=== PATIENT | female | born 1965 | race Caucasian/White ===

== ENCOUNTER → 2020-05-18 09:50 | Outpatient (BNVA) | payer OTHER, SELFPAY | PROVIDERS: PCP Internal Medicine; Visit Provider Physician Assistant | DX: Z76.89 Persons encountering health services in other specified circumstances (principal) ==

== ENCOUNTER → 2020-05-29 07:44 | Outpatient (BNVA) | payer OTHER, SELFPAY | PROVIDERS: PCP Internal Medicine; Visit Provider Surgery | DX: Z76.89 Persons encountering health services in other specified circumstances (principal) ==

== ENCOUNTER 2020-06-24 07:11 | Outpatient (REF) | payer OTHER, SELFPAY ==
--- NOTE | 2020-06-24 07:39 | US_ITS ---
EXAMINATION: US COMPLETE ABDOMEN WITH LIVER ELASTOGRAPHY CLINICAL INFORMATION: Obesity. Preop. COMPARISON: None. TECHNIQUE: Real-time imaging of the abdominal viscera. Noninvasive ultrasound liver fibrosis assessment is performed using Luis Carlos ElastPQ point quantification shear wave elastography (pSWE) with a 5 MHz transducer. Multiple elastography samples are obtained. FINDINGS: PANCREAS: The pancreas is completely obscured by overlying gas. ABDOMINAL AORTA: The proximal, middle, and distal aortic segments are normal in caliber. INFERIOR VENA CAVA: Visualized portions are normal. LIVER: The liver demonstrates normal size, contour and increased echogenicity. There are areas of focal fatty sparing seen. No additional lesion or intrahepatic biliary duct dilatation. The right lobe measures 21.8 cm in length. The left lobe measures 13.8 cm in length. There is normal hepatopedal flow seen in the portal vein on Doppler exam. Shear wave elastography provides a median stiffness of 1.17 m/s (reference: normal median stiffness is 0.81 - 1.22 m/s). The IQR/median stiffness to assess sampling precision is 1.16 (reference: optimal IQR/median stiffness is under 0.3). GALLBLADDER: The gallbladder is physiologically distended without evidence of stones, sludge, polyps, wall thickening, or pericholecystic fluid. The gallbladder wall thickness is 0.26 cm. COMMON BILE DUCT: Normal in caliber measuring 0.62 cm in diameter. RIGHT KIDNEY: Normal. No hydronephrosis. No renal calculi or focal parenchymal lesions. The kidney measures 13.7 cm in maximum dimension. LEFT KIDNEY: Normal. No hydronephrosis. No renal calculi or focal parenchymal lesions. The kidney measures 11.7 cm in maximum dimension. SPLEEN: Normal. The spleen measures 10.3 cm in maximum dimension. FREE FLUID: None. US/US abdomen comp w elastography IMPRESSION: 1. Diffuse hepatic steatosis with areas of focal fatty sparing. 2. The rest of the abdominal ultrasound is unremarkable. The pancreas was not seen. 3. Elastography: Liver elastography measurements are within normal (METAVIR Stage F0).
--- NOTE | 2020-06-24 07:41 | XR_ITS ---
EXAMINATION: XR CHEST CLINICAL INFORMATION: Excessive calories. Preop COMPARISON: None TECHNIQUE: 2 views of the chest were obtained. FINDINGS: No significant abnormality is noted involving the heart, lungs, mediastinum, bony thorax or soft tissues. XR/XR chest 2V IMPRESSION: Unremarkable chest examination.
--- NOTE | 2020-06-24 07:41 | FL_ITS ---
EXAMINATION: XR GI SERIES CLINICAL INFORMATION: Gastroesophageal reflux disease without esophagitis COMPARISON: None TECHNIQUE: Routine upper GI air-contrast study was performed. FINDINGS: Following oral administration of thick barium and effervescent granules, there is normal propagation bolus from the oral cavity through the pharynx, esophagus into stomach without any evidence of obstruction, narrowing, or stricture. On placing patient supine and prone lying, the course, caliber and peristalsis of the stomach, duodenal bulb and the sweep is normal. The mucosal pattern of esophagus and the duodenum is normal. There is mild gastroesophageal reflux without hiatal hernia in the right lateral decubitus view FLUOROSCOPY TIME: 1.6 minutes DOSE AREA PRODUCT: 43.082 uGy-m2 (microgray-meter squared) FL/FL upper GI series IMPRESSION: 1. Mild gastroesophageal reflux without hiatal hernia. 2. The rest of the upper GI exam is unremarkable.
[2020-06-24 07:44] LABS: MANUAL DIFF FLAG NO
[2020-06-24 07:56] LABS: Basophils Percent Auto 0.7 % (0-2); Eosinophils Absolute Auto 0.1 X10*3/uL (0.0-0.4); Eosinophils Percent Auto 2.3 % (0-4); Hematocrit 40.1 % (37-47); Hemoglobin 12.6 g/dl (12.0-16.0); Imm Gran Abs Auto 0.01 X10*3/uL (0.00-0.03); Imm Gran Pct Auto 0.2 % (0.0-0.4); Lymphocytes Absolute Auto 1.8 X10*3/uL (1.2-4.9); Lymphocytes Percent Auto 29.8 % (20-40); Mean Corpuscular HGB Conc 31.4 g/dl (31.0-35.0); Mean Corpuscular Hemoglobin 25.9 pg (27.0-33.0); Mean Corpuscular Volume 82.5 fL (80-98); Mean Platelet Volume 9.7 fL (9.4-12.3); Monocytes Absolute Auto 0.7 X10*3/uL (0.1-1.2); Neutrophils Absolute Auto 3.4 X10*3/uL (2.0-8.3); Platelet Count 312 X10*3/uL (160-400); Red Blood Count 4.86 X10*6/uL (4.20-5.50); Red Cell Distribution Width 14.9 % (11.0-16.0)
[2020-06-24 08:12] LABS: Estimated Average Glucose 163 mg/dL; Hemoglobin A1c % 7.3 %
[2020-06-24 08:16] LABS: Iron 53 mcg/dL (30-160); Percent Iron Saturation 14 % (15-50); Total Iron Binding Capacity 366 mcg/dL (228-428); Unsaturated Iron Binding 313 ug/dL
[2020-06-24 08:18] LABS: Alanine Aminotransferase 30 U/L (0-31); Albumin Level 4.6 g/dL (3.5-5.0); Alkaline Phosphatase 86 U/L (39-117); Anion Gap 15 (12-20); Aspartate Amino Transferase 18 U/L (5-31); Bilirubin Total 0.5 mg/dL (0.0-1.0); Blood Urea Nitrogen 18 mg/dL (9-16); C Reactive Protein 1.12 mg/dL (< or = 0.50); Calcium 9.4 mg/dL (8.4-10.2); Carbon Dioxide 29 mmol/L (22-29); Chloride 102 mmol/L (96-108); Cholesterol 153 mg/dL; Estimated Glomerular Filt Rate > 60; Glucose Random 148 mg/dL (60-115); HDL Cholesterol 55 mg/dL; LDL Cholesterol Calculated 77 mg/dl; Potassium 3.9 mmol/l (3.3-5.1); Sodium 142 mmol/L (135-145); Total Protein 7.6 g/dL (6.5-8.0); Triglycerides 105 mg/dL
[2020-06-24 08:40] LABS: Ferritin 18 ng/mL (10-250); TSH reflex Free T4 1.03 mIU/mL (0.32-4.0); Vitamin D 25-OH Total 17.5 ng/mL (>30)
[2020-06-24 08:44] LABS: Folate 12.9 ng/mL (> or = 4.0); Vitamin B12 607 pg/mL (200-900)
[2020-06-25 06:17] LABS: Insulin Level Total 52.5 uIU/mL
[2020-06-25 17:21] LABS: Calcium (PTHI) 9.5 mg/dL (8.6-10.4); PTHI 81 pg/mL (14-64)
[2020-06-26 20:27] LABS: Zinc 88 mcg/dL (60-130)
[2020-06-28 11:47] LABS: Vitamin B1 13 nmol/L (8-30)
[2020-06-30 13:12] LABS: Vitamin A 39 mcg/dL (38-98)
== END 2020-06-24 07:12 | disposition home or self-care (01) ==
LOC: HO.US 07:11
PROVIDERS: PCP Internal Medicine; Visit Provider Surgery
DX: Z01.818 Encounter for other preprocedural examination (principal); K21.9 Gastro-esophageal reflux disease without esophagitis; E66.01 Morbid (severe) obesity due to excess calories; K31.84 Gastroparesis; G47.30 Sleep apnea, unspecified; E78.5 Hyperlipidemia, unspecified; I10 Essential (primary) hypertension
CPT/HCPCS: 36415; 71046; 74240; 76705; 76981; 80053; 80061; 82306; 82607; 82728; 82746; 83036; 83525; 83540; 83970; 84425; 84443; 84590; 84630; 85025; 86140

== ENCOUNTER → 2020-06-26 12:21 | Outpatient (REF) | payer OTHER, SELFPAY ==
--- NOTE | 2020-06-26 14:07 | ECG_ITS ---
Test Reason : GERD Blood Pressure : / mmHG Vent. Rate : 068 BPM Atrial Rate : 068 BPM P-R Int : 166 ms QRS Dur : 102 ms QT Int : 430 ms P-R-T Axes : 056 002 039 degrees QTc Int : 457 ms Normal sinus rhythm Normal ECG When compared with ECG of 23-JAN-2006 12:43, No significant change was found Referred By: Gary Mendez Electronically Signed By:SILAS DURBIN MD
[2020-06-27 14:52] LABS: H Pylori Breath Test NOT DETECTED (NOT DETECTED)
== END ==
LOC: HO.CARD 12:21
PROVIDERS: PCP Internal Medicine; Visit Provider Surgery
DX: R11.0 Nausea (principal); E66.01 Morbid (severe) obesity due to excess calories; K21.9 Gastro-esophageal reflux disease without esophagitis; E78.5 Hyperlipidemia, unspecified; I10 Essential (primary) hypertension; K31.84 Gastroparesis; G47.30 Sleep apnea, unspecified; A04.8 Other specified bacterial intestinal infections; Z99.89 Dependence on other enabling machines and devices
CPT/HCPCS: 83013; 93005

== ENCOUNTER → 2020-06-29 08:06 | Outpatient (REF) | payer OTHER, SELFPAY ==
--- NOTE | 2020-06-29 | NM_ITS ---
Myocardial perfusion study Indication: Preoperative cardiovascular risk stratification with risk factors to evaluate for myocardial ischemia Technique: The patient was brought in for a Lexiscan perfusion study on 06/29/2020. Patient performed low-level exercise and was injected 0.4 mg of Lexiscan intravenously. Within a minute of injection, 40 mCi of sestamibi was given intravenously. Images were obtained using the SPECT gamma camera interlaced with the gating device. Images were obtained in supine position. Resting perfusion study was performed on 06/30/2020. Patient was administered 40 mCi of sestamibi intravenously at rest. Images were then obtained in supine position. Images obtained with and without CT attenuation. Total DLP 146 mGy-cm. Images were processed with the software and compared side to side in short axis, horizontal long axis and vertical long axis views. Findings: The stress perfusion study showed non attenuated and show minimally reduced uptake in a very small area of distal lateral wall of the LV myocardium, remainder of the LV myocardium is normally perfused. Attenuation corrected images show mildly reduced uptake in the apex of the LV myocardium.. The gated study shows normal LV systolic function with calculated LVEF of 69%. LV cavity is normal in size. The gated study shows normal systolic wall thickening and contraction of segments. Resting study shows non attenuated images shows minimally reduced uptake in a very small area of distal lateral wall of the LV myocardium.. Gating at rest reveals normal systolic wall motion with ejection fraction at 60%. The findings are consistent with normal myocardial perfusion. NM/NM louie perf SPECT rest & str Impression: 1. Myocardial perfusion imaging study shows normal myocardial perfusion 2. Gated LVEF is 69% 3. Transient ischemic dilatation not present EKG is nondiagnostic for ischemia
--- NOTE | 2020-06-29 08:11 | CA_ITS ---
Transthoracic Echocardiogram Patient (Last, First, Middle): Amanda Harrington, Gender: Female Date of : 1965 Age: 55 Procedure Date: 06/29/2020 Procedure Type: Transthoracic Echocardiogram Location: OP Height: 170.18 cm Weight: 118.84 kg BSA: 2.27 m2 Heart Rate: bpm BP: 146 / 70 mmHg Able Seaman: DAVEY Referring MD: Gary Mendez MD Symptoms: K21.9 - Gastro-esophageal reflux disease without esophagitis Study Quality: Technically Difficult ECG Rhythm: Sinus Conclusions: - The left ventricular systolic function is normal. The visually estimated ejection fraction is between 65-70%. - No obvious valvular pathology seen on this study. Findings Procedure Information Contrast agent, definity, is being given per protocol without apparent complications. Left Ventricle Normal left ventricular cavity size. There is mildly increased left ventricular wall thickness. The left ventricular systolic function is normal. The visually estimated ejection fraction is between 65-70%. There is no evidence of regional wall motion abnormalities. Diastolic function is normal for age. Right Ventricle Normal right ventricular cavity size and systolic function. Atria The left atrium is normal in size. The right atrium is normal in size. Aortic Valve There is a normal trileaflet aortic valve. There is no aortic valve stenosis. There is no aortic valve regurgitation. Mitral Valve The mitral valve appears normal. There is no mitral valve regurgitation. There is no mitral valve stenosis. Pulmonic Valve The pulmonic valve was not well visualized. Tricuspid Valve Normal tricuspid valve structure. There is trace tricuspid valve regurgitation. The pulmonary artery systolic pressure is normal. Great Vessels The aortic annulus, sinuses of valsalva, and asc aorta are normal in size. Venous The inferior vena cava was not well visualized. Pericardium/Pleural There is no evidence of pericardial effusion. Prior Study Comparison No prior study available for comparison. Recommendations, Care & Conclusions No obvious valvular pathology seen on this study. Measurements M-Mode Liner Measurements Normals - Women/Men IVSd: 1.42 0.6-0.9/0.6-1.0 cm LVIDd: 4.44 3.9-5.3/4.2-5.9 cm LVIDd Index: 1.96 1.9-3.2 cm/m2 LVIDs: 2.61 2.0-3.8 cm LVPWd: 1.56 0.6-0.9/0.6-1.0 cm LV Mass: 333.83 67-162/88-224g LV Mass Index: 147.06 43-95/49-115 g/m2 M-Mode Volumes LV EDV: 89.60 LV ESV: 24.80 2D Linear Measurements IVSd: 1.45 0.6-0.9/0.6-1.0 cm LVIDd: 4.22 3.9-5.3/4.2-5.9 cm LVIDd Index: 1.86 2.4-3.2/2.2-3.1 cm/m2 LVIDs: 2.93 2.0-3.6 cm LVPWd: 1.21 0.7-1.1 cm Ao Root: 3.00 2.1-3.5 cm LA Diam: 3.60 2.7-3.8/3.0-4.0 cm LAIDs Index: 1.59 1.5-2.3 cm/m2 LV Mass: 260.53 67-162/88-224 g LV Mass Index: 114.77 43-95/49-115 g/m2 LVOT Diam: 2.00 3.0+(-)1.3 cm 2D Systolic Function EF 4C: 84.60 >55% EF 2C: 58.40 >55% EF BiP: 74.70 >55% M-Mode Systolic Function FS: 41.20 27-47/25-43% LVEF: 72.30 >55% Mitral Valve MV Pk E: 0.73 MV PK A: 0.70 MV Decel Time: 174.00 E/A: 1.00 E'Lateral: 9.38 E'Medial: 8.41 E/E' Med: 8.70 E/E' Lat: 7.80 PHT: 51.00 MVA PHT: 4.31 Decel [place]: 4.17 Aortic Valve AoV Pk Raj: 1.47 AoV Pk Grad: 9.00 LVOT LVOT Pk Raj: 1.03 LVOT Mn Raj: 0.69 LVOT VTI: 0.23 LVOT Pk Grad: 4.00 LVOT Mn Grad: 2.00 LVOT Diam: 2.00 LVOT Area: 3.14 Diastolic Function MV Pk E: 0.73 MV Pk A: 0.70 E/A: 1.00 E'Medial: 8.41 E/E' Med: 8.70 E' Laterial: 9.38 E/E' Lat: 7.80 Tricuspid Valve TR Pk Raj: 2.24 TR Pk Grad: 20.00 RA Press: 3.00 RVSP: 23.00 Great Vessels Aorta Ao Root-2D: 3.00 2.0-3.7 cm Ao Asc: 3.10 2.1-3.4 cm Updated in Other Vendor System with Status of Final Oliver Souza MD electronically signed on 06/29/2020 11:34:25 AM with status of Final
--- NOTE | 2020-06-29 08:11 | CA_ITS ---
Acquisition Time: 2020-06-29 10:26:01 Total Exercise Time: 00:02:00 Test Indications: Pre-Op Evaluation Medications: OMEPRAZOLE VERAPAMIL INSULIN CITALOPRAM ROSUVASTATIN Protocol: LEXISCAN Max HR: 106 BPM 64% of Pred: 164 BPM Max BP: 132/082 mmHG Max Work Load: 1.0 METS Pharmacological stress test using Lexiscan while sitting and kicking her feet. Pt tolerated well. Denies any anginal sx. Sx o h/a and nausea reversed with Aminophyline 75 mg IV. EKG without any arrhythmias, non-diagnostic for ischemia. Nuclear images to follow. Normotensive respopnse to test. Test reviewed with Dr. Souza. Referred By: Gary Mendez Overread By: Carol Morales
== END ==
LOC: HO.CARD 08:06
PROVIDERS: PCP Internal Medicine; Visit Provider Surgery
DX: Z01.818 Encounter for other preprocedural examination (principal); R06.02 Shortness of breath; I10 Essential (primary) hypertension; K21.9 Gastro-esophageal reflux disease without esophagitis; K31.84 Gastroparesis; G47.30 Sleep apnea, unspecified; E78.5 Hyperlipidemia, unspecified; E66.01 Morbid (severe) obesity due to excess calories; R55 Syncope and collapse
CPT/HCPCS: 78452; 93017; 93306; A9500; J0280; J2785; Q9957

== ENCOUNTER → 2020-07-03 08:21 | Outpatient (BNVA) | payer OTHER, SELFPAY | PROVIDERS: PCP Internal Medicine; Visit Provider Dietitian, Registered ==

== ENCOUNTER → 2020-07-22 08:18 | Outpatient (BNVA) | payer OTHER, SELFPAY | PROVIDERS: PCP Internal Medicine; Visit Provider Surgery ==

== ENCOUNTER → 2020-07-24 08:12 | Outpatient (BNVA) | payer OTHER, SELFPAY | PROVIDERS: PCP Internal Medicine; Visit Provider Dietitian, Registered ==

== ENCOUNTER → 2020-07-30 08:17 | Outpatient (BNVA) | payer OTHER, SELFPAY | PROVIDERS: PCP Internal Medicine; Visit Provider Dietitian, Registered ==

== ENCOUNTER → 2020-08-14 08:57 | Outpatient (BNVA) | payer OTHER, SELFPAY | PROVIDERS: PCP Internal Medicine; Visit Provider Surgery ==

== ENCOUNTER → 2020-08-31 08:43 | Outpatient (BNVA) | payer OTHER, SELFPAY | PROVIDERS: PCP Internal Medicine; Visit Provider Physician Assistant ==

== ENCOUNTER → 2020-09-04 07:06 | Outpatient (BNVA) | payer OTHER, SELFPAY | PROVIDERS: PCP Internal Medicine; Visit Provider Surgery ==

== ENCOUNTER 2020-09-05 07:54 | Outpatient (REF) | payer OTHER, SELFPAY ==
[2020-09-05 08:38] LABS: MANUAL DIFF FLAG NO
[2020-09-05 08:43] LABS: Basophils Percent Auto 0.8 % (0-2); Eosinophils Absolute Auto 0.2 X10*3/uL (0.0-0.4); Eosinophils Percent Auto 3.2 % (0-4); Hematocrit 42.1 % (37-47); Hemoglobin 13.3 g/dl (12.0-16.0); Imm Gran Abs Auto 0.01 X10*3/uL (0.00-0.03); Imm Gran Pct Auto 0.2 % (0.0-0.4); Lymphocytes Absolute Auto 1.6 X10*3/uL (1.2-4.9); Mean Corpuscular HGB Conc 31.6 g/dl (31.0-35.0); Mean Corpuscular Volume 82.4 fL (80-98); Mean Platelet Volume 10.1 fL (9.4-12.3); Monocytes Absolute Auto 0.6 X10*3/uL (0.1-1.2); Monocytes Percent Auto 12.1 % (2-11); Neutrophils Absolute Auto 2.4 X10*3/uL (2.0-8.3); Neutrophils Percent Auto 50.7 % (45-73); Platelet Count 276 X10*3/uL (160-400); Red Blood Count 5.11 X10*6/uL (4.20-5.50); Red Cell Distribution Width 15.2 % (11.0-16.0); White Blood Count 4.7 X10*3/uL (4.8-10.8)
[2020-09-05 08:53] LABS: Estimated Average Glucose 148 mg/dL; Hemoglobin A1c % 6.8 %
[2020-09-05 08:55] LABS: INTERNATIONAL NORM RATIO 1.1 (0.9-1.1); Prothrombin Time 13.2 SEC (10.8-13.0)
[2020-09-05 08:58] LABS: Partial Thromboplastin Time 35.8 SEC (24.1-38.0)
[2020-09-05 09:19] LABS: Alanine Aminotransferase 55 U/L (0-31); Albumin Level 4.6 g/dL (3.5-5.0); Alkaline Phosphatase 99 U/L (39-117); Anion Gap 16 (12-20); Aspartate Amino Transferase 31 U/L (5-31); Bilirubin Total 0.6 mg/dL (0.0-1.0); Blood Urea Nitrogen 17 mg/dL (9-16); C Reactive Protein 1.01 mg/dL (< or = 0.50); Calcium 9.9 mg/dL (8.4-10.2); Carbon Dioxide 28 mmol/L (22-29); Chloride 103 mmol/L (96-108); Cholesterol 164 mg/dL; Estimated Glomerular Filt Rate > 60; Glucose Random 134 mg/dL (60-115); HDL Cholesterol 55 mg/dL; LDL Cholesterol Calculated 88 mg/dl; Potassium 4.3 mmol/L (3.3-5.1); Sodium 143 mmol/L (135-145); Total Protein 7.9 g/dL (6.5-8.0); Triglycerides 105 mg/dL
[2020-09-05 09:40] LABS: TSH reflex Free T4 0.89 uIU/mL (0.32-4.0)
[2020-09-07 21:16] LABS: Insulin Level Total 54.5 uIU/mL
== END 2020-09-05 07:55 | disposition home or self-care (01) ==
LOC: HO.LAB 07:54
PROVIDERS: PCP Internal Medicine; Visit Provider Surgery
DX: Z13.89 Encounter for screening for other disorder (principal)
CPT/HCPCS: 36415; 80053; 80061; 83036; 83525; 84443; 85025; 85610; 85730; 86140; 86850; 86900

== ENCOUNTER 2020-09-08 05:50 | Inpatient (IN) | payer OTHER, SELFPAY ==
[2020-09-04 10:25] VITALS: BMI 38.0
--- NOTE | 2020-09-07 08:40 | HO.ANESPROP2 ---
Documented by User: Zita Abena 09/07/20 08:44 HPI - Anesthesia Eval Consult details Narrative: 55yo F for Gastric Bypass Laparoscopic Insulin pump in situ PMFSH Active Problems Active Problems: All Active Problems (Updated 09/04/20 @ 10:30 by Sarah Jovel) Nausea (Acute) Constipation (Acute) Obesity (Acute) BMI 39.0-39.9,adult (Acute) Syncope (Acute) GERD (gastroesophageal reflux disease) (Acute) Depression (Acute) Fibromyalgia (Acute) Restless leg syndrome (Acute) Gastroparesis (Acute) Sleep apnea with use of continuous positive airway pressure (CPAP) (Acute) Hyperlipidemia (Acute) Hypertension (Acute) Insulin dependent diabetes mellitus (Acute) Morbid obesity (Acute) Past Medical History Medical History (Updated 09/04/20 @ 10:30 by Sarah Jovel) Depression Fibromyalgia Gastroparesis GERD (gastroesophageal reflux disease) Hx gestational diabetes Hx of nausea Hyperlipidemia Hypertension Insulin dependent diabetes mellitus Morbid obesity Restless leg syndrome Sleep apnea with use of continuous positive airway pressure (CPAP) Syncope Family History Family History Mother Hypertension Hyperlipidemia Osteoporosis Father No problems noted. Brother No problems noted. Brother Hypertension Brother Hypertension Brother No problems noted. Sister No problems noted. Son No problems noted. Surgical History Surgical History (Updated 09/04/20 @ 10:30 by Sarah Jovel) H/O colonoscopy History of esophagogastroduodenoscopy (EGD) Hx of cerebral aneurysm repair Hx of section Hx of foot surgery Hx of myomectomy Social History Social History (Updated 09/04/20 @ 10:33 by Sarah Jovel) Are you a primary director of healthcare systems to a significant other at home: No Do you presently have visiting nurse or other home services: No Alcohol intake: never Smoking Status: Former smoker Smoked in Last 30 Days: No Smoking Quit Date: age 25 Use of substances other than those prescribed or required for medical reasons: No Have you been hit, kicked, punched, or otherwise hurt by someone within the past year? If so, by whom?: No Advance Directives Information Provided: No Recently lost weight without trying: No Meds Allergies Allergy/AdvReac Type Severity Reaction Status Date / Time metformin [METFORMIN] Allergy Intermediate VOMITING Verified 09/04/20 11:50 lisinopril [LISINOPRIL] AdvReac Intermediate COUGH Verified 09/04/20 11:50 Home Medications Medication Instructions Recorded Confirmed Last Taken Type blood sugar diagnostic #10 ea 05/28/20 09/04/20 Unknown History citalopram 40 mg tablet 40 mg PO BEDTIME 05/28/20 09/04/20 Unknown History glucagon (human recombinant) 1 mg 1 mg IM DIRECTED 05/28/20 09/04/20 Unknown History solution for injection insulin lispro 100 unit/mL SUBCUT DAILY 05/28/20 09/04/20 09/04/20 10:38 History subcutaneous solution omeprazole 40 mg capsule,delayed 40 mg PO DAILY 05/28/20 09/04/20 Unknown History release rosuvastatin 40 mg tablet 40 mg PO BEDTIME 05/28/20 09/04/20 Unknown History Exam Exam Date and Time: September 07, 2020 0840 Height,Weight and Vital Signs: Height 5 ft 7 in Weight 110.223 kg Pertinent Lab Results Pertinent Lab Results: Laboratory Tests 09/05/20 09/05/20 09/05/20 08:10 08:10 08:10 WBC 4.7 L Hgb 13.3 Hct 42.1 Plt Count 276 PT 13.2 H INR 1.1 APTT 35.8 Sodium 143 Potassium 4.3 Chloride 103 Carbon Dioxide 28 BUN 17 H Creatinine 0.79 Estimated GFR > 60 Total Bilirubin 0.6 AST 31 D ALT 55 H Alkaline Phosphatase 99 C-Reactive Protein 1.01 H Total Protein 7.9 Albumin 4.6 TSH 0.89 Narrative Narrative: NM louie perf SPECT rest & str 06/2020 Impression: 1. Myocardial perfusion imaging study shows normal myocardial perfusion 2. Gated LVEF is 69% 3. Transient ischemic dilatation not present EKG is nondiagnostic for ischemia ECHO 06/2020 Conclusions: - The left ventricular systolic function is normal. The visually estimated ejection fraction is between 65-70%. - No obvious valvular pathology seen on this study. EKG 06/2020 Vent. Rate : 068 BPM Atrial Rate : 068 BPM P-R Int : 166 ms QRS Dur : 102 ms QT Int : 430 ms P-R-T Axes : 056 002 039 degrees QTc Int : 457 ms Normal sinus rhythm Normal ECG When compared with ECG of 23-JAN-2006 12:43, No significant change was found Assessment and Plan Assessment Anesthesia Assessment: Chart Reviewed Documented by User: Geni De León 09/08/20 07:49 PMFSH Past Medical History Medical History (Updated 09/04/20 @ 10:30 by Sarah Jovel) Depression Fibromyalgia Gastroparesis GERD (gastroesophageal reflux disease) Hx gestational diabetes Hx of nausea Hyperlipidemia Hypertension Insulin dependent diabetes mellitus Morbid obesity Restless leg syndrome Sleep apnea with use of continuous positive airway pressure (CPAP) Syncope Family History Family History Mother Hypertension Hyperlipidemia Osteoporosis Father No problems noted. Brother No problems noted. Brother Hypertension Brother Hypertension Brother No problems noted. Sister No problems noted. Son No problems noted. Family history of problems with anesthesia: No Surgical History Surgical History (Updated 09/04/20 @ 10:30 by Sarah Jovel) H/O colonoscopy History of esophagogastroduodenoscopy (EGD) Hx of cerebral aneurysm repair Hx of section Hx of foot surgery Hx of myomectomy History of Problems with Anesthesia: No Social History Social History (Updated 09/04/20 @ 10:33 by Sarah Jovel) Are you a primary director of healthcare systems to a significant other at home: No Do you presently have visiting nurse or other home services: No Alcohol intake: never Smoking Status: Former smoker Smoked in Last 30 Days: No Smoking Quit Date: age 25 Use of substances other than those prescribed or required for medical reasons: No Have you been hit, kicked, punched, or otherwise hurt by someone within the past year? If so, by whom?: No Advance Directives Information Provided: No Recently lost weight without trying: No Meds Allergies Allergy/AdvReac Type Severity Reaction Status Date / Time metformin [METFORMIN] Allergy Intermediate VOMITING Verified 09/04/20 11:50 lisinopril [LISINOPRIL] AdvReac Intermediate COUGH Verified 09/04/20 11:50 Home Medications Medication Instructions Recorded Confirmed Last Taken Type blood sugar diagnostic #10 ea 05/28/20 09/04/20 Unknown History citalopram 40 mg tablet 40 mg PO BEDTIME 05/28/20 09/04/20 Unknown History glucagon (human recombinant) 1 mg 1 mg IM DIRECTED 05/28/20 09/04/20 Unknown History solution for injection insulin lispro 100 unit/mL SUBCUT DAILY 05/28/20 09/04/20 09/04/20 10:38 History subcutaneous solution omeprazole 40 mg capsule,delayed 40 mg PO DAILY 05/28/20 09/04/20 Unknown History release rosuvastatin 40 mg tablet 40 mg PO BEDTIME 05/28/20 09/04/20 Unknown History Exam Height,Weight and Vital Signs: Vital Signs Temp Pulse Resp BP Pulse Ox 09/08/20 06:19 98 F 78 18 142/78 H 98 Pertinent Lab Results Pertinent Lab Results: Lab Results 09/05/20 09/08/20 09/08/20 Range/Units 08:10 06:05 06:28 POC Glucose 187 H (60-115) mg/dL COVID-19 ([facility]) Negative (Negative) COVID-19 Clin Com See Note Blood Type A Positive Antibody Screen NEGATIVE Airway Mallampati Class: III TM Dist: >3cm Neck ROM: Full Heart: RRR Lungs: CTAB Assessment and Plan Assessment Anesthesia Assessment: Anesthesia Plan Discussed and Chart Reviewed Final Anesthetic Review NPO: Yes ASA Class: III Final Preanesthetic Review: No Changes in Pt Med Stat, Meds/Allgs Chart Reviewed, Consent Obtained/Reviewed and Anes Risks/Benef Reviewed Patient Risk: Intermediate Procedure Risk: Intermediate Assessment/Block/Sedation in SS: Assess/Block/Sedation-SS Anesthetic Plan Anesthetic Plan: GA Disposition: Inp. Admit - Standard Bed
--- NOTE | 2020-09-07 19:11 | MHC.SHP ---
Pre-Procedural Eval Section A The patient is an INPATIENT: Yes Changes since office visit: Yes Cold of Flu in the past 2 weeks The History & Physical has been completed within 30 days and I have reviewed it.: Yes Section B Chief Complaint: mobid obesity Details of Present Illness: obesity Relevant Family History (Specify if Yes): No Relevant Social History: None Present Medications: see Short Stay Collaborative assessment Medical History: No relevant PMH History of Previous Operations: No relevant previous surgery Allergies: Allergies Allergy/AdvReac Type Severity Reaction Status Date / Time metformin [METFORMIN] Allergy Intermediate VOMITING Verified 09/04/20 11:50 lisinopril [LISINOPRIL] AdvReac Intermediate COUGH Verified 09/04/20 11:50 Review of Systems Sugical H&P ROS: Negative: Constitution, Cardiovascular, Respiratory, Neurological, Psychiatric, Hem-Onc, Allergic/Immunologic, Gastrointestinal, Genitourinary, Musculoskeletal, Integumentary, Endocrine and Eyes/Ears/Nose/Throat Exam Surgical H&P Exam: Normal: HEENT, Normal: Heart, Normal: Lungs, Normal: Extremities, Normal: Abdomen, Normal: Skin and Normal: Neurological Plan Diagnosis/Plan: Unchanged I have reviewed the history and physical and performed a pertinent physical examination on my patient. No changes have occurred unless specified.
[2020-09-08] VITALS (21 sets, daily range): BP systolic 118–184; BP diastolic 71–88; PULSE 78–98; RESP 14–24; TEMP 36–37.1; O2SAT 90–99
--- NOTE | ~2020-09-08 | FL_ITS ---
EXAMINATION: UPPER GI GASTROGRAFIN STUDY. CLINICAL INFORMATION: Status post closed on day 1 following gastric bypass. COMPARISON: None TECHNIQUE: In upright position 50/50 diluted Gastrografin was administered orally and images obtained. Delayed images were obtained approximately 10 minutes later. FINDINGS: Following oral administration of 50/50 Gastrografin dilution contrast an upright view there is normal antegrade flow seen from the oral cavity through the esophagus into stomach. There is spontaneous emptying of contrast from the small stomach into the duodenum without obstruction or reflux. Delayed images obtained approximately 10 minutes following the Gastrografin study reveals contrast within the distal jejunal segments FL/FL upper GI w gastrografin IMPRESSION: Widely patent GE junction and gastrojejunal anastomosis following gastric bypass. There is no obstruction seen. Contrast is visualized in mid to distal jejunum on delayed images. Fluoroscopy time: 0.5 minutes. DOSE AREA PRODUCT: 20.38 GYCM2 IMAGES: 13.
[2020-09-08 06:31] LABS: Glucose, Whole Blood 187 mg/dL (60-115)
[2020-09-08 06:39] LABS: COVID-19 Test Negative (Negative)
[2020-09-08 06:40] LABS: IDNOW Serial# 9DD0AD1C
[2020-09-08] MEDS: Lactated Ringers 1,000 ML 999 ML IV (06:44)
[2020-09-08] MEDS: Lactated Ringers 1,000 ML 100 ML IVCONT (06:44)
[2020-09-08] MEDS: Scopolamine 1.5 MG PATCH.TD.3 TRANSDERMA (06:44)
--- NOTE | 2020-09-08 06:45 | PC.NURSE ---
vanessa crockett prep ilquid patricio to brown denies pain nad vanessa crockett has cpap with her aware of plan of care sr on the monitor nad
--- NOTE | 2020-09-08 07:48 | PC.NURSE ---
insulin pump and poc monitor off per ordereed in plastic container in belongings
--- NOTE | 2020-09-08 12:46 | PM.DS ---
DS: Providers Provider Date of Service: 09/09/20 Date of admission: 09/08/20 05:50 Primary care physician: Shashi Farrell MD DS: Medications Discharge Medications Home Medications: Home Medications Medication Instructions Recorded Confirmed blood sugar diagnostic #10 ea 05/28/20 09/04/20 citalopram 40 mg tablet 40 mg PO BEDTIME 05/28/20 09/04/20 glucagon (human recombinant) 1 mg 1 mg IM DIRECTED 05/28/20 09/04/20 solution for injection insulin lispro 100 unit/mL SUBCUT DAILY 05/28/20 09/04/20 subcutaneous solution omeprazole 40 mg capsule,delayed 40 mg PO DAILY 05/28/20 09/04/20 release rosuvastatin 40 mg tablet 40 mg PO BEDTIME 05/28/20 09/04/20 Previous Rx's Medication Instructions Recorded cholecalciferol (vitamin D3) 125 125 mcg PO DAILY #30 cap 06/26/20 mcg (5,000 unit) capsule ondansetron HCl 4 mg tablet 4 mg PO Q6H PRN #30 tab 06/26/20 docusate sodium 100 mg capsule 100 mg PO DAILY #30 cap 07/22/20 sucralfate 100 mg/mL oral 10 ml PO BID #420 ml 08/01/20 suspension pantoprazole 40 mg tablet,delayed 40 mg PO DAILY #30 tab 09/04/20 release polyethylene glycol 3350 17 gram 17 g PO DAILY #14 ea 09/04/20 oral powder packet DS: Summary Time Spent with Patient Time attestation: Total time spent providing and/or coordinating discharge services: 15 minutes ADMITTING DIAGNOSIS: Refractory morbid obesity with a BMI of X kg/m2 and associated co-morbid conditions including paraesophageal hernia, HTN, hyperlipidemia, fibromyalgia, Insulin dependent diabetes mellitus DISCHARGE DIAGNOSIS: as above, s/p laparoscopic RNYGBP and repair of paraesophageal hernia Past surgical history: cerebral aneurysm, section, myomectomy PROCEDURE: Jkslkutg-pmoysb-eyufrflbkmu and laparoscopic Xander-en-Y gastric bypass with repari of paraesophageal hernia DISCHARGE SUMMARY: HISTORY OF PRESENT ILLNESS: The patient is a 55 year-old woman with a BMI of 42.5 kg/m2 and associated co-morbidities as described previously. The patient had extensive preoperative work-up, lost 28.2 lbs preoperatively and was electively scheduled for laparoscopic, possible open gastric bypass. Risks and complications of the surgery were discussed with the patient in advance, particularly the possibility of , pulmonary embolism, anastomotic leak, bleeding, bowel injury, GERD, cardiac, renal or pulmonary complications. The patient understood all the risks and was in agreement with the surgical plan. HOSPITAL COURSE: The patient underwent uneventful laparoscopic Xander-en-Y gastric bypass and repair of paraesophageal hernia on the day of admission. Postoperatively, the patient was transferred to the surgical floor on a monitored bed and hemoglobin during the first 8 hours remained stable at mg/dl. The patient was on IV Acetaminophen and dilaudid for pain control. On postoperative day one, the patient was feeling well without nausea, vomiting, fevers, or tachycardia. The patient had some mild incisional pain. The abdomen was soft. UGI showed no leak or obstruction. The patient was started on 1 ounce of water or ice every half hour. The Izquierdo was discontinued. During the first day, the patient did fairly well, having some incisional pain, but able to ambulate adequately and to tolerate liquids well. Since the patient is doing well, we decided that the patient was ready to be discharged. The patient was given instructions to follow-up with me next week and to call my office for any fever over 101, persistent abdominal pain, nausea, vomiting, change in the color of the PEDRITO fluid, symptoms of DVT such as calf tenderness, or leg swelling, or pulmonary embolism such as chest pain or shortness of breath. The patient was also instructed to drink 40-60 ounces of liquids per day using the 1-ounce cups. The patient was given prescription for Tylenol for pain, Zofran prn for nausea, pantoprazole and carafate. The patient was encouraged to ambulate and use the incentive spirometry. The patient was allowed to shower, but no baths, and encouraged to stay active at home. All of these instructions were given to the patient personally. All questions were answered and the patient understood all instructions. The instructions were given to the patient in print as well. Please send a copy of this report to X Discharge coordination time: Less than 30 minutes Physical Exam Vital Signs: Vital Signs: Last Vital Signs Temp 98.8 F 09/08/20 12:35 Pulse 97 09/08/20 12:35 Resp 23 H 09/08/20 12:35 BP 169/80 H 09/08/20 12:35 Pulse Ox 99 09/08/20 12:35 Body Mass Index 38.0 DS: Data Data Completed and Pending Labs on day of discharge: Laboratory Results - last 24 hr 09/05/20 09/08/20 09/08/20 08:10 06:05 06:28 POC Glucose 187 H COVID-19 ([facility]) Negative COVID-19 Clin Com See Note Blood Type A Positive Antibody Screen NEGATIVE Discharge Plan Discharge Anticipated Discharge Date/Time: 09/09/20 12:41 Patient Disposition: Home Health Service Referrals: [facility] [Outside] (discharged home with new referral to the [facility] for nr[facility] for BARATRIC POST OP ASSESSMENT , DRAIN CARE AND MONITORIN TEACHING TO PATIENT (POST OP SURGERY PATIENT WILL NOT BE USING HER INSULIN PUMP, REINFORCEMENT OF DIABETIC TEAXCHING AND POC MONITORING AND ADMINISTRATIONS OF HER INSULIN PER DISCHARGE ORDERS ,(IF YOU DO NOT HEAR FROM THE [facility] AFTER 12 NOON , PLEASE CALL THE NUMBER ABOVE TO CHECK TO SEE WHEN THEY ARE COMING OUT TIME [facility] PCP PATIENT TO FOLLOW UP POST HOSPITLA DISCHARGE PHONE CALL TRANSPORTATION FAMILY ) Shashi Farrell MD [Primary Care Provider] - Discharge Medications: Continued sucralfate 100 mg/mL suspension 10 ml PO BID Qty: 420 RF: 1 ondansetron HCl 4 mg tablet 4 tab PO Q12H PRN (Reason: Nausea And Vomiting) RF: 0 cyclobenzaprine 10 mg Tablet 10 mg PO TID PRN (Reason: Muscle Spasm) RF: 0 carbidopa-levodopa 25-100 mg Tablet 1 tab PO BEDTIME PRN (Reason: LEG CRAMPS) RF: 0 citalopram 40 mg tablet 40 mg PO BEDTIME RF: 0 pantoprazole 40 mg tablet,delayed release (DR/EC) 40 mg PO DAILY Qty: 30 RF: 2 docusate sodium [Colace] 100 mg capsule 100 mg PO DAILY Qty: 30 RF: 2 Held Lantus Solostar U-100 Insulin 100 unit/mL (3 mL) insulin pen 20 unit subcut QAM Qty: 15 RF: 2 Hold Instructions: Discuss amount of insulin with DR Chan insulin lispro [Humalog Anibal KwikPen U-100] 100 unit/mL insulin pen, half-unit 10.5 unit subcut BEDTIME Qty: 15 RF: 2 Hold Instructions: Discuss with DR R insulin lispro [Humalog U-100 Insulin] 100 unit/mL solution 120 unit subcut DAILY RF: 0 Hold Instructions: Do not replace pump. Follow Dr Rocio ellington's instructions for diabetes control, insulin as needed. rosuvastatin 40 mg tablet 40 mg PO BEDTIME RF: 0 Hold Instructions: Discuss when to restart with Dr Mendez Discontinued omeprazole 40 mg capsule,delayed release(DR/EC) 40 mg PO DAILY RF: 0 cholecalciferol (vitamin D3) 125 mcg (5,000 unit) capsule 125 mcg PO DAILY Qty: 30 RF: 2 No Action (DME) insulin syringes (disposable) 1 mL syringe See Rx Instructions .ROUTE .MEDSUPPLY Qty: 500 RF: 2 (DME) insulin pump controller Misc MISCELLANEOUS RF: 0 (DME) Contour Next Test Strips Strip See Rx Instructions strip Not Applicable DAILY Qty: 10 RF: 0 Discharge Orders: Discharge Order (Routine); Ordered 09/09/20 Ordered By: Gary Mendez Diet: other Activity on Discharge: No heavy lifting Stand Alone Forms: Patient Portal Discharge page Activity Restrictions/Additional Instructions: No tub baths, sex or returning to work until discussed at first post op appointment. No exercise, alcohol, tobacco or illegal drug use. Continue to use incentive spirometer hourly while awake. Walk in home for 5- 10 minutes every 2 hours during the first week. Continue phase 1 diet today and start phase 2 diet tomorrow morning. Follow all instructions in the bariatric handbook and call with any questions. Care Plan Goals: weight loss Health Concerns: morbid obesity Plan of Treatment: see discharge instructions
[2020-09-08] MEDS: HYDROmorphone HCl 0.5 MG/0.5 ML SYRINGE 0.25 MG IVPUSH ×4 (12:50→20:09)
[2020-09-08] MEDS: Famotidine/PF 20 MG/2 ML VIAL IVPUSH ×2 (13:00→21:01)
[2020-09-08 13:23] LABS: Hematocrit 40.4 % (37-47); Hemoglobin 12.7 g/dl (12.0-16.0)
[2020-09-08 13:39] LABS: Anion Gap 17 (12-20); Blood Urea Nitrogen 16 mg/dL (9-16); Calcium 8.5 mg/dL (8.4-10.2); Carbon Dioxide 23 mmol/L (22-29); Chloride 100 mmol/L (96-108); Creatinine Clr Calc Pharmacy 94.5; Estimated Glomerular Filt Rate > 60; Glucose Random 311 mg/dL (60-115); Potassium 4.2 mmol/L (3.3-5.1); Sodium 136 mmol/L (135-145)
[2020-09-08] MEDS: Lactated Ringers 1,000 ML 150 ML IVCONT ×2 (15:39→21:58)
[2020-09-08 16:59] LABS: Glucose, Whole Blood 316 mg/dL (60-115)
[2020-09-08] MEDS: Insulin Lispro 100 UNIT/ML 3 ML VIAL SUBCUT ×2 (17:03→21:01)
[2020-09-08] MEDS: ondansetron HCL 4 MG/2 ML VIAL IVPUSH (17:17)
[2020-09-08] MEDS: ceFAZolin Sodium/Dextrose,Iso 2 GM/50 ML PIGGYBACK IV (17:18)
--- NOTE | 2020-09-08 19:13 | PM.OP ---
Brief Operative Note Date of Service: 09/08/20 Pre-op diagnosis: Severe obesity with comorbidities (see below) Post-op diagnosis: same (& diaphragmatic hernia) Procedure: PROCEDURE: Upper endoscopy, laparoscopic repair of incarcerated diaphragmatic hernia, laparoscopic lysis of adhesions and laparoscopic Xander-en-Y gastric bypass with a Xander limb of 160 cm INDICATIONS: This is a 55 year-old female with an initial BMI of 42.5 kg/m2 and associated comorbid conditions as described previously. After appropriate workup was performed and a 28.2lb weight loss, the patient was electively scheduled for laparoscopic, possibly open, gastric bypass. The risks and complications of the procedure were discussed with the patient in advance, particularly the possibility of ; pulmonary embolism; anastomotic leak; bleeding; bowel obstruction; cardiac, pulmonary, or renal complications; as well as long-term problems such as insufficient weight loss, vitamin deficiency, anastomotic strictures, or ulcers. The patient understood all the risks, and was in agreement to proceed with surgery. DESCRIPTION OF PROCEDURE: After informed consent was obtained from the patient, the patient was given preoperative antibiotics, and was transferred to the operating room. After successful induction of general anesthesia, a Izquierdo catheter and pneumatic compressive devices were placed on both lower extremities. An upper endoscopy was performed next. The oropharynx and esophagus appeared to be within normal limits. There was a diaphragmatic hernia present of moderate size which was not reported at the preoperative upper GI. The stomach was entered. Then after all fluid and air were suctioned and the stomach was fully decompressed, the scope was withdrawn and secured in the mid esophagus. The patient was then prepped and draped in the usual sterile manner, and abdominal access was established at the right upper quadrant with the Junior technique. A 12 mm blunt port was inserted, and the abdomen was insufflated with CO2 to a pressure of 15 mmHg. Under direct visualization, additional ports were placed, specifically a 5 and a 12 mm Versi-Step port, to the left and right of the umbilicus, two 5 mm ports to the left upper quadrant, and a 5 mm Versi-Step port to the right upper quadrant. 1% lidocaine was used to infiltrate preemptively all port sites and fascial defects. There were adhesions in the abdomen involving the omentum and the falciform ligament. Those were lysed completely with the ultrasonic device. Following that, the patient was placed in a steep reverse Trendelenburg position. An additional 5 mm port was placed to the right flank for the Mediflex retractor that was used to retract the left lobe of the liver. The pars flaccida was opened with the ultrasonic device and the lesser sac was entered. The angle of His was opened with the ultrasonic device the fundus of the stomach from any diaphragmatic and splenic attachments. There were extensive congenital adhesions between the pancreas and posterior gastric wall. Those were lysed completely with the ultrasonic device. There was an obvious significant-sized hiatal hernia. I continued dissecting along the hiatus toward the left luz maria and the angle of His. I fully mobilized the fat pad that was incarcerated in the hernia. I then continued by dissecting even further into the posterior retro-esophageal space all the way to the angle of His. I continued to mobilize the esophagus into the mediastinum circumferentially. The right luz maria was also dissected completely. Both vagal nerves were seen and preserved. At that point, I was able to have at least 3 to 5 cm of esophagus into the abdomen. After I completely mobilized the esophagus from both the left and right luz maria and I had a good mobilization of the esophagus, I closed the hernia defect with three interrupted #0 Surgidac sutures using the Endo Stitch device one of which was placed posterior and two anterior to the esophagus. The lesser omentum was divided with an Endo ABEBE-45 articulating [place] load. We opened the angle of His with the ultrasonic device, the fundus of the stomach from any diaphragmatic or splenic attachments. After a window was established there, the stomach was divided transversely with an Endo ABEBE-45 articulating purple load. Every effort was made that the gastric pouch had a tubular and not spherical shape by limiting the vertical division of the stomach with the first staple load at the lesser curvature. A second articulating Endo ABEBE-45 purple load was fired next towards the angle of His. The staple line of the gastric remnant was then reinforced with a running 2-0 Surgidac suture using the Endo Stitch device. The retrogastric space was dissected after the first two staple loads were fired. The retrogastric space was opened in the avascular plane medially to the splenic artery and laterally to the left luz maria all the way to the angle of His. The gastric pouch was completed with two additional Endo ABEBE-45 purple load and 60 articulating orange load. The remaining staple line of the gastric remnant was also reinforced with a running 2-0 Surgidac suture using the Endo Stitch device. The staple line of the gastric pouch was reinforced with Hemoclips. I then opened the gastrocolic ligament between the transverse colon and the greater curvature of the stomach with the ultrasonic device to enter the lesser sac and facilitate delivery of the Xander limb through the lesser sac at a later step of the procedure. The patient was then placed in supine position, and after we retracted the transverse colon and the omentum cephalad, I identified the ligament of Treitz. I counted 50 cm from the ligament of Treitz, and the small bowel and the mesentery were divided with an Endo ABEBE-60 white load. Using the ultrasonic device, we opened the peritoneum at the root of the mesentery further to gain extra mobility. A clip was used to belkys the proximal end of the divided bowel, the bilio-pancreatic end, which was run back to the ligament of Treitz to confirm that we had marked the correct side and we had done so. I then developed the mesocolic window slightly to the left and superior to the ligament of Treitz using the ultrasonic device. The apex of the Xander limb was identified. Following that, I grasped the apex of the Xander limb with an articulating bowel grasper, and after I made sure there was no twisting of the mesentery, it was delivered in a retrocolic, retrogastric fashion through the mesocolic window which I had previously made. Following that, I noted there was no tension between the gastric pouch and the Xander limb. Enterotomies were made at the apex of the pouch and the Xander limb, and the gastro-jejunostomy was made with an Endo ABEBE-45 patricio load measured to be 4.5 cm in diameter. The enterotomy was closed using the Endo Stitch device in one layer of running 2-0 Polysorb suture in a [place] fashion starting from each corner of the enterotomy and tying the two ends together in the center of the enterotomy. The Xander limb was clamped with a bowel clamp approximately 15 cm from the gastro-jejunostomy, and a leak test was performed by submerging the anastomosis in saline and insufflating air off the scope into the pouch. The hiatal hernia repair was intact, and there was no narrowing of the GE junction. There was no air leak during the test. There was no significant ischemia of the mucosa of the gastric pouch or Xander limb. There was no bleeding from the suture or staple lines of the anastomosis, as well as the staple line of the gastric pouch which was clearly seen in its entirety. In addition, the anastomosis was patent, and we easily advanced the scope into the proximal Xander limb. With the scope pulled back at the esophagus, we reinforced the anastomosis circumferentially with multiple interrupted 2-0 Polysorb sutures in a Lembert type fashion using the Endo Stitch device. At that point, I pulled the endoscope back to the esophagus while we were decompressing the Xander limb and gastric pouch from any remaining air. At that point, the patient was placed in supine position, and after I reduced the Xander limb back into the abdomen, I counted 160 cm from the gastro-jejunostomy. An enterotomy was made there with the ultrasonic device. After a similar enterotomy was made at the apex of the bilio-pancreatic limb, the jejuno-jejunostomy was made with an Endo ABEBE-60 white load. The enterotomy was closed with another Endo ABEBE-60 white load after appropriate alignment with four interrupted 2-0 Surgidac sutures. Two anti-obstruction sutures were placed next between the staple line of the bilio-pancreatic limb and the mesentery of the Xander limb distal from the anastomosis to prevent kinking of the anastomosis. I then closed the small bowel mesenteric defect in a running fashion using a running 2-0 Surgidac suture using the Endo Stitch device. I checked the anastomosis at the end. The jejuno-jejunostomy was patent. The Xander limb was not narrowed. The staple lines were intact, viable, without evidence of any ischemia, bleeding, or any open areas, and the entire anastomosis was sitting nicely without tension, narrowing, or kinking. The AEON stapler gun was used. All staple loads were also AEON except from the ABEBE-45 patricio load which was used for the gastro-jejunostomy which was Covidien. I then closed the Gatica's defect with two interrupted 2-0 Surgidac sutures in a U-type fashion and then the mesocolic defect with four interrupted 2-0 Sofsilk sutures in a U-type fashion. The Xander limb was clamped 20 cm inferior to the mesocolic window and another endoscopy was performed. We could easily pass the gastroscope through the gastro-jejunostomy and mesocolic window without any narrowing, kinking, or evidence of bleeding or ischemia. At that point the gastroscope was withdrawn from the patient?s mouth while we were decompressing the bowel and the stomach from any remaining air. I ran back the Xander limb from the mesocolic window to the jejuno-jejunostomy which appeared to be normal without any twisting or kinking. All blood clots were suctioned. We carefully positioned the transverse colon epiploic appendages to the root of the small bowel mesentery to prevent any adhesions between them and the anastomosis that could lead to an internal hernia. I then placed the patient back in a steep reverse Trendelenburg position. I looked into the lesser sac to see how the Xander limb was situating and it was situating well. There was no bleeding from the suture lines of the remnant, angle of His, and gastric pouch, as well as from the mesentery of the Xander limb. At this point we placed a 10 mm PEDRITO drain underneath the gastro-jejunostomy and we secured the skin level with an #0 Sofsilk suture. The Mediflex retractor was removed, and the undersurface of the liver was inspected and there was no bleeding. The patient was placed in supine position. I closed the fascial defect of the periumbilical 12 mm port sites laparoscopically with the EndoClose suture passer device using #1 Polysorb suture and the Junior port with a figure of eight #1 Polysorb suture. Then 120 cc 0.5 % Marcaine and 10mg of Dexamethasone were used to infiltrate both fascial closures as well as all skin incisions. At this point, the abdomen was deflated, all ports were removed under direct vision, and no bleeding was noted from any of the port sites. The skin incisions were irrigated with saline and were closed with 4-0 absorbable monofilament sutures. Steri-Strips and OpSites were used to cover all incisions. The patient was extubated and was transferred in stable condition to the recovery room for further care. I was present and performed all booth parts of the procedure. Ms. Mackenzie was the marketing assistant retail division. There were no residents to assist with this case. Shaquille Mendez MD, PhD, FACS Surgeon: Gary Mendez MD Anesthesia: GETA, local and other (TAP block) Dial Mounter: Ernestina Mackenzie Estimated blood loss (mL): 10 IV fluids (mL): 3,000 Urine output (mL): 30 Pathology: none sent Condition: stable Disposition: PACU
--- NOTE | 2020-09-08 19:26 | PM.PNGS ---
Subjective Subjective Date of Service: 09/09/20 Interval history: Patient has mild incisional pain but was able to ambulate and use the incentive spirometer. PEDRITO output: 100ml Glucose: 317-270 received 30U Lantus last night Physical Exam Vital Signs: Vital Signs: Last Vital Signs Temp 97.2 F 09/08/20 19:15 Pulse 93 09/08/20 19:15 Resp 18 09/08/20 19:15 BP 159/74 H 09/08/20 19:15 Pulse Ox 95 09/08/20 19:15 Body Mass Index 38.0 GI: Inspection: Yes normal to inspection, Yes incision (dry, clean and intact), Yes obesity and Yes other (PEDRITO drain with serosanguinous fluid) Extrem: Right lower extremity: normal to inspection (no calf tenderness) Left lower extremity: normal to inspection (no calf tenderness) Progress Note: A&P Assessment and plan (1) Obesity: Status: Acute (2) BMI 38.0-38.9,adult: Status: Acute (3) S/P gastric bypass: Status: Acute Assessment and Plan: 55 year old Female was admitted 09/08/2020 with morbid obesity and comorbidities. Problem 1: s/p laparoscopic Xander-en-Y gastric bypass, repair of incarcerated diaphragmatic hernia, gastropexy and lysis of adhesions Status: Doing well Plan: Check am labs and UGI. If OK, will begin phase 1 bariatric diet. Monitor blood sugar and adjust insulin dose accordingly (4) S/P repair of paraesophageal hernia: Status: Acute (5) Paraesophageal hernia: Status: Acute (6) GERD (gastroesophageal reflux disease): Status: Acute (7) Gastroparesis: Problem details: continuous nausea Status: Acute (8) Sleep apnea with use of continuous positive airway pressure (CPAP): Status: Acute (9) Restless leg syndrome: Status: Acute (10) Depression: Status: Acute (11) Fibromyalgia: Status: Acute (12) Hyperlipidemia: Status: Acute (13) Hypertension: Problem details: BP med d/c'd since weight loss Status: Acute (14) Insulin dependent diabetes mellitus: Problem details: type 2-dx about 2009-has insulin pump with humalog-glucose during day ~120-170 & at night ~100 Status: Acute (15) Abdominal adhesions: Status: Acute (16) Congenital intra-abdominal adhesions: Status: Acute (17) DJD (degenerative joint disease): Status: Acute (18) Steatosis, liver: Status: Acute (19) Hepatomegaly: Status: Acute (20) Left ventricular hypertrophy: Status: Acute Fall Risk Details Current Medications: Current Medications Generic Name Dose Route Start Last Admin Trade Name Freq PRN Reason Stop Dose Admin Famotidine 20 mg 09/08/20 12:51 09/08/20 13:00 Famotidine/Pf 20 Mg/2 Ml Vial IVPUSH 20 mg BID MOI Administration Hydromorphone HCl 0.25 mg 09/08/20 14:33 Hydromorphone Hcl 0.5 Mg/0.5 Ml Syringe IVPUSH Q4H PRN Pain, Moderate (Pain Scale 4-6 Acetaminophen 1,000 mg in 100 mls @ 16.7 mls/hr 09/08/20 16:00 09/08/20 16:58 Ofirmev IV 16.7 mls/hr .Q6H MOI Administration Lactated Ringer's 1,000 mls @ 150 mls/hr 09/08/20 14:33 09/08/20 15:39 Lr IVCONT 150 mls/hr .Q6H40M MOI Administration Insulin Human Lispro 0 unit 09/08/20 16:30 09/08/20 17:03 Insulin Lispro 100 Unit/Ml 3 Ml Vial SUBCUT 8 unit QIDACHS MOI Administration Protocol Metoclopramide HCl 10 mg 09/08/20 14:33 Metoclopramide Hcl 10 Mg/2 Ml Vial IVPUSH Q6H PRN Nausea Ondansetron HCl 4 mg 09/08/20 19:00 09/08/20 17:17 Ondansetron Hcl 4 Mg/2 Ml Vial IVPUSH 4 mg Q8H MOI Administration Sodium Chloride 3 ml 09/08/20 16:00 09/08/20 16:57 0.9 % Sodium Chloride Flush 3 Ml Syringe IVFLUSH Not Given QSHIFT MOI Time Spent With Patient Time: Total time spent is greater than 50% in coordination of care (as documented) at patient's floor/unit and/or counseling patient: Time with patient: less than 15 minutes
[2020-09-08] MEDS: hydrALAZINE HCl 20 MG/ML VIAL 10 MG IVPUSH (20:02)
[2020-09-08] MEDS: Metoclopramide HCl 10 MG/2 ML VIAL IVPUSH (20:15)
[2020-09-08 20:44] LABS: Glucose, Whole Blood 346 mg/dL (60-115)
[2020-09-08] MEDS: Insulin Glargine,Hum.rec.anlog 100 UNIT/ML 10 ML VIAL 30 UNIT SUBCUT (21:01)
[2020-09-09 00:06] VITALS: BP 159/71; PULSE 96
[2020-09-09] MEDS: hydrALAZINE HCl 20 MG/ML VIAL 10 MG IVPUSH ×4 (00:06→11:50)
[2020-09-09] MEDS: Metoclopramide HCl 10 MG/2 ML VIAL IVPUSH (01:53)
[2020-09-09] MEDS: ondansetron HCL 4 MG/2 ML VIAL IVPUSH ×2 (02:44→10:31)
[2020-09-09 03:03] VITALS: BP 150/68; PULSE 93; RESP 18; TEMP 37.2; O2SAT 96
[2020-09-09 03:53] VITALS: BP 150/68; PULSE 93
[2020-09-09] MEDS: Lactated Ringers 1,000 ML 150 ML IVCONT ×2 (03:54→10:30)
[2020-09-09 04:33] LABS: MANUAL DIFF FLAG NO
[2020-09-09 04:34] LABS: Hematocrit 37.5 % (37-47); Hemoglobin 11.9 g/dl (12.0-16.0); Imm Gran Abs Auto 0.03 X10*3/uL (0.00-0.03); Imm Gran Pct Auto 0.3 % (0.0-0.4); Lymphocytes Absolute Auto 1.1 X10*3/uL (1.2-4.9); Lymphocytes Percent Auto 9.4 % (20-40); Mean Corpuscular HGB Conc 31.7 g/dl (31.0-35.0); Mean Corpuscular Hemoglobin 26.2 pg (27.0-33.0); Mean Corpuscular Volume 82.6 fL (80-98); Mean Platelet Volume 9.6 fL (9.4-12.3); Monocytes Absolute Auto 1.3 X10*3/uL (0.1-1.2); Monocytes Percent Auto 11.5 % (2-11); Neutrophils Absolute Auto 8.8 X10*3/uL (2.0-8.3); Neutrophils Percent Auto 78.8 % (45-73); Platelet Count 253 X10*3/uL (160-400); Red Blood Count 4.54 X10*6/uL (4.20-5.50); Red Cell Distribution Width 15.6 % (11.0-16.0); White Blood Count 11.2 X10*3/uL (4.8-10.8)
[2020-09-09 05:05] LABS: Anion Gap 15 (12-20); Blood Urea Nitrogen 10 mg/dL (9-16); Calcium 8.8 mg/dL (8.4-10.2); Carbon Dioxide 27 mmol/L (22-29); Chloride 101 mmol/L (96-108); Creatinine Clr Calc Pharmacy 93.4; Estimated Glomerular Filt Rate > 60; Glucose Random 270 mg/dL (60-115); Potassium 4.5 mmol/L (3.3-5.1); Sodium 138 mmol/L (135-145)
[2020-09-09 07:35] VITALS: BP 140/60; PULSE 77; RESP 18; TEMP 36.8; O2SAT 98
[2020-09-09] MEDS: Famotidine/PF 20 MG/2 ML VIAL IVPUSH (07:51)
[2020-09-09] MEDS: Insulin Lispro 100 UNIT/ML 3 ML VIAL SUBCUT ×2 (07:51→11:50)
[2020-09-09 07:58] LABS: Glucose, Whole Blood 216 mg/dL (60-115)
--- NOTE | 2020-09-09 10:12 | MHC.CM.PN ---
NURSE OPERATIONS MANAGER NOTE ELECTRONIC MEDICAL RECORD REVIEWED ALONG WITH CASE DISCUSSED WITH STAFF NURSE DOMENIC NUNO WITH BARIATRIC SURGICAL PA, MET WITH PATIENT SHE IS AWARE THAT THE SURGEON WOULD LIKE HER TO HAVE THE [facility] AT DISCHARGE FOR A FEW VISITS, FOR DRAIN MONITORING AND DIABETIC REINFORCEMENT TEACHING AND INSULIN ADMINISTRATION , SINCE HER SURGERY SHE WILL NOT NE ON HER INSULIN PUMP SHE REPORTED THAT SHE HAS A GLUCOMTETER AT HOME AND HAS GIVEN HERSELF INSULIN AND FEELS COMFORTABLE WITH THIS, SHE HAS A SLEEP APNEA AND USES A CPCAP MACHCHINE REGULARLY. . 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 DISCHARGE PLAN HOME WITH THE [facility] FOR NSG PCP PATIENT INSTRUCTED TO CALL FOR [facility] DIS[facility] FOLLOW UP TRANSPORTATION FAMILY
[2020-09-09 11:31] VITALS: BP 154/80; PULSE 77; RESP 18; TEMP 36.1; O2SAT 98
[2020-09-09 12:05] LABS: Glucose, Whole Blood 190 mg/dL (60-115)
--- NOTE | 2020-09-09 13:08 | HO.POSTANES ---
Post Anesthesia Evaluation Post Anesthesia Evaluation Vital Signs: Vital Signs Temp Pulse Resp BP Pulse Ox 09/09/20 11:31 97.0 F 77 18 154/80 H 98 09/09/20 07:35 98.3 F 77 18 140/60 H 98 09/09/20 03:53 93 150/68 H 09/09/20 03:03 98.9 F 93 18 150/68 H 96 Anesthesia: General Endotracheal-GETA Mental Status: Awake Pain Control: Satisfactory Nausea/Vomiting: None Hydration: Adequate Anesthesia-Related Issues: No Anes. Related Issues
[2020-09-09 14:21] VITALS: BP 129/53; PULSE 84; RESP 17; O2SAT 95
== END 2020-09-09 16:08 | disposition home health service (06) | DRG 403 ==
LOC: HO.SSSA 12:46 → HO.S3 12:57
PROVIDERS: Physician Assistant; Admitting Provider Surgery; PCP Internal Medicine; Visit Provider Surgery
PROC: 0D1 Gastrointestinal System, Bypass (ICD-10-PCS; principal; 2020-09-08 07:30)
DX: E66.01 Morbid (severe) obesity due to excess calories (principal); K44.0 Diaphragmatic hernia with obstruction, without gangrene; K76.0 Fatty (change of) liver, not elsewhere classified; E78.5 Hyperlipidemia, unspecified; E11.9 Type 2 diabetes mellitus without complications; Z68.38 Body mass index [BMI] 38.0-38.9, adult; K66.0 Peritoneal adhesions (postprocedural) (postinfection); K21.9 Gastro-esophageal reflux disease without esophagitis; M79.7 Fibromyalgia; G25.81 Restless legs syndrome; Z20.822 Contact with and (suspected) exposure to COVID-19; Z79.4 Long term (current) use of insulin; Z79.899 Other long term (current) drug therapy
CPT/HCPCS: 36415; 74240; 80048; 80053; 80061; 82947; 83036; 83525; 84443; 85014; 85018; 85025; 85610; 85730; 86140; 86850; 86900; 87635; 99024; C1758; J0131; J0690; J1100; J1170; J2250; J2405; J2765; J3010

== ENCOUNTER → 2020-09-14 07:35 | Outpatient (BNVA) | payer OTHER, SELFPAY | PROVIDERS: PCP Internal Medicine; Visit Provider Surgery ==

== ENCOUNTER → 2020-10-12 08:25 | Outpatient (BNVA) | payer OTHER, SELFPAY | PROVIDERS: PCP Internal Medicine; Visit Provider Surgery ==

== ENCOUNTER → 2020-11-11 08:07 | Outpatient (BNVA) | payer OTHER, SELFPAY | PROVIDERS: PCP Internal Medicine; Visit Provider Surgery ==

== ENCOUNTER 2020-11-27 09:01 | Outpatient (REF) | payer OTHER, SELFPAY ==
[2020-11-27 10:01] LABS: MANUAL DIFF FLAG NO
[2020-11-27 10:03] LABS: Basophils Percent Auto 0.8 % (0-2); Eosinophils Absolute Auto 0.1 X10*3/uL (0.0-0.4); Eosinophils Percent Auto 3.7 % (0-4); Hematocrit 39.6 % (37-47); Hemoglobin 12.6 g/dl (12.0-16.0); Imm Gran Abs Auto 0.01 X10*3/uL (0.00-0.03); Imm Gran Pct Auto 0.3 % (0.0-0.4); Lymphocytes Absolute Auto 1.1 X10*3/uL (1.2-4.9); Lymphocytes Percent Auto 29.8 % (20-40); Mean Corpuscular HGB Conc 31.8 g/dl (31.0-35.0); Mean Corpuscular Hemoglobin 26.9 pg (27.0-33.0); Mean Corpuscular Volume 84.4 fL (80-98); Mean Platelet Volume 10.9 fL (9.4-12.3); Monocytes Absolute Auto 0.4 X10*3/uL (0.1-1.2); Monocytes Percent Auto 11.3 % (2-11); Neutrophils Absolute Auto 2.1 X10*3/uL (2.0-8.3); Neutrophils Percent Auto 54.1 % (45-73); Platelet Count 253 X10*3/uL (160-400); Red Blood Count 4.69 X10*6/uL (4.20-5.50); Red Cell Distribution Width 17.4 % (11.0-16.0); White Blood Count 3.8 X10*3/uL (4.8-10.8)
[2020-11-27 10:13] LABS: Estimated Average Glucose 140 mg/dL; Hemoglobin A1C 151.0289 umol/L; Hemoglobin A1c % 6.5 %
[2020-11-27 10:35] LABS: Alanine Aminotransferase 106 U/L (0-31); Albumin Level 4.4 g/dL (3.5-5.0); Alkaline Phosphatase 105 U/L (39-117); Anion Gap 15 (12-20); Aspartate Amino Transferase 61 U/L (5-31); Bilirubin Total 0.8 mg/dL (0.0-1.0); Blood Urea Nitrogen 11 mg/dL (9-16); Calcium 9.9 mg/dL (8.4-10.2); Carbon Dioxide 30 mmol/L (22-29); Chloride 106 mmol/L (96-108); Cholesterol 256 mg/dL; Estimated Glomerular Filt Rate > 60; Glucose Random 138 mg/dL (60-115); HDL Cholesterol 47 mg/dL; Iron 57 mcg/dL (30-160); LDL Cholesterol Calculated 182 mg/dl; Percent Iron Saturation 19 % (15-50); Potassium 3.5 mmol/L (3.3-5.1); Sodium 147 mmol/L (135-145); Total Iron Binding Capacity 300 mcg/dL (228-428); Total Protein 7.2 g/dL (6.5-8.0); Triglycerides 135 mg/dL; Unsaturated Iron Binding 243 ug/dL
[2020-11-27 10:52] LABS: Ferritin 52 ng/mL (10-250); TSH reflex Free T4 0.39 uIU/mL (0.32-4.0); Vitamin D 25-OH Total 19.7 ng/mL (>30)
[2020-11-27 11:02] LABS: Vitamin B12 721 pg/mL (200-900)
[2020-11-28 09:37] LABS: Insulin Level Total 22.2 uIU/mL
[2020-11-30 23:37] LABS: Calcium (PTHI) 9.5 mg/dL (8.6-10.4); PTHI 80 pg/mL (14-64)
[2020-12-01 00:02] LABS: Zinc 104 mcg/dL (60-130)
[2020-12-02 01:51] LABS: Vitamin A 30 mcg/dL (38-98)
[2020-12-03 11:56] LABS: Vitamin B1 10 nmol/L (8-30)
== END 2020-11-27 09:02 | disposition home or self-care (01) ==
LOC: HO.LAB 09:01
PROVIDERS: PCP Internal Medicine; Visit Provider Surgery
DX: K90.9 Intestinal malabsorption, unspecified (principal); E66.9 Obesity, unspecified; Z68.32 Body mass index [BMI] 32.0-32.9, adult
CPT/HCPCS: 36415; 80053; 80061; 82306; 82607; 82728; 83036; 83525; 83540; 83970; 84425; 84443; 84590; 84630; 85025; 86140

== ENCOUNTER → 2020-12-23 07:22 | Outpatient (BNVA) | payer OTHER, SELFPAY | PROVIDERS: PCP Internal Medicine; Visit Provider Surgery ==

== ENCOUNTER → 2021-02-05 07:18 | Outpatient (BNVA) | payer OTHER, SELFPAY | PROVIDERS: PCP Internal Medicine; Visit Provider Surgery ==

== ENCOUNTER → 2021-03-11 08:05 | Outpatient (BNVA) | payer OTHER, SELFPAY | PROVIDERS: PCP Internal Medicine; Visit Provider Surgery ==

== ENCOUNTER → 2021-04-16 07:58 | Outpatient (BNVA) | payer OTHER, SELFPAY | PROVIDERS: PCP Internal Medicine; Visit Provider Physician Assistant ==

== ENCOUNTER 2021-04-23 12:04 | Outpatient (REF) | payer OTHER, SELFPAY ==
[2021-04-23 14:21] LABS: Ferritin 70 ng/mL (10-250)
[2021-04-23 14:28] LABS: Folate > 20.0 ng/mL (> or = 4.0); Vitamin B12 819 pg/mL (200-900)
[2021-04-26 12:01] LABS: Calcium (PTHI) 10.3 mg/dL (8.6-10.4); PTHI 51 pg/mL (14-64)
[2021-04-27 02:32] LABS: Zinc 93 mcg/dL (60-130)
[2021-04-28 10:21] LABS: Vitamin A 36 mcg/dL (38-98)
[2021-04-28 16:56] LABS: Vitamin B1 65 nmol/L (8-30)
== END 2021-04-23 12:05 | disposition home or self-care (01) ==
LOC: HO.LAB 12:04
PROVIDERS: Visit Provider Physician Assistant
DX: E66.3 Overweight (principal); Z98.84 Bariatric surgery status
CPT/HCPCS: 36415; 82306; 82607; 82728; 82746; 83970; 84425; 84590; 84630

== ENCOUNTER → 2021-06-21 07:56 | Outpatient (BNVA) | payer OTHER, SELFPAY | PROVIDERS: PCP Internal Medicine; Visit Provider Physician Assistant | DX: E66.3 Overweight (principal); Z98.84 Bariatric surgery status ==

== ENCOUNTER 2021-08-16 13:03 | Outpatient (REF) | payer OTHER, SELFPAY ==
[2021-08-16 13:31] LABS: MANUAL DIFF FLAG NO
[2021-08-16 13:55] LABS: Basophils Percent Auto 0.4 % (0-2); Eosinophils Absolute Auto 0.1 X10*3/uL (0.0-0.4); Eosinophils Percent Auto 2.4 % (0-4); Hematocrit 38.7 % (37.0-47.0); Hemoglobin 12.7 g/dl (12.0-16.0); Imm Gran Abs Auto 0.01 X10*3/uL (0.00-0.03); Imm Gran Pct Auto 0.2 % (0.0-0.4); Lymphocytes Absolute Auto 1.8 X10*3/uL (1.2-4.9); Lymphocytes Percent Auto 39.6 % (20-40); Mean Corpuscular HGB Conc 32.8 g/dl (31.0-35.0); Mean Corpuscular Hemoglobin 29.3 pg (27.0-33.0); Mean Corpuscular Volume 89.2 fL (80.0-98.0); Mean Platelet Volume 10.6 fL (9.4-12.3); Monocytes Absolute Auto 0.4 X10*3/uL (0.1-1.2); Monocytes Percent Auto 8.9 % (2-11); Neutrophils Absolute Auto 2.2 x10*3/uL (2.0-8.3); Neutrophils Percent Auto 48.5 % (45-73); Platelet Count 215 X10*3/uL (160-400); Red Blood Count 4.34 X10*6/uL (4.20-5.50); Red Cell Distribution Width 12.9 % (11.0-16.0); White Blood Count 4.5 X10*3/uL (4.8-10.8)
[2021-08-16 14:08] LABS: Estimated Average Glucose 143 mg/dL; Hemoglobin A1c % 6.6 %
[2021-08-16 14:30] LABS: C Reactive Protein 0.05 mg/dL (< or = 0.50); Iron 86 mcg/dL (30-160); Percent Iron Saturation 24 % (15-50); Total Iron Binding Capacity 352 mcg/dL (228-428); Unsaturated Iron Binding 266 ug/dL
[2021-08-16 14:54] LABS: Ferritin 53 ng/mL (10-250); Insulin 60 uU/mL (2-29); TSH reflex Free T4 0.61 uIU/mL (0.32-4.0); Vitamin D 25-OH Total 20.1 ng/mL (>30)
[2021-08-16 15:26] LABS: Folate 14.7 ng/mL (> or = 4.0); Vitamin B12 465 pg/mL (200-900)
[2021-08-17 17:46] LABS: Calcium (PTHI) 9.5 mg/dL (8.6-10.4); PTHI 71 pg/mL (14-64)
[2021-08-19 13:06] LABS: Zinc 59 mcg/dL (60-130)
[2021-08-20 18:11] LABS: Vitamin B1 27 nmol/L (8-30)
[2021-08-21 20:35] LABS: Vitamin A 42 mcg/dL (38-98)
== END 2021-08-16 13:04 | disposition home or self-care (01) ==
LOC: HO.LAB 13:03
PROVIDERS: PCP Internal Medicine; Visit Provider Physician Assistant
DX: E66.3 Overweight (principal); Z71.3 Dietary counseling and surveillance; Z98.84 Bariatric surgery status
CPT/HCPCS: 36415; 82306; 82607; 82728; 82746; 83036; 83525; 83540; 83970; 84425; 84443; 84590; 84630; 85025; 86140; 97803

== ENCOUNTER 2021-08-27 09:14 | Outpatient (REF) | payer OTHER, SELFPAY ==
--- NOTE | ~2021-08-27 | XR_ITS ---
EXAMINATION: XR CHEST CLINICAL INFORMATION: Chest pain. COMPARISON: Chest radiographs dated 06/24/2020. TECHNIQUE: Frontal view of the chest was obtained. FINDINGS: No significant abnormality is noted involving the heart, lungs, mediastinum, bony thorax or soft tissues. XR/XR chest 1V IMPRESSION: Unremarkable examination.
== END 2021-08-27 09:15 | disposition home or self-care (01) ==
LOC: HO.XRAY 09:14
PROVIDERS: PCP Internal Medicine; Visit Provider Physician Assistant
DX: R07.9 Chest pain, unspecified (principal); Z98.84 Bariatric surgery status
CPT/HCPCS: 71045

== ENCOUNTER → 2021-09-08 09:16 | Outpatient (BNVA) | payer OTHER, SELFPAY | PROVIDERS: PCP Internal Medicine; Visit Provider Physician Assistant | DX: Z13.89 Encounter for screening for other disorder (principal) ==

== ENCOUNTER 2021-09-22 08:31 | Outpatient (REF) | payer OTHER, SELFPAY ==
[2021-09-22 09:52] LABS: Alanine Aminotransferase 26 U/L (0-31); Albumin Level 4.4 g/dL (3.5-5.0); Alkaline Phosphatase 62 U/L (39-117); Anion Gap 12 (12-20); Aspartate Amino Transferase 27 U/L (5-31); Bilirubin Total 0.6 mg/dL (0.0-1.0); Blood Urea Nitrogen 14 mg/dL (9-16); Carbon Dioxide 29 mmol/L (22-29); Chloride 105 mmol/L (96-108); Cholesterol 200 mg/dL; Estimated Glomerular Filt Rate > 60; Glucose Random 94 mg/dL (60-115); HDL Cholesterol 72 mg/dL; LDL Cholesterol Calculated 111 mg/dl; Potassium 4.6 mmol/L (3.3-5.1); Sodium 141 mmol/L (135-145); Total Protein 7.2 g/dL (6.5-8.0); Triglycerides 88 mg/dL
== END 2021-09-22 08:32 | disposition home or self-care (01) ==
LOC: HO.LAB 08:31
PROVIDERS: PCP Internal Medicine; Visit Provider Physician Assistant
DX: K90.9 Intestinal malabsorption, unspecified (principal); M79.3 Panniculitis, unspecified; E66.3 Overweight; Z68.26 Body mass index [BMI] 26.0-26.9, adult; Z98.84 Bariatric surgery status; Z87.891 Personal history of nicotine dependence; Z88.8 Allergy status to other drugs, medicaments and biological substances
CPT/HCPCS: 36415; 80053; 80061

== ENCOUNTER 2022-02-11 09:41 | Outpatient (REF) | payer OTHER, SELFPAY ==
[2022-02-11 09:57] LABS: MANUAL DIFF FLAG NO
[2022-02-11 10:44] LABS: Basophils Percent Auto 0.3 % (0-2); Eosinophils Absolute Auto 0.1 X10*3/uL (0.0-0.4); Eosinophils Percent Auto 2.2 % (0-4); Hematocrit 38.4 % (37.0-47.0); Hemoglobin 12.8 g/dl (12.0-16.0); Imm Gran Abs Auto 0.01 X10*3/uL (0.00-0.03); Imm Gran Pct Auto 0.3 % (0.0-0.4); Lymphocytes Absolute Auto 1.3 X10*3/uL (1.2-4.9); Lymphocytes Percent Auto 39.8 % (20-40); Mean Corpuscular HGB Conc 33.3 g/dl (31.0-35.0); Mean Corpuscular Hemoglobin 29.4 pg (27.0-33.0); Mean Corpuscular Volume 88.3 fL (80.0-98.0); Mean Platelet Volume 10.7 fL (9.4-12.3); Monocytes Absolute Auto 0.4 X10*3/uL (0.1-1.2); Monocytes Percent Auto 12.5 % (2-11); Neutrophils Absolute Auto 1.4 x10*3/uL (2.0-8.3); Neutrophils Percent Auto 44.9 % (45-73); Platelet Count 198 X10*3/uL (160-400); Red Blood Count 4.35 X10*6/uL (4.20-5.50); Red Cell Distribution Width 12.6 % (11.0-16.0); White Blood Count 3.2 X10*3/uL (4.8-10.8)
[2022-02-11 11:06] LABS: Estimated Average Glucose 137 mg/dL; Hemoglobin A1c % 6.4 %
[2022-02-11 11:16] LABS: Alanine Aminotransferase 31 U/L (0-31); Albumin Level 4.4 g/dL (3.5-5.0); Alkaline Phosphatase 65 U/L (39-117); Anion Gap 15 (12-20); Aspartate Amino Transferase 22 U/L (5-31); Bilirubin Total 0.7 mg/dL (0.0-1.0); Blood Urea Nitrogen 14 mg/dL (9-16); C Reactive Protein 0.04 mg/dL (< or = 0.50); Calcium 9.6 mg/dL (8.4-10.2); Carbon Dioxide 30 mmol/L (22-29); Chloride 104 mmol/L (96-108); Cholesterol 201 mg/dL; Estimated Glomerular Filt Rate > 60; Glucose Random 117 mg/dL (60-115); HDL Cholesterol 71 mg/dL; Iron 116 mcg/dL (30-160); LDL Cholesterol Calculated 113 mg/dl; Percent Iron Saturation 32 % (15-50); Potassium 4.7 mmol/L (3.3-5.1); Sodium 144 mmol/L (135-145); Total Iron Binding Capacity 360 mcg/dL (228-428); Total Protein 7.2 g/dL (6.5-8.0); Triglycerides 88 mg/dL; Unsaturated Iron Binding 244 ug/dL
[2022-02-11 11:29] LABS: Ferritin 42 ng/mL (10-250); Insulin 9 uU/mL (2-29); TSH reflex Free T4 0.71 uIU/mL (0.32-4.0); Vitamin D 25-OH Total 22.1 ng/mL (>30)
[2022-02-11 12:02] LABS: Folate 15.5 ng/mL (> or = 4.0); Vitamin B12 383 pg/mL (200-900)
[2022-02-13 16:57] LABS: Calcium (PTHI) 9.5 mg/dL (8.6-10.4); PTHI 59 pg/mL (16-77)
[2022-02-16 05:56] LABS: Zinc 84 mcg/dL (60-130)
[2022-02-17 17:21] LABS: Vitamin A 50 mcg/dL (38-98)
[2022-02-18 12:17] LABS: Vitamin B1 19 nmol/L (8-30)
== END 2022-02-11 09:42 | disposition home or self-care (01) ==
LOC: HO.LAB 09:41
PROVIDERS: PCP Internal Medicine; Visit Provider Physician Assistant
DX: E66.3 Overweight (principal); K90.9 Intestinal malabsorption, unspecified; L98.7 Excessive and redundant skin and subcutaneous tissue; M79.3 Panniculitis, unspecified; Z98.84 Bariatric surgery status
CPT/HCPCS: 36415; 80053; 80061; 82306; 82607; 82728; 82746; 83036; 83525; 83540; 83970; 84425; 84443; 84590; 84630; 85025; 86140

== ENCOUNTER 2022-02-16 13:14 | Outpatient (REF) | payer OTHER, SELFPAY ==
--- NOTE | ~2022-02-16 | CT_ITS ---
EXAMINATION: CT ABDOMEN AND PELVIS WITH CONTRAST CLINICAL INFORMATION: Abdominal pain. COMPARISON: Previous abdominal ultrasound June 2020. TECHNIQUE: Multidetector volumetric images were obtained from the superior aspect of the liver through the pubic symphysis following administration 85 mL of Omnipaque 350 intravenous contrast. Sagittal and coronal reformatted images were obtained on the technologist's workstation. Oral contrast: Yes This CT examination was performed using dose optimization techniques as appropriate, variously including the following: *Automated exposure control *Adjustment of mA and/or kV according to patient size (this includes techniques or standardized protocols for targeted exams where dose is matched to indication/reason for exam; i.e. extremities or head) *Use of iterative reconstruction technique DLP: 394 mGy-cm FINDINGS: LUNG BASES: The visualized lung bases are unremarkable. LIVER, GALLBLADDER, AND BILIARY TREE: The liver is normal in size, shape, and attenuation. No focal hepatic lesion or biliary ductal dilatation is present. The gallbladder is unremarkable with no evidence of radiopaque gallstones, gallbladder wall thickening, or obvious pericholecystic inflammatory changes. PANCREAS: There is dilatation of the main pancreatic duct in the head of the pancreas measuring up to 6 to 7 mm. No focal pancreatic lesion is seen. There is a prominent lymph node adjacent to the head of the pancreas measuring 6 x 9 mm axial image 32 series 3. SPLEEN: Unremarkable. ADRENAL GLANDS: Unremarkable. KIDNEYS AND URETERS: The kidneys are normal in size, shape, and attenuation. No hydronephrosis, hydroureter, or calculi seen. No perinephric stranding. BLADDER: Not optimally distended. GASTROINTESTINAL TRACT: There are postsurgical changes from gastric bypass. There is stool throughout the colon questionable for constipation. Small and large bowel is otherwise normal. The appendix is normal. No ascites or free air. ABDOMINAL WALL: No significant hernia is appreciated. LYMPH NODES: Normal. VASCULAR: Unremarkable. PELVIC VISCERA: Unremarkable. OSSEOUS STRUCTURES: Unremarkable. CT/CT abdomen pelvis w IV con IMPRESSION: Dilated main pancreatic duct in the head of the pancreas and prominent lymph node adjacent to the head of the pancreas. Follow-up MR of the pancreas with and without contrast and MRCP recommended. Postsurgical changes from gastric bypass. Stool throughout the colon suggestive of constipation. Findings will be communicated by the [place] work flow wheel installer. Fleischner guidelines were followed.
[2022-02-16] MEDS: Barium Sulfate Oral (Mocha) 450 ML ORAL.SUSP 900 ML PO (15:44)
[2022-02-16] MEDS: iohexoL 350 MG/ML 100 ML INFUS..BTL IV (15:45)
== END 2022-02-16 13:15 | disposition home or self-care (01) ==
LOC: HO.CT 13:14
PROVIDERS: PCP Internal Medicine; Visit Provider Physician Assistant
DX: R10.9 Unspecified abdominal pain (principal)
CPT/HCPCS: 74177; Q9967

== ENCOUNTER 2022-02-21 10:07 | Outpatient (REF) | payer OTHER, SELFPAY ==
--- NOTE | ~2022-02-21 | MR_ITS ---
EXAMINATION: MR ABDOMEN WITHOUT AND WITH CONTRAST CLINICAL INFORMATION: Abdominal pain. COMPARISON: Follow up main pancreatic duct dilatation. TECHNIQUE: MR abdomen was performed without and with use of 7.5 mL intravenous Gadavist gadolinium contrast. Postcontrast images are performed in multiphase dynamic sequences. Imaging was performed in 3 planes. MRCP sequences were also performed. FINDINGS: LUNG BASES: The visualized lung bases are unremarkable. LIVER, GALLBLADDER, AND BILIARY TREE: The liver is normal in size, shape and signal. No focal liver lesion. No intrahepatic biliary duct dilatation. The gallbladder is normal in size. There is some sludge in the gallbladder. The gallbladder wall is normal in thickness. There is no pericholecystic fluid. There is mild dilatation of the common bile duct measuring up to 0.9 cm. No stricture or common bile duct stone is seen. PANCREAS: The main pancreatic duct in the head of the pancreas is slightly prominent measuring up to 5 mm. The main pancreatic duct is otherwise normal in caliber. There is variant pancreatic duct anatomy with persistent duct of Santorini and the duct of [place] arising from the duct of Santorini. No pancreatic mass is seen. There is a lymph node adjacent to the head of the pancreas measuring 6 x 9 mm, for example axial image 70 series 102. This appears similar to previous CT scan. SPLEEN: Normal. ADRENAL GLANDS: Normal. KIDNEYS AND URETERS: The kidneys are normal in size, shape, and enhance symmetrically. No hydronephrosis. No perinephric stranding. GASTROINTESTINAL TRACT: Postsurgical changes from gastric surgery. No bowel obstruction. No ascites or fluid collection. ABDOMINAL WALL: No significant hernia is appreciated. LYMPH NODES: There is a lymph node adjacent to the head of the pancreas measuring 6 x 9 mm, for example axial image 70 series 102. This appears similar to previous CT scan. No enlarged lymph nodes are seen. VASCULAR: Unremarkable. OSSEOUS STRUCTURES: There is a round bright 1 cm lesion in the L3 vertebral body probably representing a hemangioma. Bone marrow signal is otherwise normal. MR/MR abdomen wo/w con IMPRESSION: Mild dilatation of the common bile duct measuring 9 mm and the main pancreatic duct in the head of the pancreas measuring 5 mm. No stone or mass seen. Consider MR for further evaluation. Probable sludge in the gallbladder.
== END 2022-02-21 10:08 | disposition home or self-care (01) ==
LOC: HO.MRI 10:07
PROVIDERS: Visit Provider Physician Assistant
DX: R10.9 Unspecified abdominal pain (principal); K86.89 Other specified diseases of pancreas; Z98.84 Bariatric surgery status
CPT/HCPCS: 74183; A9585

== ENCOUNTER → 2022-03-02 07:45 | Outpatient (REF) | payer OTHER, SELFPAY ==
--- NOTE | ~2022-03-02 | NM_ITS ---
EXAMINATION: BILIARY TRACT IMAGING STUDY WITH CCK CLINICAL INFORMATION: Biliary dyskinesia.. COMPARISON: MRI of the abdomen done on 02/21/2022. CT of the abdomen and pelvis done on 02/16/2022.. TECHNIQUE: Serial gamma scintillation camera images were obtained over the abdomen for a total observation period of 30 minutes following the intravenous administration of 5.0 mCi Tc-99m mebrofenin. FINDINGS: There is good concentration of activity in the liver by 5 minutes post injection. Biliary activity is visualized by 15 minutes. The gallbladder is well visualized by 30 minutes. Small bowel is well visualized by 35 minutes (5 minutes post CCK images). At 30 minutes post radiopharmaceutical injection, a 30-minute infusion of 1.5 micrograms Sincalide was then begun and an additional 30 minutes of images were obtained. There is good emptying of the gallbladder. By the end of the study there is good clearance of activity from the liver and visualization of diffuse small bowel activity. The calculated gallbladder ejection fraction is 34% (normal gallbladder ejection fraction is greater than 35%). NM/NM hepatobiliary w pharm IMPRESSION: Visualization of the gallbladder is evidence of a patent cystic duct and strong evidence against the diagnosis of acute cholecystitis. The common bile duct is patent. Gallbladder emptying and ejection fraction are borderline abnormal. Liver function appears normal.
== END ==
LOC: HO.NUCMED 07:45
PROVIDERS: Visit Provider Surgery
DX: K82.8 Other specified diseases of gallbladder (principal)
CPT/HCPCS: 78227; A9537; J2805

== ENCOUNTER 2022-04-05 07:43 | Day surgery (SDC) | payer OTHER, SELFPAY ==
--- NOTE | 2022-04-01 09:12 | P.CONAN_ITS ---
Documented by User: Zita Kraft NP 04/01/22 09:14 HPI - Anesthesia Eval Consult details Narrative: 57yo F for Cholecystectomy Laparoscopic s/p gastric bypass 08/2020 with GA-ETT 7 PMFSH Active Problems Active Problems: All Active Problems (Updated 02/21/22 @ 20:06 by Gary Mendez MD) Biliary dyskinesia (Acute) Pancreatic mass (Acute) Abdominal pain (Acute) Overweight (Acute) Panniculitis (Acute) Excess skin (Acute) Chest pain (Acute) Overweight (Acute) BMI greater than 30 (Acute) Intestinal malabsorption (Acute) BMI 32.0-32.9,adult (Acute) BMI over 35 (Acute) BMI 34.0-34.9,adult (Acute) BMI 37.0-37.9, adult (Acute) Obesity (Acute) Left ventricular hypertrophy (Acute) Hepatomegaly (Acute) Steatosis, liver (Acute) DJD (degenerative joint disease) (Acute) Congenital intra-abdominal adhesions (Acute) Abdominal adhesions (Acute) S/P gastric bypass (Acute) S/P repair of paraesophageal hernia (Acute) Paraesophageal hernia (Acute) GERD (gastroesophageal reflux disease) (Acute) Depression (Acute) Fibromyalgia (Acute) Restless leg syndrome (Acute) Gastroparesis (Acute) Sleep apnea with use of continuous positive airway pressure (CPAP) (Acute) Hyperlipidemia (Acute) Hypertension (Acute) Insulin dependent diabetes mellitus (Acute) Morbid obesity (Acute) Past Medical History Medical History BMI 32.0-32.9,adult BMI 38.0-38.9,adult BMI 39.0-39.9,adult BMI over 35 Constipation Depression DJD (degenerative joint disease) Fibromyalgia Gastroparesis GERD (gastroesophageal reflux disease) Hepatomegaly Hx gestational diabetes Hx of nausea Hyperlipidemia Hypertension Insulin dependent diabetes mellitus Intestinal malabsorption Left ventricular hypertrophy Morbid obesity Nausea Obesity Restless leg syndrome Sleep apnea with use of continuous positive airway pressure (CPAP) Steatosis, liver Syncope Family History Family History Mother Hypertension Hyperlipidemia Osteoporosis Father No problems noted. Brother No problems noted. Brother Hypertension Brother Hypertension Brother No problems noted. Sister No problems noted. Son No problems noted. Family history of problems with anesthesia: No Surgical History Surgical History H/O colonoscopy History of esophagogastroduodenoscopy (EGD) Hx of cerebral aneurysm repair Hx of section Hx of foot surgery Hx of gastric bypass Hx of myomectomy History of Problems with Anesthesia: No Social History Social History Are you a primary hemodialysis patient care specialist to a significant other at home: No Do you presently have visiting nurse or other home services: No Alcohol intake: never Patient Tobacco Use Status: Former Tobacco user Second Hand Smoke Exposure: No Use of substances other than those prescribed or required for medical reasons: No Are you DNR?: No Advance Directives: No Advance Directives Information Provided: Yes Advance Directives on File: No service: No Current occupational status: employed Meds Allergies Allergy/AdvReac Type Severity Reaction Status Date / Time metformin [METFORMIN] Allergy Intermediate VOMITING Verified 03/30/22 15:43 lisinopril [LISINOPRIL] AdvReac Intermediate COUGH Verified 03/30/22 15:43 Home Medications Medication Instructions Recorded Confirmed Last Taken Type carbidopa 25 mg-levodopa 100 mg 1 tab PO BEDTIME PRN LEG CRAMPS 09/08/20 03/24/22 Unknown History tablet idyeazlp-rwjjbwnt-[id number] 45 mg-folic cap PO DAILY 04/16/21 03/30/22 Unknown History acid 800 mcg-vit K 120 mcg capsule (Bariatric Multivitamins) citalopram 40 mg tablet 30 mg PO BEDTIME 12/02/21 03/24/22 Unknown History pravastatin 20 mg tablet 20 mg PO DAILY 12/02/21 03/30/22 Unknown History trazodone 50 mg tablet 50 mg PO BEDTIME 02/03/22 03/30/22 Unknown History Exam Exam Date and Time: April 01, 2022 0912 Pertinent Lab Results Pertinent Lab Results: Laboratory Tests 02/11/22 02/11/22 09:55 09:55 WBC 3.2 L Hgb 12.8 Hct 38.4 Plt Count 198 Sodium 144 Potassium 4.7 Chloride 104 Carbon Dioxide 30 H BUN 14 Creatinine 0.77 Narrative Narrative: NM louie perf SPECT rest & str 06/2020 Impression: 1. Myocardial perfusion imaging study shows normal myocardial perfusion 2. Gated LVEF is 69% 3. Transient ischemic dilatation not present EKG is nondiagnostic for ischemia ECHO 06/2020 Conclusions: - The left ventricular systolic function is normal. The visually estimated ejection fraction is between 65-70%. - No obvious valvular pathology seen on this study. Assessment and Plan Assessment Anesthesia Assessment: Chart Reviewed Final Anesthetic Review Family History of Problems with Anesthesia: No History of Problems with Anesthesia: No Documented by User: Geni De León MD 04/05/22 12:39 [facility] Active Problems Active Problems: All Active Problems (Updated 02/21/22 @ 20:06 by Gary Mendez MD) Biliary dyskinesia (Acute) Pancreatic mass (Acute) Abdominal pain (Acute) Overweight (Acute) Panniculitis (Acute) Excess skin (Acute) Chest pain (Acute) Overweight (Acute) BMI greater than 30 (Acute) Intestinal malabsorption (Acute) BMI 32.0-32.9,adult (Acute) BMI over 35 (Acute) BMI 34.0-34.9,adult (Acute) BMI 37.0-37.9, adult (Acute) Obesity (Acute) Left ventricular hypertrophy (Acute) Hepatomegaly (Acute) Steatosis, liver (Acute) DJD (degenerative joint disease) (Acute) Congenital intra-abdominal adhesions (Acute) Abdominal adhesions (Acute) S/P gastric bypass (Acute) S/P repair of paraesophageal hernia (Acute) Paraesophageal hernia (Acute) GERD (gastroesophageal reflux disease) (Acute) Depression (Acute) Fibromyalgia (Acute) Restless leg syndrome (Acute) Gastroparesis (Acute) Sleep apnea - no longer using continuous positive airway pressure (CPAP) Hyperlipidemia (Acute) Hypertension - no longer on meds Insulin dependent diabetes mellitus (Acute) Morbid obesity (Acute) Past Medical History Medical History BMI 32.0-32.9,adult BMI 38.0-38.9,adult BMI 39.0-39.9,adult BMI over 35 Constipation Depression DJD (degenerative joint disease) Fibromyalgia Gastroparesis GERD (gastroesophageal reflux disease) Hepatomegaly Hx gestational diabetes Hx of nausea Hyperlipidemia Hypertension Insulin dependent diabetes mellitus Intestinal malabsorption Left ventricular hypertrophy Morbid obesity Nausea Obesity Restless leg syndrome Sleep apnea with use of continuous positive airway pressure (CPAP) Steatosis, liver Syncope Family History Family History Mother Hypertension Hyperlipidemia Osteoporosis Father No problems noted. Brother No problems noted. Brother Hypertension Brother Hypertension Brother No problems noted. Sister No problems noted. Son No problems noted. Surgical History Surgical History H/O colonoscopy History of esophagogastroduodenoscopy (EGD) Hx of cerebral aneurysm repair Hx of section Hx of foot surgery Hx of gastric bypass Hx of myomectomy Social History Social History Are you a primary hemodialysis patient care specialist to a significant other at home: No Do you presently have visiting nurse or other home services: No Alcohol intake: never Patient Tobacco Use Status: Former Tobacco user Second Hand Smoke Exposure: No Use of substances other than those prescribed or required for medical reasons: No Are you DNR?: No Advance Directives: No Advance Directives Information Provided: Yes Advance Directives on File: No service: No Current occupational status: employed Meds Allergies Allergy/AdvReac Type Severity Reaction Status Date / Time metformin [METFORMIN] Allergy Intermediate VOMITING Verified 03/30/22 15:43 lisinopril [LISINOPRIL] AdvReac Intermediate COUGH Verified 03/30/22 15:43 Home Medications Medication Instructions Recorded Confirmed Last Taken Type carbidopa 25 mg-levodopa 100 mg 1 tab PO BEDTIME PRN LEG CRAMPS 09/08/20 03/24/22 Unknown History tablet mrbgxhrt-vdjyuhyr-wcsf 45 mg-folic cap PO DAILY 04/16/21 03/30/22 Unknown History acid 800 mcg-vit K 120 mcg capsule (Bariatric Multivitamins) citalopram 40 mg tablet 30 mg PO BEDTIME 12/02/21 03/24/22 Unknown History pravastatin 20 mg tablet 20 mg PO DAILY 12/02/21 03/30/22 Unknown History trazodone 50 mg tablet 50 mg PO BEDTIME 02/03/22 03/30/22 Unknown History Exam Height,Weight and Vital Signs: Height 5 ft 7 in Weight 73.936 kg Vital Signs Temp Pulse Resp BP Pulse Ox O2 Del Method 04/05/22 08:27 97.1 F 61 16 133/56 L 99 Room Air Airway Mallampati Class: III TM Dist: >3cm Neck ROM: Full Loose/Missing/Broken Teeth: Yes (Top right) Heart: RRR Lungs: CTAB Assessment and Plan Assessment Anesthesia Assessment: Anesthesia Plan Discussed Final Anesthetic Review NPO: Yes ASA Class: III Final Preanesthetic Review: No Changes in Pt Med Stat, Meds/Allgs Chart Reviewed, Consent Obtained/Reviewed and Anes Risks/Benef Reviewed Patient Risk: Intermediate Procedure Risk: Intermediate Assessment/Block/Sedation in SS: Assess/Block/Sedation-SS Anesthetic Plan Anesthetic Plan: GA Disposition: Standard PACU
[2022-04-01 13:22] LABS: MANUAL DIFF FLAG NO
[2022-04-01 13:42] LABS: Basophils Percent Auto 0.9 % (0-2); Eosinophils Absolute Auto 0.1 X10*3/uL (0.0-0.4); Eosinophils Percent Auto 1.8 % (0-4); Hematocrit 38.1 % (37.0-47.0); Hemoglobin 12.7 g/dl (12.0-16.0); Imm Gran Abs Auto 0.01 X10*3/uL (0.00-0.03); Imm Gran Pct Auto 0.2 % (0.0-0.4); Lymphocytes Absolute Auto 1.7 X10*3/uL (1.2-4.9); Mean Corpuscular HGB Conc 33.3 g/dl (31.0-35.0); Mean Corpuscular Hemoglobin 29.4 pg (27.0-33.0); Mean Corpuscular Volume 88.2 fL (80.0-98.0); Mean Platelet Volume 10.6 fL (9.4-12.3); Monocytes Absolute Auto 0.4 X10*3/uL (0.1-1.2); Neutrophils Absolute Auto 2.2 x10*3/uL (2.0-8.3); Neutrophils Percent Auto 49.1 % (45-73); Platelet Count 218 X10*3/uL (160-400); Red Blood Count 4.32 X10*6/uL (4.20-5.50); Red Cell Distribution Width 12.9 % (11.0-16.0); White Blood Count 4.4 X10*3/uL (4.8-10.8)
[2022-04-01 13:44] LABS: COVID-19 Test Positive (Negative); IDNOW Serial# 9DB6401D
[2022-04-01 13:49] LABS: Estimated Average Glucose 134 mg/dL; Hemoglobin A1c % 6.3 %
[2022-04-01 13:55] LABS: Prothrombin Time 11.4 SEC (10.0-13.1)
[2022-04-01 13:57] LABS: Partial Thromboplastin Time 32.6 SEC (26.0-36.4)
[2022-04-01 14:01] LABS: Alanine Aminotransferase 30 U/L (0-31); Albumin Level 4.6 g/dL (3.5-5.0); Alkaline Phosphatase 68 U/L (39-117); Anion Gap 15 (12-20); Aspartate Amino Transferase 23 U/L (5-31); Bilirubin Total 0.5 mg/dL (0.0-1.0); Blood Urea Nitrogen 13 mg/dL (9-16); Carbon Dioxide 28 mmol/L (22-29); Chloride 103 mmol/L (96-108); Estimated Glomerular Filt Rate > 60; Glucose Random 143 mg/dL (60-115); Potassium 4.7 mmol/L (3.3-5.1); Sodium 141 mmol/L (135-145); Total Protein 7.5 g/dL (6.5-8.0)
--- NOTE | 2022-04-01 20:06 | MHC.SHP ---
Pre-Procedural Eval Section A Date of Service: 04/01/22 The patient is an INPATIENT: No The History & Physical has been completed within 30 days and I have reviewed it.: Yes Section B Chief Complaint: Other specified diseases of gallbladder Relevant Family History (Specify if Yes): No Relevant Social History: None Present Medications: None Medical History: No relevant PMH History of Previous Operations: Relevant previous surgery/procedure and date(s) (Lap gastric bypass) Allergies: Allergies Allergy/AdvReac Type Severity Reaction Status Date / Time metformin [METFORMIN] Allergy Intermediate VOMITING Verified 03/30/22 15:43 lisinopril [LISINOPRIL] AdvReac Intermediate COUGH Verified 03/30/22 15:43 Review of Systems Sugical H&P ROS: Negative: Constitution, Cardiovascular, Respiratory, Neurological, Psychiatric, Hem-Onc, Allergic/Immunologic, Gastrointestinal, Genitourinary, Musculoskeletal, Integumentary, Endocrine and Eyes/Ears/Nose/Throat Exam Surgical H&P Exam: Normal: HEENT, Normal: Heart, Normal: Lungs, Normal: Extremities, Normal: Abdomen, Normal: Skin and Normal: Neurological Plan Diagnosis/Plan: Unchanged I have reviewed the history and physical and performed a pertinent physical examination on my patient. No changes have occurred unless specified.
[2022-04-05] VITALS (13 sets, daily range): BP systolic 133–163; BP diastolic 56–71; PULSE 61–97; RESP 16–20; TEMP 36.1–36.2; O2SAT 94–100; BMI 25.5
--- NOTE | 2022-04-05 | ECG_ITS ---
Test Reason : DM, LAVONNE Blood Pressure : / mmHG Vent. Rate : 060 BPM Atrial Rate : 060 BPM P-R Int : 180 ms QRS Dur : 100 ms QT Int : 442 ms P-R-T Axes : 049 014 028 degrees QTc Int : 442 ms Normal sinus rhythm Left axis deviation Intra-ventricular conduction delay Low voltage QRS Borderline ECG When compared with ECG of 26-JUN-2020 14:10, No significant change was found Referred By: Zita Kraft Electronically Signed By:KEY MORTON MD
--- NOTE | ~2022-04-05 | XR_ITS ---
EXAMINATION: XR CHEST CLINICAL INFORMATION: History of Covid infection. Preop. COMPARISON: Previous chest x-ray August 2021 TECHNIQUE: 2 views of the chest were obtained. FINDINGS: No significant abnormality is noted involving the heart, lungs, mediastinum, bony thorax or soft tissues. Degenerative changes of the spine. XR/XR chest 2V IMPRESSION: No evidence for acute disease in the chest.
[2022-04-05 08:15] LABS: COVID-19 Test Negative (Negative); IDNOW Serial# 16C4AD1C
[2022-04-05] MEDS: Lactated Ringers 1,000 ML 100 ML IVCONT (08:58)
--- NOTE | 2022-04-05 10:32 | PM.OP ---
Brief Operative Note Date of Service: 04/05/22 Pre-op diagnosis: Biliary dyskinesia Post-op diagnosis: same Procedure: PROCEDURE DATE: 04/05/22 PREOPERATIVE DIAGNOSIS: Biliary diskynesia, mid epigastric and right upper quadrant abdominal pain POSTOPERATIVE DIAGNOSIS: Same as above. Two adhesive bands between the colon and the JJ anastomosis PROCEDURE: Upper endoscopy, laparoscopic lysis of adhesions and laparoscopic cholecystectomy Surgeon: Shaquille Mendez M.D.. Ph.D. Information Systems Specialist: Ernestina Mackenzie PA-C Anesthesia: General endotracheal anesthesia Estimated blood loss: Minimal FINDINGS AND PROCEDURE: OPERATIVE INDICATIONS: The patient is a 57 year old female known to me who underwent a laparoscopic cholecystectomy. The patient had remarkable weight loss so far and had a completely uneventful recovery. The patient was doing very well but has recently been complaining of persistent mid epigastric and right upper quadrant abdominal pain which is mostly postprandial. Ultrasound of the abdomen and pelvis showed no cholelithiasis. A HIDA scan with CCK revealed an abnormal ejection fraction. Conservative treatment was initiated for 4 weeks but the patient had no improvement of her symptoms. Based on this information I recommended laparoscopic cholecystectomy, upper endoscopy to evaluate the patient's symptoms. In addition to that the plan was also to examine the gastric bypass at the same time. Risks and complications of the surgery were discussed with the patient in advance particularly the possibility of conversion to an open surgery, bleeding, infection, obstruction, deep vein thrombosis or pulmonary embolism, bile leak or major bile duct injury that may require surgical intervention. The patient understood the risks and was in agreement with the plan. PROCEDURE: After informed consent was obtained by the patient, the patient was transferred to the Operating Room and was placed in the supine position. The patient was given preoperative antibiotics and after successful induction of general anesthesia, pneumatic compression devices were placed. An upper endoscopy was performed next, the oropharynx and esophagus appeared within the normal limits. There was no hiatal hernia. The small pouch was entered, appeared to be of normal size, there was no gastritis and the gastrojejunostomy was patent, there was no anastomotic ulcer. The proximal Xander limb appeared to be normal as well. At that point the Xander limb and the pouch was decompressed and the scope was withdrawn from the patient's mouth. The patient was then prepped and draped in the usual sterile manner and abdominal access was established with the Junior technique. The abdomen was insufflated with C02 to a pressure of 15 mmHg. A 5 mm Versi-step port was placed, slightly to the right and superior from the umbilicus. The 5 mm camera was introduced. We inspected the area where the port had been placed and there was no injury. The patient was then placed initially in a steep reverse Trendelenburgposition and three additional ports were placed, specifically a 12 mm Versi-step port just to the right of the midline below the xiphoid process and two 5 mm Versi-step ports at the right upper quadrant and right flank. All fascial defects were preemptively infiltrated with 1% lidocaine. The patient was then placed back in the supine position and we examined the bypass by retracting the transverse mesocolon and the omentum cephalad. There was one adhesive band between the transverse colon and the staple line of the Xander limb small bowel mesentery. This was divided with cautery. There was an additional adhesive band between the right colon and the small bowel anastomosis. This was clipped near the colon and a segment of it was excised and sent to pathology. The jejunostomy was identified, it appeared to be normal. There was no dilation of the anastomosis. The small bowel mesenteric defect was closed and there was no internal hernia. The biliopancreatic limb was traced back to the ligament of Treitz and the Key's defect was completely closed as well as the mesocolic defect. At that point we positioned back the transverse colon and the omentum above the small intestine and then the patient was placed in a steep reverse Trendelenburg position tilted to the left side. The gallbladder was retracted cephalad and laterally. There were adhesions between the omentum and the liver bed and gallbladder wall that were taken down. The peritoneal attachments of the gallbladder at the triangle of Calot posteriorly and anteriorly were taken down. The cystic duct and artery were both seen. There was a very short cystic duct, the common bile duct was mildy dilated and very close to the infundibilum of the gallbladder. This made dissection more difficult but eventually the cystic duct was completely dissected free, skeletonized all the way to the infundibulum of the gallbladder . In a similar fashion we also cleaned the liver bed just behind the cystic artery to make sure there was no additional structures in this area. Once we confirmed that both structures were entering into the gallbladder and there were no other structures in the area, they were both clipped with two clips proximally, one distally and were cut in-between. Using the electrocautery, I slowly took down the gallbladder from the liver bed. Small areas of bleeding from the liver parenchyma were controlled with the cautery. After the gallbladder was completely detached from the liver bed, it was placed in an EndoCatch bag and was removed without difficulty from the xiphoid port. We then inspected the clips at the cystic duct and artery and were both in place. There was no active bleeding from the liver bed. At that point the patient was placed in supine position, we deflated the abdomen and we removed all ports under direct vision and no bleeding was noted from any of the port sites. The fascia of the 12 mm port was closed using a #1 Polysorb suture. 30 cc Ropivacaine was used to infiltrate the fascial closure as well as all skin incisions. A total of 7ml of Zynrelef was applied in the Junior wound. The wounds were irrigated with saline mixed with antibiotic solution and then the skin was closed with 4-0 Monocryl subcuticular sutures antibiotic-coated. Steri-strips and OpSites were used to cover all incisions. The patient extubated and was transferred in stable condition to the Recovery Room for further care. I was present and performed all steps of the procedure. Ms. Dalalson was the nursing home assistant administrator. There were no residents to assist with this case. Shaquille Mendez M.D., Ph.D., F.A.C.S. Surgeon: Gary Mendez MD Anesthesia: GETA, local and other (TAP block and Zynrelef) Was an Information Systems Specialist used for this Procedure?: No Information Systems Specialist: Ernestina Mackenzie Estimated blood loss (mL): 10 IV fluids (mL): 1,200 Urine output (mL): 0 (No Izquierdo to record) Pathology: other (1) Gallbladder, 2) Adhesive band) Condition: stable Disposition: PACU
[2022-04-05] MEDS: ondansetron HCL 4 MG/2 ML VIAL IVPUSH (13:24)
[2022-04-05] MEDS: oxyCODONE HCl Immed Release 5 MG TABLET PO (13:26)
[2022-04-05] MEDS: fentaNYL citrate/PF 100 MCG/2 ML VIAL 25 MCG IVPUSH ×2 (13:47→13:52)
== END 2022-04-05 15:53 | disposition home or self-care (01) ==
PROVIDERS: Physician Assistant Surgical; PCP Internal Medicine; Visit Provider Surgery
PROC: 0FT44ZZ Resection of Gallbladder, Percutaneous Endoscopic Approach (ICD-10-PCS; CPT 47562; principal; 2022-04-05 10:10)
DX: K81.1 Chronic cholecystitis (principal); K82.8 Other specified diseases of gallbladder; K90.9 Intestinal malabsorption, unspecified; K66.0 Peritoneal adhesions (postprocedural) (postinfection); Z98.0 Intestinal bypass and anastomosis status; Z98.84 Bariatric surgery status; E11.9 Type 2 diabetes mellitus without complications; I10 Essential (primary) hypertension; U07.1 COVID-19; Z20.822 Contact with and (suspected) exposure to COVID-19; Z79.4 Long term (current) use of insulin; Z79.899 Other long term (current) drug therapy; Z88.8 Allergy status to other drugs, medicaments and biological substances; Z87.891 Personal history of nicotine dependence
CPT/HCPCS: 47562; 36415; 71046; 80053; 83036; 85025; 85610; 85730; 86850; 86900; 86901; 87635; 88300; 88304; 93005; C9088; J0131; J0690; J1100; J2250; J2405; J2795; J3010

== ENCOUNTER → 2022-06-09 09:48 | Outpatient (BNVA) | payer OTHER, SELFPAY | PROVIDERS: PCP Internal Medicine; Referring Provider Internal Medicine; Visit Provider Physician Assistant | DX: K90.9 Intestinal malabsorption, unspecified (principal) ==

== ENCOUNTER → 2022-09-12 13:30 | Outpatient (BNVA) | payer OTHER, SELFPAY | PROVIDERS: PCP Internal Medicine; Visit Provider Counselor Mental Health | DX: Z13.89 Encounter for screening for other disorder (principal) ==

== ENCOUNTER → 2022-09-21 13:30 | Outpatient (BNVA) | payer OTHER, SELFPAY | PROVIDERS: PCP Internal Medicine; Visit Provider Counselor Mental Health | DX: Z13.89 Encounter for screening for other disorder (principal) ==

== ENCOUNTER 2022-09-30 08:39 | Outpatient (REF) | payer OTHER, SELFPAY ==
[2022-09-30 10:05] LABS: MANUAL DIFF FLAG NO
[2022-09-30 11:02] LABS: Basophils Percent Auto 0.7 % (0-2); Eosinophils Absolute Auto 0.1 X10*3/uL (0.0-0.4); Eosinophils Percent Auto 1.1 % (0-4); Hematocrit 42.1 % (37.0-47.0); Imm Gran Abs Auto 0.01 X10*3/uL (0.00-0.03); Imm Gran Pct Auto 0.2 % (0.0-0.4); Lymphocytes Absolute Auto 1.7 X10*3/uL (1.2-4.9); Lymphocytes Percent Auto 39.3 % (20-40); Mean Corpuscular HGB Conc 33.3 g/dl (31.0-35.0); Mean Corpuscular Hemoglobin 29.2 pg (27.0-33.0); Mean Corpuscular Volume 87.7 fL (80.0-98.0); Mean Platelet Volume 10.8 fL (9.4-12.3); Monocytes Absolute Auto 0.5 X10*3/uL (0.1-1.2); Monocytes Percent Auto 11.6 % (2-11); Neutrophils Absolute Auto 2.1 x10*3/uL (2.0-8.3); Neutrophils Percent Auto 47.1 % (45-73); Platelet Count 217 X10*3/uL (160-400); Red Cell Distribution Width 12.4 % (11.0-16.0); White Blood Count 4.4 X10*3/uL (4.8-10.8)
[2022-09-30 11:18] LABS: Estimated Average Glucose 148 mg/dL; Hemoglobin A1c % 6.8 %
[2022-09-30 12:03] LABS: Alanine Aminotransferase 19 U/L (0-31); Albumin Level 4.6 g/dL (3.5-5.0); Alkaline Phosphatase 75 U/L (39-117); Anion Gap 14 (12-20); Aspartate Amino Transferase 15 U/L (5-31); Bilirubin Total 0.8 mg/dL (0.0-1.0); Blood Urea Nitrogen 15 mg/dL (9-16); C Reactive Protein < 0.04 mg/dL (< or = 0.50); Calcium 9.7 mg/dL (8.4-10.2); Carbon Dioxide 29 mmol/L (22-29); Chloride 104 mmol/L (96-108); Cholesterol 232 mg/dL; Estimated Glomerular Filt Rate > 60; Glucose Random 128 mg/dL (60-115); HDL Cholesterol 79 mg/dL; Iron 113 mcg/dL (30-160); LDL Cholesterol Calculated 135 mg/dl; Percent Iron Saturation 31 % (15-50); Potassium 4.5 mmol/L (3.3-5.1); Sodium 142 mmol/L (135-145); Total Iron Binding Capacity 365 mcg/dL (228-428); Total Protein 7.2 g/dL (6.5-8.0); Triglycerides 92 mg/dL; Unsaturated Iron Binding 252 ug/dL
[2022-09-30 12:09] LABS: Ferritin 23 ng/mL (10-250); Folate 9.7 ng/mL (> or = 4.0); Insulin 14 uU/mL (2-29); TSH reflex Free T4 1.52 uIU/mL (0.32-4.0); Vitamin B12 447 pg/mL (200-900); Vitamin D 25-OH Total 17.5 ng/mL (>30)
[2022-10-03 15:29] LABS: Calcium (PTHI) 10.1 mg/dL (8.6-10.4); PTHI 61 pg/mL (16-77)
[2022-10-05 05:18] LABS: Zinc 91 mcg/dL (60-130)
[2022-10-06 10:38] LABS: Vitamin A 45 mcg/dL (38-98)
[2022-10-06 16:33] LABS: Vitamin B1 11 nmol/L (8-30)
== END 2022-09-30 08:40 | disposition home or self-care (01) ==
LOC: HO.LAB 08:39
PROVIDERS: PCP Internal Medicine; Visit Provider Physician Assistant
DX: K90.9 Intestinal malabsorption, unspecified (principal); E66.3 Overweight; M79.3 Panniculitis, unspecified; Z98.84 Bariatric surgery status; E11.9 Type 2 diabetes mellitus without complications; Z79.4 Long term (current) use of insulin
CPT/HCPCS: 36415; 80053; 80061; 82306; 82607; 82728; 82746; 83036; 83525; 83540; 83970; 84425; 84443; 84590; 84630; 85025; 86140

== ENCOUNTER → 2022-10-12 13:30 | Outpatient (BNVA) | payer OTHER, SELFPAY | PROVIDERS: PCP Internal Medicine; Visit Provider Counselor Mental Health | DX: Z13.89 Encounter for screening for other disorder (principal) ==

== ENCOUNTER 2023-07-19 08:39 | Outpatient (AMB) | payer OTHER, SELFPAY ==
--- NOTE | 2023-07-19 08:40 | MHC.OFFVISWM ---
Intake VS Expanded 07/19/23 08:46 BP 131/62 Blood Pressure Location Rt brachial Blood Pressure Position Sitting Pulse 73 Pulse Source Pulse Oximeter Temp 97.0 F Temperature Source Tympanic Pulse Oximetry 97 Oxygen Delivery Method Room Air Height 5 ft 7 in Weight 171 lb BMI 26.8 Body Fat % 36.6 Body Fat Mass 62.6 Fat Free Mass 108.2 Visceral Fat Rating 8.0 Body Water % 44.9 Body Water Mass 76.8 Muscle Mass/Score 102.8 Basal Metabolic Rate/Score 1,470 Intake Visit Reasons: (OV) PO GBP 09/08/20 Allergies metformin [METFORMIN] Allergy (Intermediate, Verified 07/19/23 08:44) VOMITING lisinopril [LISINOPRIL] Adverse Reaction (Intermediate, Verified 07/19/23 08:44) COUGH Medication List - Last Reconciled 07/19/23 by Ernestina Mackenzie PA-C calcium citrate-vitamin D3 315 mg-5 mcg (200 unit) 1 tab PO BID carbidopa-levodopa 25-100 mg 1 tab PO BEDTIME PRN citalopram 40 mg PO BEDTIME clotrimazole 1% 1 appl topical BID aaalqhhxyqvq-dux-gcrz-FA-vit K 45 mg iron- 800 mcg-120 mcg (Bariatric Multivitamins) caps PO DAILY pravastatin 20 mg PO DAILY HPI HPI Comments History of Present Illness Details 58 yo woman now 2 years and 10 months s/p GBP. Last seen September 2022 with GI complaints. S/p cholecystectomy. Sees GI - [facility] in [facility], no EGD but cleared for follow up in 2 years. Wakes at 7:30 am 8am - 1 slice Segundo Killer bread thin slice with margarine, sometimes has an egg. Green tea with meal and sips all morning. 12 noon - canned chicken noodle soup - 1 ladle with crackers. 5pm - 3 oz meat, 4 oz carb and 4 oz vegetable. Hint water 7pm - Zone bar - less than half No ETOH, coffee in am 3d/week with UAM. No tobacco, No NSAIDS of ASA. Exercise - walks 5d/week, 2miles in 30 minutes, ? calories. [facility] Medical History (Updated 09/12/22 @ 15:09 by Zee Fernández) Intestinal malabsorption BMI 32.0-32.9,adult BMI over 35 Left ventricular hypertrophy Hepatomegaly Steatosis, liver DJD (degenerative joint disease) BMI 38.0-38.9,adult Hx gestational diabetes Hx of nausea BMI 39.0-39.9,adult Obesity Constipation Nausea Syncope GERD (gastroesophageal reflux disease) Depression Fibromyalgia Restless leg syndrome Gastroparesis Sleep apnea with use of continuous positive airway pressure (CPAP) Hyperlipidemia Hypertension Insulin dependent diabetes mellitus Morbid obesity Surgical History (Updated 07/19/23 @ 09:31 by Ernestina Mackenzie PA-C) Hx of breast reduction, elective Hx of gastric bypass History of esophagogastroduodenoscopy (EGD) H/O colonoscopy Hx of myomectomy Hx of cerebral aneurysm repair Hx of foot surgery Hx of section Family History Mother Hypertension Hyperlipidemia Osteoporosis Father No problems noted. Brother No problems noted. Brother Hypertension Brother Hypertension Brother No problems noted. Sister No problems noted. Son No problems noted. Social History Are you a primary ostomy care nurse to a significant other at home: No Do you presently have visiting nurse or other home services: No Alcohol intake: never Patient Tobacco Use Status: Former Tobacco user Second Hand Smoke Exposure: No service: No Current occupational status: employed Physical Exam Vital Signs: Last Vital Signs Temp 97.0 F 07/19/23 08:46 Pulse 73 07/19/23 08:46 BP 131/62 07/19/23 08:46 Pulse Ox 97 07/19/23 08:46 Oxygen Delivery Method Room Air 07/19/23 08:46 BMI result Body Mass Index 26.8 Assessment & Plan Assessment & Plan (1) Hx of gastric bypass: Comment: 09/08/2020- LRYGB Code(s): Z98.84 - Bariatric surgery status Plan: Pt still has inadequate meal plan and eats too fast and too much - she never made the changes we talked about last September. She says she will make them now. Needs 70 - 75 grams protein per day. 1. No coffee 2.Green 8 oz all at once in am 3. Meal plan for adequate protein: 20 - 30 minutes for each meal 8am - Pure protein shake with UAM - over 1 hour, then green tea over 30 minutes 12 pm - 3 oz protien and 3 oz vegetable 5pm - 3oz proten, 3 oz vegetable, 2 oz carb, eat protein first after dinner less than 1/2 bar OK if desired Exercise - will continue walking. TBP videos ST 3d/ week. Follow up Supriya in 3 weeks. Needs her annual appt end of August. Pt will find out if panniculectomy is covered benefit. I spent 30minutes in total with patient reviewing/updating records, examining the patient and counseling the patient on weight management as detailed above. (2) Intestinal malabsorption: Code(s): K90.9 - Intestinal malabsorption, unspecified Plan: due to poor diet and hx GBP - must make necessary dietary changes Coding Level of Care Code Est Pt Level 4 (27901) Diagnoses Hx of gastric bypass Z98.84 Intestinal malabsorption K90.9
[2023-07-19 08:46] VITALS: BP 131/62; PULSE 73; TEMP 36.1; O2SAT 97; BMI 26.8
== END 2023-07-19 09:32 | disposition home or self-care (01) ==
PROVIDERS: Visit Provider Physician Assistant
DX: K90.9 Intestinal malabsorption, unspecified (principal); Z98.84 Bariatric surgery status
CPT/HCPCS: 99214

== ENCOUNTER → 2023-07-19 08:39 | Outpatient (BNVA) | payer OTHER, SELFPAY | PROVIDERS: Visit Provider Physician Assistant ==

== ENCOUNTER 2024-01-03 13:02 | Outpatient (AMB) | payer OTHER, SELFPAY ==
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
[2024-01-03 13:04] VITALS: BP 130/78; PULSE 69; O2SAT 99; BMI 27.2
== END 2024-01-03 14:23 | disposition home or self-care (01) ==
PROVIDERS: PCP Internal Medicine; Visit Provider Nurse Practitioner Family
DX: G43.709 Chronic migraine without aura, not intractable, without status migrainosus (principal); R42 Dizziness and giddiness; G24.3 Spasmodic torticollis
CPT/HCPCS: 99204

== ENCOUNTER → 2024-01-03 13:02 | Outpatient (BNVA) | payer OTHER, SELFPAY | PROVIDERS: PCP Internal Medicine; Visit Provider Nurse Practitioner Family ==

== ENCOUNTER 2024-08-20 13:06 | Outpatient (AMB) | payer OTHER, SELFPAY ==
--- NOTE | 2024-08-20 12:58 | A.OFFVIS_ITS ---
VS Expanded 08/20/24 13:04 Height 5 ft 7 in Weight 179 lb BMI 28.0 Intake Visit Reasons: (TV) PO GBP 09/08/20 Allergies metformin [METFORMIN] Allergy (Intermediate, Verified 07/19/23 08:44) VOMITING lisinopril [LISINOPRIL] Adverse Reaction (Intermediate, Verified 07/19/23 08:44) COUGH Medication List - Last Reconciled 08/20/24 by DAVID Machado baclofen 5 - 10 mg (1 - 2 x 5 mg) PO BEDTIME 30 days bupropion HCl SR 100 mg PO DAILY calcium citrate-vitamin D3 315 mg-5 mcg (200 unit) 1 tab PO BID carbidopa-levodopa 25-100 mg 1 tab PO BEDTIME PRN citalopram 40 mg PO BEDTIME clotrimazole 1% 1 appl topical BID magnesium oxide 400 mg PO BEDTIME 30 days knctswnhxtph-wsy-fkgc-FA-vit K 45 mg iron- 800 mcg-120 mcg (Bariatric Multivitamins) caps PO DAILY pravastatin 20 mg PO DAILY riboflavin (vitamin B2) 400 mg PO DAILY 30 days ubrogepant (Ubrelvy) 50 - 100 mg (0.5 - 1 x 100 mg) PO ONCE PRN 30 days verapamil ER 120 mg PO DAILY 30 days HPI Comments Details: This?is a?59 yo female who is s/p RYGB 09/08/2020. Presents for 4 year post op visit. Weight at last visit on 07/19/2023 was 171 pounds with a BMI of 26.8, weight today is 179 pounds, representing a 8 pound weight gain with a BMI today of 26.8.? No complaints of nausea, emesis, abdominal pain or reflux, or constipation. I'm going downhill, health leos. Difficulty drinking water- upsets my stomach . HgbA1C increased to 8.1. Thinks her overall protein intake might be low. I like to snack. Was denied for skin removal surgery- apparently did not have enough volume/size of excess skin. Continues to have difficulty managing this. Her insurance may change later this year. Present meal plan includes: -given at last OV 8am - Pure protein shake with UAM - over 1 hour, then green tea over 30 minutes 12 pm - 3 oz protein and 3 oz vegetable 5pm - 3oz protein, 3 oz vegetable, 2 oz carb, eat protein first after dinner less than 1/2 bar OK if desired -eats one egg bite for breakfast, tries to avoid carbs/bread but does eat [employer] bread Exercise routine includes: walks 5d/week, 2miles in 30 minutes [facility] Medical History (Updated 01/03/24 @ 17:46 by HILARY Rosen) Intestinal malabsorption BMI 32.0-32.9,adult BMI over 35 Left ventricular hypertrophy Hepatomegaly Steatosis, liver DJD (degenerative joint disease) BMI 38.0-38.9,adult Hx gestational diabetes Hx of nausea BMI 39.0-39.9,adult Obesity Constipation Nausea Syncope GERD (gastroesophageal reflux disease) Depression Fibromyalgia Restless leg syndrome Gastroparesis Sleep apnea with use of continuous positive airway pressure (CPAP) Hyperlipidemia Hypertension Insulin dependent diabetes mellitus Morbid obesity Surgical History Hx of breast reduction, elective Hx of gastric bypass History of esophagogastroduodenoscopy (EGD) H/O colonoscopy Hx of myomectomy Hx of cerebral aneurysm repair Hx of foot surgery Hx of section Family History Mother Hypertension Hyperlipidemia Osteoporosis Father No problems noted. Brother No problems noted. Brother Hypertension Brother Hypertension Brother No problems noted. Sister No problems noted. Son No problems noted. Social History Are you a primary personal care aid to a significant other at home: No Do you presently have visiting nurse or other home services: No Alcohol intake: never Patient Tobacco Use Status: Former Tobacco user Second Hand Smoke Exposure: No service: No Current occupational status: employed Telehealth Telehealth Telehealth Platform: Telephone Location of provider rendering services: practice address Location of patient: address on file Patient Identification confirmed using: Name, : Yes Telehealth method: voice only Patient verbally consented to treatment: Yes Patient verbally consented to billing insurance company: Yes Patient informed of any privacy concerns related to visit: Yes Minutes spent on Phone/Video with Pt.: 17 Assessment & Plan Assessment & Plan (1) Hx of gastric bypass: Comment: 09/08/2020- LRYGB Code(s): Z98.84 - Bariatric surgery status Category: Surgical (2) Overweight: Code(s): E66.3 - Overweight Category: Medical Plan Goal 70-75g protein per day. New meal plan: 1 Pure protein shake, 1 scoop in 8oz oat milk 2 Atkins or Fitcrunch bars- or one bar and one GY/CC cup 1 meal 4f/4f Sent meal plan to pt via text, encouraged her to reach out between visits with any questions. Can resubmit for panniculectomy if pt has change of insurance coverage and meets BMI criteria. RTC 6-8 weeks, in person per pt request.
[2024-08-20 13:04] VITALS: BMI 28.0
--- OUTSIDE RECORDS SUMMARY | 2024-08-20 15:53 | XMS_ITS | Clinical Summary ---
Author Organization [facility] Address [address] [place] [address] Care Team Providers Care Stainless Steel Finisher Name Role Phone Lenora Castro DO Primary Care Provider [phone] Luis Hsu Unavailable Allergies Active Allergy Reactions Criticality Noted Date Comments Lisinopril Cough Low 02/25/2020 Metformin GI Intolerance/Nausea/Vomiting Low 02/24 Medications Medication Sig Dispensed Refills Start Date End Date Status cyclobenzaprine (FLEXERIL) 10 MG tablet Take 10 mg by mouth daily as needed. Do not take day of surgery. 02/22/2020 Active ergocalciferol (VITAMIN D2,DRISDOL) 77732 units Cap Take 50,000 Units by mouth once a week. Stop on 03/09/2020 01/28/2020 Active fluticasone (Flovent Diskus) 100 MCG/BLIST diskus inhaler Inhale 100 mcg Once before discharge. Take day of surgery if needed Active Glucagon Emergency 1 MG injection Inject 1 mg into the shoulder, thigh, or buttocks daily as needed. Take day of surgery if needed then call 911 01/28/2020 Active Contour Next Test strip Inject 1 box under the skin 3 (three) times a day with meals. Use as directed 01/18/2020 Active HumaLOG 100 UNIT/ML injection Inject 1 Units under the skin daily. Use with insulin pump. Keep normal basal rate for surgery. 02/07/2020 Active citalopram (CeleXA) 40 MG tablet Take 40 mg by mouth nightly. Take the night before surgery 03/05/2020 Discontinued( Patient Discharge) verapamil (CALAN) 80 MG tablet Take 80 mg by mouth nightly. Do not take the night before surgery. 03/05/2020 Discontinued( Patient Discharge) rosuvastatin (CRESTOR) 40 MG tablet Take 40 mg by mouth nightly. Take the night before surgery 03/05/2020 Discontinued( Patient Discharge) OMEprazole (PriLOSEC) 40 MG capsule Take 40 mg by mouth every morning before breakfast. Take day of surgery 03/05/2020 Discontinued( Patient Discharge) carbidopa-levodop a (SINEMET) 25-100 MG per tablet Take 1 tablet by mouth nightly as needed for restless legs. Take the night before surgery 03/05/2020 Discontinued( Patient Discharge) ibuprofen (MOTRIN) 800 mg tablet Take 800 mg by mouth 3 times daily (every 8 hours) as needed for mild pain. Stop on 03/09/2020 03/05/2020 Discontinued( Patient Discharge) Active Problems Problem Noted Date Diagnosed Date Sleep apnea Overview (03/02/2020): CPAP GERD (gastroesophageal reflux disease) Gastroparesis Diabetes mellitus Hypertension Hyperlipidemia Fibromyalgia Anxiety Aneurysm, cerebral Family History Medical History Relation Name Comments Diabetes Father Glaucoma Mother Scoliosis Sister Relation Name Status Comments Father Mother Alive Sister Alive Social History Tobacco Use Types Packs/Day Years Used Date Smoking Tobacco: Former Smokeless Tobacco: Never Comments:quit more than 30 y ears ago Alcohol Use Standard Drinks/Week Comments Never 0 (1 standard drink = 0.6 oz pur e alcohol) AUDIT-C Answer Date Recorded Q1: How often do you have a drink containing alc ohol? Never 02/25/2020 Average Number of Drinks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 020 Frequency of Binge Drinking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 02/10 Sex and Gender Information Value Date Recorded Sex Assigned at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 Gender Identity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 Sexual Orientation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 Last Filed Vital Signs Vital Sign Reading Time Taken Comments Blood Pressure 128/80 03/02/2020 2:36 PM EDT Pulse 85 03/02/2020 2:36 PM EDT Temperature 36.8 ??C (98.2 ??F) 03/02/2020 2:36 PM ED T Respiratory Rate 16 03/02/2020 2:36 PM EDT Oxygen Saturation 98% 03/02/2020 2:36 PM EDT Inhaled Oxygen Concentration - - Weight 123 kg (271 lb) 03/02/2020 2:36 PM EDT Height 168.5 cm (5' 6.34 ) 03/02/2020 2:36 PM ED T Body Mass Index 43.29 03/02/2020 2:36 PM EDT Plan of Treatment Health Maintenance Due Date Last Done Comments Hepatitis C Virus Screening 1965 Pneumococcal Vaccine: Pediatric (0-5 Years) and At-Risk Patients (6 to 49 Years) (1 of 2 - PCV) 01/23/1970 Foot Exam 01/23/1974 Lipid Panel 01/23/1974 Ophthalmology Exam 01/23/1974 HIV Screening 01/23/1977 Microalbumin/Creatinine Rati o Urine 01/23/1982 DTaP/Tdap/Td Vaccines (1 - Tdap) 01/23/1983 Pneumococcal Vaccines 50+ (1 of 2 - PCV) 01/23/1983 Pap Smear (Ages 21-65) 01/23/1985 Mammogram 2004 Colonoscopy 01/23/2009 Zoster (Shingles) Vaccine (1 of 2) 01/23/2014 Hemoglobin A1C 08/30/2020 03/02/2020, 12/18/2018 Creatinine with GFR 03/02/2021 03/02/2020 Influenza Vaccine 01/11/2024 RSV Vaccine 60 years and old er and Patients (1 - Risk 60-74 years 1-dose series) 2024 COVID-19 Vaccine ( - 2023-2 5 season) 2024 Hepatitis B Vaccines Aged Out No long er eligible based on patient's age to complete this topic Procedures Procedure Name Priority Date/Time Associated Diagnosis Comments HEMOGLOBIN A1C WITH ESTIMATED AVERAGE GLUCOSE Routine 03/02/2020 3:34 PM EDT Tarsal tunnel syndrome of right side Preop examination Sleep apnea, unspecified type Gastroesophageal reflux disease, esophagitis presence not specified Gastroparesis Type 2 diabetes mellitus with other specified complication, with long-term current use of insulin (HCC) Essential hypertension Hyperlipidemia, unspecified hyperlipidemia type Fibromyalgia Anxiety Aneurysm, cerebral BASIC METABOLIC PANEL Routine 03/02/2020 3:34 PM EDT Tarsal tunnel syndrome of right side Preop examination Sleep apnea, unspecified type Gastroesophageal reflux disease, esophagitis presence not specified Gastroparesis Type 2 diabetes mellitus with other specified complication, with long-term current use of insulin (HCC) Essential hypertension Hyperlipidemia, unspecified hyperlipidemia type Fibromyalgia Anxiety Aneurysm, cerebral from Last 3 Months or Most Recently Relevant to Health Maintenance Results * (ABNORMAL) Hemoglobin A1c with Estimated Average Glucose (03/02/2020 3:34 PM EDT) Hemoglobin A1C 9.3(H) <5.7 % [facility] Comment: A1c% ? Interpretation 5.7 - 6.0 ?Increase risk of diabetes 6.1 - 6.4 ?Higher risk of diabetes > or = 6.5 ?? Consistent with diabetes Diabetes Care, 33(Supp 1):S1-S61, 2010 Estimated Average Glucose 220 mg/dL [facility] Comment:Performed at [facility], [place], [place] license No. [id number] CLIA No. [id number] Blood specimen (specimen) Heel structure / Unknown 03/02/2020 3:34 PM EDT 03/02/2020 6:18 PM EDT Kate Bhakta [facility] BLOOD ORDERABLES [facility] * (ABNORMAL) Basic Metabolic Panel (03/02/2020 3:34 PM EDT) Glucose 203(H) 65 - 99 mg/dL [facility] Comment:Fasting: <100 mg/dL, Non-Fasting: <200 mg/dL (ADA 2005) Blood Urea Nitrogen (BUN) 15 8 - 21 mg/dL [facility] Creatinine 0.7 0.4 - 1.1 mg/dL [facility] eGFR >60 >59 [facility] Comment:MDRD in mL/min/1.73 sq meters. GFR - >60 >59 [facility] Comment:MDRD in mL/min/1.73 sq meters. Sodium 143 136 - 145 mmol/L [facility] Potassium 4.3 3.4 - 5.3 mmol/L [facility] Chloride 99 98 - 107 mmol/L [facility] CO2 28 22 - 33 mmol/L [facility] Anion Gap 16 7 - 17 [facility] Calcium 10.5 8.7 - 10.5 mg/dL [facility] BUN/Creatinine Ratio 21 10.0 - 25.0 Ratio [facility] Comment:Performed at [facility], [facility], [place] license No. [id number] CLIA No. [id number] Blood specimen (specimen) Heel structure / Unknown 03/02/2020 3:34 PM EDT 03/02/2020 6:18 PM EDT Kate Bhakta [facility] from Last 3 Months or Most Recently Relevant to Health Maintenance Care Teams Stainless Steel Finisher Relationship Specialty Start Date End Date Lenora Castro DO [address] [place] [address] [place] [address] PCP - General Internal Medicine 02/21/20 Luis Hsu [address] [place] [phone] Referring Provider 02/21/20
--- OUTSIDE RECORDS SUMMARY | 2024-08-20 15:53 | XMS_ITS | Encounter Summary ---
Author Organization [facility] Address [address] [place] [address] Care Team Providers Care Student Assistant Name Role Phone Lenora Castro DO Primary Care Provider [phone] Luis Hsu Unavailable Encounter Details Date Type Department Care Team (Late st Contact Info) Description 03/04/2020 Prep for Surgery [facility] [place] [address] [facility] 2nd Floor [address] [place] [phone] Anastasiya Sweeney APRN [address] [place] [address] Social History Tobacco Use Types Packs/Day Years [...] on file Sexual Orientation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 COVID-19 Exposure Response Date Recorded In the last month, have you been in contact with someone who was confirmed or suspected to have Coronavirus / COVID-19? No / Unsure 03/02/2020 2:22 PM EDT documented as of this encounter Plan of Treatment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 documented as of this encounter Visit Diagnoses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documented in this encounter Care Teams Student Assistant Relationship Specialty Start Date End Date Lenora Castro DO [address] [place] [address] [place] [address] PCP - General Internal Medicine 02/21/20 Luis Hsu [address] [place] [phone] Referring Provider 02/21/20 documented as of this encounter
--- OUTSIDE RECORDS SUMMARY | 2024-08-20 15:53 | XMS_ITS | Encounter Summary ---
Author Organization [facility] Address [address] [place] [address] Care Team Providers Care Biofuels Product Development Manager Name Role Phone Lenora Castro Primary Care Provider [phone] Luis Hsu Unavailable Encounter Details Date Type Department Care Team (Late st Contact Info) Description 03/05/2020 Scanned Document [address] [place] [phone] Provider, Generic Social History Tobacco Use Types Packs/Day Years [...] on file documented as of this encounter Procedures Procedure Name Priority Date/Time Associated Diagnosis Comments BOOKING SHEETS-SCAN 03/05/2020 documented in this encounter Results * BOOKING SHEETS-SCAN (03/05/2020) Narrative 03/05/2020 Ordered by an unspecified provider. Generic Provider HX AMB PROCEDURES documented in this encounter Visit Diagnoses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documented in this encounter Care Teams Biofuels Product Development Manager Relationship Specialty Start Date End Date Lenora Castro DO [address] [place] [address] [place] [address] PCP - General Internal Medicine 02/21/20 Luis Hsu [address] [place] [phone] Referring Provider 02/21/20 documented as of this encounter
== END 2024-08-20 13:19 | disposition home or self-care (01) ==
LOC: HO.HBS 13:06
PROVIDERS: PCP Internal Medicine; Visit Provider Physician Assistant Surgical
DX: E66.3 Overweight (principal); Z68.28 Body mass index [BMI] 28.0-28.9, adult; Z98.84 Bariatric surgery status
CPT/HCPCS: 99214

== ENCOUNTER → 2024-08-20 13:06 | Outpatient (BNVA) | payer OTHER, SELFPAY | PROVIDERS: PCP Internal Medicine; Visit Provider Physician Assistant Surgical ==

== ENCOUNTER 2024-10-21 08:45 | Outpatient (AMB) | payer OTHER, SELFPAY ==
--- NOTE | 2024-10-21 08:49 | MHC.OFFVISWM ---
VS Expanded 10/21/24 09:23 BP 128/61 Blood Pressure Location Rt brachial Blood Pressure Position Sitting Pulse 76 Pulse Source Pulse Oximeter Temp 97.8 F Temperature Source Temporal Artery Scan Pulse Oximetry 97 Oxygen Delivery Method Room Air Height 5 ft 7 in Weight 178 lb BMI 27.9 Body Fat % 38.7 Body Fat Mass 68.8 Fat Free Mass 109.2 Visceral Fat Rating 9.0 Body Water % 43.4 Body Water Mass 77.2 Muscle Mass/Score 103.6 Basal Metabolic Rate/Score 1,490 Intake Visit Reasons: OV GBP 09/08/20 Allergies metformin [METFORMIN] Allergy (Intermediate, Verified 10/21/24 09:07) VOMITING lisinopril [LISINOPRIL] Adverse Reaction (Intermediate, Verified 10/21/24 09:07) COUGH Medication List - Last Reconciled 10/21/24 by DAVID Machado buspirone 5 mg PO DAILY carbidopa-levodopa 25-100 mg 1 tab PO BEDTIME PRN cholecalciferol (vitamin D3) 1,250 mcg PO QWEEK citalopram 40 mg PO BEDTIME famotidine 40 mg PO DAILY meclizine 25 mg PO TID PRN mpdtvbytwlfp-ymd-xdpe-FA-vit K 45 mg iron- 800 mcg-120 mcg (Bariatric Multivitamins) caps PO DAILY pantoprazole 20 mg PO DAILY pravastatin 20 mg PO DAILY ubrogepant (Ubrelvy) 50 - 100 mg (0.5 - 1 x 100 mg) PO ONCE PRN 30 days verapamil ER 120 mg PO DAILY 30 days HPI Comments Details: This?is a?59?yo F who is s/p RYGB 09/08/2020. Weight at last visit on 08/20/2024 was 179 pounds with a BMI of 28, weight today is 178 pounds, representing a 1 pound weight loss with a BMI today of 27.9.? No complaints of nausea, emesis, abdominal pain or reflux, or constipation. Previously denied for skin removal surgery- apparently did not have enough volume/size of excess skin. Continues to have difficulty managing this. Her insurance may change later this year. really haven't changed anything has been using protein bars from [employer]. Does follow with GI, has also has pancreatic issues. Still thinks she does not get enough protein. Can tolerate chicken, but not a lot of other meats- nausea. Ends up eating crackers sometimes. Does not tolerate protein shakes or manuel well. Wants to munch at night- toast, [employer]. I know what I need to do, I just have to do it Present meal plan includes: -given at last visit 2mo ago Goal 70-75g protein per day. 1 Pure protein shake, 1 scoop in 8oz oat milk 2 Atkins or Fitcrunch bars- or one bar and one GY/CC cup 1 meal 4f/4f Exercise routine includes: walks 5d/week, 2miles in 30 minutes- not doing this as much works at [employer], on her feet all day, almost 10k steps Pt has issues of excess skin of abdomen. She has to keep the area very clean to prevent rashes. She notices moisture collecting in the skin folds which smells unpleasant. She has pain and discomfort due to the waistband digging into her skin. The excess skin is very heavy and uncomfortable. It pulls on her lower back. It makes walking more difficult. She has to be active at work, bending/squatting down and the skin gets in the way and gets pinched with those movements. [facility] Medical History (Updated 01/03/24 @ 17:46 by HILARY Rosen) Intestinal malabsorption BMI 32.0-32.9,adult BMI over 35 Left ventricular hypertrophy Hepatomegaly Steatosis, liver DJD (degenerative joint disease) BMI 38.0-38.9,adult Hx gestational diabetes Hx of nausea BMI 39.0-39.9,adult Obesity Constipation Nausea Syncope GERD (gastroesophageal reflux disease) Depression Fibromyalgia Restless leg syndrome Gastroparesis Sleep apnea with use of continuous positive airway pressure (CPAP) Hyperlipidemia Hypertension Insulin dependent diabetes mellitus Morbid obesity Surgical History Hx of breast reduction, elective Hx of gastric bypass History of esophagogastroduodenoscopy (EGD) H/O colonoscopy Hx of myomectomy Hx of cerebral aneurysm repair Hx of foot surgery Hx of section Family History Mother Hypertension Hyperlipidemia Osteoporosis Father No problems noted. Brother No problems noted. Brother Hypertension Brother Hypertension Brother No problems noted. Sister No problems noted. Son No problems noted. Social History Are you a primary career services director to a significant other at home: No Do you presently have visiting nurse or other home services: No Alcohol intake: never Patient Tobacco Use Status: Former Tobacco user Second Hand Smoke Exposure: No service: No Current occupational status: employed Physical Exam Const General: cooperative, comfortable and no acute distress Orientation/consciousness: patient oriented x3 GI Other: soft, nontender, nondistended, incisions well healed, no hernia, no masses Grade II pannus, skin is irritated/red at waistline due to pants waistband Neuro General: patient oriented x3 Assessment & Plan Assessment & Plan (1) Hx of gastric bypass: Comment: 09/08/2020- LRYGB Code(s): Z98.84 - Bariatric surgery status Category: Surgical (2) Overweight: Code(s): E66.3 - Overweight Category: Medical Plan Pt needs BMI <27 for skin removal surgery consideration, weight goal 172 lbs. Provided handouts today- healthy foods list, protein manuel, bariatric recipes. Likely low on total protein intake, will try to choose high protein options in evening rather than bread/carbs. Clotrimazole ointment ordered. Her insurance is changing in December. Photos taken today. RTC 2mo. Medications: New clotrimazole 1% 1 appl topical BID 45 grams 3RF
--- OUTSIDE RECORDS SUMMARY | 2024-10-21 08:50 | XMS_ITS | Encounter Summary ---
Author Organization [facility] Address [address] [place] [address] Care Team Providers Care Drafter (Cad) Electronic Name Role Phone Lenora Castro Primary Care Provider [phone] Luis Hsu Encounter Details Date Type Department Care Team (Late st Contact Info) Description 03/04/2020 Prep for Surgery [facility] [place] [address] [facility] 2nd [address] [place] [phone] Anastasiya Sweeney APRN [address] [place] [address] Social History Tobacco Use Types Packs/Day Years [...] of Binge Drinking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 02/10 Comments Unknown Sex and Gender Information Value Date Recorded Sex Assigned at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 Legal Sex Female 1:14 PM EDT Gender Identity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 Sexual Orientation [...] on filedocumented in this encounter Care Teams Drafter (Cad) Electronic Relationship Specialty Start Date End Date Lenora Castro DO [address] [place] [address] [place] [address] PCP - General Internal Medicine 02/21/20 Luis Hsu [address] [place] [phone] Referring Provider 02/21/20 documented as of this encounter
--- OUTSIDE RECORDS SUMMARY | 2024-10-21 08:50 | XMS_ITS | Encounter Summary ---
Author Organization [facility] Address [address] [place] [address] Care Team Providers Care Asset Specialist Name Role Phone RaheelLenora dickson Primary Care Provider [phone] Luis Hsu Unavailable Encounter Details Date Type Department Care Team (Late st Contact Info) Description 03/05/2020 Scanned Document [address] [place] [phone] Provider, Generic Social History Tobacco Use Types [...] Narrative 03/05/2020 Ordered by an unspecified provider. us Generic Provider HX AMB PROCEDURES Final Result documented in this encounter Visit Diagnoses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documented in this encounter Care Teams Asset Specialist Relationship Specialty Start Date End Date Lenora Castro DO [address] [place] [address] [place] [address] PCP - General Internal Medicine 02/21/20 Luis Hsu [address] [place] [phone] Referring Provider 02/21/20 documented as of this encounter
--- OUTSIDE RECORDS SUMMARY | 2024-10-21 08:50 | XMS_ITS | Clinical Summary ---
Author Organization Formerly [facility] Address [address] [place] [address] Care Team Providers Care Immunohematologist Name Role Phone Lenora Castro DO Primary Care Provider [phone] Luis Hsu Unavailable Allergies Active Allergy Reactions Criticality Noted Date Comments Lisinopril Cough Low 02/25/2020 Metformin GI Intolerance/Nausea/Vomiting Low 02/24 Medications cyclobenzaprine (FLEXERIL) 10 MG tablet Take 10 mg by mouth daily as needed. Do not take day of surgery. 0 Active ergocalciferol (VITAMIN D2,DRISDOL) 91746 units Cap Take 50,000 Units by mouth once a week. Stop on 03/09/2020 0 Active fluticasone (Flovent Diskus) 100 MCG/BLIST diskus inhaler Inhale 100 mcg Once before discharge. Take day of surgery if needed Active Glucagon Emergency 1 MG injection Inject 1 mg into the shoulder, thigh, or buttocks daily as needed. Take day of surgery if needed then call [phone] Active Contour Next Test strip Inject 1 box under the skin 3 (three) times a day with meals. Use as directed 0 Active HumaLOG 100 UNIT/ML injection Inject 1 Units under the skin daily. Use with insulin pump. Keep normal basal rate for surgery. 0 Active citalopram (CeleXA) 40 MG tablet Take 40 mg by mouth nightly. Take the night before surgery 03/05/20 20 Discontinu ed(Patient Discharge) verapamil (CALAN) 80 MG tablet Take 80 mg by mouth nightly. Do not take the night before surgery. 03/05/20 Discontinu ed(Patient Discharge) rosuvastatin (CRESTOR) 40 MG tablet Take 40 mg by mouth nightly. Take the night before surgery 03/05/20 Discontinu ed(Patient Discharge) OMEprazole (PriLOSEC) 40 MG capsule Take 40 mg by mouth every morning before breakfast. Take day of surgery 03/05/20 Discontinu ed(Patient Discharge) carbidopa-levod opa (SINEMET) 25-100 MG per tablet Take 1 tablet by mouth nightly as needed for restless legs. Take the night before surgery 03/05/20 Discontinu ed(Patient Discharge) ibuprofen (MOTRIN) 800 mg tablet Take 800 mg by mouth 3 times daily (every 8 hours) as needed for mild pain. Stop on 03/09/2020 03/05/20 Discontinu ed(Patient Discharge) Active Problems Problem Noted Date Diagnosed [...] Done Comments Hepatitis C Virus Screening 1964 Foot Exam 01/23/1974 Lipid Panel 01/23/1974 Ophthalmology Exam 01/23/1974 HIV Screening 01/23/1977 Microalbumin/Creatinine Rati o Urine 01/23/1982 DTaP/Tdap/Td Vaccines (1 - Tdap) 01/23/1983 Pneumococcal Vaccines 50+ (1 of 2 - PCV) 01/23/1983 Pap Smear (Ages 21-65) 01/23/1985 Mammogram 2004 Colonoscopy 01/23/2009 Zoster (Shingles) Vaccine (1 of 2) 01/23/2014 Hemoglobin A1C 08/30/2020 03/02/2020, 12/18/2018 Creatinine with GFR 03/02/2021 03/02/2020 RSV Vaccine 60 years and old er and Patients (1 - Risk 60-74 years 1-dose series) 2024 COVID-19 Vaccine (1 - 2023-2 5 season) 2024 Influenza Vaccine 01/10/2025 Hepatitis B Vaccines Aged Out No long [...] Glucose 220 mg/dL HOSPITAL LAB Comment:Performed at [facility], [place] license No. [id number] [place] No. [id number] Blood specimen (specimen) Heel structure / Unknown 03/02/2020 3:34 PM EDT 03/02/2020 6:18 PM EDT Kate Bhakta APRN LAB BLOOD ORDERABLES Final R esult HOSPITAL LAB * (ABNORMAL) Basic Metabolic Panel [...] - 25.0 Ratio HOSPITAL LAB Comment:Performed at [facility], [place] license No. [id number] CLIA No. [id number] Blood specimen (specimen) Heel structure / Unknown 03/02/2020 3:34 PM EDT 03/02/2020 6:18 PM EDT Kate Amayaujo RISK COMPLIANCE ANALYST LAB BLOOD ORDERABLES Final R esult HOSPITAL LAB from Last 3 Months or Most Recently Relevant to Health Maintenance Insurance [facility] [id number] Care Teams Immunohematologist Relationship Specialty Start Date End Date Lenora Castro DO [address] [place] [address] [place] [address] PCP - General Internal Medicine 02/21/20 Luis Hsu [address] [place] [id number] Referring Provider 02/21/20
[2024-10-21 09:23] VITALS: BP 128/61; PULSE 76; TEMP 36.6; O2SAT 97; BMI 27.9
== END 2024-10-21 09:50 | disposition home or self-care (01) ==
LOC: HO.HBS 08:46
PROVIDERS: PCP Internal Medicine; Visit Provider Physician Assistant Surgical
DX: E66.3 Overweight (principal); Z68.27 Body mass index [BMI] 27.0-27.9, adult; Z98.84 Bariatric surgery status
CPT/HCPCS: 99214

== ENCOUNTER 2024-12-12 13:37 | Outpatient (AMB) | payer OTHER, SELFPAY ==
--- OUTSIDE RECORDS SUMMARY | 2024-12-12 13:46 | XMS_ITS | Patient Health Record ---
Author Organization [facility] Address [address] [place], [place] [id number] Care Team Providers Care Supercalender Operator Name Role Phone Raheelrandolph NIEVES Lenora Primary Care Provider Unavailab Laura Quintana Unavailable [phone] Reason For Referral No Information Plan Of Treatment No Information Insurance Providers Payer Name Payer Address Payer Phone Subscriber Number Group Number Insured Name Patient Relationship to Insured Coverage Start Date Coverage End Date [facility] [address] [place] [phone] [id number] Amanda Harrington Self - patient is the insured
--- OUTSIDE RECORDS SUMMARY | 2024-12-12 13:46 | XMS_ITS | Clinical Summary ---
Author Organization Formerly [facility] Address [address] [place] [address] Care Team Providers Care Machine Applicator Cementer Name Role Phone Lenora Castro DO Primary Care Provider [phone] Luis Hsu Unavailable Allergies Active Allergy Reactions Criticality Noted Date Comments Lisinopril Cough Low 02/25/2020 Metformin GI Intolerance/Nausea/Vomiting Low 02/24 Medications cyclobenzaprine (FLEXERIL) 10 MG tablet Take 10 mg by mouth daily as needed. Do not take day of surgery. 0 Active ergocalciferol (VITAMIN D2,DRISDOL) 14639 units Cap Take 50,000 Units by mouth [...] 85 03/02/2020 2:36 PM EDT Temperature 36.8 C (98.2 F) 03/02/2020 2:36 PM EDT Respiratory Rate 16 03/02/2020 2:36 PM EDT [...] 9.3(H) <5.7 % HOSPITAL LAB Comment: A1c% Interpretation 5.7 - 6.0 Increase risk of diabetes 6.1 - 6.4 Higher risk of diabetes > or = 6.5 Consistent with diabetes Diabetes Care, 33(Supp 1):S1-S61, 2009 Estimated Average Glucose 220 mg/dL HOSPITAL LAB Comment:Performed at [place], [place] license No. [id number] eFolderIA No. [id number] Blood specimen (specimen) Heel structure / Unknown 03/02/2020 3:34 PM EDT 03/02/2020 6:18 PM EDT Kate Bhakta FARM FACILITY MANAGER LAB BLOOD ORDERABLES Final R esult HOSPITAL [...] - 25.0 Ratio HOSPITAL LAB Comment:Performed at [place], [place] license No. [id number] CLIA No. [id number] Blood specimen (specimen) Heel structure / Unknown 03/02/2020 3:34 PM EDT 03/02/2020 6:18 PM EDT us Kate Bhakta FARM FACILITY MANAGER LAB BLOOD ORDERABLES Final R esult HOSPITAL LAB from Last 3 Months or Most Recently Relevant to Health Maintenance Insurance [facility] Care Teams Machine Applicator Cementer Relationship Specialty Start Date End Date Lenora Castro DO [address] [place] [address] [place] [address] PCP - General Internal Medicine 02/21/20 Luis Hsu [address] [place] [phone] Referring Provider 02/21/20
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
[2024-12-12 14:24] VITALS: BP 130/70; PULSE 66; O2SAT 96; BMI 27.7
== END 2024-12-12 15:17 | disposition home or self-care (01) ==
LOC: HO.HSMS 13:37
PROVIDERS: PCP Internal Medicine; Visit Provider Nurse Practitioner Family
DX: G43.709 Chronic migraine without aura, not intractable, without status migrainosus (principal); R42 Dizziness and giddiness; G24.3 Spasmodic torticollis
CPT/HCPCS: 99214

== ENCOUNTER 2024-12-26 15:49 | Outpatient (AMB) | payer OTHER, SELFPAY ==
--- NOTE | 2024-12-26 15:43 | MHC.OFFVISWM ---
VS Expanded 12/26/24 15:46 Height 5 ft 7 in Weight 178 lb 6 oz BMI 27.9 Intake Visit Reasons: TV GBP 09/08/20 Allergies metformin (METFORMIN) Allergy (Intermediate, Verified 12/12/24 14:26) VOMITING lisinopril (LISINOPRIL) Adverse Reaction (Intermediate, Verified 12/12/24 14:26) COUGH Medication List - Last Reconciled 12/26/24 by DAVID Machado bupropion HCl SR 100 mg PO DAILY buspirone 5 mg PO DAILY carbidopa-levodopa 25-100 mg 1 tab PO BEDTIME PRN cholecalciferol (vitamin D3) 1,250 mcg PO QWEEK citalopram 40 mg PO BEDTIME clotrimazole 1% 1 appl topical BID famotidine 40 mg PO DAILY fremanezumab-vfrm (Ajovy) 225 mg (1.5 mL) subcut ONCE 30 days meclizine 25 mg PO TID PRN yhfeitrelkyg-kli-utja-FA-vit K 45 mg iron- 800 mcg-120 mcg (Bariatric Multivitamins) caps PO DAILY pantoprazole 20 mg PO DAILY pravastatin 20 mg PO DAILY ubrogepant (Ubrelvy) 50 - 100 mg (0.5 - 1 x 100 mg) PO ONCE PRN 30 days verapamil ER 100 mg PO BEDTIME 30 days HPI Comments Details: This?is a?59?yo F who is s/p RYGB 09/08/2020. Previously denied for skin removal surgery- apparently did not have enough volume/size of excess skin. Continues to have difficulty managing this. really haven't changed anything has been using protein bars from [employer]. Has been having RUQ abd pain for close to a year. This is not related to PO intake and pt questions whether it is from the weight of the excess skin pulling on her upper abdomen. 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 Her GI did not think her pain was due to pancreatic issues. Had recent CT scan at [facility]. Takes both pantoprazole and famotidine. Nonsmoker, no NSAIDs. On the right side right below the ribs . Has previously had CCY in 2021. Having another MRI in 2025 for pancreatic cyst. Reports last colonoscopy 7 years ago. Previously took carafate but did not tolerate- made her sick. Still thinks she does not get enough protein. Can tolerate chicken, but not a lot of other meats- nausea. Ends up eating crackers sometimes. Does not tolerate protein shakes or manuel well. Present meal plan includes: -given at last visit 2mo ago Goal 70-75g protein per day. 1 Pure protein shake, 1 scoop in 8oz oat milk 2 Atkins or Fitcrunch bars- or one bar and one GY/CC cup 1 meal 4f/4f -not following consistently Exercise routine includes: walks 5d/week, 2miles in 30 minutes- not doing this as much works at [employer], on her feet all day, almost 10k steps Pt has issues of excess skin of abdomen. She has to keep the area very clean to prevent rashes. Pt has tried clotrimazole ointment to this area but this has not completely resolved the problem. She notices moisture collecting in the skin folds which smells unpleasant. She has pain and discomfort due to the waistband digging into her skin. The excess skin is very heavy and uncomfortable. It pulls on her lower back. It makes walking more difficult. She has to be active at work, bending/squatting down and the skin gets in the way and gets pinched with those movements. Pt now has [employer] for insurance. [facility] Medical History (Updated 12/12/24 @ 17:02 by HILARY Rosen) Intestinal malabsorption BMI 32.0-32.9,adult BMI over 35 Left ventricular hypertrophy Hepatomegaly Steatosis, liver DJD (degenerative joint disease) BMI 38.0-38.9,adult Hx gestational diabetes Hx of nausea BMI 39.0-39.9,adult Obesity Constipation Nausea Syncope GERD (gastroesophageal reflux disease) Depression Fibromyalgia Restless leg syndrome Gastroparesis Sleep apnea with use of continuous positive airway pressure (CPAP) Hyperlipidemia Hypertension Insulin dependent diabetes mellitus Morbid obesity Surgical History Hx of breast reduction, elective Hx of gastric bypass History of esophagogastroduodenoscopy (EGD) H/O colonoscopy Hx of myomectomy Hx of cerebral aneurysm repair Hx of foot surgery Hx of section Family History Mother Hypertension Hyperlipidemia Osteoporosis Father No problems noted. Brother No problems noted. Brother Hypertension Brother Hypertension Brother No problems noted. Sister No problems noted. Son No problems noted. Social History Are you a primary managed care analyst to a significant other at home: No Do you presently have visiting nurse or other home services: No Alcohol intake: never Patient Tobacco Use Status: Former Tobacco user Second Hand Smoke Exposure: No service: No Current occupational status: employed Telehealth Telehealth Telehealth Platform: Telephone Location of provider rendering services: practice address Location of patient: address on file Patient Identification confirmed using: Name, : Yes Telehealth method: voice only Patient verbally consented to treatment: Yes Patient verbally consented to billing insurance company: Yes Patient informed of any privacy concerns related to visit: Yes Minutes spent on Phone/Video with Pt.: 16 Assessment & Plan Assessment & Plan (1) S/P gastric bypass: Code(s): Z98.84 - Bariatric surgery status Category: Surgical (2) Overweight: Code(s): E66.3 - Overweight Category: Medical (3) Abdominal pain: Code(s): R10.9 - Unspecified abdominal pain Category: Medical Plan Question of ulcer/inflammation of anastomosis. Will increase PPI to 40mg BID, can take famotidine PRN midday. Sent [employer] jason info and instructed pt to follow a plan created by the jason. Her meal plan is currently inadequate and possibly contributing to her symptoms. Target weight is 172lbs for skin removal surgery. RTC 8w to monitor response to meal plan modification. Medications: New pantoprazole 40 mg PO BID 90 tabs 3RF
[2024-12-26 15:46] VITALS: BMI 27.9
--- OUTSIDE RECORDS SUMMARY | 2024-12-26 16:15 | XMS_ITS | Patient Health Record ---
Author Organization [facility] Address [address] [place], [place] [id number] Care Team Providers Care Cancer Registrar Name Role Phone Raheelrandolph NIEVES Lenora Primary Care Provider Unavailab Laura Quintana Unavailable [phone] Reason For Referral No Information Plan Of Treatment No Information Insurance Providers Payer Name Payer Address Payer Phone Subscriber Number Group Number Insured Name Patient Relationship to Insured Coverage Start Date Coverage End Date [facility] [address] [place] [phone] [id number] Amanda Harrington Self - patient is the insured
--- OUTSIDE RECORDS SUMMARY | 2024-12-26 16:15 | XMS_ITS | Clinical Summary ---
Author Organization [facility] Address [address] [place] [address] Care Team Providers Care Ticket Printer And Tagger Name Role Phone Lenora Castro DO Primary Care Provider [phone] Luis Hsu Unavailable Allergies Active Allergy Reactions Criticality Noted Date Comments Lisinopril Cough Low 02/25/2020 Metformin GI Intolerance/Nausea/Vomiting Low 02/24 Medications cyclobenzaprine (FLEXERIL) 10 MG tablet Take 10 mg by mouth daily as needed. Do not take day of surgery. 0 Active ergocalciferol (VITAMIN D2,DRISDOL) 74410 units Cap Take 50,000 Units by mouth [...] Glucose 220 mg/dL HOSPITAL LAB Comment:Performed at [place], [place] license No. [id number] MeriTaleemIA No. [id number] Blood specimen (specimen) Heel structure / Unknown 03/02/2020 3:34 PM EDT 03/02/2020 6:18 PM EDT Kate Bhakta OTORHINOLARYNGOLOGIST LAB BLOOD ORDERABLES Final R esult HOSPITAL [...] - 25.0 Ratio HOSPITAL LAB Comment:Performed at [place], [place] license No. [id number] CLIA No. [id number] Blood specimen (specimen) Heel structure / Unknown 03/02/2020 3:34 PM EDT 03/02/2020 6:18 PM EDT us Kate Bhakta OTORHINOLARYNGOLOGIST LAB BLOOD ORDERABLES Final R esult HOSPITAL LAB from Last 3 Months or Most Recently Relevant to Health Maintenance Insurance [facility] Care Teams Ticket Printer And Tagger Relationship Specialty Start Date End Date Lenora Castro DO [address] [place] [address] [place] [address] PCP - General Internal Medicine 02/21/20 Luis Hsu [address] [place] [phone] Referring Provider 02/21/20
--- OUTSIDE RECORDS SUMMARY | 2024-12-26 16:16 | XMS_ITS | Data Portability ---
Author Organization [facility], , [facility] Address [address] [place] [address] Care Team Providers Care Chemical Treatment Operator Name Role Phone HILTON VALDES Environmental Sciences Professor TOÑO SPENCER Business Services Assistant LINDA MORALES Primary Care Provider KINGS MACHUCA Patient Scheduling Manager [facility] Business Services Assistant ISAI VILLA Plastic/Reconstructive Surgeon [facility] [phone] [facility] Employment Law Specialist [phone] [facility] PRO[facility] OTHER [facility] Neurologist Assessment No assessment recorded. Plan of Treatment Reminders Order Date Submit Date Provider Last Modified By Organization Details Last Modified Time Details Appointments LAB Follow -Up 2024 08:15A M [facility] Not available Not available Not available Medica l Manage ment 15 2024 08:15A M Linda Simon melonie, [employer]AL [employer] Not available Not available Not available LAB Follow -Up 2025 08:00A M [facility] Not available Not available Not available Krystin Visit 30 2025 09:00A M Linda wilhelm, [employer]AL [employer] Not available Not available Not available Lab PTH (parat hyroid hormon e), intact , serum or plasma 2024 025 [facility], [address] [place], [address], 11/22/2024 09:55:53 vitami n D, 25-hyd javier, total, serum 2024 025 [facility], [address] [place] [address], [id number], 11/22/2024 09:43:29 HbA1c (hemog lobin A1c), blood 2024 025 [facility], [address] [place] [address], [id number], 11/12/2024 13:43:11 BMP, serum or plasma 2024 025 [facility], [address] [place] [address], [id number], 11/12/2024 16:14:05 CBC 2024 025 [facility], [address] [place] [address], [id number], 11/12/2024 12:27:34 ferrit in, serum or plasma 2024 025 [facility], [address] [place] [address], [id number], 11/12/2024 14:15:29 iron + total iron-b inding capaci ty (TIBC) , serum 2024 025 [facility], [address] [place] [address], [id number], 11/12/2024 16:14:07 Referral diabet es educat or referr al - diabet es not at goal, please follow up w patishoaib t on food / diet option s, and glucos e readin gs. 2024 025 [email or web address] Carolin Gutierrez RN [facility], [address], [place], [address], 12/12/2024 15:36:06 hand surgeo n referr al - right wrist tendon itis 2024 025 [email or web address] Chante Anders MD, [address] [place], [address], 07/07/2024 09:22:47 Procedures None record ed. Surgeries None record ed. Imaging None record ed. Medication Orders mecliz ine 25 mg tablet 2024 025 [facility]acy #[id number], [address] [place], [address], 08/07/2024 11:47:12 amoxic illin 875 mg-pot assium clavul anate 125 mg tablet 2024 025 [facility]/Ph[facility]acy #[id number], [address] [place], [address], 08/07/2024 11:31:02 diclof enac 1 % topica l gel 2024 025 [id number] [address] [place], [address], 07/04/2024 10:36:06 Patient TargetsNo targets recorded. Patient InstructionsNo instructions recorded. Reason for Referral Hand Surgeon Referral for Pa in of right wrist right wrist tendonitis Referring Physician: Linda Penn, Family Medicine, Encounter Date: 07/04/2024 Landscape Crew Member Referral f or Gastroparesis due to type 2 diabetes mellitus diabetes not at goal, please follow up w patient on food / diet options, and glucose readings. Referring Physician: Linda Morales, Family Medicine, Encounter Date: 11/22/2024 Results Created Date Observation Date Name Description Value Unit Range Abnormal Flag Note LastModifiedBy Organization Detail LastModifiedTime 08/20/1908/19/2024 MICRO ALBUM IN/CR EATIN INE RATIO PANEL , URINE microalbumin 9.5 mg/L 1.3-20 .0 Not Available [address], [address], 08/19/2024 11:34:25 08/20/1908/19/2024 MICRO ALBUM IN/CR EATIN INE RATIO PANEL , URINE creatinine urine 175.9 mg/dL 30.0-1 25.0 high Not Available [address], [address], 08/19/2024 11:34:25 08/20/19 25 08/19/2024 MICRO ALBUM IN/CR EATIN INE RATIO PANEL , URINE microalb/cre at ratio 5.4 mg/g_ creat 0.0-29 .0 Not Available [address], [address], 08/19/2024 11:34:25 08/20/19 25 08/19/2024 HGB A1C hemoglobin A1C 8.1 % 4.8-6. 0 high Goal: <7% in Patie nts with Diabe tiarra An A1c betwe en 5.7-6 .4% is ident ified as pre-d iabet es and sugge sts risk for progr essio n to diabe tiarra Two a1c value s of 6.5% or highe r is consi stent with a diagn osis of diabe tiarra but may need furth er confi rmati on Not Available [address], [address], 08/19/2024 11:55:42 08/20/19 25 08/19/2024 HGB A1C estimated average glucose 185.8 mg/dL Not Available [address], [address], 08/19/2024 11:55:42 08/20/19 25 08/20/2024 COMP. METAB OLIC PANEL glucose 132 mg/dL 70-100 high Not Available [address], [address], 08/20/2024 13:20:30 08/20/19 25 08/20/2024 COMP. METAB OLIC PANEL BUN 11 mg/dL 7-18 Not Available [address], [address], 08/20/2024 13:20:30 08/20/19 25 08/20/2024 COMP. METAB OLIC PANEL creatinine 0.8 mg/dL 0.8-1. 3 Not Available [address], [address], 08/20/2024 13:20:30 08/20/19 25 08/20/2024 COMP. METAB OLIC PANEL B/C 13.8 ratio Not Available [address], [address], 08/20/2024 13:20:30 08/20/19 25 08/20/2024 COMP. METAB OLIC PANEL GFR >=60ML /MIN mL/mi n normal >=60m L/min - Thais l or midly reduc ed <60mL /min- Decre ased kidne y funct ion <15mL /min - Kidne y failu re [facility] calcu lates estim ated Glome rular Filtr ation Rate (eGFR ) using the Chron ic Kidne y Disea se Epide miolo gy Colla borat ion (CKD- EPI) Equat ion (Sho r et. al 2020) as recom nery d by the Natio nal Kidne y Found ation . eGFR is based on age, serum creat inine , and sex. CKD-E PI does not calcu late eGFR by race, does not apply to child roderick (age <18 years ), and shoul d not be used in pregn daja. Not Available [address], [address], 08/20/2024 13:20:30 08/20/19 25 08/20/2024 COMP. METAB OLIC PANEL sodium 141 mmol/ L 136-14 5 Not Available [address], [address], 08/20/2024 13:20:30 08/20/19 25 08/20/2024 COMP. METAB OLIC PANEL potassium 4.5 mmol/ L 3.5-5. 1 Not Available [address], [address], 08/20/2024 13:20:30 08/20/19 25 08/20/2024 COMP. METAB OLIC PANEL chloride 102 mmol/ L 96-107 Not Available [address], [address], 08/20/2024 13:20:30 08/20/19 25 08/20/2024 COMP. METAB OLIC PANEL anion gap 9.6 5.0-15 .0 Not Available [address], [address], 08/20/2024 13:20:30 08/20/19 25 08/20/2024 COMP. METAB OLIC PANEL CO2 29 mmol/ L 21-32 Not Available [address], [address], 08/20/2024 13:20:30 08/20/19 25 08/20/2024 COMP. METAB OLIC PANEL calcium 9.2 mg/dL 8.5-10 .3 Not Available [address], [address], 08/20/2024 13:20:30 08/20/19 25 08/20/2024 COMP. METAB OLIC PANEL total protein 7.1 g/dL 6.4-8. 2 Not Available [address], [address], 08/20/2024 13:20:30 08/20/19 25 08/20/2024 COMP. METAB OLIC PANEL albumin 3.9 g/dL 3.4-5. 0 Not Available [address], [address], 08/20/2024 13:20:30 08/20/19 25 08/20/2024 COMP. METAB OLIC PANEL globulin 3.2 g/dL Not Available [address], [address], 08/20/2024 13:20:30 08/20/19 25 08/20/2024 COMP. METAB OLIC PANEL A/G 1.2 ratio 0.8-2. 0 Not Available [address], [address], 08/20/2024 13:20:30 08/20/19 25 08/20/2024 COMP. METAB OLIC PANEL total bilirubin 0.40 mg/dL 0.00-1 .00 Not Available [address], [address], 08/20/2024 13:20:30 08/20/19 25 08/20/2024 COMP. METAB OLIC PANEL AST 13 U/L 0-37 Not Available [address], [address], 08/20/2024 13:20:30 08/20/19 25 08/20/2024 COMP. METAB OLIC PANEL ALT 16 U/L 6-63 Not Available [address], [address], 08/20/2024 13:20:30 08/20/19 25 08/20/2024 COMP. METAB OLIC PANEL alk. phos. 64 U/L 50-136 Not Available [address], [address], 08/20/2024 13:20:30 08/20/19 25 08/20/2024 LIPID PANEL cholesterol 206 mg/dL <200 mg/dl Dmitri able 200-2 39 mg/dl Borde rline High >240 mg/dl High Not Available [address], [address], 08/20/2024 13:20:31 08/20/19 25 08/20/2024 LIPID PANEL triglyceride s 129 mg/dL <150 mg/dL Thais l 150-1 99 mg/dL Borde rline High 200-4 99 mg/dL High >500 mg/dL Very High Not Available [address], [address], 08/20/2024 13:20:31 08/20/19 25 08/20/2024 LIPID PANEL direct HDL 76 mg/dL <40 mg/dl - Major Risk for CHD >60 mg/dl - Negat leana Risk for CHD Not Available [address], [address], 08/20/2024 13:20:31 08/20/19 25 08/20/2024 LDL - CALCU LATED LDL - calculated 104 RISK CATEG ORY LDL GOAL _ CHD or CHD Risk Equiv alent s <100 mg/dl (10-y ear risk >20%) 2+ Risk Facto rs <130 mg/dl (10-y ear risk <= 20%) 0-1 Risk Facto r <160 mg/dl Almo st all peopl e with 0-1 risk facto r have a 10 year risk <10%, thus 10 year risk asses ment in peopl e with 0-1 risk facto r is not neces jorje. Not Available [address], [address], 08/20/2024 13:20:32 08/20/1908/20/2024 VITAM IN D 25-HY DROXY TOTAL vitamin D 25-hydroxy EIA 17.1 NG/mL 20.0-9 9.9 low Thera py is based on measu remen t of total 25-OH D, with level s less than 20 ng/mL indic ative of Vitam in D defic iency . Level s betwe en 20ng/ mL and 30 ng/mL sugge st insuf ficie ncy. Optim al Level s are great er than 30 ng/mL . Not Available [address], [address], 08/20/2024 16:12:38 08/20/1908/20/2024 PTH INTAC T PTH intact 73.0 pg/mL 9.6-66 .3 high Not Available [address], [address], 08/20/2024 16:34:40 11/13/19 25 11/12/2024 CBC WBC 3.27 K/ L 3.98-1 0.04 low Not Available [address], [address], 11/12/2024 12:27:34 11/13/19 25 11/12/2024 CBC RBC 4.53 M/ L 3.93-5 .22 Not Available [address], [address], 11/12/2024 12:27:34 11/13/19 25 11/12/2024 CBC HGB 13.2 g/dL 11.2-1 5.7 Not Available [address], [address], 11/12/2024 12:27:34 11/13/1911/12/2024 CBC HCT 41.2 % 34.1-4 4.9 Not Available [address], [address], 11/12/2024 12:27:34 11/13/1911/12/2024 CBC MCV 90.9 fL 79.4-9 4.8 Not Available [address], [address], 11/12/2024 12:27:34 11/13/1911/12/2024 CBC MCH 29.1 pg 25.6-3 2.2 Not Available [address], [address], 11/12/2024 12:27:34 11/13/19 25 11/12/2024 CBC MCHC 32.0 g/dL 32.2-3 5.5 low Not Available [address], [address], 11/12/2024 12:27:34 11/13/19 25 11/12/2024 CBC plt 200 K/ L 182-36 9 Not Available [address], [address], 11/12/2024 12:27:34 11/13/1911/12/2024 CBC MPV 10.6 fL 9.4-12 .3 Not Available [address], [address], 11/12/2024 12:27:34 11/13/1911/12/2024 CBC neut% 48.7 % 34.0-7 1.1 Not Available [address], [address], 11/12/2024 12:27:34 11/13/1911/12/2024 CBC neut# 1.59 1.56-6 .13 Not Available [address], [address], 11/12/2024 12:27:34 11/13/1911/12/2024 CBC lymph % 32.4 % 19.3-5 1.7 Not Available [address], [address], 11/12/2024 12:27:34 11/13/1911/12/2024 CBC lymph # 1.06 K/ L 1.18-3 .74 low Not Available [address], [address], 11/12/2024 12:27:34 11/13/1911/12/2024 CBC mono% 13.1 % 4.7-12 .5 high Not Available [address], [address], 11/12/2024 12:27:34 11/13/1911/12/2024 CBC mono# 0.43 0.24-0 .56 Not Available [address], [address], 11/12/2024 12:27:34 11/13/1911/12/2024 CBC eo% 4.3 % 0.7-5. 8 Not Available [address], [address], 11/12/2024 12:27:34 11/13/1911/12/2024 CBC eo# 0.14 0.04-0 .36 Not Available [address], [address], 11/12/2024 12:27:34 11/13/1911/12/2024 CBC baso% 1.2 % 0.1-1. 2 Not Available [address], [address], 11/12/2024 12:27:34 11/13/1911/12/2024 CBC baso# 0.04 0.00-0 .08 Not Available [address], [address], 11/12/2024 12:27:34 11/13/1911/12/2024 CBC RDW-CV 12.5 % 11.7-1 4.4 Not Available [address], [address], 11/12/2024 12:27:34 11/13/1911/12/2024 CBC Ig% 0.300 % 0.000- 1.500 Ig % >0.5 Indic ates possi ble Left Shift Not Available [address], [address], 11/12/2024 12:27:34 11/13/1911/12/2024 CBC Ig# 0.010 0.000- 0.093 Not Available [address], [address], 11/12/2024 12:27:34 11/13/1911/12/2024 CBC NRBC% 0.0 % 0.0-0. 2 Not Available [address], [address], 11/12/2024 12:27:34 11/13/19 25 11/12/2024 CBC NRBC# 0.000 0.000- 0.012 Not Available [address], [address], 11/12/2024 12:27:34 11/13/19 25 11/12/2024 HGB A1C hemoglobin A1C 8.1 % 4.8-6. 0 high Goal: <7% in Patie nts with Diabe tiarra An A1c betwe en 5.7-6 .4% is ident ified as pre-d iabet es and sugge sts risk for progr essio n to diabe tiarra Two a1c value s of 6.5% or highe r is consi stent with a diagn osis of diabe tiarra but may need furth er confi rmati on Not Available [address], [address], 11/12/2024 13:43:11 11/13/19 25 11/12/2024 HGB A1C estimated average glucose 185.8 mg/dL Not Available [address], [address], 11/12/2024 13:43:11 11/13/19 25 11/12/2024 KVNG TIN ferritin 89 NG/mL 15-200 Not Available [address], [address], 11/12/2024 14:15:29 11/13/19 25 11/12/2024 BASIC METAB OLIC PANEL glucose 141 mg/dL 70-100 high Not Available [address], [address], 11/12/2024 16:14:05 11/13/19 25 11/12/2024 BASIC METAB OLIC PANEL BUN 14 mg/dL 7-18 Not Available [address], [address], 11/12/2024 16:14:05 11/13/19 25 11/12/2024 BASIC METAB OLIC PANEL creatinine 0.7 mg/dL 0.8-1. 3 low Not Available [address], [address], 11/12/2024 16:14:05 11/13/19 25 11/12/2024 BASIC METAB OLIC PANEL B/C 20.0 ratio Not Available [address], [address], 11/12/2024 16:14:05 11/13/19 25 11/12/2024 BASIC METAB OLIC PANEL GFR >=60ML /MIN mL/mi n normal >=60m L/min - Thais l or midly reduc ed <60mL /min- Decre ased kidne y funct ion <15mL /min - Kidne y failu re [facility] calcu lates estim ated Glome rular Filtr ation Rate (eGFR ) using the Chron ic Kidne y Disea se Epide miolo gy Colla borat ion (CKD- EPI) Equat ion (Sho r et. al 2020) as recom nery d by the Natio nal Kidne y Found ation . eGFR is based on age, serum creat inine , and sex. CKD-E PI does not calcu late eGFR by race, does not apply to child roderick (age <18 years ), and shoul d not be used in pregn daja. Not Available [address], [address], 11/12/2024 16:14:05 11/13/19 25 11/12/2024 BASIC METAB OLIC PANEL sodium 141 mmol/ L 136-14 5 Not Available [address], [address], 11/12/2024 16:14:05 11/13/19 25 11/12/2024 BASIC METAB OLIC PANEL potassium 5.4 mmol/ L 3.5-5. 1 high Not Available [address], [address], 11/12/2024 16:14:05 11/13/19 25 11/12/2024 BASIC METAB OLIC PANEL chloride 104 mmol/ L 96-107 Not Available [address], [address], 11/12/2024 16:14:05 11/13/19 25 11/12/2024 BASIC METAB OLIC PANEL anion gap 7.9 5.0-15 .0 Not Available [address], [address], 11/12/2024 16:14:05 11/13/19 25 11/12/2024 BASIC METAB OLIC PANEL CO2 29 mmol/ L 21-32 Not Available [address], [address], 11/12/2024 16:14:05 11/13/19 25 11/12/2024 BASIC METAB OLIC PANEL calcium 9.3 mg/dL 8.5-10 .3 Not Available [address], [address], 11/12/2024 16:14:05 11/13/19 25 11/12/2024 IRON PANEL iron 103 ug/dL 35-150 Not Available [address], [address], 11/12/2024 16:14:07 11/13/19 25 11/12/2024 IRON PANEL T.I.B.C. 303 ug/dL 250-45 0 Not Available [address], [address], 11/12/2024 16:14:07 11/13/19 25 11/12/2024 IRON PANEL % saturation 34.0 % Not Available [address], [address], 11/12/2024 16:14:07 Result Notes None recorded. Problems Name Problem SNOMED Code Status Onset Date Resolution Date Notes Provider Name and Address Organization Details Recorded Time Tarsal tunnel syndrome 65027667 Active Not Available [facility] 17:56:54 Intracra nial aneurysm 850332174 Active Not Available [facility] 17:56:54 Nausea 000700382 Completed 04/19/2010 Patricia Gutierrez NP [address] [place] [address], [address] , [facility] 10:12:42 Increase d frequenc y of urinatio n 497147007 Completed 05/10/2011 Patricia Gutierrez NP [address] [place], [address] , [facility] 10:12:42 Uncontro lled type 2 diabetes mellitus 786899898 Completed 04/05/2010 Patricia Gutierrez NP [address] [place] [address], , [facility] 10:12:40 Hyperlip idemia 61667021 Completed 05/10/2011 Patricia Gutierrez NP [address] [place] [address], , [facility] 10:12:40 Candidal vulvovag initis 05053485 Completed 05/10/2011 Patricia Gutierrez NP [address] [place] [address], , [facility] 10:12:40 Pain of joint of hand 536770595 Completed 05/10/2011 Patricia Gutierrez NP [address] [place] [address], [address] , [facility] 10:12:42 On examinat ion - a rash Completed 04/05/2010 Patricia Gutierrez NP [address], [place], , [facility] 10:12:42 Viral upper respirat ory tract infectio n 400043146 Completed 199904/05/2010 Patricia Gutierrez NP [address] [place], [address] , [facility] 10:12:41 Bronchit is 38674657 Completed 200004/05/2010 Patricia Gutierrez NP [address] [place], [address] , [facility] 10:12:41 Allergic rhinitis 70380910 Completed 200004/19/2010 Patricia Gutierrez NP [address] [place], [address] , [facility] 10:12:41 Common cold 29120627 Completed 200004/05/2010 Patricia Gutierrez NP [address], [place], , [facility] 10:12:41 Glucose toleranc e test during pregnanc y - baby not yet delivere d outside referenc e range 458444848 Completed 200004/19/2010 Patricia Gutierrez NP [address], [place], , [facility] 10:12:41 Twin pregnanc y with antenata l problem 865052512 Completed 200005/10/2011 Patricia Gutierrez NP [address], [place], , [facility] 10:12:41 Low back pain 159244764 Active 2001 Not Available [facility] 1 17:56:54 Acute maxillar y sinusiti s 20506957 Completed 200204/05/2010 Patricia Gutierrez NP [address], [place], , [facility] 10:12:41 Enthesop athy of hip region 87402069 Completed 200205/01/2013 Patricia Gutierrez NP [address], [place], , [facility] 10:12:42 Primary fibromya lgia syndrome 04857411 Active 2002 Not Available [facility] 1 17:56:55 Headache 17487032 Completed 200204/19/2010 Patricia Gutierrez NP [address] [place], [address] , [facility] 10:12:42 Neck pain 50109752 Completed 200305/01/2013 Patricia Gutierrez NP [address] [place] [address], , [facility] 10:12:42 Acute bronchit is 54724313 Completed 200304/19/2010 Patricia Gutierrez NP [address], [place], , [facility] 10:12:41 Atopic dermatit is 15242065 Completed 200304/19/2010 Patricia Gutierrez NP [address], [place], , [facility] 10:12:41 Cough 54257504 Completed 200304/05/2010 Patriica Gutierrez NP [address] [place] [address], , [facility] 10:12:42 Peripher al vertigo 68072031 Active 2003 Not Available [facility] 1 17:56:55 Dizzines s 888373676 Completed 200304/19/2010 Patricia Gutierrez NP [address], [place], , [facility] 10:12:42 Plantar nerve lesion 587802982 Completed 200305/10/2011 Patricia Gutierrez NP [address], [place], , [facility] 10:12:41 Breathin g painful 72311411 Completed 200404/05/2010 Patricia Gutierrez NP [address], [place], , [facility] 10:12:42 Heartbur n 73935910 Completed 200405/10/2011 Patricia Gutierrez NP [address], [place], , [facility] 10:12:42 Thyroidi tis 58448782 Completed 200505/10/2011 Patricia Gutierrez NP [address] [place], [address] , [facility] 10:12:40 Hypothyr oidism 33263960 Completed 200505/10/2011 Patricia Gutierrez NP [address] [place], [address] , [facility] 10:12:40 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 Completed 200505/10/2011 Patricia Gutierrez NP [address] [place], [address] , [facility] 10:12:42 Malaise and fatigue 919232854 Completed 200504/05/2010 Patricia Gutierrez NP [address] [place], [address] , [facility] 10:12:42 Panic disorder without agorapho william 61607426 Completed 200505/10/2011 Patricia Gutierrez NP [address] [place], [address] , [facility] 10:12:41 Benign paroxysm al position al vertigo 691093421 Completed 200505/10/2011 Patricia Gutierrez NP [address] [place], [address] , [facility] 10:12:41 Streptoc occal sore throat 99774856 Completed 200504/05/2010 Patricia Gutierrez NP [address] [place], [address] , [facility] 10:12:40 Benign essentia l hyperten patrick 5195382 Active 2005 Not Available [facility] 17:56:55 Gastroes ophageal reflux disease 973272090 Active 2006 Not Available [facility] 17:56:55 Pain of joint 30056787 Completed 200604/19/2010 Patricia Gutierrez NP [address] [place], [address] , [facility] 10:12:42 Acute posthemo rrhagic anemia 072045336 Completed 200605/10/2011 Patricia Gutierrez NP [address] [place], [address] , [facility] 10:12:40 Nausea and vomiting 08560261 Completed 200604/19/2010 Patricia Gutierrez NP [address] [place], [address] , [facility] 10:12:42 Anemia 865350259 Completed 200604/19/2010 Patricia Gutierrez NP [address] [place], [address] , [facility] 10:12:40 Right upper quadrant pain 209463292 Completed 200605/10/2011 Patricia Gutierrez NP [address] [place], [address] , [facility] 10:12:42 Chest pain 09730497 Completed 200605/10/2011 Patricia Gutierrez NP [address] [place], [address] , [facility] 10:12:42 Arthropa thy 954324386 Completed 200604/19/2010 Patricia Gutierrez NP [address] [place], [address] , [facility] 10:12:41 Migraine without aura 18132283 Active 2006 Not Available [facility] 1 17:56:54 Temporom andibula r joint disorder 54798208 Completed 200705/10/2011 Patricia Gutierrez NP [address] [place], [address] , [facility] 10:12:41 Anxiety state 666037667 Active 2007 Not Available [facility] 1 17:56:55 Sprain of chondros ternal joint Completed 200705/10/2011 Patricia Gutierrez NP [address] [place], [address] , [facility] 10:12:42 Mixed hyperlip idemia 627559578 Active 2007 Not Available [facility] 1 17:56:55 Type 2 diabetes mellitus without complica tion 600863113 Active 2007 insulin pump placed 11/2018 Not Available [facility] 1 17:56:55 Neuropat hy 922971129 Active 2016 Not Available [facility] 1 17:56:54 Multiple environm ental allergie s Active [address] [facility], allergy shots, epi pen Not Available [facility] 1 17:56:55 Neuropat hy due to diabetes mellitus 879735332 Completed 201909/16/2019 Rhina Engle RDN, LDN, [address], [address] , [facility] [place] 0 16:08:18 Gastropa resis due to type 2 diabetes mellitus 908032039 Active 2019 Not Available [facility] 1 17:56:55 History of bariatri c surgical procedur e 428249139 Active 2020 Linda Wilson er, [employer] [address] [place], [address] , [facility] [place] 1 10:09:54 Open dilation of pancreat ic duct Active 2021 Linda Wilson er, [employer] [address] [place], [address] , [facility] [place] 2 19:38:35 Disorder of rotator cuff 548816744 Active 2022 MRI Sangita Farrell MD [address] [place], [address] , [facility] [place] 3 15:22:04 Iron deficien cy anemia 70576182 Active 2023 Linda Thomasid er, [employer] [address] [place], [address] , [facility] [place] 4 16:56:34 Non-toxi c multinod ular goiter [id number] Active 2023 [facility] [address] [place], [address] , [facility] 4 20:28:53 Steatoti c liver disease [id number] [facility] [address] [place], [address] , [facility] [place] 4 10:25:57 Mass of pancreas [id number] Active 2023 [facility] 02/05/24: Small cystic lesion of pancreas tail, 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 COnsider 12 mo follow up [facility], [employer] [address] [place], [address] , [facility] [place] 4 10:26:42 Hyperpar athyroid ism 26196066 Active 2024 [facility], [employer] [address] [place], [address] , [facility] [place] 5 09:55:40 Problem Notes None recorded. Procedures Surgical History Date Name Laterality Status Provider Name and Address Organization Details Recorded Time 025 COPD Screening Questions completed Deborah Sexton [facility] 11/22/2024 09:32:29 025 COPD Screening Questions completed Deborah Sexton [facility] 08/07/2024 11:02:22 024 COPD Screening Questions completed Annemarie Greer [facility] 08/16/2023 14:31:10 020 prevention-cardiovas cular risk reduction counseling completed Faraz Lopez [facility] 03/10/2020 07:52:18 020 prevention-annual alcohol misuse screening completed Faraz Lopez [facility] 03/10/2020 07:52:18 020 Unlisted px ant segment eye completed Kimberly Dudley LPN [facility] 07/08/2020 16:00:46 020 POC Strep Testing completed Coni Bertrand MA [facility] 06/20/2019 08:12:58 019 Transitional care completed Lenora Castro D.O. [address] [place], [address], [facility] 12/11/2018 09:06:30 016 Corticosteroid Injection completed Esvin Benton PA-C [address] [place], [address], [facility] 03/01/2016 16:07:43 015 Wart completed Patricia Gutierrez NP [address] [place] [address], [phone], [facility] 02/13/2015 12:41:38 010 Therapeutic Injection Teaching completed Deisy Ward [facility] 02/12/2010 17:17:04 010 Allergy Skin Testing completed Carmencita Lindsey RN [facility] 11/17/2009 16:21:26 Xander-en-Y gastrojejunostomy completed Linda Morales NP [address] [place] [address], [phone], [facility] 03/15/2021 10:10:30 Imaging Results None recorded. Procedure Notes None recorded. Medical Equipment None Reported. Allergies Allergen ID Allergen Name Allergen Category Reaction Reaction Severity Criticality Documentation Date Start Date Code Code System Note Provider Name and Address Organization Details Recorded Time 90021 metformin medicatio n other mild Not available 02/05/2010 6809 RxNorm diarr hea (take n durin g pregn daja) Not Available [facility] 1 06:05:41 50825 lisinopri l medicatio n cough Not available Not available 10/08/2010 39331 RxNorm Not Available [facility] 06:05:41 Medications Name Sig Start Date Stop Date Status Note LastModified by Organization Details LastModified Time Prescript ion - Renewal 03/01 completed Complete d Verapami l refill Not Available Not Available Not Available januvia 100 mg tabs active Not Available Not Available Not Available amoxicill in 500 mg caps 08/10 completed was for dental infectio n Not Available Not Available Not Available cheratuss in ac 100-10 mg/5ml syrp active Not Available Not Available Not Available freestyle tiarra active Not Available Not Available Not Available ondansetr on odt 4 mg tbdp active Not Available Not Available Not Available atorvasta tin calcium 40 mg tabs active Not Available Not Available Not Available atorvasta tin tab 40mg active Not Available Not Available Not Available cyclobenz aprine hcl 10 mg tabs active Not Available Not Available Not Available prednison e tab 10mg active Not Available Not Available Not Available clopidogr el 75 mg tabs active Not Available Not Available Not Available omeprazol e 20 mg cpdr active Not Available Not Available Not Available citalopra m hydrobrom pineda 40 mg tabs active Not Available Not Available Not Available oxycodone /acetamin ophen 5-325 mg tabs active Not Available Not Available Not Available glipizide er 2.5 mg tb24 active Not Available Not Available Not Available silver sulfa cre 1% active Not Available Not Available Not Available lantus solostar 100 unit/ml sopn active Not Available Not Available Not Available ibuprofen 800 mg tabs active Not Available Not Available Not Available verapamil hcl 40 mg tabs active Not Available Not Available Not Available humalog kwikpen 100 unit/ml sopn active Not Available Not Available Not Available verapamil tab 40mg active Not Available Not Available Not Available carafate 1 gm/10ml susp active Not Available Not Available Not Available prochlorp erazine maleate 10 mg tabs active Not Available Not Available Not Available lantus inj solostar active Not Available Not Available Not Available metronida zole 500 mg tabs active Not Available Not Available Not Available Prescript ion - Clarifica tion 07/08 completed Not Available Not Available Not Available pioglitaz one tab 30mg active Not Available Not Available Not Available fluocinon pineda 0.05 % crea active Not Available Not Available Not Available crestor 10 mg tabs active Not Available Not Available Not Available doxycycli ne hyclate 100 mg caps active Not Available Not Available Not Available cyclobenz aprine hcl powd active Not Available Not Available Not Available phenazopy ridine hcl 200 mg tabs active Not Available Not Available Not Available aspirin 325 mg tabs active Not Available Not Available Not Available ranitidin e hcl 150 mg caps active Not Available Not Available Not Available iophen c-nr 100-10 mg/5ml liqd active Not Available Not Available Not Available sulfameth oxazole/t rimethopr im ds 800-160 mg tabs active Not Available Not Available Not Available citalopra m tab 40mg active Not Available Not Available Not Available azithromy sebas 250 mg tabs active Not Available Not Available Not Available tramadol hcl 50 mg tabs take prn 10/20 completed Not Available Not Available Not Available sucralfat e 1 gm tabs active Not Available Not Available Not Available pioglitaz one hcl 30 mg tabs active Not Available Not Available Not Available desoximet as cre 0.05% active Not Available Not Available Not Available freestyle tiarra lite active Not Available Not Available Not Available verapamil hcl 80 mg tabs active Not Available Not Available Not Available cyclobenz aprine 10 mg tablet TAKE 1 TABLET BY MOUTH THREE TIMES A DAY NEEDED 02/22 completed Not Available Not Available Not Available amoxicill in 500 mg capsule TAKE ONE CAPSULE BY MOUTH EVERY 6 HOURS 08/10 completed was for dental infectio n Not Available Not Available Not Available pioglitaz one 15 mg tablet TAKE 1 TABLET BY MOUTH EVERY DAY active Not Available Not Available No t Available atorvasta tin 40 mg tablet TAKE 1 AND 1/2 TABLETS BY MOUTH EVERY DAY 07/12 completed on crestor Not Available Not Available Not Available buspirone 5 mg tablet Take 1 tablet twice a day by oral route. active Not Available Not Available No t Available metformin 500 mg tablet Take 1 tablet twice a day by oral route. 12/18 completed Not Available Not Available Not Available acetamino phen 325 mg tablet TAKE 2 TABLETS BY MOUTH EVERY 4 HOURS NEEDED FOR MILD PAIN 08/10 completed using ibuprofe n instead Not Available Not Available Not Available atorvasta tin 20 mg tablet Take 1 tablet every day by oral route. active Not Available Not Available No t Available Carafate 100 mg/mL oral suspensio n Take 10 mL 4 times a day by oral route. 04/26 completed Not Available Not Available Not Available verapamil 40 mg tablet TAKE 1 TABLET BY MOUTH EVERY DAY active Not Available Not Available No t Available citalopra m 40 mg tablet TAKE 1 TABLET BY MOUTH EVERY DAY 11/30 completed now 30mg 11/30/21t t Not Available Not Available Not Available cetirizin e 10 mg tablet Take 1 tablet every day by oral route. 2012 active Not Available Not Available Not Avai lable azithromy sebas 250 mg tablet TAKE 2 TABLETS BY MOUTH TODAY, THEN TAKE 1 TABLET DAILY FOR 4 DAYS active Not Available Not Available No t Available aspirin 325 mg tablet TAKE 1 TABLET BY MOUTH EVERY DAY active Not Available Not Available No t Available pravastat in 40 mg tablet TAKE 1 TABLET BY MOUTH EVERY DAY (DOSE INCREASE : DISCONTI NUE 20 MG TABS) 2024 active Not Available Not Available Not Avai lable ibuprofen 800 mg tablet TAKE 1 TABLET BY MOUTH THREE TIMES A DAY 12/07 completed Not Available Not Available Not Available Glucagon Emergency Kit 1 mg solution for injection inject 1 mg for severe hypoglcy emic reaction 04/26 completed Not Available Not Available Not Available phenazopy ridine 200 mg tablet active Not Available Not Available Not Available famotidin e 40 mg tablet Take 1 tablet every day by oral route at bedtime. active Not Available Not Available No t Available clopidogr el 75 mg tablet TAKE 1 TABLET BY MOUTH EVERY DAY active Not Available Not Available No t Available prochlorp erazine maleate 10 mg tablet TAKE ONE TABLET ONE TABLET EVERY 6 HOURS BY MOUTH active Not Available Not Available No t Available sulfameth oxazole 800 mg-trimet hoprim 160 mg tablet Take 1 tablet every 12 hours by oral route. active Not Available Not Available No t Available omeprazol e 40 mg capsule,d elayed release TAKE 1 CAPSULE BY MOUTH EVERY DAY 12/07 completed Not Available Not Available Not Available tramadol 50 mg tablet Take 1 tablet every 6 hours by oral route. active Not Available Not Available No t Available simvastat in 40 mg tablet Take 1.5 tablets every day by oral route. 11/29 completed interact ion with verapami l Not Available Not Available Not Available pantopraz ole 20 mg tablet,de layed release Take 1 tablet every day by oral route. active Not Available Not Available No t Available oxycodone -acetamin ophen 5 mg-325 mg tablet TAKE 1 TABLET EVERY 4 TO 6 HOURS NEEDED FOR PAIN 01/20 completed Not Available Not Available Not Available citalopra m 20 mg tablet Take 1 tablet every day by oral route. active taking 40 mg daily03/18/24 Not Available Not Available Not Available Humalog U-100 Insulin 100 unit/mL subcutane ous solution INJECT A TOTAL OF 120 UNITS PER DAY VIA INSULIN PUMP E11.65 01/22 completed off pump post bypass- on lantus as loses weight. no longer using humalog Not Available Not Available Not Available amitripty line 10 mg tablet Taking 20 mg daily 01/24 completed s/e of dry mouth. Not Available Not Available Not Available meclizine 25 mg tablet Take 1 tablet 3 times a day by oral route as needed. 2024 active Not Available Not Available Not Avai lable glipizide ER 2.5 mg tablet, extended release 24 hr Take 1 tablet every day by oral route. 11/18 completed Not Available Not Available Not Available cephalexi n 500 mg capsule TAKE ONE CAPSULE BY MOUTH 3 TIMES A DAY FOR 7 DAYS active Not Available Not Available No t Available pantopraz ole 40 mg tablet,de layed release Take 1 tablet every day by oral route. 08/15 completed Not Available Not Available Not Available simvastat in 20 mg tablet TAKE 1 TABLET BY MOUTH ATBEDTIM E 09/17 completed Not Available Not Available Not Available lisinopri l 10 mg tablet 2007 active Take 1.00 tabs every day before noon Not Available Not Available Not Available ursodiol 300 mg capsule Take twice a day by oral route. 09/19 completed Not Available Not Available Not Available codeine 10 mg-guaife nesin 100 mg/5 mL Syrup take 5 ml at bedtime, may repeat every 4 hours as needed 2011 active Not Available Not Available Not Avai lable pramipexo le 0.125 mg tablet active Not Available Not Available No t Available gabapenti n 300 mg capsule Take 1 capsule every day by oral route. 03/[address] Tr mack Not Available Not Available Not Available omeprazol e 20 mg capsule,d elayed release TAKE ONE CAPSULE BY MOUTH EVERY DAY 03/[address] Phillip increase d to 40 mg daily. Not Available Not Available Not Available magnesium citrate oral solution TAKE DIRECTED active Not Available Not Available No t Available aspirin 81 mg chewable tablet Chew 1 tablet every day by oral route. 07/08 completed Not Available Not Available Not Available verapamil ER (PM) 100 mg capsule 24hr pellet CT,ext.re lease Take 1 capsule every day by oral route at bedtime. active 12/12/24 neurolog y consult Not Available Not Available Not Available bisacodyl 5 mg tablet,de layed release TAKE 4 TABLETS WITH 8 OUNCES OF WATER ONCE THE DAY BEFORE PROCEDUR E active Not Available Not Available No t Available pravastat in 20 mg tablet Take 1 tablet every day by oral route. 05/20 completed Not Available Not Available Not Available ranitidin e 150 mg capsule TAKE ONE CAPSULE BY MOUTH TWICE A DAY, DIRECTED active Not Available Not Available No t Available gabapenti n 100 mg capsule Take 2 capsules every day by oral route. 02/22 completed not taken 02/22/22t t Not Available Not Available Not Available ergocalci ferol (vitamin D2) 1,250 mcg (50,000 unit) capsule TAKE 1 CAPSULE ONCE WEEKLY 2024 active Not Available Not Available Not Avai lable Cheratuss in AC 10 mg-100 mg/5 mL oral liquid TAKE 2 TEASPOON SFUL BY MOUTH EVERY 4 HOURS active Not Available Not Available No t Available verapamil 80 mg tablet TAKE 1 TABLET BY MOUTH EVERY DAY 12/07 completed on hold Not Available Not Available Not Available albuterol sulfate HFA 90 mcg/actua tion aerosol inhaler 04/05 completed Not Available Not Available Not Available pioglitaz one 30 mg tablet TAKE 1 TABLET BY MOUTH EVERY DAY active Not Available Not Available No t Available fluocinon pineda 0.05 % topical cream Apply to affected areas BID 06/20 completed 05/13/19- Pt states that she is not longer taking this med-rb Not Available Not Available Not Available ondansetr on 4 mg disintegr ating tablet TAKE 1 TABLET BY MOUTH EVERY 6 HOURS NEEDED FOR NAUSEA 01/30 completed Not Available Not Available Not Available fluticaso ne propionat e 50 mcg/actua tion nasal spray,angel pension SPRAY 1 SPRAY BY INTRANAS AL ROUTE EVERY DAY 2023 active Not Available Not Available Not Avai lable lisinopri l 2.5 mg tablet Take 1 tablet every day by oral route. 10/08 completed Not Available Not Available Not Available sulindac 200 mg tablet Take 1 tablet twice a day by oral route. 03/10 completed Not Available Not Available Not Available amoxicill in 875 mg-potass ium clavulana te 125 mg tablet Take 1 tablet every 12 hours by oral route for 7 days. 08/07 completed Not Available Not Available Not Available Epi E-Z Pen 1:1000 injection syringe Take by injectio n route. 06/20 completed environm ental allergen s Not Available Not Available Not Available rosuvasta tin 10 mg tablet TAKE 1 TABLET EVERY DAY active Not Available Not Available No t Available rosuvasta tin 20 mg tablet Take 1 tablet every day by oral route. 08/11 completed Not Available Not Available Not Available rosuvasta tin 40 mg tablet TAKE 1 TABLET BY MOUTH EVERY DAY active lv 04/26/21 nv 07/23/21 last lab 05/18/21 Not Available Not Available Not Available Cymbalta 20 mg capsule,d elayed release Take 1 capsule twice a day by oral route. 03/[address] Ceballos . Not Available Not Available Not Available Parcopa 10 mg-100 mg disintegr ating tablet taking 1 daily 03/18 completed Not Available Not Available Not Available OneTouch UltraSoft Lancets 2007 active use to test BG up to 4 times daily Not Available Not Available Not Available lactulose 10 gram/15 mL oral solution active Not Available Not Available Not Available Byjanuary 10 mcg/dose( 250 mcg/mL)2. 4 mL subcutane ous pen injector Inject 0.04 mL twice a day by subcutan eous route for 90 days. active Not Available Not Available No t Available Byjanuary 5 mcg/dose (250 mcg/mL)1. 2 mL subcutane ous pen injector Inject 0.02 mL twice a day by subcutan eous route. 2012 active Not Available Not Available Not Avai lable magnesium 400 mg Q hs active 12/16/24 neurolog y consult Not Available Not Available Not Available Zofran active Not Available Not Availa ble Not Available Prilosec active Not Available Not Avai lable Not Available Gas-X 08/21 completed as needed Not Available Not Available Not Available multivita min active Not Available Not Available Not Available Lyrica 04/25 completed pt usure of dose 03/01/17 04/25/17 stopped secondar y to s/e-weig ht gain Not Available Not Available Not Available BD Ultra-Fin e Short Pen Needle 31 gauge x 10/25 Using BID 2009 active Not Available Not Available Not Avai lable Januvia 100 mg tablet TAKE 1 TABLET BY MOUTH EVERY DAY active Not Available Not Available No t Available peg 3350-elec trolytes 236 gram-22.7 4 gram-6.74 gram-5.86 gram solution active Not Available Not Available Not Available Lantus Solostar U-100 Insulin 100 unit/mL (3 mL) subcutane ous pen INJECT 20U qhs 08/13 completed s/p gastric bypass now on 17 U qhs and monitore d under surgeon as loses weight. Not Available Not Available Not Available Humalog KwikPen (U-100) Insulin 100 unit/mL subcutane ous INJECT 36 UNITS BEFORE BREAKFAS T & LUNCH 36 UNITS BEFORE DINNER 1 TO 4 UNITS W/SNACKS 05/07 completed Not Available Not Available Not Available diclofena c 1 % topical gel APPLY 2 GRAMS TO THE AFFECTED AREA(S) BY TOPICAL ROUTE 4 TIMES PER DAY 2024 active Not Available Not Available Not Avai lable Feraheme 510 mg/17 mL (30 mg/mL) intraveno us solution active Feraheme PA for BS F Not Available Not Available Not Available cetirizin e 10 mg capsule Take 1 capsule every day by oral route for 30 days. 2009 active Not Available Not Available Not Avai lable D3-2000 04/26 completed Not Available Not Available Not Available BD Ultra-Fin e Lyndsey Pen Needle 32 gauge x 5/32 Use to inject insulin up to 6 times daily ( Humalog with meals & snacks, Tresiba once daily) 07/08 completed Not Available Not Available Not Available Contour Next Test Strips Take 4 strips every day by miscell. route before meals for 90 days. 04/26 completed [place] appt: 08/12/19; Labs: 08/08/19 Not Available Not Available Not Available Kirk Powell OTC 07/12 completed Not Available Not Available Not Available Bydureon 2 mg/0.65 mL subcutane ous pen injector INJECT 0.65ML SUBCUTAN EOUSLY EVERY WEEK DIRECTED 01/20 completed Not Available Not Available Not Available Tresiba FlexTouch U-200 insulin 200 unit/mL (3 mL) subcutane ous pen INJECT 88 UNITS SUBCUTAN EOUSLY DAILY 12/11 completed Not Available Not Available Not Available meloxicam submicron ized 5 mg capsule Take 1 capsule every day by oral route. 07/08 completed not taking 0-tt Not Available Not Available Not Available riboflavi n (vitamin B2) 400 mg tablet Take 1 tablet every day by oral route. active 12/12/24 neurolog y note Not Available Not Available Not Available Guardian Sensor 3 device USE DIRECTED , change every 7 days 04/26 completed Not Available Not Available Not Available Ubrelvy 100 mg tablet 1/2 to 1 at onset, may rpt 2 hrs active Not Available Not Available No t Available Ajovy 225 mg/1.5 mL subcutane ous auto-inje ctor Inject by subcutan eous route. active 12/12/24 neurolog y consult Not Available Not Available Not Available Semglee (insulin glargine- yfgn) Pen 100 unit/mL (3 mL) subcutane ous INJECT 17 UNITS INTO THE SKIN AT BEDTIME 11/30 completed not using 11/30/21t t Not Available Not Available Not Available Paxlovid 300 mg (150 mg x 2)-100 mg tablets in a dose pack Take as directed on dose pack 08/15 completed Not Available Not Available Not Available citalopra m 30 mg capsule Take 1 capsule every day by oral route. 02/22 completed Not Available Not Available Not Available Vitals Date Recorded Body height Body mass index (BMI) Body weight Heart rate Oxygen saturation Oxygen saturation in Arterial blood by Pulse oximetry Systolic And Diastolic Provider Name and Address Organization Details Last Updated DateTime 5 170.18 cm 28 kg/m2 44520.0 3 g 67 /min 98 % 98 % 122/70 mm[Hg] Dara Carter [facility] 5 10:23:05 Date Recorded Body height Heart rate Oxygen saturation Oxygen saturation in Arterial blood by Pulse oximetry Body temperature Systolic And Diastolic Provider Name and Address Organization Details Last Updated DateTime 5 170.18 cm 72 /min 98 % 98 % 98.21 [degF] 122/72 mm[Hg] Carmencita Su [facility] 5 08:46:49 Date Recorded Body height Body mass index (BMI) Body weight Heart rate Oxygen saturation Oxygen saturation in Arterial blood by Pulse oximetry Systolic And Diastolic Provider Name and Address Organization Details Last Updated DateTime 5 170.18 cm 27.9 kg/m2 99807.4 4 g 68 /min 98 % 98 % 104/60 mm[Hg] Deborah [facility] 5 11:34:00 Date Recorded Body height Body mass index (BMI) Body weight Oxygen saturation Oxygen saturation in Arterial blood by Pulse oximetry Heart rate Systolic And Diastolic Provider Name and Address Organization Details Last Updated DateTime 5 170.18 cm 27.9 kg/m2 14713.4 4 g 97 % 97 % 68 /min 124/64 mm[Hg] Deborah [facility] 5 11:03:33 Date Recorded Body height Body mass index (BMI) Body weight Heart rate Oxygen saturation Oxygen saturation in Arterial blood by Pulse oximetry Systolic And Diastolic Provider Name and Address Organization Details Last Updated DateTime 5 170.18 cm 27.8 kg/m2 87154.9 5 g 68 /min 98 % 98 % 114/60 mm[Hg] Deborah Darshan, [facility] 09:34:06 Social History Question Answer Notes LastModified by Organizat ion Details LastModified Time Tobacco Smoking Status Former Smoker quit , previously 1/2ppd, started age 89/6/24MV. 03/12/24AB1// 25MV 2/25mm 08/21/25mm 25mm ARTIE Carranza, [facility] 11/22/2024 09:31:29 Do You Have An Advance Directive? Yes Information not available 11/08/2011 Do You Wear A Helmet When Biking? Yes [email or web address] Information not available 08/16/2023 What Is Your Level Of Caffeine Consumption? Moderate Information not available 08/13/2021 What Type Of Diet Are You Following? REGULAR Information not available 05/10/2011 Which Illicit Or Recreational Drugs Have You Used? None Denies [email or web address] Information not available 08/12/2019 Have There Been Any Changes To Your Family Or Social Situation? No [email or web address] Information not available 08/16/2023 When Did You Quit Smoking? 16+yearssince lastcigarette Information not available 11/18/2014 How Many Days In The Past Year Have You Had A Heavy Drinking Consumption (4+ Female, 5+ Male)? 0 [email or web address] Information not available 04/16/2013 Are There Any Guns Present In Your Home? Yes Information not available 05/10/2011 Do You Use Insect Repellent Routinely? No [email or web address] Information not available 08/16/2023 Live Alone Or With Others? With Others Information not available 04/28/2011 Patient Has Health Care Proxy Signed And In Chart Yes [email or web address] Information not available 12/11/2018 DM Disease Process Not Assessed Information not available 11/28/2018 Nutrition Not Assessed Information not available 11/13/2019 Physical Activity Not Assessed Information not available 11/13/2019 Medications Post-shows Competency 11/13/19 Information not available 11/13/2019 Monitoring Post-shows Competency 11/13/19 Information not available 03/18/2019 Acute Complications Post-shows Competency 11/13/19 Information not available 03/18/2019 Chronic Complications Post-shows Competency 11/13/19 Information not available 03/18/2019 Coping Post-shows Competency 11/13/19 Information not available 08/14/2018 Behavior Change Post-shows Competency 11/13/19 Information not available 08/14/2018 DSME Plan Goal Using Medications Safely: Adjusted Her Basal Rate Over Night At 12 Am-3 Am To 1.9 U/hr From 2.1 U/hr Due To Hypoglycemia Overnight. Information not available 06/14/2019 DSME Plan Goal Success 100%-always: Information not available 08/14/2018 DSME Plan Goal Evaluation: 11/13/2019 Information not available 11/13/2019 DSME Plan Initiated: 08/02/2018 MNT; Dates Seen: 2013x2; 2019x4: 07/25; 09/15; DSMT 1:1 X 5-6; Dates Seen: 09/17, 10/21; 08/02/18, 08/14/18; 11/28/18; 01/21/19; 03/18/19; 05/15/19; 06/14/18; 07/16/19; 11/13/19 Information not available 08/02/2018 DSME Plan Status In Progress - [email or web address] Information not available 11/15/2013 Diabetes Ed Classes Discussed Patient Not Appropriate Pt. Started On Pump 11/27/18 Information not available 08/02/2018 Marital Status Information not available 04/28/2011 Mosquito Repellent Used Routinely Yes Information not available 05/10/2011 What Was The Date Of Your Most Recent Tobacco Screening? 11/22/2024 08/16/23mh, 09/26/23mh9/11/11 4MV Information not available 11/22/2024 How Many Children Do You Have? 2 Twins [email or web address] Information not available 09/29/2010 What Is Your Current Pack Years? [email or web address] Information not available 11/18/2014 Do You Use Your Seat Belt Or Car Seat Routinely? Yes Information not available 08/16/2023 Seat Belts Used Routinely Yes Information not available 05/10/2011 Are You Sexually Active? Yes Information not available 05/10/2011 Smoke Alarm In Home Yes Information not available 05/10/2011 Do You Have Smoke And Carbon Monoxide Detectors In Your Home? Yes [email or web address] Information not available 08/16/2023 Are You Passively Exposed To Smoke? No [email or web address] Information not available 08/16/2023 How Much Tobacco Do You Smoke? No Information not available 08/13/2021 General Stress Level Medium Information not available 03/06/2018 Do You Use Sunscreen Routinely? Yes Information not available 05/10/2011 How Many Years Have You Smoked Tobacco? 0 Information not available 08/13/2021 Sex: Female Functional Status Question Answer Note LastModified by Organizat ion Details LastModified Time Do you use any illicit or recreational drugs? No Information not available 08/13/2021 Do you or have you ever used any other forms of tobacco or nicotine? No Information not available 08/13/2021 What is your level of alcohol consumption? None 08/16/23reading [email or web address] Information not available 08/16/2023 Do you or have you ever used smokeless tobacco? Never used smokeless tobacco Information not available 08/13/2021 Are you currently employed? No [email or web address] Information not available 08/21/2024 What is your occupation? Retired [employer] Information not available 08/21/2024 Do you or have you ever used e-cigarettes or vape? Never used electronic cigarettes Information not available 08/13/2021 Mental Status None recorded. Family History Relationship Description Onset Age of this Age Resolved Age Notes LastModified by Organization Details LastModified Time Father Coronary arterioscler rica vargas Not available 07/2014 14:55:54 Notes:Neurological: Family h istory is remarkable for Alzheimer's disease (paternal grandfather) and migraines (mother and pt's son). Migraines run on maternal side of family, sister and neice as well. Endocrine: Family history is remarkable for diabetes type 1. father at 59 Cardiac: father CAD, brother CAD Psych: son with anxiety disorder, other son with depression/OCD, both on IEPs 01/21/16 - Grandmother and Uncle had Bone Cancer. 10/20/16 musculoskeletal: sister spinal stenosis 07/25/17 mat aunt- autoimmune dz but not sure of type 01/28- Dad had T1DM - 59. Mom is OK at 86. 4 brothers and one sister (spinal stenosis). 2 twins are 17. 08/29- Mom OK. Siblings OK. Twins are looking at college ([employer]). Waiting to hear [employer] (soccer). Other at [employer] [facility] Ed. 07/02: Son getting tested for COVID in [place] (had to drive there and back). Mom is 87 and doing well. [employer]. Other twin is at home- not working. 05/02: Family OK. Mom (87)- strong Afghan lady. Medical History Condition Response Diverticulosis Y GASTROINTESTINAL Y Gynecological HistoryNo gynecological history recorded. Obstetrics History GPAL:G 0 P 0 0 0 0 Immunizations Vaccine Type Date Status Note Provider Nam e and Address Organization Details Recorded Time Influenza, split virus, trivalent, preservative 9 completed Not Available [facility] 06/29/2019 02:17:24 Tdap 8 completed Not Available [facility] 07/10/2023 08:52:26 pneumococcal polysaccharide PPV23 8 completed Not Available [facility] 07/10/2023 08:52:26 influenza, unspecified formulation 0 completed Not Available [facility] 07/10/2023 08:52:26 Influenza, split virus, trivalent, PF 3 completed Not Available [facility] 06/29/2019 02:18:59 Influenza, split virus, trivalent, preservative 4 completed Not Available [facility] 06/29/2019 02:19:21 Influenza, split virus, trivalent, preservative 2 completed Not Available [facility] 07/10/2023 08:52:26 Influenza, split virus, quadrivalent, PF 6 completed Not Available [facility] 06/29/2019 02:35:43 Influenza, split virus, quadrivalent, PF 7 completed Not Available [facility] 06/29/2019 02:30:32 Td (adult), 2 Lf tetanus toxoid, preservative free, adsorbed 8 completed Not Available [facility] 06/29/2019 02:33:43 influenza, unspecified formulation 5 completed Not Available [facility] 07/10/2023 08:52:26 Influenza, split virus, quadrivalent, PF 8 completed Not Available [facility] 06/29/2019 02:26:38 Influenza, split virus, quadrivalent, PF 9 completed Not Available [facility] 06/29/2019 02:29:22 Influenza, split virus, quadrivalent, PF 0 completed Harriet Porter CMA null, [facility] 04/09/2020 14:13:52 Influenza, split virus, quadrivalent, PF 1 completed Linda Morales, [facility] [employer] [address] [place] [address], [id number], [facility] 03/15/2021 09:42:16 Hep A, adult 1 completed Faraz Lopez CMA null, [facility] 03/15/2021 10:19:35 Hep B, adult 1 completed Faraz Lopez CMA null, [facility] 03/15/2021 10:20:27 Hep B, adult [address] LPN null, [facility] 04/22/2021 09:22:35 Hep B, adult 2 completed Linda Roach RN null, [facility] 09/13/2021 08:28:43 Hep A, adult 2 completed Linda Roach RN null, [facility] 09/13/2021 08:28:43 COVID-19, mRNA, LNP-S, PF, 30 mcg/0.3 mL dose 1 completed Not Available [facility] 07/10/2023 08:52:26 COVID-19, mRNA, LNP-S, PF, 30 mcg/0.3 mL dose 1 completed Not Available [facility] 07/10/2023 08:52:26 Influenza, split virus, trivalent, PF 4 completed Linda Morales NP [address] [place], [address], [facility] [place] 03/12/2024 14:53:06 COVID-19, mRNA, LNP-S, PF, 100 mcg/0.5mL dose or 50 mcg/0.25mL dose 2 completed Not Available [facility] 07/10/2023 08:52:26 Past Encounters Encounter ID Performer Location Encounter Start Date Encounter Closed Date Diagnosis/Indication Diagnosis SNOMED-CT Code Diagnosis ICD10 Code Diagnosis Note [id number] Patricia Gutierrez NP FP, [facility] [place] [address] [place] [address] 05/08/2000 09:45:00 07/02/2008 02:02:29 [id number] ADEN Davies, [facility] [place], OFFICE [address] [place] [address] 1 08/07/2000 09:00:00 07/02/2008 02:02:29 [id number] MD EDER Roger, [facility] [place], OFFICE [address] [place] [address] 1 05/25/2001 15:30:00 07/02/2008 02:02:29 [id number] [facility] [place] [facility] , [address] [address] 06/07/2001 15:00:00 07/02/2008 02:02:29 [id number] [facility] [place] [facility] , [address] [address] 08/06/2001 08:15:00 07/02/2008 02:02:29 [id number] [facility] [place] , [address] [address] 1 08/29/2001 08:15:00 07/02/2008 02:02:29 [id number] [facility] [place] , [address] [address] 09/07/2001 11:15:00 07/02/2008 02:02:29 [id number] MD EDER Roger, [facility] [place], OFFICE [address] [place] [address] 1 10/08/2001 16:00:00 07/02/2008 02:02:29 [id number] Chau Leiva MD , [facility] [place], OFFICE [address] [place] [address] [place] [address] 1 09/30/2002 11:08:06 07/02/2008 02:02:29 [id number] Shantell Patel MD , [facility] [place], [address] [place] [address] 03/07/2003 12:21:50 03/14/2003 15:03:46 [id number] Chau Leiva MD , [facility] [place], [address] [place], [place] [address] 08/13/2003 07:48:52 08/13/2003 16:16:49 [id number] Fan Ramirez III, MD , [address] [place] [address] 01/26/2004 13:17:00 01/27/2004 08:47:51 [id number] Chau Leiva MD , [address] [place] [address] 1 02/03/2004 08:11:53 02/03/2004 13:46:57 [id number] Sorin Lee , [address] [place] [address] 1 04/08/2004 08:47:30 04/08/2004 17:25:59 [id number] Chau Leiva MD , [address] [place] [address] 1 04/22/2004 13:40:12 04/23/2004 10:01:18 [id number] Chau Leiva MD , [address] [place] [address] 1 05/04/2004 08:56:24 05/04/2004 16:17:07 [id number] Sorin GAINES, [address] [place] [address] 06/29/2004 15:08:14 06/30/2004 08:44:41 [id number] Fan Ramirez III, MD , [facility] [place], [address] [place] [address] 03/21/2005 15:39:40 03/22/2005 08:52:14 [id number] Deisy Mondragon , [facility] [place], [address] [place] [address] 1 05/13/2005 10:00:36 05/13/2005 14:45:12 [id number] Chau Leiva MD , [facility] [place], OFFICE [address] [place] [address] 1 07/14/2005 15:05:26 07/15/2005 08:41:47 [id number] [facility] - [facility] [place] [address] [place] [address] 07/14/2005 15:43:45 07/14/2005 15:44:21 [id number] Chau Leiva MD , [facility] [place], OFFICE [address] [place] [address] 1 07/29/2005 08:53:47 07/29/2005 17:20:07 [id number] Deisy Mondragon , [facility] [place], OFFICE [address] [place] [address] 1 01/20/2006 15:47:51 07/02/2008 02:02:29 [id number] ADEN Davies, [facility] [place], OFFICE [address] [place] [address] [place] [address] 1 01/25/2006 15:21:57 01/25/2006 17:22:01 [id number] [facility] [place] - [facility] [place] [address] [place] [address] 01/25/2006 16:23:10 01/25/2006 16:23:18 [id number] ADEN Davies, [facility] [place], OFFICE [address] [place] [address] [place] [address] 1 02/03/2006 08:14:48 02/03/2006 14:17:45 [id number] ADEN Davies, [facility] [place] OFFICE [address] [place] [address] [place] [address] 1 03/03/2006 13:22:08 03/06/2006 08:18:49 [id number] ADEN Davies, [facility] [place], OFFICE [address] [place] [address] [place] [address] 1 03/10/2006 11:36:15 03/10/2006 14:56:57 [id number] [facility], [address] [place] [address] 1 03/14/2006 13:48:28 03/15/2006 06:14:50 [id number] ADEN Davies, [facility] [place], OFFICE [address] [place] [address] 1 03/17/2006 11:16:57 03/17/2006 12:17:52 [id number] ADEN Davies, [facility] [place], OFFICE [address] [place] [address] [place] [address] 1 03/30/2006 09:42:06 03/30/2006 13:44:16 [id number] ADEN Davies, [facility] [place], OFFICE [address] [place] [address] [place] [address] 1 04/03/2006 13:17:08 04/03/2006 16:24:14 [id number] ADEN Davies, [facility] [place], OFFICE [address] [place] [address] [place] [address] 1 04/17/2006 11:22:24 04/17/2006 14:03:25 [id number] [facility] [place] - [address] [place] [address] 04/17/2006 12:07:09 04/17/2006 12:07:18 [id number] ADEN Davies, [facility] [place], OFFICE [address] [place] [address] [place] [address] 1 05/23/2006 08:22:50 05/23/2006 10:40:52 [id number] ADEN Davies, [facility] [place], OFFICE [address] [place] [address] [place] [address] 1 06/26/2006 10:07:06 06/26/2006 14:21:39 [id number] ADEN Davies, [facility] [place], [address] [place] [address] 1 08/08/2006 08:16:45 08/08/2006 10:26:24 [id number] [facility] - [address] [place] [address] 08/08/2006 08:54:36 08/08/2006 08:54:46 [id number] [facility] - [address] [place] [address] 09/05/2006 15:01:07 09/05/2006 15:01:15 [id number] ADEN Davies, [facility] [place], OFFICE [address] [place] [address] 1 09/05/2006 14:11:54 09/05/2006 16:53:35 [id number] [facility] - [address] [place] [address] 1 09/15/2006 16:25:18 09/15/2006 16:25:26 [id number] [facility] [place] , [address] [place] [address] 09/19/2006 08:35:39 09/19/2006 10:30:07 [id number] Winston Barroso MD Radiology , [address] [place] [address] 1 09/19/2006 00:00:00 07/02/2008 02:02:29 [id number] Patricia Gutierrez NP FP, [facility] [place], OFFICE [address] [place] [address] 1 09/19/2006 07:57:36 09/19/2006 09:15:12 [id number] [facility] [facility] , [address] [place] [address] 09/21/2006 08:53:16 09/21/2006 09:28:01 [id number] [facility] [facility] , [address] [place] [address] 1 09/21/2006 00:00:00 07/02/2008 02:02:29 [id number] ADEN Davies, [facility] [place], OFFICE [address] [place] [address] 1 10/04/2006 08:57:04 10/04/2006 14:28:01 [id number] ADEN Davies, [facility] [place], OFFICE [address] [place] [address] 1 11/08/2006 12:15:51 11/08/2006 14:11:29 [id number] [facility] - [address] [place] [address] 1 11/08/2006 12:51:14 11/08/2006 12:51:35 [id number] ADEN Davies, [facility] [place], OFFICE [address] [place] [address] 1 12/26/2006 09:53:53 12/26/2006 16:04:09 [id number] [facility] - [address] [place] [address] 1 12/26/2006 10:39:46 12/26/2006 10:39:52 [id number] ADEN Davies, [facility] [place], OFFICE [address] [place] [address] 1 03/16/2007 12:00:39 07/02/2008 02:02:29 [id number] Fan Ramirez III, MD FP, [facility] [place], OFFICE [address] [place] [address] 1 10/11/2007 08:39:09 07/02/2008 02:02:29 [id number] ADEN Davies, [facility] [place], OFFICE [address] [place] [address] [place] [address] 1 11/14/2007 11:16:15 07/02/2008 02:02:29 [id number] [facility] - [facility] [address] [place] [address] 11/15/2007 08:14:18 11/15/2007 08:14:21 [id number] MD EDER Sinha, [facility] [place], OFFICE [address] [place] [address] [place] [address] 1 12/12/2007 09:16:31 07/02/2008 02:02:29 [id number] ADEN Davies, [facility], [address] [place] [address] 1 12/24/2007 13:44:02 07/02/2008 02:02:29 [id number] ADEN Davies, [facility] [place], OFFICE [address] [place] [address] [place] [address] 1 01/09/2008 12:02:00 07/02/2008 02:02:29 [id number] ADEN Davies, [facility] [place], OFFICE [address] [place] [address] [place] [address] 1 02/05/2008 07:56:16 07/02/2008 02:02:29 [id number] ADEN Davies, [facility] [place], [address] [place] [address] 1 06/02/2008 12:19:41 07/02/2008 02:02:29 [id number] ADEN Minor, [facility] [place], OFFICE [address] [place] [address] [place] [address] 1 11/13/2008 14:27:02 11/14/2008 10:34:06 [id number] ADEN Davies, [facility] [place], OFFICE [address] [place] [address] 1 02/20/2009 10:59:30 02/23/2009 08:38:30 [id number] [facility] [place] - [facility] [place] [address] [place] [address] 1 11/14/2008 08:49:15 11/14/2008 08:49:22 [id number] ADEN Davies, [facility] [place], OFFICE [address] [place] [address] 1 05/13/2009 09:24:49 05/13/2009 13:07:41 [id number] [facility] , [facility] [place] [address] [place] [address] 05/13/2009 10:18:05 05/14/2009 11:15:04 [id number] ADEN Davies, [facility], OFFICE [address] [place] [address] [place] [address] 1 07/08/2009 12:16:45 07/08/2009 15:24:32 [id number] ADEN Davies, [facility] [place], OFFICE [address] [place] [address] [place] [address] 1 09/28/2009 12:09:55 09/28/2009 14:11:06 [id number] Bernardo GAINES, [address] [place] [address] 1 11/17/2009 14:53:55 11/17/2009 16:44:45 [id number] ADEN Davies, [address] [place] [address] 1 12/18/2009 15:24:58 12/18/2009 16:40:28 [id number] ADEN Davies, [facility], [address] [place] [address] 1 01/01/2010 12:12:59 01/01/2010 13:34:33 [id number] Patricia Gutierrez NP , [address] [place] [address] 1 02/05/2010 13:26:14 02/05/2010 16:51:09 [id number] Bernardo GAINES, [facility], [address] [place] [address] 1 02/10/2010 11:41:16 02/11/2010 08:25:45 [id number] Deisy Ward RN, CDE [facility] , [facility] [address] [place] [address] 1 02/12/2010 15:34:19 02/16/2010 11:30:05 [id number] Patricia Gutierrez NP , [facility], OFFICE [address] [place] [address] [place] [address] 1 04/05/2010 13:52:31 04/06/2010 09:44:17 [id number] Patricia Gutierrez NP , [facility], OFFICE [address] [place] [address] [place] [address] 1 07/13/2010 10:09:52 07/13/2010 11:08:59 [id number] Patricia Gutierrez NP , [facility], OFFICE [address] [place] [address] [place], [place] [address] 1 08/20/2010 13:18:52 08/20/2010 14:11:41 [id number] Khadra Horn PA-C [facility], [address] [place] [address] 09/29/2010 08:18:19 09/29/2010 12:03:56 [id number] Khadra Horn PA-C [facility], [address] [place] [address] 1 10/14/2010 10:50:04 10/14/2010 17:08:56 [id number] Patricia Gutierrez NP , [facility], [address] [place] [address] 1 05/10/2011 13:40:26 05/10/2011 14:50:48 [id number] Patricia Gutierrez NP , [address] [place] [address] 1 07/15/2011 11:29:17 07/15/2011 12:21:13 [id number] Fan Ramirez III, MD , [address] [place] [address] 1 11/08/2011 09:11:18 11/08/2011 09:47:07 [id number] Fan Ramirez III, MD , [address] [place] [address] 1 12/20/2011 09:06:54 12/20/2011 09:57:22 [id number] Fan Ramirez III, MD , [address] [place] [address] 1 04/23/2012 11:33:23 04/23/2012 14:22:34 [id number] Cade Colby MD Radiology , [address] [address] 04/23/2012 12:12:20 04/26/2012 13:14:56 [id number] Cade Colby MD Radiology , [address] [address] 1 04/23/2012 12:30:18 04/26/2012 13:15:02 [id number] Shantell Patel MD , [facility], OFFICE [address] [place] [address] [place] [address] 1 05/30/2012 10:23:44 05/30/2012 11:25:26 [id number] Fan Ramirez III, MD , [facility], OFFICE [address] [place] [address] [place] [address] 1 08/13/2012 13:42:03 08/13/2012 14:33:56 [id number] Hilton Valdes MD [facility], [address] [address] 1 08/16/2012 12:45:24 08/16/2012 13:54:34 [id number] Hilton Valdes MD [facility], [address] [address] 1 09/13/2012 13:51:16 09/13/2012 15:10:37 [id number] Fan Ramirez III, MD , [facility], [address] [place] [address] 1 10/24/2012 10:23:53 10/24/2012 10:45:39 [id number] Khadra Horn PA-C [facility], [address] [address] 03/29/2013 11:01:38 03/29/2013 12:03:50 Influenza vaccine needed [id number] Type 2 jaqui betes mellitus without complication [id number] A1c 7.4 and slowly coming down. Goal <7. Pt questionin g starting insulin. Feels byetta is not helping and if has to inject would like more effect from medication she is injecting. It is not unreasonab le to start basal insulin. Pt instructed in use of solostar pen, treatment of lows, disposal of sharps. Pt to stop byetta Cont actos 30 mg daily. Start lantus 5 units in pm and increase 3 units q 3 days until am sugars are under 120. check glucose minimum AM and PM but would like noon reading as well. F/u in office in 2-3 weeks but in meantime will have nursing call pt for sugars on Monday or pt to bring meter in when seeing PCP on Monday. Eyes: Pt has made an appt. , no retinopath y previously . Last note in Chart 02/2013 and pt has upcoming appt. Renal:no protein in urine February 2013 labs. .Cr. okay. Had KIRA cough in past BP and lipids below. Neuro:inta ct Mixed hyperlipidemia [id number] LDL 97 in February 2013. Cont atorvastat in 40mg daily. Benign ess ential hypertension [id number] Remaining borderline . cont on verapamil. cont to encourage regular exercise [id number] Fan Ramirez III, MD , [facility], OFFICE [address] [place] [address] 1 04/01/2013 13:21:22 04/01/2013 14:00:26 Iron deficiency anemia [id number] Lenora Castro D.O. , [facility], OFFICE [address] [place] [address] 1 04/16/2013 15:42:01 04/16/2013 16:05:34 Acute pharyngitis [id number] Rapid strep negative. Pt reassured. Advised ibuprofen 800 mg tid. Push fluids. Warm salt gargles. Rest. Pain in throat [id number] Fan Ramirez III, MD , [facility], OFFICE [address] [place] [address] 1 06/11/2013 10:21:06 06/11/2013 11:52:56 Ankle pain [id number] Hilton Valdes MD [facility], [facility] [address] [place] [address] 1 09/26/2013 10:21:47 09/26/2013 11:18:52 Type 2 diabetes mellitus without complication [id number] Mixed hyperlipidemia [id number] Benign ess ential hypertension [id number] Remaining borderline . cont on verapamil. cont to encourage regular exercise [id number] Fan Ramirez III, MD , [facility], OFFICE [address] [place] [address] 1 10/04/2013 14:25:11 10/04/2013 14:44:45 Urinary tract infectious disease [id number] Push fluids f/u if no improvemen t in 72 hours or for fever or back pain. Uncontroll ed type 2 diabetes mellitus [id number] Hilton Valdes MD [facility], [address] [address] 11/07/2013 08:25:35 11/07/2013 09:11:00 Type 2 diabetes mellitus without complication [id number] Mixed hyperlipidemia [id number] Benign ess ential hypertension [id number] Remaining borderline . cont on verapamil. cont to encourage regular exercise [id number] Rhina Engle RDN, LDN, [facility] -[address] [phone] 11/15/2013 13:17:27 11/15/2013 14:46:14 Type 2 diabetes mellitus without complication [id number] Rhina Engle RDN, [place], [facility] -[address] [address] 12/19/2013 08:21:59 12/19/2013 15:24:10 Type 2 diabetes mellitus without complication [id number] Patricia Gutierrez NP , [facility] [address] [place], [place] [address] [address] 03/05/2014 09:31:55 03/05/2014 10:19:27 Benign essential hypertension 9210029 continue to work on diet ,exercisea nd lowering salt intake as discussed Blood pressure at goal Mixed hyperlipidemia 789104109 Cholestero l is not at goal Continue to work on diet and exercise as discussed Adult [facility] th examination [id number] see Risk Assessment and Lifestyle Change Counseling section above Type 2 jaqui betes mellitus without complication 748247635 Pain in pelvis 94641433 Screening for malignant neoplasm of cervix 487920525 Diabetic on insulin 408696117 Iron defic iency anemia 00339938 [id number] Khadra Horn PA-C Endocrino log, [address] [address] 03/25/2014 14:17:14 03/25/2014 15:25:39 Influenza vaccine needed [id number] 106 Type 2 jaqui betes mellitus without complication 396199527 Mixed hyperlipidemia 259138905 Benign ess ential hypertension 2508088 cont on verapamil. cont to encourage regular exercise [id number] Khadra Horn PA-C Endocrino logy, [facility] [address] [place] [address] 04/18/2014 11:45:12 05/21/2014 12:24:10 [id number] Hilton Valdes MD Endocrino logy, [facility] [address] [place] [address] 04/24/2014 10:20:18 04/24/2014 11:20:14 [id number] Patricia Gutierrez NP , [facility] [place] [address] [place] [address] 04/28/2014 08:02:44 04/28/2014 08:34:14 [facility] [id number] ADEN Davies, [facility] [place] [address] [place] [address] 05/07/2014 09:37:37 05/07/2014 10:15:07 Abdominal pain 41707209 Nausea [id number] Lenora Castro D.O. , [facility] [place] [address] [place] [address] 07/18/2014 10:49:40 07/28/2014 12:14:52 Acute upper respiratory infection 12245479 URI is a viral illness of the upper airways. It is not bacterial and does not benefit from antibiotic s. Average duration of URI is 7-10 days but in a recent trial, treatment at 7-10 days of illness with antibiotic s, intranasal steroids sprays, or placebo (sugar pill), 80% of people were better at 3 weeks REGARDLESS OF TREATMENT. Recommende d symptomati c treatments including semi-uprig ht sleep position, antihistam carol at bedtime (like diphenhydr amine or chlorpheni ramine) to dry nasal secretions , and nasal saline rinses with soft squeeze bottle (Sinus Rinse by [employer]) or Neti pot. Return for fevers > 101 for 3 days, worsening sinus pain, or failure to resolve in 2-4 weeks. [id number] Khadra Horn PA-C Endocrino logy, [facility] [address] [place] [address] 07/28/2014 10:16:44 07/28/2014 11:45:09 Type 2 diabetes mellitus without complication 892483928 A1c 8.4 in May but has gone on Humalog tid with meals in addition to Lantus and Glipizide. Due for A1c in August. Looking at logs, expect that A1c should be improved. Discussed stopping sulfonylur ea but not wanting to increase insulin TTD since weight gain is not desirable. Pt also having colonoscop y next week and not wanting to make too many changes to her regimen until testing is done. Also want to see her A1c on this regimen and she is due for A1c in 2 weeks. For now continue lantus 58 units daily and Humalog 7-10 units tid with meals and Glipizide ER 2.5 mg daily in AM. After colonoscop y and A1c will stop Glipizide ER and increase exercise and see if can maintain glucose readings. If cannot, then will adjust Humalog accordingl y. For colonoscop y next week, starts prep at 2pm and testing is 7am 25th. Will take Lantus AM of 24th as usual. Take breakfast insulin and lunch insulin as normal. Humalog 7-10 units) In afternoon, monitor glucose closely the remainder of the day as you are eating liquid that contain carbs. If glucose high then correct with 2 units of Humalog if glucose is over 200. Do not correct within 2 hours of previous injection of Humalog. The next AM hold lantus until after the colonoscop y since you are the 7am procedure and take lantus immediatel y following testing. Resume Humalog as resume diet. Sugars will be higher the day of the colonoscop y as diet and medication are manipulate d. f/u in 3 months. Reviewed CGM and at the time post supper were highest. Discussed ways to decrease portions at supper or to add exercise post meal since gets good benefit earlier in the day from exercise at the lunch hour. If these changes can be made, would expect that glucose levels would be better controlled . Frozen left shoulder, will talk with PCP about PT referral. If PCP approves, Pt desires to go to PT in [place] where she has gone for other problems in the past. Is [facility] practice -[address]. . Mixed hyperlipidemia 384973667 May 2014 LDL 110. Cont atorvastat in 40mg daily. Might want to consider change to Crestor for improved LDL control if not able to loose weight or increase exercise. Benign ess ential hypertension 5517560 cont on verapamil. cont to encourage regular exercise Pain of [facility] 42764002 see above. [id number] Patricia Gutierrez NP , [facility] [place] [address] [place] [address] 08/26/2014 08:57:41 08/26/2014 09:42:41 Type 2 diabetes mellitus without complication 577261394 Benign ess ential hypertension 9584466 continue to work on diet, exercise, and lowering salt intake as discussed Mixed hyperlipidemia 937702959 continue to work on diet and exercise as discussed Low back pain 409628092 Abdominal pain 05731919 Pain of [facility] 29508373 Diabetic on insulin 497851742 [id number] CHRISTIANA Galloway, RN, CPT, CDE DM Education , [address] [address] 09/17/2014 08:51:07 09/17/2014 09:48:22 Type 2 diabetes mellitus without complication 711939569 [id number] CHRISTIANA Galloway, RN, CPT, CDE [facility] Education , [address] [address] 10/21/2014 08:51:03 10/21/2014 10:57:22 Type 2 diabetes mellitus without complication 080841440 [id number] Patricia Gutierrez NP , [facility] [address] [place] [address] 11/18/2014 10:22:56 11/18/2014 11:04:45 Pre-surgery evaluation 347630449 Tarsal ilia daniele syndrome 42173784 Diabetes mellitus 87142792 Diabetic on insulin 449263526 Upper resp iratory infection 18047731 Intracranial aneurysm 921286572 [id number] Khadra Horn PA-C Endocrino logy, [address] [address] 01/26/2015 15:22:41 01/26/2015 16:42:20 Goiter 1197092 Thyroid: mild enlargemen t, recommendi ng thyroid u/s. Pt wanting to go to [facility] near her work. Will put in order. Type 2 jaqui betes mellitus without complication 317587840 A1c 7 and doing well. Pre lunch is high. continue lantus 30 units bid increase breakfast Humalog to 14 units, cont lunch and supper at 12 units f/u 4-6 weeks after surgery. Pt having neurosurge ry at [facility] and was told that Dr. Valdes has privileges there and could participat e in her care if she would like. She was pleased with this. Mixed hyperlipidemia 383942741 December 2014 LDl 124 and not to goal. Cont atorvastat in 40mg daily but again recommende d she consider change to Crestor. With upcoming surgery, will have her focus on this first. Previously May 2014 LDL 110. Benign ess ential hypertension 1922858 cont on verapamil. cont to encourage regular exercise Arterial aneurysm 565325259 cranial cont f/u and surgical interventi on with neurosurge on and neurology. [id number] Patricia Gutierrez NP FP, [facility] [place]ICE [address] [place] [address] 02/13/2015 11:09:10 02/13/2015 12:01:30 Intracranial aneurysm 635972260 Pre-surger y evaluation 236087438 Type 2 jaqui betes mellitus without complication 378617269 Diabetic on insulin 128340252 Non-toxic multinodular goiter 00477916 Hand wart 518967283 [id number] Khadra Horn PA-C Endocrino logy, [facility] [address] [place] [address] 04/13/2015 14:16:07 04/13/2015 15:27:31 Goiter 1372970 E04.9 RIGHT LOBE: upper pole dominant 1.3 x 1.2 x 1.2 cm hypoechoic with rim of vascularit y, LEFT LOBE: lower left pole 1.1 x 1.0 x 0.5 cm mixed solid cystic-mul tiple other nodules under 1cm. At time of u/s in January 2015 discussed repeat in 6 months. Pt due in Jul 2015. Orders already in chart. Type 2 jaqui betes mellitus without complication 671343228 E11.9 A1c 7 and to goal. continue lantus 30 units bid Humalog 15 iwth meals. f/u August 2015 (after Jul 2015 u/s above). Mixed hyperlipidemia 267 202693 E78.11 December 2014 LDL 124 and not to goal. Now that surgery is finished, will change to crestor. Will put in rx and PA. Cont atorvastat in 40mg daily and once crestor approved will stop and make change. Previously May 2014 LDL 110. Benign ess ential hypertension 8402107 I10 repeated adn 158/82. High since surgery. Pt has h/a today. Seeing neurosurge on on . Asked her to do home monitoring and if remaining over 140 systolic to call office and will adjust medication s. Cont on verapamil. Cont to encourage regular exercise Arterial aneurysm 085666 004 I72.9 Cont f/u with neurosurge on and neurology. [id number] Patricia Gutierrez NP FP, [facility] [place] [address] [place] [address] 05/20/2015 09:01:18 05/20/2015 09:28:22 Anemia 407921517 D64.9 Strain of neck muscle 36 3160499 S16.1XXA Primary fi bromyalgia syndrome 08826665 M79.7 Vertigo 675594914 R42 [id number] Hilton Valdes MD Endocrino logy, [facility] [address] [place] [address] 08/11/2015 07:23:45 09/14/2015 12:55:27 Goiter 5161804 E04.9 07/31/15 u/s RIGHT: stable nodule in upper pole. LEFT: enlargemen t of mixed cystic and solid lesion since 01/2015 but may be technical factors not true change. Radiology recommenda tion 6 month f/u. Will put in for u/s f/u in 6 months. Type 2 jaqui betes mellitus without complication 635418024 E11.9 A1c 7 and to goal in past but has jumped to 8.2. Pt iron deficient and receiving infusion so likly A1c reflecting anemia. Pre lunch glucose elevated. Occassiona l elevation in AM as well but not alot of PM testing to determine if is meals the night before or overnight elevation. Giventhat it is sporadic, expect that it is meal the night before and correction the night before. continue lantus 30 units bid Take Humalog 20 with breakfast 15 units with lunch and 15 with supper but if bedtime glucose is over 200 then increase supper to 20 units f/u November 2015. Mixed hyperlipidemia 267 525035 E78.2 Fe LDL to goal on crestor. Benign ess ential hypertension 3042549 I10 Borderline today. cont to monitor. Cont on verapamil. Cont to encourage regular exercise Arterial aneurysm 532230 004 I72.9 Cont f/u with neurosurge on and neurology. Fatigue 82875509 R53.83 pt anemic and receiving iron infusion so likly is problem but no recent TSH though so will see if can add onto testing from yesterday. 8911641 [id number] Patricia Gutierrez NP , [facility] [place] [address] [place] [address] 10/14/2015 14:29:23 10/14/2015 15:12:03 Right upper quadrant pain 689555983 R10.11 [id number] Lenora Castro D.O. , [facility] [place] [address] [place] [address] 11/30/2015 13:22:27 12/01/2015 08:49:45 Pain of wrist region 69355600 M25.532 Eustachian tube disorder 28626158 H69.91 [id number] Hilton Valdes MD Endocrino logy, [facility] [address] [place] [address] 01/21/2016 13:17:14 01/21/2016 14:22:58 Goiter 9340293 E04.9 Has u/s appt for 6 month f/u in February. Will f/u to review after testing. 07/31/15 u/s RIGHT: stable nodule in upper pole. LEFT: enlargemen t of mixed cystic and solid lesion since 01/2015 but may be technical factors not true change. Radiology recommenda tion 6 month f/u. Type 2 jaqui betes mellitus without complication 777247000 E11.9 A1c 7 and to goal on December testing. Drop Lantus to 26 units bid since having to consume calorie to keep glucose up.Cont Humalog 10 units tid with meals. As continue to lose weight will continue to lower insulin. It is reasonable to continue on [employer]sie Protein Diet. Cautioned her about losing weight too fast. 1-2 lbs a week is reasonable . Also told her to expect a plateau at some point and this is normal. Will need to work through it and increase exercise intensity and duration as time goes on. Also encouraged her to continue to work with learning about portions and ingredient s in diet to be able to sustain loss. F/u in 3-4 months for diabetes. Pt needing letter for FSA, will write and send to pt. Mixed hyperlipidemia 267 598599 E78.2 December lipids to goal on crestor so will continue. Lipids due again in Jun 2016. Benign ess ential hypertension 8310220 I10 At goal today. cont to monitor. Cont on verapamil. Cont to encourage regular exercise Arterial aneurysm 401847 004 I72.9 Cont f/u with neurosurge on and neurology. [id number] Lenora Castro D.O. , [facility] [place] [address] [place] [address] 02/17/2016 13:48:09 02/17/2016 14:26:51 Mixed hyperlipidemia 891099096 E78.2 Lipids at goal Benign ess ential hypertension 2877880 I10 Blood pressure at goal Adult heal th examination 880242939 Z00.00 see Risk Assessment and Lifestyle Change Counseling section above Active or passive immunization 872382556 Z23 Type 2 jaqui betes mellitus without complication 979260117 E11.9 At goal. Diabetic on insulin 1707 49889 Z79.4 Followed by endocrine. Intracranial aneurysm 12 7531241 I67.1 Followed by neurosurge ry. Due for angiogram, scheduled for this month. Primary fi bromyalgia syndrome 48702256 M79.7 Stable Obesity 844721159 E66.9 Actively involved in weight loss program. Greater tr ochanteric pain syndrome 0120108 M70.61 Will schedule appointmen t with Damon Benton. [id number] Monico Acevedo MD , [facility] [place]ICE [address] [place] [address] 03/01/2016 15:47:59 03/01/2016 16:15:18 Greater trochanteric pain syndrome 4988760 M70.61 Injected. Informed it's likely to increase sugars [id number] Hilton Valdes MD Endocrino logy, [facility] [address] [place] [address] 07/12/2016 07:34:50 07/12/2016 08:19:46 Goiter 9376984 E04.19 February 2016 u/s reviewed at visit and stable. Cont to monitor. F/u u/s again in another 6 months (which would be August 2016). I would like her to have u/s done here so Dr. Valdes can read it and have her get copy of films for download into our system. Will check with radiology to see if this can be done. Will order for [facility] for now and if has to go to [facility] will change order in the future. AMENDMENT 08/29/16 NOTED WHEN PT CALLING WITH QUESTIONS FOR TIMING OF THYROID U/S THAT ABOVE DATE FOR PREVIOUS U/S IN A/P AND HPI IS INCORRECT. SHOULD SAY APRIL 2016 U/S REVIEWED.. .. NOT 2015... . PT TO HAVE F/U U/S IN OCTOBER 2016 AND HAS APPT FOR THIS AT [facility] SO THAT DR. VALDES CAN READ FILMS. Type 2 jaqui betes mellitus without complication 642333140 E11.9 Waiting for results of testing this AM. Based on logs reviewed at visit, recommend the following: Cont lantus at 20 units bid. Humalog cont 8 units with breakfast and lunch but increase supper to 10 units to see if AM glucose improves. Cont with weight loss and diet changes and if able to lose weight, glucose will come down and will have to lower insulin accordingl y. As you get more active in Spring will likely need less insulin as well. Pt also has had tooth infection and been on abx. As this heals and abx finishes, expect glucose to lower as well. F/u in 3-4 months for diabetes. Mixed hyperlipidemia 267 747011 E78.2 Cont on crestor. Pt had lipids this am. Results pending. Benign ess ential hypertension 9609937 I10 At goal in past, elevated today. Repeat at end of visit 142/82. Asked her to do home checking. May need to adjust medication at f/u. Discuss with PCP in August at visit and bring home BP logs to that visti with PCP. cont to monitor. Cont on verapamil. Cont to encourage regular exercise Arterial aneurysm 682544 004 I72.9 Cont f/u with neurosurge on and neurology. [id number] Lenora GAINES, [facility] [place] [address] [place] [address] 08/19/2016 07:57:35 08/19/2016 08:13:12 Benign essential hypertension 4490481 I10 continue to work on diet, exercise, and lowering salt intake as discussed Mixed hyperlipidemia 267 377437 E78.2 continue to work on diet and exercise as discussed Type 2 jaqui betes mellitus without complication 162057306 E11.9 At goal. Diabetic on insulin 1707 29858 Z79.4 Followed by endocrine. Numbness 09541610 R20.0 [id number] Hilton Valdes MD Endocrino logy, [address] [address] 10/20/2016 07:31:50 10/20/2016 08:39:01 Type 2 diabetes mellitus without complication 094858907 E11.9 Diabetes- thought meter was in the car but was not. No low BG levels. Will have her increase lantus to 22 units bid and increase humalog to take 10 units with each meal. Send in logs in a month and f/u in 3 months. Goiter 9951185 E04.9 MNG- At time of original thyroid u/s, pt was having neurosurge ry and we had elected at that time to monitor the nodule. Now that neurologic care is stable, will proceed with biopsy. Discussed biopsy of right lobe nod #2 on recent u/s. Pt in agreement. Procedure was explained. All questions answered. Sheet detailed biopsy procedure, potential s/e and complicati ons was given to pt at time of visit. Mixed hyperlipidemia 267 781093 E78.2 Cont on crestor.Ne eding updated lipids. Benign ess ential hypertension 7612439 I10 At goal in past, elevated today. Cont to monitor. Cont on verapamil. Cont to encourage regular exercise Arterial aneurysm 613585 004 I72.9 Cont f/u with neurosurge on and neurology. Fatigue 47537977 R53.83 Will review chart with Dr. Valdes regarding pt symptoms. Will want to get updated CBC, iron panel and Vit D put want to have Dr. Valdes input regarding labs as well. No ACTH so will get that along with cortisol, mild buffalo hump has been stable. ADDENDUM: Discussed with Dr. Valdes and will get FSH otherwise symptoms felt to be more likely related to possible MS and or other neurologic abnormalit y that is not endocrine related. [id number] Hilton Valdes MD Endocrino logy, [address] [address] 11/03/2016 10:52:13 11/03/2016 14:13:48 Non-toxic multinodular goiter 77306407 E04.2 Exam: Thyroid Biopsy Indication : Right thyroid lobe, upper pole nodule 1.1 x 1.4 x 1.2 cm enlarging. Right thyroid lobe mid lobe nodule- 0.9 x 1.7 x 1.0 cm. Procedure Note: Informed Consent obtained. Patient placed with neck mildly hyperexten ded. Pt has a short neck making positionin g mildly more difficult. Both areas identified by ultrasound and skin marked. Skin then cleansed with betadine. Infused with 3cc lidocaine without epinephrin e. Using ultrasound for guidance, above described nodules were biopsied. Nodule # 1 - This nodule is located in the right lobe of the thyroid, upper pole . 7 passes were taken. Pass 5 did not have sufficient aspirate for the slide so Pass 6 and Pass 5 were combined on the same slide and a 7th pass was done. There was a total of 6 slides made but 7 passes flushed into the cytolyte. Nodule #2-This nodule is located in the midportion of the right lobe of the thyroid and is deep, adjacent to the vasculatur e with less defined borders. Visibility with u/s was challengin g. 3 passes were made of this nodule. Post biopsy instructio ns given including but not limited to: use ice packs q 20 minutes for swelling. You may experience swelling, tenderness , bruising or bleeding post biopsy. If you experience these symptoms worsening or you experience fever, chills, difficulty swallowing , hoarseness of voice change, please call the office or if after hours the commercial correspondent Endocrinol ogist. Follow-up visit scheduled and given to pt at time of biopsy. November 14 3pm. Khadra Horn , KHANG Krishnan, Professor Of Chemistry [id number] Hilton Valdes MD Endocrino logy, [address] [address] 11/14/2016 14:46:27 11/14/2016 15:34:20 Goiter 4563418 E04.9 MNG-thyroi d nodule biopsy x 2 right lobe nodules-do ne 11/03/16. Pathology: Right mid lobe- benign follicular cells and colloid, no malignancy . Right upper lobe-atypi a of undetermin ed significan ce, scantly cellular aspirate with rare clel group present with few intranucle ar psuedoincl usions (? thyroid vs skin /adnexa/se baceous gland in origin) f/u repeat aspiration in a few month recommende d. Thyroid- biopsy again in 3 months for nodule with atypia and scant cellularit y. Second nodule benign. Type 2 jaqui betes mellitus without complication 240987181 E11.9 diabetes- Lantus 30 units leave humalog with meals at 10 units. Mixed hyperlipidemia 267 919839 E78.2 Cont on crestor.Ne eding updated lipids. Benign ess ential hypertension 9369894 I10 At goal. Cont to monitor. Cont on verapamil. Cont to encourage regular exercise Arterial aneurysm 118179 004 I72.9 Cont f/u with neurosurge on and neurology. Fatigue 37379912 R53.83 FSH, CBC iron panel Vit D acth cortisol- pt thinks will do labs later this week. Will send results to portal. If abnormal will contact pt, will come to [facility]. [id number] Hilton Valdes MD Endocrino logy, [address] [address] 01/12/2017 10:46:24 01/12/2017 12:54:22 Goiter 6083828 E04.9 MNG-thyroi d nodule biopsy x 2 right lobe nodules-do ne 11/03/16. Repeat biopsy of right thyroid lobe upper pole nodule repeated today. Pt has f/u 01/24/17 for discussion of results. 11/03/16 Pathology: Right mid lobe- benign follicular cells and colloid, no malignancy . Right upper lobe-atypi a of undetermin ed significan ce, scantly cellular aspirate with rare cell group present with few intranucle ar pseudoincl usions (? thyroid vs skin /adnexa/se baceous gland in origin) f/u repeat aspiration in a few month recommende d. Type 2 jaqui betes mellitus without complication 023765437 E11.9 diabetes-g lucose log reviewed and Lantus increased to 35 units bid, (pt has always been on BID dosing of lantus-typ o in last note when said once daily in discussion instead of bid)Cont humalog with meals at 10 units. Will review changes in 2 weeks at f/u appt for biopsy above. [id number] Hilton Valdes MD Endocrino logy, [address] [address] 2017 07:36:09 2017 08:00:03 Goiter 2844293 E04.9 F/u repeat aspiration done 01/12/2017 of right upper lobe nodule. Pathology 01/2017 benign follicular cells, colloid and histiocyte s. Recommend yearly u/s again in January 2018 to monitor for change in both nodules. 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 11/03/16 Pathology: Right mid lobe- benign follicular cells and colloid, no malignancy . Right upper lobe-atypi a of undetermin ed significan ce, scantly cellular aspirate with rare cell group present with few intranucle ar pseudoincl usions (? thyroid vs skin /adnexa/se baceous gland in origin). Repeat biopsy done 01/12/17 see above. Type 2 jaqui betes mellitus without complication 090045719 E11.9 review of logs, recommendL antus 35 units bid.Increa se humalog with meals to 20 units with breakfast and lunch and remain on 10 units with supper. f/u in 3 months. [id number] Lenora Castro D.O. , [facility]ICE [address] [place] [address] 03/01/2017 16:07:50 03/02/2017 08:23:41 Adult health examination 936761340 Z00.00 see Risk Assessment and Lifestyle Change Counseling section above Mixed hyperlipidemia 267 434728 E78.2 continue to work on diet and exercise as discussed Benign ess ential hypertension 1973113 I10 Blood pressure at goal Screening mammography 24 573359 Z12.31 Screening for malignant neoplasm of cervix 852540586 Z12.4 Active or passive immunization [id number] Z23 Type 2 jaqui betes mellitus without complication [id number] E11.9 At goal. Primary fi bromyalgia syndrome 73994801 M79.7 Stable Allergic rhinitis 401294 04 J30.9 Neuropathy 352821627 G62 .9 In workup for MS Diabetic on insulin 1707 60605 Z79.4 Followed by endocrine. Obstructiv e sleep apnea of adult 0248120657 103 G47.33 CPAP [id number] Hilton Valdes MD Endocrino logy, [facility] [place] [address] [place] [address] 04/25/2017 07:28:06 04/25/2017 08:07:47 Goiter 9641988 E04.9 F/u repeat aspiration done 01/12/2017 of right upper lobe nodule. Pathology 01/2017 benign follicular cells, colloid and histiocyte s. Recommend yearly u/s again in January 2018 to monitor for change in both nodules. 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 11/03/16 Pathology: Right mid lobe- benign follicular cells and colloid, no malignancy . Right upper lobe-atypi a of undetermin ed significan ce, scantly cellular aspirate with rare cell group present with few intranucle ar pseudoincl usions (? thyroid vs skin /adnexa/se baceous gland in origin). Repeat biopsy done 01/12/17 see above. Type 2 jaqui betes mellitus without complication 410019852 E11.9 A1c in [facility] system and at time of visit do not have access. Will get informatio n and send pt portal message. In meantime, looking at logs, not much testing recently and all glucose readings are high. Pt denies lows. Cont lantus 35 units bid and will increase short acting so that ratio of long to short is closer to 50/50. Humalog 25 -20-15 If snacking in the middle of the afternoon, may need take humalog with snack. Test your glucose before the snack. If > 200 then try 3 or 4 units with your snack. If < 200 then try 1-2 units with snack. Goal is to have presupper glucose below 120. f/u in 3 months. Given paper lab slip for [facility] new system. [id number] Lenora Castro D.O. , [facility] [place] [address] [place] [address] 05/15/2017 10:52:54 05/16/2017 08:25:18 Vertigo [id number] R42 Ataxia 69347735 R27.0 Headache 32634927 R51 [id number] Lenora Castro D.O. , [facility] [place] [address] [address] [place] [address] 07/12/2017 09:13:46 07/12/2017 10:20:54 Pain of hip region 44048058 M25.061 [id number] Hilton Valdes MD Endocrino logy, [address] [address] 07/25/2017 07:35:47 07/25/2017 08:14:11 Type 2 diabetes mellitus without complication 097542781 E11.9 A1c 8.7 in Jun 2017 Discussed change to tresiba due to high doses of lantus and risk for lipodystro phy and scarring with repeated injections and high doses of long acting insulin. Pt in agreement with trial Take Tresiba 200 units/1ml inject 75 units SC daily. Stop lantus when tresiba covered.Hu malogincre ase humalogHum alog -25-15 If snacking in the middle of the afternoon, may need take humalog with snack. Test your glucose before the snack. If > 200 then try 3 or 4 units with your snack. If < 200 then try 1-2 units with snack. Goal is to have presupper glucose below 120. f/u in 3 months. Goiter 4267329 E04.9 Repeat aspiration done 01/12/2017 of right upper lobe nodule. Pathology 01/2017 benign follicular cells, colloid and histiocyte s. Recommend yearly u/s again in January 2018 to monitor for change in both nodules. 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 11/03/16 Pathology: Right mid lobe- benign follicular cells and colloid, no malignancy . Right upper lobe-atypi a of undetermin ed significan ce, scantly cellular aspirate with rare cell group present with few intranucle ar pseudoincl usions (? thyroid vs skin /adnexa/se baceous gland in origin). Repeat biopsy done 01/12/17 see above. Mixed hyperlipidemia 267 189108 E78.2 LDL 112. Jun 2017- Cont on crestor. Consider dose increase if cannot get back to goal with diet change and exercise when able to resume exercise. Arterial aneurysm 519536 004 I72.9 Cont f/u with neurosurge on and neurology. Benign ess ential hypertension 0856737 I10 At goal in past, minor elevation today. Cont to monitor. Cont on verapamil. Cont to encourage regular exercise when hip feeling better. [id number] Hilton Valdes MD Endocrino logy, [address] [address] 10/31/2017 07:36:28 10/31/2017 08:18:45 Type 2 diabetes mellitus without complication 622088328 E11.9 A1c 8.7 in Jun 2017 now 10.7 in October 2017. Pt has had cortisone injection in August, chronic foot pain, and is snacking between meals. All combining to raise glucose. recommend the following: Remain on Tresiba due to high doses of lantus and risk for lipodystro phy and scarring with repeated injections and high doses of long acting insulin. Increase Tresiba 200 units/1ml inject 85 units SC daily.Alix log continue 30 -30-30-0 If snacking, may need take humalog with snack. Test your glucose before the snack. If > 200 then try 3 or 4 units with your snack. If < 200 then try 1-2 units with snack. f/u in 3-4 months. Goiter 7085653 E04.9 At last visit recommende d yearly u/s in January 2018 to monitor for change in both nodules but pt noting more dysphagia. Will repeat u/s now to evaluate. 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 11/03/16 Pathology: Right mid lobe- benign follicular cells and colloid, no malignancy . Right upper lobe-atypi a of undetermin ed significan ce, scantly cellular aspirate with rare cell group present with few intranucle ar pseudoincl usions (? thyroid vs skin /adnexa/se baceous gland in origin). Repeat aspiration done 01/12/2017 of right upper lobe nodule. Pathology 01/2017 benign follicular cells, colloid and histiocyte s. Mixed hyperlipidemia 267 078321 E78.2 LDL 112. Jun 2017- October LDL 108. Not able to walk with foot and has surgery coming up. Would recommend increase in Crestor to 20 mg daily. Arterial aneurysm 282736 004 I72.9 Cont f/u with neurosurge on and neurology. Benign ess ential hypertension 0800583 I10 At goal in past, minor elevation today. Cont to monitor. Cont on verapamil. Cont to encourage regular exercise when hip and foot feeling better. [id number] Lenora GAINES, [facility] [place], [address] [place] [address] 11/21/2017 11:08:32 11/21/2017 12:02:30 Active or passive immunization 380778933 Z23 Pre-surger y evaluation 273891166 Z01.818 Tarsal ilia daniele syndrome 60457871 G57.52 Type 2 jaqui betes mellitus without complication 278479822 E11.9 Recent A1C not at goal. Diabetic on insulin 1707 99981 Z79.4 Followed by endocrine. [id number] Khadra Horn PA-C Endocrino logy, [address] [address] 01/30/2018 11:18:33 03/12/2018 07:32:24 Type 2 diabetes mellitus without complication 962708555 E11.9 A1c 8 now. Goal 7 or less. Increase Tresiba 200 units/1ml inject 84 units SC daily.Alix log continue increase breakfast to 33 units, lunch to 33 units and decrease supper to 27 units since having lower glucose at end of day. If snacking, may need take humalog with snack. Test your glucose before the snack. If > 200 then try 3 or 4 units with your snack. If < 200 then try 1-2 units with snack. f/u in May after surgery. Pt wanting to explore pump and CGM after foot surgery is complete. Will set up diabetes education for discussion of possibilit ies. Send surgeon note with statement that she is cleared for surgery as long as a1c remains under 8. Will continue to work on glucose control while waiting for march surgery date. Dr. Costa at [facility] Goiter 3357765 E04.18 Oct 2017 done. see chart. Results stable and nodules not cause of dysphagia. 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 11/03/16 Pathology: Right mid lobe- benign follicular cells and colloid, no malignancy . Right upper lobe-atypi a of undetermin ed significan ce, scantly cellular aspirate with rare cell group present with few intranucle ar pseudoincl usions (? thyroid vs skin /adnexa/se baceous gland in origin). Repeat aspiration done 01/12/2017 of right upper lobe nodule. Pathology 01/2017 benign follicular cells, colloid and histiocyte s. Mixed hyperlipidemia 267 022950 E78.2 LDL 103 January 2018 Not able to walk with foot and has surgery coming up. Cont Crestor 20 mg daily. having some myalgia so do not want to push dose. After upcoming surgery, pt will be able to exercise more and lower LDL. Arterial aneurysm 108800 004 I72.9 Cont f/u with neurosurge on and neurology. Benign ess ential hypertension 9940018 I10 At goal in past, minor elevation today. Cont to monitor. Cont on verapamil. Cont to encourage regular exercise when hip and foot feeling better. [id number] Lenora GAINES, [facility] [place] [place] [address] 03/06/2018 15:07:38 03/06/2018 15:56:29 Adult health examination 339747410 Z00.00 see Risk Assessment and Lifestyle Change Counseling section above Depression screening 171 106467 Z13.89 depression screening tool administer ed, entered into emr, scored and discussed, time greater than 7.5 minutes Mixed hyperlipidemia 267 305822 E78.2 Cholestero l is at goal Continue to work on diet and exercise as discussed Benign ess ential hypertension 8885685 I10 Blood pressure at goal Blood pressure NOT at goal. Obstructiv e sleep apnea of adult 7948211996 103 G47.33 CPAP Diabetic on insulin 1707 73727 Z79.4 Followed by endocrine. Intracranial aneurysm 12 3828032 I67.1 Followed by neurosurge ry. Anxiety state 291401610 F41.1 Gastroesop hageal reflux disease 438378672 K21.9 Type 2 jaqui betes mellitus without complication 805657861 E11.9 Recent A1C not at goal. Neuropathy 592583494 G62 .9 In workup for MS Tarsal ilia daniele syndrome 52572375 G57.52 Peripheral vertigo 89500 001 H81.399 Migraine without aura 56 330355 G43.009 Primary fi bromyalgia syndrome 18003604 M79.7 Stable Active or passive immunization 530168943 Z23 Atopic dermatitis 064142 01 L20.9 Difficulty swallowing 28 4630399 R13.10 [id number] Khadra Horn PA-C Endocrino logy, [facility] [place] [address] [place] [address] 07/06/2018 07:50:22 07/06/2018 09:55:54 Type 2 diabetes mellitus without complication 080810141 E11.9 A1c 8 but now 9.6. Influenced by being off foot due to surgery and not able to exercise. Goal 7 or less. Cont Tresiba 200 units/1ml but increase to 88 units SC daily.Alix log continue with meals but increase to 36 units with each meal. If snacking, may need take humalog with snack. Test your glucose before the snack. If > 200 then try 3 or 4 units with your snack. If < 200 then try 1-2 units with snack. Will send to diabetes education to start exploring pump therapy and choose pump she desires to be on. Will work with Diabetes education to start the pump. I informed her I would be leaving [facility] in September and that we would need to transition her care to one of my colleagues . In the meantime, we will try to get the pump in place before then.She is a good candidate and is able to learn carb counting and test glucose the required number of times. She has fluctuatio n in her glucose from 80s to 300s and elevated glucose in the AM most days. Once evaluated by diabetes education, I will get paperwork in place for pump she has chosen. Otherwise she will f/u with Dr. Valdes in 4 months as she has met him in the past. Goiter 3436632 E04.18 Oct 2017 stable. One more u/s in October 2018 and at that time will decide if needing further imaging q 2 years or if will follow clinically , as long as remains stable. 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 11/03/16 Pathology: Right mid lobe- benign follicular cells and colloid, no malignancy . Right upper lobe-atypi a of undetermin ed significan ce, scantly cellular aspirate with rare cell group present with few intranucle ar pseudoincl usions (? thyroid vs skin /adnexa/se baceous gland in origin). Repeat aspiration done 01/12/2017 of right upper lobe nodule. Pathology 01/2017 benign follicular cells, colloid and histiocyte s. Mixed hyperlipidemia 267 568892 E78.2 LDL Jun 2018 110 on crestor 20. Has not been active with foot surgery. Also diet has been off with being home and eating more. If not able to get to goal of < 100 when back on foot and with better eating then will discuss additional med. Arterial aneurysm 454391 004 I72.9 Cont f/u with neurosurge on and neurology. Had Mar 2018 visit, updated MRA and was told was stable. Cont yearly f/u. Benign ess ential hypertension 3775000 I10 At goal in past, repeat BP at end of visit 144/78 right arm sitting.Co nt on verapamil. Cont to encourage regular exercise when foot better. Asked her to keep home log and fu with PCP. [id number] Lenora GAINES, [facility] [place] [address] [place] [address] 07/06/2018 09:20:11 07/06/2018 17:53:17 Primary fibromyalgia syndrome 26948197 M79.7 Stable Benign ess ential hypertension 6532387 I10 Blood pressure at goal Type 2 jaqui betes mellitus without complication 745249009 E11.9 Recent A1C not at goal. Nasal sinu s obstruction 143569480 J34.89 Neuropathy 423055943 G62 .9 Has seen neurologis tRichard [id number] Nan Holman RN, BSN, [facility] DM Education , [address] [address] 08/02/2018 07:52:57 08/03/2018 10:41:11 Uncontrolled type 2 diabetes mellitus 529391733 E11.65 Met with Amanda ott for diabetes education, kindly referred by DAVID Longoria.-She was diagnosed in 2003 or 2004, a few years after she had been diagnosed with gestationa l diabetes.- She was referred to learn more about insulin pump therapy and carbohydra te counting.- She last saw Khadra in June of 2018.-Her most recent A1C was 9.6% in June and her A1C has been running above 8% since October of 2016.-She reports she wears a Fitbit and her average steps per day is 7,000 steps.-She admits she is trying to eat less carbohydra tiarra with meals. Her diet history is in the HPI.-She is currently taking Tresiba 88 units once a day and Humalog 38 units with meals 3x/day, with a total daily dose of insulin: 202 units.-Toyolanda voss, we focused on carbohydra te counting, how to take Humalog before meals based on a carbohydra te ratio and correction factor and insulin pump therapy.-W e calculated out a carb ratio and correction factor for her to try with meals based on her total daily insulin of 202 units. Recommenda tions:-Sta rt carbohydra te counting with meals. Aim for 30-45 grams with meals and 15-20 grams for snacks.-Ke ep a 5-day food journal of your carbohydra te intake at all meals and snacks.-St art taking Humalog before meals based on a Carb Ratio of 1:5 grams and a Correction Factor of 1:10 grams; target to 100 mg/dl. -Bring meter to future appointmen ts for download.- Continue to test blood sugars before all meals.-Ple ase call or portal with any questions or concerns. Reviewed the following: Nutrition: Identifica tion of high carb foods, effects of carbs, carb counting and developing a meal plan. Label reading. The Plate Method, and Carbohydra te Counting. Pump Therapy: Reviewed the benefits of pump therapy, who is a candidate, how to fulfill the requiremen ts if interested going on pump therapy. Must be on insulin, must be testing at least 4x/day, must be coming to appointmen ts regularly, must be counting carbohydra tiarra. Reviewed how pump therapy still requires work and does not do solve the blood sugars from fluctuatin g or deliver insulin without pt having to enter in data. [id number] Nan Holman RN, BSN, [facility] DM Education , [address] [address] 08/14/2018 07:52:55 08/14/2018 11:40:11 Uncontrolled type 2 diabetes mellitus 328989261 E11.65 Met with Amanda ott for diabetes education, kindly referred by DAVID Longoria.-She was diagnosed in 2003 or 2004, a few years after she had been diagnosed with gestationa l diabetes.- She was referred to learn more about insulin pump therapy and carbohydra te counting.- She last saw Khadra in June of 2018.-Her most recent A1C was 9.6% in June and her A1C has been running above 8% since October of 2016.-Sinc e she was last seen she has been counting carbohydra tiarra with meals and dosing her short acting insulin with a carb ratio and a correction factor to help prepare her for the pump.-She has also kept a 7 day food diary of her carbohydra te intake. Review diet record that is attached to record.-Adolph cole is currently taking Tresiba 88 units once a day and Humalog based on a carbohydra te ratio of 1:5 grams and a correction factor of 1:10 mg/dl if greater than 100 mg/dl.-Blanka nload of her meter reveals she is testing her blood sugars 2-3x/day. Her fasting blood sugars are all elevated (above 200 mg/dl). Her blood sugars pre-lunch and dinner are also elevated (above 200 mg/dl). Therefore, we adjusted her carb ratio and correction factor.-Adolph cole is interested in moving forward with the pump. REviewed the importance of testing at least 3x/day with pump therapy.-Uzair cole will have Khadra order a [employer] pump for Amanda and then schedule training once she receives the pump in the mail. Recommenda tions:-Con tinue carbohydra te counting with meals. Aim for 30-45 grams with meals and 15-20 grams for snacks.-Co ntinue taking Humalog before meals based on a Carb Ratio of 1:3 grams and a Correction Factor of 1:9 grams; target to 100 mg/dl. -Continue Tresiba 88 units once a day.-Sony mandy to bring meter to future appointmen ts for download.- Continue to test blood sugars 3x/day, before all meals.-Onc e you receive pump in the mail, please call Nan at to schedule a training.- Please call or portal with any questions or concerns. Reviewed the following: Nutrition: Identifica tion of high carb foods, effects of carbs, carb counting and developing a meal plan. Label reading. The Plate Method, and Carbohydra te Counting. Pump Therapy: Reviewed the benefits of pump therapy, who is a candidate, how to fulfill the requiremen ts if interested going on pump therapy. Must be on insulin, must be testing at least 4x/day, must be coming to appointmen ts regularly, must be counting carbohydra tiarra. Reviewed how pump therapy still requires work and does not do solve the blood sugars from fluctuatin g or deliver insulin without pt having to enter in data. [id number] Nan Holman RN, BSN, [facility] Education , [address] [address] 11/27/2018 08:54:09 11/28/2018 08:35:29 Uncontrolled type 2 diabetes mellitus 172387338 E11.65 Met with Amanda ott for diabetes education, kindly referred by DAVID Longoria.-She was diagnosed in 2003 or 2004, a few years after she had been diagnosed with gestationa l diabetes.- She is here to learn how to use the Med[employer]onic 630G insulin pump.-Her pump did not come with a sensor ([employer] reports that the insurance is not covering the sensor due to her having Type 2 diabetes). -Her most recent A1C was 9.6% in June and she is due for an updated A1C.-She is currently taking Tresiba 88 units once a day and Humalog before meals: 26-27-27 units before each meal.-Down load of her meter reveals she is testing her blood sugars 1.2x/day. Her fasting blood sugars are all elevated (above 200 mg/dl). Her blood sugars pre-lunch also look elevated. She is not testing regularly at lunch, dinner or bedtime.-Uzair cole discussed the importance of testing her blood sugars regularly with pump therapy.-Sally wise, we programmed in the following settings into her pump:Basal rate: 1.9 u/hrCarboh ydrate ratio: 1: 5 gramsCorre ction Factor: 20 mg/dlActiv e insulin: 3 hours.-She was encouraged to write her blood sugars down and we will talk on the phone daily to see how she is doing with the pump. Recommenda tions:-Con tinue carbohydra te counting with meals. Aim for 30-45 grams with meals and 15-20 grams for snacks.-St art using the Medtronic 630G pump today.-[facility]queline [facility] infusion site every 3 days.-Fill the resevoir with 300 units.-Ple ase write blood sugars down so we can review them over the phone every day.-Pleas e test blood sugars 4x/day, before each meal and 2 hours after meals if you remember to do so.-Stop Tresiba.-P yessiase call or portal with any questions or concerns. Reviewed the following: -Insulin pump Training checklist. [id number] Lenora GAINES, [facility] [place] [address] [place] [address] 12/11/2018 08:20:16 12/11/2018 09:03:31 Syncope 187505750 R55 has 30 day holter, echo. recommende d seeing DR. Hsu for EEGlots of normal imaging- ct scans, carotid u/s, labs reassuring not driving currentlyd iscussed no driving until w/u complete Dizziness 769475290 R42 [id number] Hilton Valdes MD Endocrino logy, [facility] [place] [address] [place] [address] 01/16/2019 11:09:02 01/16/2019 12:54:15 Type 2 diabetes mellitus without complication 681508884 E11.9 Poor control with a1c- 9.5% (7). Was 9.6%. Had gotten down to 8% pre-op for foot. On 630 pump but doesn't have sensor- waiting to get from [employer] Review of meter download shows trend for increased values at dinner. Will raise basal during day- Increase basal rate from 6AM up to 2.4 units/hr. At 6PM, go back to 2.0 units/hr.- Add a new bolus ratio at 5PM to increase amount of insulin given at dinner. At 5PM will have ratio of 1:4. Continue with 1:5 from Midnight to 5PM. Seeing Nan next week. Hope to see some improvemen t in sugars- if no change, may need further adjustment s (either further increase in insulin for dinner but may also need increase for bkfst and lunch). Goal is to get a1c to under 7%. Benign ess ential hypertension 3157921 I10 Had verapamil dose decreased after recent (2018) admission for syncope. Goiter 1062716 E04.9 Hx= MNG-thyroi d nodule biopsy x 2 right lobe nodules-do ne 11/03/16.20 19: MNG.Prelim today shows no significan t change. Had benign biopsies of 2 nodules on right in 2017 Only reason to monitor is to make sure small left nodule doesn't change.Philip l suggest repeat u/s in 2 years. Pathology: - Right mid lobe- benign follicular cells and colloid, no malignancy . - Right upper lobe- initially (10/27) had atypia of undetermin ed significan ce but repeat in 01/26 was benign. Mixed hyperlipidemia 267 640996 E78.2 LDL 12/2018 = 100 on crestor 20.TG up at 170 and HDL good at 60. Suggest increase crestor to 40 mg. Has not been active with foot surgery. Also diet has been off with being home and eating more. Arterial aneurysm 650232 004 I72.9 Cont f/u with neurosurge on and neurology. Had Mar 2018 visit, updated MRA and was told was stable. Cont yearly f/u. [id number] Nan Holman RN, BSN, [facility] DM Education , [address] [address] 01/21/2019 09:45:16 01/21/2019 10:58:01 Uncontrolled type 2 diabetes mellitus 749864956 E11.65 Met with Amanda ott for diabetes education, kindly referred by DAVID Longoria. She is now seeing Dr. Valdes.-S he was diagnosed in 2004, a few years after she had been diagnosed with gestationa l diabetes.- She came in November to learn how to use the Medtronic 630G insulin pump. She was told that [employer] can get her the sensors covered by her insurance. A RX was sent for the sensor.-He r most recent A1C was 9.4% in December and it is down from 9.6% in June.-D ownload of her pump reveals she is testing her blood sugars 2-3x/day. She is changing her infusion site every 1-3 days. Her monthly blood sugar average is 244 mg/dl. She has 96% of her blood sugars are above range and 0% are below target range.-Sin ce she is new to pump therapy, she had one basal rate. She reports she made a change when she saw Dr. Valdes last week and added in a basal rate at 6 am of 2.4 u/hr from 2.0 u/hr.-She is primarily testing 3x/day, before her main meals. Her fasting blood sugars average is 225 mg/dl; her pre-lunch blood sugar average is 219 mg/dl; and her pre-dinner blood sugar average is 263 mg/dl.-She reports she had a syncope event on December 15 [address]. She thought it was low blood sugar, however, her blood sugars in the ambulance was 215 mg/dl. She was admitted to the hospital for 1 night and they did a bunch of tests, which she reports were all normal. -She has had a history for 15 years with Vertigo (off and on). She takes gabapentin for the Vertigo. She does also have neuropathy . -She has had Vertigo recently and it affected her the last couple of days.-She has Tresiba at home and use to take 80 units per day in the past. We discussed her back up plan incase her pump should ever malfunctio n.-She was encouraged to call to set up an appt when sensor arrives in the mail to learn how to use it. -We added in the 3 am basal rate of 2.4 u/hr. She had it running from 6 am at 2.4 u/hr. -Made changes to pump settings as requested by Dr. Valdes from last week. Amanda was not sure how to make the changes, therefore, we reviewed those today. Recommenda tions:-Alex nicholson using the Medtronic 630G pump, you are doing a great job!-Sony nue to bolus for all meals and enter all blood sugars and carbohydra tiarra into the pump.-White infusion site every 3 days.-Add in a 3 am basal rate of 2.4 u/hr from 2.0 u/hr. We will run the basal rate higher sooner than 6 am since you continue to run high first thing in the morning.- Add a new Carbohydra te ratio at 5PM to increase amount of insulin given at dinner. At 5PM will have ratio of 1:4 grams. Continue with 1:5 grams from Midnight to 5PM, as requested by Dr. Valdes.-C eliotue to test blood sugars 3x/day, before each meal. Consider testing 2 hours after dinner or at bedtime.-K eep Tresiba in the refrigerat or incase the pump should malfunctio n.-Please call Nan once you receive the sensor to schedule a training.- Please call or portal with any questions or concerns. Reviewed the following: -Insulin Pump Training checklist. [id number] Lenora GAINES, [facility] [place] [address] [place] [address] 03/08/2019 14:51:10 03/08/2019 16:19:52 Adult health examination [id number] Z00.00 see Risk Assessment and Lifestyle Change Counseling section above Depression screening 171 551738 Z13.89 depression screening tool administer ed, entered into emr, scored and discussed, time greater than 7.5 minutes Mixed hyperlipidemia 267 658914 E78.2 Cholestero l is at goal Continue to work on diet and exercise as discussed Screening mammography 24 811613 Z12.31 Active or passive immunization [id number] Z23 Diabetic on insulin 1707 04428 Z79.4 Followed by endocrine. On pump. Gastroesop hageal reflux disease [id number] K21.9 On PPI with breakthrou gh pain Type 2 jaqui betes mellitus without complication 376760900 E11.9 Recent A1C not at goal. Neuropathy 135523859 G62 .9 Has seen neurologis t. Peripheral vertigo 56046 001 H81.399 Sees neurology Migraine without aura 56 138751 G43.009 Sees neurology Primary fi bromyalgia syndrome 65876320 M79.7 Stable Obstructiv e sleep apnea of adult [id number] 103 G47.33 CPAP Benign ess ential hypertension 4425635 I10 Blood pressure at goal Intracranial aneurysm 12 3173648 I67.1 Followed by neurosurge ry. Multiple environmental allergies 262062798 T78.49XD Now receiving allergy shots at ENT. [id number] Nan Holman RN, BSN, [facility] DM Education , [address] [address] 03/18/2019 07:52:14 03/18/2019 11:01:26 Uncontrolled type 2 diabetes mellitus 971139705 E11.65 Met with Amanda ott for diabetes education, kindly referred by DAVID Longoria. She is now seeing Dr. Valdes.-S he was diagnosed in 2004, a few years after she had been diagnosed with gestationa l diabetes.- She came in November to learn how to use the Medtronic 630G insulin pump.-Elbert siddiqui, she is here to learn how to use the sensor that goes with her pump.-Her most recent A1C was 9.4% in December and it is down from 9.6% in June.-D ownload of her pump reveals she is testing her blood sugars 2-4x/day. She is changing her infusion site every 2-3 days. Her monthly blood sugar average is 253 mg/dl. She has 100% of her blood sugars are above range and 0% are below target range.-She is infusing 110.41 units per day and 49% is basal insulin and 51% is bolus insulin.-S he reports her blood sugars continue to remain elevated and she does not know what to do to get her numbers down. She questions if allergy injections could affect the blood sugar. She is now getting 4 injections for her allergies. She has allergies year round.-She also reports she is having symptoms with her stomach, such as: nausea, hunger sounds, cramping, always feeling hungry. She reports she has irritable bowel syndrome. -She does have Tresiba at home incase of a pump malfunctio n. She was giving herself 80 units prior to the pump. Her basal rate adds up to 54 units and she was encouraged to start with 54 units for her dose of Tresiba.-T here were a few occasions where she did not bolus for an elevated blood sugars and it has been many hours since her previous bolus, therefore, she was encouraged to bolus for high blood sugars when the pump recommends it.-We also recalculat ed out her carb ratio and correction factor and made some changes her to pump settings. We adjusted the Carb ratio at 12 am to 4 grams from 5 grams to match her 17:00 carb ratio.-We adjusted her correction factor to 1:18 mg/dl from 1:20 mg/dl, to help bring down her blood sugars.-We also made small changes to her basal rates as well:12 am- 2.1 units/hr from 2.0 units/hr3 am- 2.5 units/hr from 2.4 units/hr6 pm- 2.1 units/hr from 2.0 units/hr-R eviewed the sensor with her today during the visit and started the [facility]. She did a great job inserting the sensor on her own, with assistance . Reviewed the following: -Importanc e of calibratin g it and best times to calibrate sensor.-Ch pamela the sensor every 7 days and charge the battery for 2 hours.-Rev iewed how to insert the sensor.-Re view the sensor training checklist. -Reviewed the insulin pump download in detail. [id number] Bernardo Carlisle MD , [facility] [place], OFFICE [address] [place] [address] 05/13/2019 15:31:54 05/14/2019 14:31:36 Diabetic on insulin 504069004 Z79.4 preoperati ve clearance depending on lab results Benign ess ential hypertension 1018167 I10 preoperati ve clearance depending on lab results Mixed hyperlipidemia 267 782657 E78.2 preoperati ve clearance depending on lab results Cataract of right eye 12 94664265 2390937 H26.9 preoperati ve clearance depending on lab results Pre-surger y evaluation 288507097 Z01.818 preoperati ve clearance depending on lab results [id number] Nan Holman RN, BSN, [facility] Education , [facility] [place] [address] [place] [address] 05/15/2019 14:19:32 05/15/2019 16:00:20 Uncontrolled type 2 diabetes mellitus 239552276 E11.65 Met with Amanda ott for diabetes education, kindly referred by DAVID Longoria. She is now seeing Dr. Valdes.-S he was diagnosed in 2004, a few years after she had been diagnosed with gestationa l diabetes.- She has been on the Medtronic 630G insulin pump since November of 2017.-She continues to wear the sensor with her pump.-Her last A1C was 10.2% in May and it is up from 9.4% in December.-Down load of her pump reveals she is testing her blood sugars 4.8x/day. She is changing her infusion site every 2-4 days. Her monthly blood sugar average is 239 mg/dl with the sensor. She has 89% of her blood sugars are above range and 0% are below target range.-She is infusing 128.98 units per day and 45% is basal insulin and 55% is bolus insulin.-H er fasting blood sugar average is 216 mg/dl; her pre-lunch average is 240 mg/dl; her pre-dinner average is 241 mg/dl; and her bedtime average is 285 mg/dl.-She admits she is not always eating when she is feeling hungry because her blood sugar is too high, as a means of getting her blood sugar down.-Most of her blood sugars are above 180-200 mg/dl except for the hours of 4 am-7 am when her blood glucose does come down to 180 or below.-She is bolusing often and entering large amounts of carbohydra tiarra, in addition to her elevated blood sugars, however, the pump has a max dose of 25 units. We reviewed an example and figured out the dose for her blood sugar and her food and her does of insulin was definitely above 25 units per meals often.-She was encouraged to bolus separately for her food and her high blood sugar, so that the max bolus does not reach 25 units each time or try to add in the amount of insulin she still needs if the pump will only bolus 25 units.-We made the following adjustment s to her pump to help bring down her blood sugars most of the day:Carb Ratio to 1:3 grams, from 1:4 grams. Correction factor to 1:15 mg/dl; from 1:18 mg/dl Target blood glucose to 100-100 from 100-120 and 120-120 from 120-150 mg/dl.-She was encouraged to call in a week if she does not see an improvemen t in her blood sugars or if she starts to have low blood sugars. Reviewed the following: Hypoglycem ia symptoms and treatment. Bolusing when pump has a max of 25 units.Call ing sooner when blood sugars remain elevated.S etting up [facility] at home. [id number] Nan Holman RN, BSN, [facility] Education , [address] [address] 06/14/2019 07:44:15 06/14/2019 14:57:57 Uncontrolled type 2 diabetes mellitus [id number] E11.65 Met with Amanda ott for diabetes education, kindly referred by DAVID Longoria. She is now seeing Dr. Valdes.-S he was diagnosed in 2004, a few years after she had been diagnosed with gestationa l diabetes.- She has been on the Medtronic 630G insulin pump since November of 2017.-She continues to wear the sensor with her pump.-Her last A1C was 10.2% in May and it is up from 9.4% in December.-Down load of her pump reveals she is testing her blood sugars 5.2x/day. She is changing her infusion site every 1-2 days. Her monthly blood sugar average is 199 mg/dl with the sensor. She has 69% of her blood sugars are above range and 0% are below target range.-She is infusing 173.5 units per day and 44% is basal insulin and 66% is bolus insulin.-H er fasting blood sugar average is 163 mg/dl and post prandial average is: 197 mg/dl.-Her pre-lunch average is 202 mg/dl and post prandial average is: 203 mg/dl.-Her pre-dinner average is 209 mg/dl and post prandial average is: 191 mg/dl.-The trend is that her blood sugars are doing well overnight, however, after 9 am, she tends to go above 180 and 200 mg/dl for most of the day until the evening hours.-We made a change to her correction factor by adding in a 1:12 mg/dl between the hours of 8 am-8 pm. -She was encouraged to call Nan on Monday to review blood sugars to decide if we want to adjust the Correction down to 10 mg/dl.-She reports she has been in touch with Dr. Valdes's office regarding her symptoms of difficulty swallowing and choking.-S he finds that she has trouble swallowing and even chokes on her own spit (multiple times in a day). The feeling is always there. She had a gastric emptying study done at [facility] with a GI specialist . -She reports she was suppose to have cataract surgery in May, however, it was not cleared due to her A1C being elevated and blood sugars being elevated. Reviewed the following: Temp basal rates and how to program them in.Dual wave and Square wave bolus. [id number] Shashi Farrell MD , [facility] [place] [place] [address] [place] [address] 06/20/2019 07:58:44 06/20/2019 08:32:07 Acute upper respiratory infection 90666581 J06.9 Likely viral. Rapid strep negative. Small ulceration to posterior right pharynx. Discussed nasal spray, warm salt water gargles, tylenol and chlorasept ic spray. F/u if no improvemen t in 1-2 weeks, sooner with worsening symptoms. Screening mammography 24 196165 Z12.31 [id number] Estefany Ni . MD GAINES, [facility] [place], OFFICE [address] [place] [address] 07/08/2019 10:50:33 07/08/2019 16:21:25 Pain in right foot [id number] 04063 M79.671 she has plantar fasciitis and known heel spurs, now likely with tendinitis or ligamental pain. Is already on sulindac and does not want to try gabapentin again.Will try to move up her podiatry visit since she will need a more urgent visit, ? steroid injection or foot splint to allow her to ambulate with less pain.Ramon forrest wear plantar fasciitis sock whenever she has time and elevate feet. [id number] Rhina Engle, JOSÉN, LDN, [facility] Nutrition -[facility] [place] [address] [place] [address] 07/25/2019 11:29:26 07/25/2019 16:06:09 Type 2 diabetes mellitus without complication 645876191 E11.9 [id number] Nan Holman RN, BSN, [facility] Education , [facility] [address] [place] [address] 07/16/2019 07:46:12 07/16/2019 12:46:33 Uncontrolled type 2 diabetes mellitus 660135275 E11.65 Met with Amanda ott for diabetes education, kindly referred by DAVID Longoria. She is now seeing Dr. Valdes.-S he was diagnosed in 2004, a few years after she had been diagnosed with gestationa l diabetes.- She has been on the Medtronic 630G insulin pump since November of 2017.-She continues to wear the sensor with her pump.-Her last A1C was 10.2% in May. She plans to get an updated A1C before her next appt in August with Dr. Valdes.-D ownload of her pump reveals she is testing her blood sugars 5.4x/day. She is changing her infusion site every 1-2 days. Her monthly blood sugar average is 150 mg/dl with the sensor, which it is down from 199 from her last visit. She has 25% of her blood sugars are above range and 0% are below target range. Her previous visit, she had 69% above target range a month ago.-She is infusing 187.62 units per day and 31% is basal insulin and 69% is bolus insulin.-H er fasting blood sugar average is 143 mg/dl and post prandial average is: 187 mg/dl.-Her pre-lunch average is 169 mg/dl and post prandial average is: 209 and 150 mg/dl.-Her pre-dinner average is 141 mg/dl and post prandial average is: 178 and 138 mg/dl.-Her bedtime average is 163 mg/dl and post prandial average is 132 mg/dl.-The re is much improvemen t with her blood glucose control since her last visit a month ago. She is motivated by the desire to have cataract surgery as soon as possible.- The only trend noted today were elevated blood glucose after Breakfast. She admits her blood glucose start to rise after she wakes even if she has not started to eat.-We made the following adjustment s to her Carbohydra te ratios:12 am- 3 grams 6 am- 2.7 grams (added this carb ratio in) 12 pm- 3 grams-She reports she had a gastric emptying study done in June and has been diagnosed with Gastropare sis. She was encouraged to follow a low fat and low fiber diet. She plans to meet with Xenia Engle RD for nutrition counseling .-No other changes were made. She verbalized understand ing and agreeing with plan. Reviewed the following: Gastropare sis and how it can cause DKA if vomiting and not taking enough insulin. Reviewed checking ketones. [id number] Hilton Valdes MD Endocrino logy, [address] [address] 08/12/2019 13:47:18 08/12/2019 15:10:22 Type 2 diabetes mellitus without complication 445084585 E11.9 Poor control with a1c- 8.2 (08/01); was 10.2 (05/30); was 9.4% (12/28). Was 9.6%.Had gotten down to 8% pre-op for foot. On 630 pump with sensor Given high values beginning at breakfast and continuing throughout day, suggest:- Increase bkfst bolus at 6AM (2.7 -> 2.6)- Increase basal at 3AM (2.6 to 2.7)-Decre ase MN basal 2.2 to 2.1 (to reduce risk for lows around 2AM Seeing Nan in follow-upH ope to see some improvemen t in sugars-If having lows overnight, may want to change time of increase in basal rate from 3AM to 5AM. Goal is to get a1c to under 7%. Benign ess ential hypertension 5021396 I10 Had verapamil dose decreased after recent (2018) admission for syncope. Goiter 8643770 E04.9 Hx= MNG-thyroi d nodule biopsy x 2 right lobe nodules-do ne 11/03/16.20 19: MNG.U/S in 05/30 showed little change. Had benign biopsies of 2 nodules on right in 2016 Only reason to monitor is to make sure small left nodule doesn't change.Has had some dysphagia sx- scheduled for repeat in 11/2019. Pathology: - Right mid lobe- benign follicular cells and colloid, no malignancy . - Right upper lobe- initially (10/27) had atypia of undetermin ed significan ce but repeat in 01/26 was benign. Mixed hyperlipidemia 267 229217 E78.2 LDL= 90 (08/01); was 100 (12/2018);D ose of crestor increased to 40 in fall 2018. TG- under 150 (105 in 07/2019) and HDL over 50 (59 in 08/01)TG/HD L were up at 170 and HDL good at 60 (12/28). Doing better on crestor 40 mg. Has not been active with foot surgery.Al so diet has been off with being home and eating more. Arterial aneurysm 072824 004 I72.9 Cont f/u with neurosurge on and neurology. Had Mar 2018 visit, updated MRA and was told was stable. Cont yearly f/u. Vitamin D deficiency 347 71200 E55.9 Hx of vitD of 21 in 11/28. Upate to see if needs replacemen t Takes 1000 units daily. 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 Can impact absorption of food and timing of insulin (and therefore BG values) Obstructiv e sleep apnea of adult 2025480365 103 G47.33 Increases complexity . [id number] Lenora GAINES, [facility] [place] [place]ICE [address] [place] [address] 08/23/2019 13:34:48 08/23/2019 14:10:39 Pre-surgery evaluation 672737784 Z01.818 Here for pre-op exam for cataract surgery on R eye on 08/27/2019 Diabetes is better controlled , A1C 8.2No cardiovasc ular disease, chest pain, dyspnea, fevers, or recent illness.No rmal exam today with normal vital signs. She has no restrictio ns to proceed with this low risk surgery.Fo rm completed and faxed to Dr Dixon's office. Benign ess ential hypertension 9531854 I10 Controlled , at goal of <130/80con tinue verapamil 80 mg daily Type 2 jaqui betes mellitus without complication 190511640 E11.9 Improving, A1C 8.2. Not at goalcotnin ue diet and exercise, current medication sContinue follow up with Dr Valdes [id number] Rhina Engle, RDN, LDN, [facility] Nutrition -[facility] [address] [place] [address] 09/16/2019 15:03:09 09/18/2019 09:46:18 Type 2 diabetes mellitus without complication 212999081 E11.9 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 727239536 E11.43 [id number] Nan Holman RN, BSN, [facility] DM Education , [address] [address] 11/13/2019 08:04:09 11/13/2019 16:44:39 Uncontrolled type 2 diabetes mellitus 427344208 E11.65 -Virtual Visit with Amanda today over [employer] due to COVID-19 pandemic.- Kindly referred by Dr. Valdes for diabetes education and insulin pump therapy.-S he was diagnosed in 2004, a few years after she had been diagnosed with gestationa l diabetes.- She has been on the Medtronic 630G insulin pump since November of 2017.-She continues to wear the sensor with her pump.-Her last A1C was 8.2% in July and it has come down from 10.2% in May. She was encouraged to get an updated A1C and plans to schedule that soon.-We were unable to download her pump at this time. We reviewed [facility] and she has tried to download it from home before without luck.-Toñito beckman plans to call [employer] for assistance with downloadin g her pump from home.-She is infusing 157 units per day and 36% is basal insulin and 64% is bolus insulin.-S he reports she is having frequent low blood sugars over night, around 3-4 am, therefore, we adjusted her 12am-3 am basal rate to 1.9 u/hr from 2.1 u/hr.-Curr ent pump settings:B porfirio rates:12 am- 2.1 u/hr3 am- 2.7 u/hr6 pm- 2.2 u/hrCarb Ratio:12 am- 36 am- 2.612 pm- 3Sensitivi ty:12 am- 158 am- 128 pm- 15Active insulin: 3 hours-She reports she continues to have symptoms of gastropare sis and has an appt with her gastroente rologist soon.-She is also scheduled for cataract surgery on November 25 since it had been cancelled due to COVID-19.- No other changes were made at this time.-She was encouraged to e-mail Nan when she is able to download her pump so that we can review it. Reviewed the following: Glucagon and other ways to treat a low blood sugar since she reports she responds slowly to juice. Patient agreed to this visit via secure telehealth platform due to the COVID -19 pandemic. Patient understand s this is a scheduled visit and the usual procedures with regard to billing and confidenti ality apply. Patient was notified that the provider location is not at [facility] Patient location: home During the visit the patient s medical history and medical record were reviewed. The patient was notified to call our office for worsening or urgent symptoms. Insulin pump present 450 362502 Z96.41 [id number] Nan Holman RN, BSN, [facility] DM Education , [address] [address] 03/09/2020 09:58:52 03/09/2020 14:48:59 Uncontrolled type 2 diabetes mellitus 872754207 E11.65 -Virtual Visit with Amanda today over [place] [facility] due to COVID-19 pandemic.- Kindly referred by Dr. Valdes for diabetes education and insulin pump therapy.-S he was diagnosed in 2004, a few years after she had been diagnosed with gestationa l diabetes. -She has been on the Medtronic 630G insulin pump since November of 2017.-She continues to wear the sensor with her pump.-Her last A1C was 8.9% in February and it is up from 8.1% in November. -Able to download her pump from home on [employer] and connected her account to G account.-D ownload reveals:Av erage blood glucose was 149 mg/dl and sensor average was 143 mg/dl for the last 30 days.Hurtado ing infusion sites every 2 days.Infus ing 155 units per day and 38% is basal insulin and 62% is bolus insulin.Magno lusing often for meals and correction s.Wearing the sensor a majority of the time.21% of her glucose are above range and 0% are below range. -Trend noted were elevated glucose after meals and low glucose or the pump needing to suspend for a low blood glucose between 3 am -6 am. -Made the following adjustment s to her pump settings based on trends:Bas al rate:12 am- 2.0 u/hr from 2.10 u/hr due to lows between 3-6 am Other basal rates stay the same. Carb RAtios: 6 am- 2.3 from 2.6 grams due to higher blood sugars after breakfast 12 pm- 2.6 from 3.0 grams due to higher blood sugars after lunch and dinner. -Questions why her glucose as gone up since her last visit. Overall, she looks like she is doing well with an average sensor of 143 mg/dl.-Rep orts she lost her mother-in- law in January and has been furloughed twice this summer since the pandemic started. These have been stressful situations . Her mother also had COVID and did not have major health issues as a result and was 84 years old. -Had cataract surgery on her right eye. She is wearing new glasses now. -She needs to have a cataract surgery on left eye, however, she wants to wait until she has had her foot surgery done first. -Has already had foot surgery once and needs another revision for: Tarsal charlette and plantar fascitis surgery on her right foot. Looking for a surgeon in [place] instead of [place]. Her recent surgery in March was cancelled due to an elevated A1C of 9.3%. -No other changes were made at this time. Told her to please contact us if she had trouble with her glucose before her next appt. Now it will be easy to review her download since our accounts are connected. Patient agreed to this visit via secure telehealth platform due to the COVID -19 pandemic. Patient understand s this is a scheduled visit and the usual procedures with regard to billing and aamiri cailin apply. Patient was notified that the provider location is not at [facility] Patient location: home During the visit the patient s medical history and medical record were reviewed. The patient was notified to call our office for worsening or urgent symptoms. Insulin pump present [id number] 024069 Z96.41 [id number] Estefany iN . MD GAINES, [facility] [place], OFFICE [address] [place] [address] 03/10/2020 08:53:32 03/12/2020 16:49:25 Adult health examination 148974253 Z00.00 Health is stablerevi ewed recent labsDue for PAP - will defer for 6 monthsupto date on mammo and colon cancer screening Counseling 057049928 Z71 .9 including cardiovasc ular risk reduction counseling Depression screening 171 162467 Z13.89 depression screening tool administer ed, entered into emr, scored and discussed, time greater than 7.5 minutes Screening for alcohol abuse 333896647 Z13.39 does not drink Essential hypertension 12753340 I10 Well controlled continue verapamil 80 mg daily Screening for malignant neoplasm of cervix 106548871 Z12.4 Due, will do in 6 months Serum iron below reference range 219366705 R79.0 Reports recent low iron level, has hx of iron deficiency anemaino bleeding or new dizziness reportedwi ll recehck levels, if low will supplement and discuss FOBT cards Anxiety state 882722922 F41.1 Stable, continue citalopram 40 mg daily Diabetic on insulin 1707 87252 Z79.4 Not controlled , A1C 8.9 on 02/28/2020, on CGM and insulin pump, followed by endocrinol samy and diabetic educatorre cent low in the 40s, pt reports no change in meds or diet, question if related to gastropare sis. 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 G57.50 Worsening pain, is searching for new Orthopedic surgeon, will advise if she needs new referral [id number] Lenora GAINES, [facility] [place] [address] [place] [address] 04/09/2020 07:39:34 04/10/2020 08:26:52 Active or passive immunization 801037111 Z23 [id number] Nan Holman RN, BSN, [facility] Education , [facility] [address] [place] [address] 04/27/2020 10:01:22 04/28/2020 10:38:34 Uncontrolled type 2 diabetes mellitus 334980859 E11.65 -Virtual Visit with Amanda today over [place] [facility] due to COVID-19 pandemic.- Kindly referred by Dr. Valdes for diabetes education and insulin pump therapy.-S he was diagnosed in 2004, a few years after she had been diagnosed with gestationa l diabetes. -She has been on the Medtronic 630G insulin pump since November of 2017.-She continues to wear the sensor with her pump.-Repo rts that she thinks the transmitte r is not working correctly. She wore it during a MRI and it is over 1 years old.-Her last A1C was 8.8% in March and it had been 8.9% in February. -Admits she was not able to have foot surgery since her A1C was still elevated. -Able to download her pump from home on Skig[employer] and connected her account to [facility] account.-D ownload reveals:Av erage blood glucose was 159 mg/dl and sensor average was 141 mg/dl for the last 30 days.Hurtado ing infusion sites every 1-2 days.Infus ing 180 units per day and 33% is basal insulin and 67% is bolus insulin.22 % of her glucose are above range and 1% are below range. -Trend noted were elevated glucose after Breakfast and dinner and hypoglycem ia overnight with frequent insulin pump automatic suspends between the hours of 1 am- meals and low glucose or the pump needing to suspend for a low blood glucose between 3 am -6 am. -Made the following adjustment s to her pump settings based on trends:Bas al rate:-Adde d in a 10 pm basal rate of 2.0 u/hr instead of 2.2 u/hr (to prevent the low glucose at 2 am). Carbohydra te ratios:-Ad just the Breakfast ratio at 6 am to 2.2 grams from 2.3 grams-Add in a 5 pm ratio for Dinner time of 2.5 grams instead of 2.6 grams Sensitivit y:-Adjust the Correction factor at 20:00 to 14 mg/dl instead of 15 mg/dl. -No other changes were made at this time. Insulin pump present 450 208462 Z96.41 [id number] Estefany Ni . , [facility] [place] [address] [place] [address] 05/06/2020 10:13:35 05/06/2020 14:40:18 Screening for malignant neoplasm of cervix 461583647 Z12.4 Due, will do in 6 months Seasonal a llergic rhinitis 973615189 J30.2 Increased nasal congestion , sinus pressure, and cough - gets every year at this time due to allergies. SHe is improving. No respirator y problems, no fever, no n/v/d Likely allergies. As patient has had symptoms for over a week, no fever, and is improving, will not test for covid at this time. Advised to stay home over the weekend. If worsening follow up Follow up with ENT for allergies. IN past recieved shots continue kenney, nasal spray Obstructiv e sleep apnea of adult 7752036316 103 G47.33 Wears CPAP [id number] Hilton Valdes MD Endocrino logy, [facility] [place] [address] [place] [address] 07/08/2020 15:54:22 07/10/2020 06:08:25 Type 2 diabetes mellitus without complication 389994600 E11.9 Much better control with a1c down to 7.8% (07/02) from 8.8% was - 9.5% (12/28). Was 9.6%. Had gotten down to 8% pre-op for foot. Big improvemen t since working with program at [facility]. Planning for surgery (gastric bypass) around spring. Sister had it and down to 118 lbs (273 lbs) Seeing Nan next month. No pump/CGM data today. But basal/bolu s reported as 61:39. She reports some lows o/n. Would normally plan to decrease basal but her AM values are good. Given low CHO content of meals (protein shakes/bar s), don't want to increase CHO ratio at this time. Hope to make better recommenda tion once pump and CGM fully uploaded. Goal is to get a1c to under 7%. Vitamin D deficiency 347 29886 E55.9 Vit D low at 14 (per pt). [facility] ([facility]) put her on 5K per day (equivalen t of 35K per week). More likely needs 50K per week (given low level). Patients with obesity often don't absorb vitamin D well so higher dose (50K could be advantageo us). Will wait to see next lab test. If still low, will suggest she increase to 50 K weekly. Had high PTH at [facility]- 81. This is likely a reflection of the severity of her low vitamin D. This is a significan t abnormalit y with ramificati ons on calcium levels and bone health. Benign ess ential hypertension 7644532 I10 Had verapamil dose decreased after recent (2018) admission for syncope. Mixed hyperlipidemia 267 646914 E78.2 Most recent (from patient reporting on [facility] labs) TG= 105. HDL=55. LDL= 77. LDL= 90 (08/01); was 100 (12/2018); Dose of crestor increased to 40 in fall 2018. TG- under 150 (105 in 07/2019) and HDL over 50 (59 in 08/01) TG/HDL were up at 170 and HDL good at 60 (12/28). Doing better on crestor 40 mg. 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 Sees Shadi (NEURO)- told it was OK. 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 Can impact absorption of food and timing of insulin (and therefore BG values) Obstructiv e sleep apnea of adult 8198839483 103 G47.33 Increases complexity . Non-toxic multinodular goiter 69437774 E04.2 Hx= MNG-thyroi d nodule biopsy x 2 right lobe nodules Cytology (2016): - Right mid lobe- benign follicular cells and colloid, no malignancy . - Right upper lobe- initially (10/26) had atypia of undetermin ed significan ce but repeat in 01/26 was benign. U/S from 05/01: Right upper: 1.5 x 1.2 x 1.1* (*biopsied - benign 2016) Right upper: 1.3 x 1.5 x 0.9 (solid/cys tic; increased vs. 05/30) Right mid: 1.6 x 1.7 x 1.2 (solid/hyp o/heter; no change vs. 05/30)* (*biopsied in 2016) Left lower: 1.3 x 1.4 x 1.0 Left lower: 0.9 x 1.0 x 0.8 cm Only reason to monitor is to make sure small left nodule doesn't change. Has had some dysphagia sx- scheduled for repeat in 11/2019. [id number] Nan Holman RN, BSN, [facility] Education , [address] [address] 07/28/2020 11:03:32 07/28/2020 12:33:40 Uncontrolled type 2 diabetes mellitus 869393210 E11.65 -Virtual Visit with Amanda today over [place] [facility] due to COVID-19 pandemic. -Kindly referred by Dr. Valdes for diabetes education and insulin pump therapy. -She was diagnosed in 2004, a few years after she had been diagnosed with gestationa l diabetes. -She has been on the Medtronic 630G insulin pump since November of 2017. -She continues to wear the sensor with her pump. -Did get her transmitte r replaced as it had not been working at our last visit. -Her last A1C was7.8% in June and it is down from 8.8% in March. -Reports she started going to [facility]ric [facility] with Dr. Marcel shay in May. -She has lost 18 lbs since May 31. Her weight started at 273 lbs and now she is 255 lbs. -Checking her weight once a week now. She is planning to have the bypass surgery instead of the sleeve surgery, she has a hiatal hernia. She was encouraged to get the bypass due to GERD. -Able to download her pump from home on Skigit and connected her account to [employer] account. -Download reveals: Average blood glucose was 149 mg/dl and sensor average was 135 mg/dl for the last 30 days. Changing infusion sites every 2 days. Infusing 80.6 units per day and 69% is basal insulin and 31% is bolus insulin. 23% of her glucose are above range and 0% are below range. -Trend noted were elevated glucose after dinner and low glucose after a correction in the evening hours when her glucose is elevated at 8 pm after dinner. -Encourage d she try bolusing for 5-10 grams of carbohydra tiarra at dinner time to prevent the high glucose in the even hours since she is not bolusing for dinner. -Adjusted her Correction factor as follows: 12 am- 15 (stays the same) 8 am- 12 (stays the same) 4 pm- 14 (added in) 8 pm- 15 (adjusted) -Dropped her Correction factor at 4 pm when she has dinner and at 8 pm due to a lower glucose after she gives herself a correction around 8 pm. -No other changes were made at this time. -Overall, she is doing very well and we plan to FU again in 3 months. Insulin pump present 450 907981 Z96.41 [id number] Estefany Ni . , [facility] [place] OFFICE [address] [place] [address] [place] [address] 12/07/2020 13:21:28 12/07/2020 13:54:20 Pre-surgery evaluation 953207023 Z01.818 Here for pre-op exam for cataract surgery on L eye 12/15/[address] Dixon Diabetes is better controlled , A1C 6.5No cardiovasc ular disease, chest pain, dyspnea, fevers, or recent illness.No rmal exam today with normal vital signs. She has no restrictio ns to proceed with this low risk surgery.Fo completed and faxed to Dr Dixon's office. Benign ess ential hypertension 2019573 I10 Controlled , at goal of <130/80no longer on medication Diabetic on insulin 1707 18034 Z79.4 Controlled , A1C 6.5, now only on 22 units lantus daily, has lost 70 lbs after gastric bypass surgeryStedwina mayen had eye exam last week, no retinopath y, will request note -- Continue follow up [facility] endocrine providers- - Pt on rosuvastat in, asa 81 mg-- up to date on eye exam Gastroesop hageal reflux disease 406664381 K21.00 Asymptomat ic, continue pantoprazo le and carafate 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 992854808 E11.43 Has resolved with weight loss surgery Mixed hyperlipidemia 267 434796 E78.2 Not at goal, was restarted on rosuvastat in 40 mg daily [id number] Linda Wilson er, [employer], [facility] [place], OFFICE [address] [place] [address] [place] [address] 03/15/2021 08:55:14 03/15/2021 10:01:26 Adult health examination 530140399 Z00.00 Health is stablerevi ewed recent labsPAP todaymammo orderedup to date on vaccinesco lo 09/06/17, f/u 10 years Counseling 762870968 Z71 .9 including cardiovasc ular risk reduction counseling Depression screening 171 022276 Z13.31 depression screening tool administer ed, entered into emr, scored and discussed, time greater than 7.5 minutes Screening for alcohol abuse 494172084 Z13.39 does not drink Essential hypertension 21335330 I10 Well controlled continue verapamil 80 mg daily Active or passive immunization 545636600 Z23 Liver func tion tests outside reference range 255596381 R94.5 High LFTs 02/08/21 ast 78, alt 74, alk phos 179fatty liver on US 03/02/21No hepatitis, but not immune to A or B, reports bariatric surgeon cut rosuvastat in in half to 40 mg-- recheck labs in 1 month-- Hep A/B vaccine started today Type 2 jaqui betes mellitus without complication 927810740 E11.9 Improving, A1C 7.1Had eye exam this summer, pt to get records sent-- continue lantus 20 units at night-- continue follow up with endo Screening mammography 24 849688 Z12.31 Screening for malignant neoplasm of cervix 992560665 Z12.4 done today, normal exam Anxiety state 423338617 F41.1 Stable, continue citalopram 40 mg daily Benign ess ential hypertension 8121941 I10 Controlled , at goal of <130/80no longer on medication Gastroesop hageal reflux disease 539325045 K21.00 Asymptomat ic, continue pantoprazo le and carafate 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 795279482 E11.43 Has resolved with weight loss surgery Migraine without aura 56 531319 G43.009 IMproving, very few migraines Mixed hyperlipidemia 267 897920 E78.2 02/08/21 labs LDL 76.8, total 160, hdl 60, trg 116Cont rosuvastat in 40 daily Neuropathy 044462864 G62 .9 Advised to start lyrica, as prescribed by Dr Cedillo d not tolerate gabapentin Obstructiv e sleep apnea of adult 5932776397 103 G47.33 Not on CPAP, has lost 70 lbs in past year with bariatric surgery-- referral for sleep study Primary fi bromyalgia syndrome 82576697 M79.7 Worsening- - continue flexeril 10 mg nightly-- start pregabalin as prescribed by Dr Lundy-- advised to increase activity, try yoga/anuj chi daily-- follow up[facility] Steatotic liver disease 728700834 K76.0 fatty liver on US 03/02/21 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 Follow up with Orthopedic surgeon History of bariatric surgical procedure 842768912 Z98.84 09/08/20 [facility], 31.78% total body weight-- continue close follow up with weight loss clinic [id number] Shashi Farrell MD , [facility] [place], [address]ICE [address] [place] [address] 04/12/2021 08:00:40 04/13/2021 06:39:55 Liver function tests outside reference range 886331608 R94.5 High LFTs 04/05/21 AST 62, ALT 110 <-- 02/08/21 ast 78, alt 74, alk phos 179Pt was restarted on Rosuvastat in in November, likely the causefatty liver on US 03/02/21, but chronicNo hepatitis, but not immune to A or B (vaccine started last month)-- d/c rosuvastat in and start pravastati n (see below)-- recheck labs in 1 month-- Hep B vaccine next week, then Hep A and B in 6 months to complete series Hyperlipidemia 55858674 E78.5 D/C rosuvastat in due to elevated LFTs, trial pravastati nrecheck lab in 1 month Benign ess ential hypertension 3575102 I10 Controlled , at goal of <130/80no longer on medication [id number] Shashi Farrell MD , [facility] [place], OFFICE [address] [place] [address] 04/22/2021 09:08:26 04/22/2021 09:43:52 Active or passive immunization 557659084 Z23 [id number] Hilton Valdes MD Endocrino logy, [facility] [address] [place] [address] 04/26/2021 14:57:40 04/26/2021 19:52:06 Type 2 diabetes mellitus without complication 978625852 E11.9 Has come under much better control since RYGB (08/30) with improvemen t starting before that as part of preparatio n. (Sister had same procedure and down to 118 lbs (from 273 lbs)- Pt. aware that that is too much . A1c= 7.1 (01/30); was 7.3 (10/30); was 7.8 (07/02); was 8.8% was - 9.5% (12/28). Was 9.6%. Had gotten down to 8% pre-op for foot. Goal is to get a1c to under 7%.05/02: a1c in low 7s (she reports value from [facility] of 6.5% but not confirmed) .She hasn't been checking BG and value checked at visit one hour after lunch (1/2 sandwich) was 192.This indicates she still has some glucose intoleranc e.Doesn't need pump. Currently on single dose of lantus (10 units) at HS.Pt. recalls having severe reactions to metformin in past (vomiting but seems to report similar s/e with lisinopril ). Not clear if it might be worth trying low dose metformin and possibly adding another agent to that. Vitamin D deficiency 347 49786 E55.9 Vit D low in past at 14 (per pt). [facility] ([facility]) put her on 5K per day (equivalen t of 35K per week).Had high PTH at [facility]- 81. This is likely a reflection of the severity of her low vitamin D. 05/02: Currently getting 3K per day from [facility] she takes.Sugg est following vitamin D (either have cc of labs sent here of have them done here and cc to surgeon). Low vitamin D can be common s/p RYGB and have significan t consequenc es.This is a significan t abnormalit y with ramificati ons on calcium levels and bone health. Non-toxic multinodular goiter 37390922 E04.2 Hx= MNG-thyroi d nodule biopsy x 2 right lobe nodules Cytology (2016): - Right mid lobe- benign follicular cells and colloid, no malignancy . - Right upper lobe- initially (10/26) had atypia of undetermin ed significan ce but repeat in 01/26 was benign. U/S from 05/01: Right upper: 1.5 x 1.2 x 1.1* (*biopsied - benign 2016) Right upper: 1.3 x 1.5 x 0.9 (solid/cys tic; increased vs. 05/30) Right mid: 1.6 x 1.7 x 1.2 (solid/hyp o/heter; no change vs. 05/30)* (*biopsied in 2016) Left lower: 1.3 x 1.4 x 1.0 Left lower: 0.9 x 1.0 x 0.8 cm Main reason to monitor is to make sure nodules not previously biopsied aren't changing. Suggest repeat in one year with visit at that time. Mixed hyperlipidemia 267 202218 E78.2 Most recent (from patient reporting on [facility] labs)160/1 16/60/77 (01/30); LDL= 90 (08/01); was 100 (12/2018);C ramonned to cheryl nair from rosuvastat in (on 40mg since fall 2018).Pt. reports might have been changed because of abnormal LFTs. Obstructiv e sleep apnea of adult 6128658763 103 G47.33 Increases complexity . Arterial aneurysm 990840 004 I72.9 HYPERBARIC WELDER DIVER aneurysm and had coils placed. Sees Shadi (NEURO)- told it was OK. Liver enzy mes outside reference range 572515013 R94.5 AST/ALT= 62/110 (04/01); was 78/74; was 40/92 (10/30); was 20/50 (07/02) Pattern of ALT > AST is c/w fatty liver which was seen on u/s in 03/02.Not necessaril y surprising that LFTs were OK in 07/02 since LFTs are only abnormal about 50% of the time even in setting of documented NAFLD. Would hope that her weight loss would have improved LFTs but that hasn't happened yet.May yet need more intensive evaluation of her fatty liver.Unfo rtunately liver u/s not good for comparing or assessing improvemen t/deterior ation in NAFLD.May need elastograp hy scanning. [id number] Estefany Ni . , [facility] [place] OFFICE [address] [place], [place] [address] 08/13/2021 15:21:59 08/19/2021 14:52:26 Chest pain 78598798 R07.9 Epigastric /lower thoracic discomfort /heaviness x 2 weeks, after lifting pelletsRep roducible on exam, pleuriticE KG no acute ischemia/a rrythmiasS uspecting pain musculoske letal in nature/cos tocondriti s vs GERD/GI, less likely cardiac with reproducib le/constan t pain, history of lifting prior to symptoms, not worse with exertion, no acute EKG findings, however, pt with risk factors for CAD including DM and family Hx so will obtain ETT (pt states can now walk on treadmill) - patient states has had pharm stress test prior to bariatric surgeryRec ommend Tylenol, rest, heat/ice for painDiscus sed red flag symptoms that would warrant EMS call/ED visit in the interim- pt states understand ingPt will call for office f/u when stress test complete Benign ess ential hypertension 5924441 I10 BP at goal < 130/80no med chagnes Type 2 jaqui betes mellitus without complication 106646992 E11.9 A1C stable at goal of A1c 7% at 6.9%on pump [id number] Shashi Farrell MD , [facility] [place] [address] [place] [address] 09/13/2021 08:12:47 09/16/2021 13:17:57 Active or passive immunization 836042850 Z23 [id number] Lenora Castro D.O. , [facility] [place], [address]ICE [address] [place] [address] 11/30/2021 08:15:16 12/06/2021 08:58:52 Steatotic liver disease 369794812 K76.0 fatty liver on US 03/02/21Pt has lost 108 lbs since bariatric surgeryRep orts September 22 labs ALT 26 AST 27 History of bariatric surgical procedure 560641491 Z98.84 09/08/20 [facility], is exercising , eating healthy, feeling great!-- continue close follow up with weight loss clinic Obstructiv e sleep apnea of adult 8852780375 103 G47.33 Not on CPAP due to weight loss, states she had repeat sleep study Benign ess ential hypertension 8660233 I10 Diet controlled , at goal of <130/80 Diabetic on insulin 1707 52926 Z79.4 No longer on medication , lost 108 lbs with bariatric surgeryDie t controlled . A1C 6.7 11/26/21-- continue diet and exercise, will monitor Anxiety state 032470677 F41.1 Stable, continue citalopram 30 mg dailyDoes reduced by psychiatri st Dr Ward, has more energy on lower dose Gastroesop hageal reflux disease 581539074 K21.00 Asymptomat ic, continue pantoprazo le Primary fi bromyalgia syndrome 91959427 M79.7 Stable, continue gabapentin 200 mg daily, flexeril PRNFollowe d by rheumatolo gy Neuropathy 750224885 G62 .9 Stable, continue gabapentin [address] Lundy Arterial aneurysm 776973 004 I72.9 HYPERBARIC WELDER DIVER aneurysm, coiled 2014, followed by Dr Lundy, stable Migraine without aura 56 101257 G43.009 IMproving, very few migraines, followed by Dr Lundy, MRI 05/2021 stable Macromastia 692767434 N6 2 To have breat reduction with Dr Rucker Excessive skin and subcutaneous tissue 581591951 L98.7 To have removal of excess skin from arms and abdomen, february, at [facility] [id number] Lenora Castro D.O. , [facility] [place], OFF[address] [place] [address] 02/22/2022 16:03:55 03/11/2022 13:17:22 COVID-19 602475475 U07.1 Tested positive yesterdayS ymptoms started Monday - sore throat, cough, fever, fatigue.No shortness of breath Pt at higher risk for illness based on diabetes, htn, anxiety, OSAShe is vaccinated and boosted. Discussed Paxlovid, reviewed risks and benefits, side effects, rebound covid. She has normal renal function.A dvised to HOLD statin while on medication .Reviewed CDC isolation recommenda tions.Call if worsening symptoms, dyspnea. A discussion regarding the use of Paxlovid treatment in the setting of COVID-19 infection was had with the patient. The patient qualifies for Paxlovid treatment. They are 12 years old or older and weight at least 40kg (88lbs). They have a positive COVID test (either PCR or antigen). Symptom onset was within 5 days. They do not have severe renal impairment (GFR >30). If the GFR is 30-60, the dose of the medication is reduced. eGFR >60: 300mg nirmatrelv ir (two 150mg tablets) with 100mg ritonavir (one tablet). All 3 tablets taken together twice daily for 5 days, with or without food. eGFR 30-60: 150mg nirmatrelv ir with 100mg ritonavir. Both tablets taken together twice daily for 5 days, with or without food. The patient was advised that the treatment is sent to a local pharmacy. We have checked availabili ty through this website: https://ww w.[employer].gov /info-deta ils/inform ation-for- providers- about-ther apeutic-tr eatments-f or-covid-1 9#covid-19 -therapeut ic-plaster model and mold maker - This medication is authorized by the FDA for emergency use only. Data from clinical trials have shown that these treatments reduce the risk of ER visits, hospitaliz ation, and in patients with mild to moderate symptoms, and those at high risk of complicati ons. Side effects were discussed: 1. Allergic reactions are possible, notify the nurse with any concerning symptoms 2. Liver problems notify your provider if you experience loss of appetite, yellowing of the skin or eyes, dark colored urine, or pale colored stools. 3. Altered sense of taste 4. Nausea 5. High blood pressure 6. Muscle aches 7. This is medication is still being investigat ed so not all side effects are known at this time. 8. Risks for or breastfeed ing women are currently unknown. 9. This medication may interact with oral control options. Please use condoms or a barrier method while on this medication . Your provider has reviewed interactio ns with all of your medication s and the following need to be stopped or the dose reduced: xxx How do I take PAXLOVID? PAXLOVID consists of 2 medicines: nirmatrelv ir and ritonavir. - Take 2 pink tablets of nirmatrelv ir with 1 white tablet of ritonavir by mouth 2 times each day (in the morning and in the evening) for 5 days. For each dose, take all 3 tablets at the same time. - If you have kidney disease, talk to your healthcare provider. You may need a different dose. - Swallow the tablets whole. Do not chew, break, or crush the tablets. - Take PAXLOVID with or without food. - Do not stop taking PAXLOVID without talking to your healthcare provider, even if you feel better. - If you miss a dose of PAXLOVID within 8 hours of the time it is usually taken, take it as soon as you remember. If you miss a dose by more than 8 hours, skip the missed dose and take the next dose at your regular time. Do not take 2 doses of PAXLOVID at the same time. Steatotic liver disease [id number] K76.0 fatty liver on US 03/02/21Pt has lost 108 lbs since bariatric surgeryrep orts normal LFTs, recent labs will request from weight management provider History of bariatric surgical procedure [id number] Z98.84 09/08/20 Xander en Y gastric bypass procedure, [facility] s lost total 108 lbs, is exercising , eating healthy, feeling great!-- continue close follow up with weight loss clinic Abdominal pain 17757179 R10.9 REports she was having abdominal pain, had CT scan and MRSP of pancreas, labs ordereddo not see results in chart - will requestWas started on ursodiol [id number] Estefany Ni . MD GAINES, [facility] [place] [address] [place] [address] 02/24/2023 09:49:02 02/27/2023 10:20:26 Pre-surgery evaluation [id number] Z01.818 Here for pre-op exam for bilateral breast reduction with Dr Rucker She is in good health, ROS negative, no recent illness. Good exercise tolerance. She has a history of hypertensi on, which is well controlled through diet and exercise.S he has a history of diabetes, formerly on insulin, now diet controlled post bariatric surgery.Adolph cole has hyperlipid emia, well controlled on pravastati n 40 mg daily.She has hx of R internal carotid artery aneurysm, treated w coiling, stable. MRI MRA brain 11/16/22 :Prior paraclinoi d right internal carotid artery aneurysm coiling. No evidence ofnew or recurrent intracrani al aneurysm.N o intracrani al mass, hemorrhage , or other cause for the reported symptomsid entified. She is s/p Xander en Y gastric bypass surgery, 09/08/2020, with no surgical or post surgical complicati ons. She has lost over 100 lbs. She has no history of cardiovasc ular disease, stroke, renal disease, pulmonary disease, bleeding or clotting disorders. Normal exam today with normal vital signs. Amanda is at low risk for severe complicati ons from planned bilateral breast reduction. , Per [facility]CRI her risk of severe cardiovasc ular event is 0.4%. She has no restrictio ns to proceed with planned operation. Macromastia [id number] N6 2 To have breast reduction with Dr Rucker, see above Benign ess ential hypertension 5118648 I10 Diet controlled , at goal of <130/80 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 348032325 E11.43 Diet controlled Mixed hyperlipidemia 267 746276 E78.2 controlled continue pravastati n 40 mg daily Obstructiv e sleep apnea of adult 1895865821 103 G47.33 Resolved post weight loss, no longer needs CPAP History of bariatric surgical procedure 622621373 Z98.84 09/08/20 [facility], [facility]! Arterial aneurysm 468761 004 I72.9 HYPERBARIC WELDER DIVER aneurysm, coiled 2014, followed by Dr Lundy, albin MRI/MRA 11/16/22: Prior paraclinoi d right internal carotid artery aneurysm coiling. No evidence of new or recurrent intracrani al aneurysm. No intracrani al mass, hemorrhage , or other cause for the reported symptoms identified . [id number] Estefany Ni . , [facility] [place] [address] [place] [address] 08/16/2023 14:23:20 08/17/2023 10:16:45 Adult health examination 750540924 Z00.00 Health is stable, doing well post breast reduction surgeryrev iewed recent labsPAP 03/15/21 NIL HPV neg, repeat 5 yearsmammo orderedup to date on vaccinesco lo 09/06/17, f/u 10 years Depression screening 171 183635 Z13.31 depression screening tool administer ed Screening for alcohol abuse 228658135 Z13.39 Alcohol use screening tool administer ed Screening mammography 24 091456 Z12.31 Type 2 jaqui betes mellitus 85862310 E11.43 A1C 7.1, not on medication , will monitor if not improving or if worsening will start med Benign ess ential hypertension 0853703 I10 Diet controlled , at goal of <130/80 Iron defic iency anemia 12149855 D50.9 Not controlled , symptomati c, has been referred for iron infussion as unable to tolerate oral iron Mixed hyperlipidemia 267 886459 E78.2 not controlled , worsening- - recently restarted her statin, continue, recheck lipids in 6 months Arterial aneurysm 644230 004 I72.9 HYPERBARIC WELDER DIVER aneurysm, coiled 2014, followed by Dr Lundy, stableMRI/ MRA 11/16/22: Prior paraclinoi d right internal carotid artery aneurysm coiling. No evidence ofnew or recurrent intracrani al aneurysm.N o intracrani al mass, hemorrhage , or other cause for the reported symptomsid entified. Non-toxic multinodular goiter 99443228 E04.2 has upcoming followup w endo History of bariatric surgical procedure 974485762 Z98.84 09/08/20 [facility] Gastroes[facility] hageal reflux disease 937784079 K21.00 Followed by GI [id number] Hilton Valdes MD Endocrino logy, [address] [address] 09/20/2023 17:10:10 09/21/2023 07:31:59 Type 2 diabetes mellitus without complication 728251064 E11.9 Has come under much better control since RYGB (08/30) with improvemen t starting before that as part of preparatio n. (Sister had same procedure and down to 118 lbs (from 273 lbs)- Pt. aware that that is too much . A1c= 7.1 (07/05 and 01/01); was 6.8 (07/04); was 6.7 (12/01); was 6.9 (06/01) was 7.1 (01/30); was 7.3 (10/30); was 7.8 (07/02); was 8.8% was - 9.5% (12/28). Was 9.6%. Had gotten down to 8% pre-op for foot. Goal is to get a1c to under 7%.Pt. recalls having severe reactions to metformin in past (vomiting but seems to report similar s/e with lisinopril ). 10/03: She wants to work on lifestyle. If a1c persists or increases, could easily consider DPP4i (Januvia, Onglyza, Tradjenta) . Weight neutral and very few s/e. Vitamin D deficiency 347 46027 E55.9 VitD= 17.5 (10/02).Was low in past at 14 (per pt). 10/03: Not currently taking any supplement - Suggest re-start. thinks might have 5K. [facility] ([place] [facility]) put her on 5K per day (equivalen t of 35K per week).Had high PTH at [facility]- 81 likely a reflection of the severity of her low vitamin D).05/02: Was getting 3K per day from [facility] she takes. Low vitamin D can be common s/p RYGB and have significan t consequenc es.This is a significan t abnormalit y with ramificati ons on calcium levels and bone health.Sug gest follow vitamin D 10/03: check and follow vitD and PTH. Non-toxic multinodular goiter 63652043 E04.2 Hx= MNG-thyroi d nodule biopsy x 2 right lobe nodules Cytology (2016): - Right mid lobe- benign follicular cells and colloid, no malignancy . - Right upper lobe- initially (10/26) had atypia of undetermin ed significan ce but repeat in 01/26 was benign. Right UPPER*: 1.4 x 1.0 x 1.4 cm (10/03); was 1.5 x 1.1 x 1.2 cm slightly hypoechoic , solid Right UPPER : 1.0 x 1.2 x 1.1 cm (10/03); predominan tly isoechoic with hypoechoic cystic components , predominan tly solid with a few cystic spaces, *taller than wide*- may have been 1.3 x 1.5 x 0.9 from 05/01. Right MID*: 1.6 x 1.1 x 1.9 cm (10/03); was 1.6 x 1.2 x 1.7 cm- hypoechoic , solid*Humberto gn bx in 2017 (Clingerma n)*There are additional smaller nodules that by size and appearance would not be biopsied or followed. Left LOWER: 0.8 x 0.6 x 0.9 cm (10/03); isoechoic, solidThere are additional smaller nodules that by size and appearance would not be biopsied or followed. LEFT Isthmus (lower): 0.9 x 0.4 x 0.8 cm (10/03); 0.9 x 0.8 x 1.0 cm, predominan tly cystic with isoechoic solid component, wider than tallMain reason to monitor is to make sure nodules not previously biopsied aren't changing. 10/03: Review images to make sure right upper nodule (now taller than wide) is either same as one of the nodules biopsied (or a part of it). If separate but smaller than previous, may opt to monitor with repeat u/s in 6-12 months Mixed hyperlipidemia 267 637664 E78.2 Most recent (from patient reporting on [facility] labs)07/05: 263-116-79 -161 (off statin; now back on in 10/03)01/30: 160/116/60 /77; LDL= 90 (08/01); was 100 (12/2018);C hanged to cheryl nair from rosuvastat in (on 40mg since fall 2018).Pt. reports might have been changed because of abnormal LFTs. Arterial aneurysm 095072 004 I72.9 HYPERBARIC WELDER DIVER aneurysm and had coils placed. Sees [facility] (NEURO)- told it was OK. History of bariatric surgical procedure 973914780 Z98.84 Last labs from [facility] program were 2022.B12, folate, Mg, [id number] Estefany Ni . MD GAINES, [facility] [place] [address] [place], [place] [address] 09/26/2023 16:19:49 09/26/2023 16:50:02 Congestion of nasal sinus 14929034 R09.81 Symptoms and exam consistent w allergies - no fever, no purulent discharge. pt has hx of allergies. -- advised flonase-- advised to rotate antihistam carol, try cetirizine if not already taking, use daily-- rest, fluids, steam in shower-- if not improving will refer to costumed character Benign ess ential hypertension 3759055 I10 Diet controlled , at goal of <130/80 Iron defic iency anemia 17174259 D50.9 Not controlled , symptomati c, has been referred for iron infusion as unable to tolerate oral ironinfusi on schedueld for tomorrow [id number] Estefany Ni . MD GAINES, [facility] [place], [address] [place] [address] 02/16/2024 08:01:56 02/20/2024 12:54:57 Benign essential hypertension 8845444 I10 Diet controlled , at goal of <130/80 Migraine without aura 56 546522 G43.009 Now followed by neuro at [facility] ramos, Liana Murillo NPI 05/2021 stableRece ntly started on ubrelvy, working well Type 2 jaqui betes mellitus without complication 856386296 E11.9 A1C 7.1, goal is <7Diet controlled , no longer on meds s/p gastric bypass surgeryHad eye exam w Dr Dixon, will request records-- contiue exercise, healthy balanced diet Postmenopausal state 764 78678 Z78.0 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 688843723 E11.43 Diet controlled History of bariatric surgical procedure 202727501 Z98.84 09/08/20 [facility] pancreas 8546759 00 K86.89 MRCP 02/05/24: small cystic lesion of pancreas tail, likely intraducta l papillary mucinous neoplasm, consider 12 mo follow up-- will recheck MRCP in 12 months Mixed hyperlipidemia 267 825083 E78.2 Improving, LDL 113-- continue pravastati n 40 mg daily Steatotic liver disease 925139254 K76.0 fatty liver on US and recent MRCP, LFTs wnl Vitamin D deficiency 347 17082 E55.9 20.3, advised to be more consistent w weekly vitamin D supplement ation Hyperparathyroidism 6699 9008 E21.3 Elevated PTH, low vitamin D-- advised to be more consistent w weekly ergocalcif kip-- recheck in 6 months-- DEXA ordered [id number] Linda Wilson er, [facility], [facility] [place], [address] [place], [place] [address] 03/12/2024 11:16:47 03/12/2024 15:03:48 Active or passive immunization 128637269 Z23 -Last admin 03/2021.-R eceived dose today in office Chest pain 19795165 R07. 9 Reports intermitte nt chest pain that waxes and wanes x 2 months. Exacerbate d by deep breaths and palpation of chest wall. EKG today wnl, no change compared to prior. No dyspnea. Non exertional . Exam findings consistent w cristina bragg, see above treatment plan, follow up if not improving Costal chondritis 513058 04 M94.0 Physical exam noted L. chest wall tenderness that radiates to L. shoulder blade w/ palpation and inspiratio n.-Educati onal resource surroundin g stretches provided to patient-Sh ared decision to use OTC voltaren gel and tylenol to manage sx.- encouraged to f/u if sx worsen Gastroesop hageal reflux disease 192733838 K21.00 -Stable, controlled -Followed by GI-Has appt this w/ [facility] Ashley Vega at [facility] [id number] Hilton Valdes MD Endocrino logy, [address] [address] 03/18/2024 14:35:31 03/18/2024 15:53:04 Type 2 diabetes mellitus without complication 866413536 E11.9 Has come under much better control since RYGB (08/30) with improvemen t starting before that as part of preparatio n. (Sister had same procedure and down to 118 lbs (from 273 lbs)- Pt. aware that that is too much . A1c= 7.1 (02/02 and 07/05 and 01/01); was 6.8 (07/04); was 6.7 (12/01); was 6.9 (06/01) was 7.1 (01/30); was 7.3 (10/30); was 7.8 (07/02); was 8.8% was - 9.5% (12/28). Was 9.6%. Had gotten down to 8% pre-op for foot. Goal is to get a1c to under 7%.Pt. recalls having severe reactions to metformin in past (vomiting but seems to report similar s/e with lisinopril ). 10/03: She wants to work on lifestyle. If a1c persists or increases, could easily consider DPP4i (Januvia, Onglyza, Tradjenta) . Weight neutral and very few s/e. 04/04: Discuss with PCP- Would consider DPP4i to get her to goal. Other option would be SGLT2i- has some sx of bloating. Vitamin D deficiency 347 01491 E55.9 VitD= 20.3 (02/02) was 26.6 (11/29) was 17.5 (10/02).Per pt- was even lower in past (14). 10/03: Not currently taking any supplement 04/04: She reports had some 50K pills from last time prescribed . Started around 01/02.Level of 20.3 is barely in range and high PTH of 73.6 (02/02) is manifestat ion of inadequate vit D stores Previously had high PTH at [facility]- 81 - also a reflection of the severity of her low vitamin D. Low vitamin D can be common s/p RYGB and have significan t consequenc es.This is a significan t abnormalit y with ramificati ons on calcium levels and bone health.Sug gest follow vitamin D 04/04: Stay on 50K weekly and follow vitD and PTH levels q 3 months until Vit over 30 and PTH back in normal range. Can then decrease back to OTC daily (may need 5K daily) Non-toxic multinodular goiter 92188709 E04.2 Hx= MNG-thyroi d nodule biopsy x 2 right lobe nodules Cytology (2016): - Right mid lobe- benign follicular cells and colloid, no malignancy . - Right upper lobe- initially (10/26) had atypia of undetermin ed significan ce but repeat in 01/26 was benign.See HPI: Right lobe nodules essentiall y unchanged. Possible small new nodule in left isthmus. Main reason to monitor is to make sure nodules not previously biopsied aren't changing.C an be monitored in future if has sx. Maybe check in 2 years. Mixed hyperlipidemia 267 491872 E78.2 02/02: 213/93/81/ 113 on prava : 263-116-79 -161 (off statin; now back on in 10/03)01/30: 160/116/60 /77; LDL= 90 (08/01); was 100 (12/2018);C hanged to cheryl nair from rosuvastat in (on 40mg since fall 2018).Pt. reports might have been changed because of abnormal LFTs. 04/04: LDL is not ideal but non-HDL is 132 which is quite reasonable .If unsure, could consider checking hs-CRP, Apo-B or Lp (a) to decide if needs more aggressive tx. 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 Sees [facility] (NEURO)- told it was OK.Might be reason to be more aggressive with lowering LDL. History of bariatric surgical procedure 398345008 Z98.84 Impacts other aspects of her health Mg/Folate/ B12 OK in 02/02.CBC also OK 02/02 [id number] LINDA LIGIA LUNA MD , [facility] [place] [address] [place] [address] 07/04/2024 10:15:31 07/04/2024 10:45:19 Pain of right wrist 6832167389 20617 M25.531 Consistent with tendonitis suspect in setting of overuse. May also have element of OA. Will start with conservati ve management - brace, gentle range of motion exercises, topical diclofenac . Declines OT referral for now but would appreciate specialist referral which she will cancel if improves with conservati ve measures. [id number] JOSETTE BAUTISTA MD , [facility] [place] [address] [place] [address] 07/22/2024 08:29:01 07/24/2024 10:03:30 Acute maxillary sinusitis 20521193 J01.00 Worsening sinus congestion and pain and cough x 3 weeks.Afeb rile. + sinus tenderness on exam. Deep cough ni office. Lungs clear-- treat as below-- supportive care, rst fluids, guaifenasi n-- if not improving or if worsening in next week call office Benign ess ential hypertension 8301630 I10 Diet controlled , at goal of <130/80 [id number] JOSETTE BAUTISTA MD , [facility] [place] [address] [place] [address] 08/07/2024 11:21:27 08/07/2024 13:22:17 Vertigo 412183872 R42 Intermitte nt, none currentlym eclizine helpful, refilled Immunizati on education 863968689 Z71.85 shingles Benign ess ential hypertension 2743538 I10 Diet controlled , at goal of <130/80 Cough 55341016 R05.9 Cough x 4 weeks, had URI, completed course of abx. Is improving, but has persistent post nasal drip and irritating cough.Lung s clear, vitals normal-- shared decision to continue w supportive care - cough syrup, humidifier , flonase, fluids-- if worsening follow up [id number] JOSETTE BAUTISTA MD , [facility] [place] [address] [place] [address] 08/21/2024 10:55:10 08/21/2024 12:32:46 Adult health examination 649307632 Z00.00 Health is stablerevi ewed recent labsPAP 03/15/21 NIL HPV neg, repeat 5 yearsmammo 03/06/24, repeat 1 yearcolo 09/06/17, f/u 10 years Depression screening 171 628571 Z13.31 depression screening tool administer ed Screening for alcohol abuse 290363970 Z13.39 Alcohol use screening tool administer ed Immunizati on education 768557118 Z71.85 shingles Benign ess ential hypertension 5176142 I10 Diet controlled , at goal of <130/80 Anxiety state 100796043 F41.1 Stable, continue citalopram 20 mg daily and buspirone 5 mg dailyDoes reduced by psychiatri st Dr Ward, has more energy on lower dose 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 Discussed options, flavorings to try History of bariatric surgical procedure 557670350 Z98.84 09/08/20 Xander en Y gastric bypass procedure, [facility], was seen yesterday for follow up Intracranial aneurysm 12 6358412 I67.1 Followed by neuro at [facility], gets MRI annuallyst able Iron defic iency anemia 53565359 D50.9 check labs 3 months Mass of pancreas 7614676 00 K86.89 MRCP 02/05/24: small cystic lesion of pancreas tail, likely intraducta l papillary mucinous neoplasm, consider 12 mo follow up-- will recheck MRCP in 12 months Migraine without aura 56 784556 G43.009 Now followed by neuro at [facility] neurolgoyLiana NPstableon ubrelvy, working well Mixed hyperlipidemia 267 052212 E78.2 Controlled -- continue pravastati n 40 mg daily Primary fi bromyalgia syndrome 06793130 M79.7 Stablehard to bend handsconti nue diclofenac gel prn Positive s creening for depression on PHQ-9 (Patient Health Questionnaire 9) 0905248997 31895 Z13.31 PHQ 9 score of 11stable- discussed stress management - continue current medication s Vitamin D deficiency 347 66069 E55.9 Not controlled , 17.1 on 3/10/25, reports she forgets to take med sometimes- - advised to be more consistent w weekly vitamin D supplement ation, she will add to her weekly pill associate 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 planner-- recheck labs in 3 monthssche duled for bone density test in December Hyperparathyroidism 6699 9008 E21.3 Elevated PTH, low vitamin D-- advised to be more consistent w weekly ergocalcif kip-- recheck in 3 months-- DEXA scheduled for December Pain of bi lateral knee joints 4944067049 30778 M25.561 bilat knee OA, followed by [facility], has appt next month Neuropathy 179302048 G62 .9 Not controlled did not tolerate gabapentin Followed by Dr Lundy Type 2 jaqui betes mellitus without complication 278710097 E11.9 Not controlled , A1C increased to 8.1no longer on meds s/p gastric bypass surgeryHad eye exam w Dr Dixon scheduled for this summer -- counseled on diet. Pt saw weight management clinic yesterday, has plan for diet, reduce carbs increase protein-- recheck labs in 3 months, if not improving will discuss adding medication .-- contiue exercise, healthy balanced diet [id number] JOSETTE BAUTISTA MD , [facility] [place] [address] [place] [address] 11/22/2024 09:20:32 11/22/2024 09:58:33 Benign essential hypertension 0142769 I10 Diet controlled , at goal of <130/80 Mixed hyperlipidemia 267 889864 E78.2 Controlled -- continue pravastati n 40 mg daily Immunization due 6542448 08 Z23 shingles Vitamin D deficiency 347 15036 E55.9 -- recheck labs in 3 monthssche duled for bone density test in December 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 Wrote out list of protein snacks pt likes, cut out jasmyn crackers. Advised to record what she eats.-- check fasting glucose and record in log-- referred to nursing educator to review readings and talk more about her diet and snacking-- follow up 3 months, lab prior Hyperparathyroidism 6699 9008 E21.3 Elevated PTH, low vitamin D-- advised to be more consistent w weekly ergocalcif kip-- recheck in 3 months-- DEXA scheduled for December Health Concerns Section Related Observation LastModified by Organization Zuly mendez LastModified Time None Recorded Concern Status LastModified by Organization Details LastModified Time None Recorded Advance Directives Directive Y: Payers Insurance Date Sequence Insurance Name Policy Number Policy Rodriguez Covered Member ID Rodriguez Member ID Guarantor Name 12/12/2024 1 [facility] (POS) Amanda Harrington [id number] Amanda Harrington 08/07/2024 1 [facility] (HMO) Amanda Harrington [id number] Amanda Harrington 01/26/2004 1 [facility] [id number] Edil Harrington [id number] Amanda Harrington 12/21/2012 1 [facility] (O) [id number] Edil Harrington [id number] Amanda Harrington 12/12/2024 1 [facility] [id number] Edil Harrington [id number] Amanda Harrington 02/26/2013 1 *SELF PAY* Do torres Harrington Notes Date Note Type Note Provider Name and Address Organization Details Recorded Time 07/04/2024 text/html R wrist pain x 3 monthsTrouble lifting, moving wrist different ways, tender when presses on side, mostly lateral but radiates to medialWorse when lifting, closing doorRight handed, doing more lifting since started working at [employer] 2 months ago after retirementHas arthritis in fingers/hands LINDA PENN MD [address] [place], [address], [place] [facility] 07/04/2024 10:43:26 07/22/2024 text/html Cough x 3 weeks, worsening, now productive and constantno feversno shortness of breathFeels sick Taking safe tussin (apap, dextromethorphan, and guaifenasin) Linda Morales NP [address] [place] [address], [phone], [facility] 07/22/2024 09:08:34 08/07/2024 text/html Cough for a jennie h, but improvingclearing throatsrare coughing fits at night from mucusmucus is clear sinus pressure and congestion takes safe tussin at night which helps Linda Morales NP [address] [place], [phone], [facility] 08/07/2024 11:49:41 08/21/2024 text/html Risk Assessment AdultReported bypatient.Diet:Er Medical Technician ed about eating a diet low in trans and saturated fats and high in fiber, fruits and vegetables Exercise counseling:Discussed the importance of daily physical activity; Discussed the importance of weight bearing exercise saw weight management yesterdayshe will go back on her protein shakes and bars 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,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,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 has appt w Dr Banegas in December for eye exam Linda Morales NP [address] [place] [address], [phone], [facility] 08/21/2024 11:59:02 11/22/2024 text/html is a snacker, ca n't eat a lotsaw weight management provider, they will work on the snacking, try to get skin removal done My eye november 11 bone density scheduled for december as appt w neuro this month Linda Morales NP [address] [place] [address], [phone], [facility] 11/22/2024 09:57:56 OBGyn Episode Ob Episode Information Episode Created Date Number of Fetuses Patient Bloodtype Patient rh Status Prepregnancy Weight lbs Domestic Partner Domestic Partner Phone Father Name Continuous Improvement Facilitator Status 03/20/20 01 1 DELETED Fetus Data First Name Last Name Admitted to NICU Weight (g) Sex Living Outcome Pediatric Complications Fetus ID Race Codes Race Delivery Type 212 Problems Problem Notes Problem Name Start Date End Date Resolution Snomed Code Not e Fatigue 99446728 Non-toxic multinodular goiter 40359005 Mixed hyperlipidemia 01/09/2008 26383140 3 Gastroesophageal reflux disease 06/26/2006 [id number] Benign essential hypertension 04/03/2006 3335606 Hypothyroidism 36507704 Goiter 3125300 Pain of shoulder region 784661 00 Arterial aneurysm 955006603 Type 2 diabetes mellitus without complication 01/09/2008 [id number] insulin pump placed 11/2018 Diabetes mellitus [id number] Carlos Calculation Initial Carlos Date Initial Exam Date Initial Exam Provider Initial Ultrasound Date Last Menstrual Period Date Ultra Sound Weeks Gestation 03/09/2001 0 Eighteen To Twenty Week Carlos Update Ultra Sound Date Fundal Height At Umbil Quickening Date Ultra Sound Latest Weeks Gestation Final Carlos Confirmed By Final Carlos Confirmed Date Final Carlos Date Ultra Sound Latest Days Gestation 0 10/04/19 02 0 Menstrual History Last Menstrual Date Menses Monthly On Bcp Conception Prior Menses Frequency Hcg Plus Date Menarche Onset Age Delivery Information Delivery Date Delivery Type Labor Anesthesia Weeks Gestation Incision Type Labor Labor Length Hrs Delivered By Post Complications Tubal Sterilization Discharge Date Comments twins Discharge Information Feeding Method Contraceptive Method Maternal HG B and HCT Levels
== END 2024-12-26 16:17 | disposition home or self-care (01) ==
LOC: HO.HBS 15:49
PROVIDERS: PCP Internal Medicine; Visit Provider Physician Assistant Surgical
DX: R10.9 Unspecified abdominal pain (principal); E66.3 Overweight; Z68.27 Body mass index [BMI] 27.0-27.9, adult; Z98.84 Bariatric surgery status
CPT/HCPCS: 98013

== ENCOUNTER 2025-03-12 16:11 | Outpatient (AMB) | payer OTHER, SELFPAY ==
--- NOTE | 2025-03-12 16:22 | MHC.OFFVISWM ---
VS Expanded 03/12/25 16:25 Height 5 ft 7 in Weight 177 lb 4 oz BMI 27.8 Intake Visit Reasons: Phone PO GBP 09/08/20 Allergies metformin (METFORMIN) Allergy (Intermediate, Verified 12/12/24 14:26) VOMITING lisinopril (LISINOPRIL) Adverse Reaction (Intermediate, Verified 12/12/24 14:26) COUGH Medication List - Last Reconciled 03/12/25 by DAVID Machado bupropion HCl SR 100 mg PO DAILY buspirone 5 mg PO DAILY carbidopa-levodopa 25-100 mg 1 tab PO BEDTIME PRN cholecalciferol (vitamin D3) 1,250 mcg PO QWEEK citalopram 40 mg PO BEDTIME clotrimazole 1% 1 appl topical BID famotidine 40 mg PO DAILY fremanezumab-vfrm (Ajovy) 225 mg (1.5 mL) subcut ONCE 30 days meclizine 25 mg PO TID PRN lznpwebvzojz-vee-ggfs-FA-vit K 45 mg iron- 800 mcg-120 mcg (Bariatric Multivitamins) caps PO DAILY pantoprazole 40 mg PO BID pravastatin 20 mg PO DAILY ubrogepant (Ubrelvy) 50 - 100 mg (0.5 - 1 x 100 mg) PO ONCE PRN 30 days verapamil ER 100 mg PO BEDTIME 30 days HPI Comments Details: This?is a?59?yo F who is s/p RYGB 09/08/2020. Weight loss of 1.2lb since last OV in December. Previously denied for skin removal surgery- apparently did not have enough volume/size of excess skin. Continues to have difficulty managing this. Has been having RUQ abd pain for close to a year. This is not related to PO intake and pt questions whether it is from the weight of the excess skin pulling on her upper abdomen. 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 Her GI did not think her pain was due to pancreatic issues. Had imaging which showed dilated bile ducts after CCY (in 2021). Takes both pantoprazole and famotidine. Nonsmoker, no NSAIDs. On the right side right below the ribs . Having another MRI in 2025 for pancreatic cyst. Reports last colonoscopy 7 years ago. Previously took carafate but did not tolerate- made her sick. She tried increasing pantoprazole to BID but this did not significantly help her pain. Present meal plan includes: -given at last visit 2mo ago Goal 70-75g protein per day. 1 Pure protein shake, 1 scoop in 8oz oat milk 2 Atkins or Fitcrunch bars- or one bar and one GY/CC cup 1 meal 4f/4f -not following consistently -was given [employer] [facility] info at last visit but did not really follow a plan -spoke to her dietitian for suggestions on better snacks -will have mcneal egg bites if at work, or scrambled eggs if home Exercise routine includes: walks 5d/week, 2miles in 30 minutes- not doing this as much works at [employer], on her feet all day, almost 10k steps Pt has issues of excess skin of abdomen. She has to keep the area very clean to prevent rashes. Pt has tried clotrimazole ointment to this area but this has not completely resolved the problem. She notices moisture collecting in the skin folds which smells unpleasant. She has pain and discomfort due to the waistband digging into her skin. The excess skin is very heavy and uncomfortable. It pulls on her lower back. It makes walking more difficult. She has to be active at work, bending/squatting down and the skin gets in the way and gets pinched with those movements. Pt now has [employer] for insurance. [facility] Medical History (Updated 12/12/24 @ 17:02 by HILARY Rosen) Intestinal malabsorption BMI 32.0-32.9,adult BMI over 35 Left ventricular hypertrophy Hepatomegaly Steatosis, liver DJD (degenerative joint disease) BMI 38.0-38.9,adult Hx gestational diabetes Hx of nausea BMI 39.0-39.9,adult Obesity Constipation Nausea Syncope GERD (gastroesophageal reflux disease) Depression Fibromyalgia Restless leg syndrome Gastroparesis Sleep apnea with use of continuous positive airway pressure (CPAP) Hyperlipidemia Hypertension Insulin dependent diabetes mellitus Morbid obesity Surgical History Hx of breast reduction, elective Hx of gastric bypass History of esophagogastroduodenoscopy (EGD) H/O colonoscopy Hx of myomectomy Hx of cerebral aneurysm repair Hx of foot surgery Hx of section Family History Mother Hypertension Hyperlipidemia Osteoporosis Father No problems noted. Brother No problems noted. Brother Hypertension Brother Hypertension Brother No problems noted. Sister No problems noted. Son No problems noted. Social History Are you a primary career guidance technician to a significant other at home: No Do you presently have visiting nurse or other home services: No Alcohol intake: never Patient Tobacco Use Status: Former Tobacco user Second Hand Smoke Exposure: No service: No Current occupational status: employed Telehealth Telehealth Telehealth Platform: Telephone Location of provider rendering services: practice address Location of patient: address on file Patient Identification confirmed using: Name, : Yes Telehealth method: voice only Patient verbally consented to treatment: Yes Patient verbally consented to billing insurance company: Yes Patient informed of any privacy concerns related to visit: Yes Minutes spent on Phone/Video with Pt.: 16 Assessment & Plan Assessment & Plan (1) S/P gastric bypass: Code(s): Z98.84 - Bariatric surgery status Category: Surgical (2) Overweight: Code(s): E66.3 - Overweight Category: Medical Plan Target weight is 172lbs for skin removal surgery. Again emphasized the importance of a good meal plan and encouraged her to follow a plan from [employer] [facility]. She will consider this. Scheduled to follow up with GI at [facility]. She is experiencing issues of excess skin of abdomen resulting in frequent painful, itchy, malodorous rashes which are unrelieved by topical antifungals. In addition she is experiencing limitations/discomfort in activities of daily living, including walking, bending. She requires the use of special clothing at all times to try to prevent discomfort but her issues have not been completely relieved by conservative measures. She would benefit from definitive treatment of panniculectomy. RTC 3-4mo. She will contact office if she reaches this target weight prior to next appointment. Photos taken in October.
[2025-03-12 16:25] VITALS: BMI 27.8
--- OUTSIDE RECORDS SUMMARY | 2025-03-12 16:36 | XMS_ITS | Encounter Summary ---
Author Organization [facility] Address [address] [place] [address] Care Team Providers Care Gag Writer Name Role Phone RaheelLenora dickson Primary Care Provider [phone] Luis Hsu Unavailable Encounter Details Date Type Department Care Team (Late st Contact Info) Description 03/05/2020 Scanned Document [address] [place] [phone] Provider, Generic Social History Tobacco Use Types [...] on filedocumented in this encounter Care Teams Gag Writer Relationship Specialty Start Date End Date Lenora Castro DO [address] [place] [address] [place] [address] PCP - General Internal Medicine 02/21/20 Luis Hsu [address] [place] [phone] Referring Provider 02/21/20 documented as of this encounter
--- OUTSIDE RECORDS SUMMARY | 2025-03-12 16:36 | XMS_ITS | Encounter Summary ---
Author Organization [facility] Address [address] [place] [address] Care Team Providers Care Featheredger And Reducer Machine Name Role Phone Lenora Castro Primary Care Provider [phone] Luis Hsu Encounter Details Date Type Department Care Team (Late st Contact Info) Description 03/04/2020 Prep for Surgery [facility] [address] [place] [address] [address] [place] [phone] Anastasiya Sweeney APRN [address] [place] [address] [address], [place] [address] Social History Tobacco Use Types Packs/Day Years [...] on filedocumented in this encounter Care Teams Featheredger And Reducer Machine Relationship Specialty Start Date End Date Lenora Castro DO [address] [place] [address] [place] [address] PCP - General Internal Medicine 02/21/20 Luis Hsu [address] [place] [phone] Referring Provider 02/21/20 documented as of this encounter
--- OUTSIDE RECORDS SUMMARY | 2025-03-12 16:36 | XMS_ITS | Clinical Summary ---
Author Organization [facility] Address [address] [place] [address] Care Team Providers Care Interactive Media Marketing Strategist Name Role Phone Lenora Castro DO Primary Care Provider [phone] Luis Hsu Unavailable Allergies Active Allergy Reactions Criticality Noted Date Comments Lisinopril Cough Low 02/25/2020 Metformin GI Intolerance/Nausea/Vomiting Low 02/24 Medications cyclobenzaprine (FLEXERIL) 10 MG tablet Take 10 mg by mouth daily as needed. Do not take day of surgery. 0 Active ergocalciferol (VITAMIN D2,DRISDOL) 18291 units Cap Take 50,000 Units by mouth [...] - Risk 60-74 years 1-dose series) 2024 Influenza Vaccine 01/10/2025 COVID-19 Vaccine ( - 2023-2 5 season) 2025 Hepatitis B Vaccines Aged Out No long [...] Glucose 220 mg/dL HOSPITAL LAB Comment:Performed at [place], [place] license No. [id number] [employer] No. [id number] Blood specimen (specimen) Heel structure / Unknown 03/02/2020 3:34 PM EDT 03/02/2020 6:18 PM EDT [facility] BLOOD ORDERABLES Final R esult HOSPITAL [...] - 25.0 Ratio HOSPITAL LAB Comment:Performed at [place], [place] license No. [id number] CLIA No. [id number] Blood specimen (specimen) Heel structure / Unknown 03/02/2020 3:34 PM EDT 03/02/2020 6:18 PM EDT us [facility] BLOOD ORDERABLES Final R esult HOSPITAL LAB from Last 3 Months or Most Recently Relevant to Health Maintenance Insurance [facility] Care Teams Interactive Media Marketing Strategist Relationship Specialty Start Date End Date Lenora Castro DO [address] [place] [address] [place] [address] PCP - General Internal Medicine 02/21/20 Luis Hsu [address] [place] [phone] Referring Provider 02/21/20
--- OUTSIDE RECORDS SUMMARY | 2025-03-12 16:37 | XMS_ITS | Clinical Summary ---
Author Organization [facility] Address [address] [place] [address] [place] [phone] Phone Care Team Providers Care Promotional Marketing Analyst Name Role Phone Shashi Farrell MD Primary Care Provider [phone] Allergies Active Allergy Reactions Criticality Noted Date Comments Lisinopril Cough 05/15/2017 Metformin Nausea and/or Vomiting 05/15/2017 Medications citalopram (CELEXA) 40 MG tablet Take 40 mg by mouth nightly at bedtime. Active pravastatin (PRAVACHOL) 20 MG tablet Take 20 mg by mouth daily. Active carbidopa-levodop a (SINEMET) 25-100 mg per tablet TAKE 1 TABLET BY MOUTH BEFORE BED 4 Active famotidine (PEPCID) 10 MG tablet Take 10 mg by mouth nightly at bedtime. 4 Active fluticasone propionate (FLONASE) 50 mcg/actuation nasal spray SPRAY 1 SPRAY BY INTRANASAL ROUTE EVERY DAY 4 Active pantoprazole (PROTONIX) 40 MG tablet 40 mg. 4 Active cyanocobalamin, vitamin B-12, 1000 MCG tablet Take 1,000 mcg by mouth daily. Active buPROPion (WELLBUTRIN SR) 100 MG SR 12 hr tablet Take 100 mg by mouth daily. 5 Active ergocalciferol (DRISDOL) 50,000 unit capsule Take 50,000 Units by mouth once a week. 4 Active AJOVY AUTOINJECTOR 225 mg/1.5 mL subcutaneous auto-injector Inject 225 mg under the skin every 30 (thirty) days. Active meclizine (ANTIVERT) 25 mg tablet Take by mouth 3 (three) times a day as needed. 4 Active ondansetron HCl (ZOFRAN ORAL) as needed. Activ e UBRELVY 100 mg tablet once as needed. Active verapamiL (VERELAN PM) 100 mg 24 hr capsule Take 100 mg by mouth nightly at bedtime. Active famotidine (PEPCID) 40 MG tablet Take 40 mg by mouth nightly at bedtime as needed. Active pantoprazole (PROTONIX) 20 MG tablet Take 20 mg by mouth daily. Active pravastatin (PRAVACHOL) 40 MG tablet Take 40 mg by mouth daily. 4 Active Active Problems Problem Noted Date Diagnosed Date Primary osteoarthritis involving multiple joints 01/01/2024 Assessment & Plan (01/01/2024 6:31 PM EDT): Osteoarthritis in multiple joints most bothersome in the small joints of her hands. She should try Tylenol arthritis 650 mg as needed. Patellofemoral arthralgia of both knees 01/01/20 24 Assessment & Plan (01/01/2024 6:32 PM EDT): Patellofemoral osteoarthritis in both knees with quadriceps atrophy and patellar laxity. She should work on strengthening her quadriceps muscles. She can be sent for formal physical therapy if needed. Strengthening her quadriceps muscles will restore stability to both knees. Iron deficiency anemia, unspecified 09/05/2023 Knee pain 05/14/2021 Overview (05/14/2021): Suspect Patella femoral symptoms due to deconditioning, weight loss and quad atrophy Pt given quad exercise program Declined formal PT Assessment & Plan (11/18/2021 1:30 PM EDT): Suspect Patella femoral symptoms due to deconditioning, weight loss and quad atrophy Continue quad exercise program Declined formal PT Baseline XR Assessment & Plan (05/14/2021 10:22 AM EST): Suspect Patella femoral symptoms due to deconditioning, weight loss and quad atrophy Pt given quad exercise program Declined formal PT Shoulder pain, right 05/14/2021 Overview (05/14/2021): Pain with decreased ROM Xrays today Gentle ROM exercise Consider formal PT Injection prn for increased symptoms or MRI prn Assessment & Plan (01/05/2022 9:27 PM EDT): Ongoing Right shoulder pain with normal XR Now some Right UE pain and paresthesias suggestive of radiculopathy of the cervical spine Due to significant discomfort and exam suggestive of RTC tendinitis as well as possible radicular symptoms, an injection to Right subacomial space was performed which may be diagnostic as well as therapeutic. PROCEDURE: Right shoulder Subacromial Bursa Injection Risks and benefits discussed . Under sterile conditions and with verbal consent the right shoulder was cleaned w/alcohol and iodine and anesthetized topically w/ ethyl chloride and 2mL of 1% lidocaine. An injection with 2 mL of 1% lidocaine and 40 mg depo-medrol using a 25G 1.5 needle was performed from a posterior lateral approach without complications. Bandage was applied. Patient tolerated the procedure well . Counseled about monitoring for increased pain, swelling, warmth, or redness in the area.Pt was instructed to ice prn 20 min /hr prn pain and call for any questions or concerns Assessment & Plan (11/18/2021 1:29 PM EDT): Ongoing shoulder pain XR normal Failed exercise program with skills trainer MRI ? Small RTC tear versus tendinopathy Assessment & Plan (05/14/2021 10:25 AM EST): Pain with decreased ROM Xrays today Gentle ROM exercise Consider formal PT Injection prn for increased symptoms or MRI prn Gastrocnemius equinus of left lower extremity Gastrocnemius equinus of right lower extremity 0 08/08/2019 Equinus deformity of both feet 08/08/2019 Flat foot 08/08/2019 Pain in right foot 08/08/2019 Tendonitis, Achilles, right 08/08/2019 Plantar fasciitis 08/08/2019 Trochanteric bursitis, right hip 02/20/2019 Assessment & Plan (11/18/2021 1:31 PM EDT): Injection resolved pain Continue weight loss and stretches for ITB Atypical syncope 12/08/2018 Assessment & Plan (12/08/2018 4:32 PM EDT): Patient presenting after a syncopal event while driving, just after turning her head to the right. Suspected vasovagal syncope secondary to compressed carotid nodes and subsequent hypotension. -Patient admitted to telemetry for cardiac monitoring. If unrevealing of a cardiac dysrhythmia, may need 30-day event monitor at the time of discharge, especially with patient reported intermittent palpitations. -[facility] tele-neurology consulted, appreciated. Recommendation for neck imaging. Given her jaw pain and tenderness, I discussed the case with my supervising physician and we decided to proceed with CTA of the neck to rule out swollen nodes, abscess, mass or other compressing structure. -Echocardiogram in the morning. No indication for cardiology consult at this time. -Orthostatic blood pressures reassuring GERD (gastroesophageal reflux disease) 9 Assessment & Plan (12/08/2018 4:06 PM EDT): Omeprazole not on formulary, pantoprazole substituted. HTN (hypertension) 12/08/2018 Assessment & Plan (12/08/2018 4:05 PM EDT): Blood pressure currently well controlled. Her home medical regimen continued. -Monitor vital signs per unit protocol. Migraines 12/08/2018 Assessment & Plan (12/08/2018 4:06 PM EDT): No recent migraines. -Tylenol and ibuprofen available if needed. Patient also uses gabapentin nightly. Neuropathy 12/08/2018 Assessment & Plan (12/08/2018 4:06 PM EDT): Continue nightly gabapentin. Pain in both hands 10/19/2018 Degenerative disc disease, cervical 10/19/2018 Assessment & Plan (12/08/2018 3:58 PM EDT): Known cervical degenerative disc disease. No pain associated with turning the head to the right in the cervical spine. No tenderness to palpation over the cervical spine. I do not suspect that pain from turning her head was related to this vasovagal reaction and subsequent syncopal event. Home medical regimen continued. Abdominal pain 05/17/2017 Assessment & Plan (05/17/2017 10:58 AM EST): Nausea as well -cont ppi -ruq u/s -check lfts Benign paroxysmal positional vertigo due to bilateral vestibular disorder 05/15/2017 Assessment & Plan (12/08/2018 3:56 PM EDT): History of benign paroxysmal positional vertigo but never with associated syncope. When Caio has episodes of vertigo she typically has a sensation of being off balance. Last episode of vertigo was approximately 5 years ago and meclizine is used for associated symptoms as needed. Assessment & Plan (05/17/2017 10:56 AM EST): CT and MRI Brain and MRA Brain negative. The diagnosis is BPPV. The margaret hallpike maneuver unsuccessful by her neurologist. Plan: - Continue Zofran scheduled - meclizine 25mg 3 times a day - PT consult Eply's maneuver. Fibromyalgia 05/15/2017 Assessment & Plan (11/18/2021 1:28 PM EDT): FM does not appear active. Pt on Gabapentin , Celexa And rare Flexeril Pt was encouraged to continue daily exercise Assessment & Plan (05/14/2021 10:17 AM EST): FM does not appear active. Pt on Gabapentin , Celexa And Flexeril Pt was encouraged to continue daily exercise Assessment & Plan (05/15/2017 9:30 PM EST): Continue Ibuprofen Continue gabapentin which was started 2 weeks ago Diabetes 05/15/2017 Overview (05/15/2017): type 2 Assessment & Plan (12/08/2018 4:04 PM EDT): History of diabetes with hyperglycemia in recent months. Outpatient management by Dr. Valdes. Ten days ago she received a new insulin pump and has been trying to get tighter control over her sugar. -Continue subcutaneous pump with home settings. Patient does not know her carb or sugar ratios and I will try to see if we can obtain these from Dr. Valdes's office. In the meantime this has been discussed with the pharmacy. She will continue with her own pump as a nonformulary medication. -Monitor POCC Assessment & Plan (05/17/2017 10:57 AM EST): Baseline Lantus 32 units BID and Lispro 25 units with meals and at bed time. Sugars running low in house. Lantus decreased to 20 units twice a day, lispro 15 units with meals due to nausea and poor by mouth intake. Monitor The patient is not on enedina-I because lisinopril caused cough. Cerebral aneurysm 06/12/2014 Overview (05/15/2017): coiled Assessment & Plan (12/08/2018 3:56 PM EDT): Known cerebral aneurysm with coils placed at MRI of the brain as recently as 09/2018 which showed stable findings. Known chronic white matter disease. CT of the head was performed in the emergency department showing no acute findings. Assessment & Plan (05/15/2017 9:31 PM EST): CT head, MRI/MRA brain did not show evidence of further aneurysm. Hypertrophy of breast Encounters Date Type Department Care Team Description 02/25/2025 6:10 AM EDT - 02/25/2025 11:59 PM EDT Hospital Encounter [facility], Mri - [address] [address] Ashley Vega CNP Discharge Disposition: Home or Self Care 01/16/2025 1:00 PM EDT - 01/16/2025 1:30 PM EDT Surgery [facility] Admitting Dept Virtual Department [address] [place] [phone] Aurelia Florence MD ESOPHAGOGASTRODUODENOSCOPY 01/16/2025 12:26 PM EDT Anesthesia Event [facility] Admitting Dept Virtual Department [address] [place] [phone] Arabella Marie MD 01/16/2025 11:53 AM EDT - 01/16/2025 1:45 PM EDT Hospital Encounter [facility] Ad[facility] Virtual Department [address] [place] [phone] Aurelia Florence MD Discharge Disposition: Home or Self Care 01/16/2025 Procedure Pass [facility] Admitting Dept Virtual Department [address] [place] [id number] 01/13/2025 Procedure Pass [address] [address] 01/13/2025 Transcribe Orders Virtual Department [address] [place] [id number] Ashley Vega CNP Nausea (Primary Dx); Bloating; RUQ abdominal pain 01/09/2025 3:15 PM EDT Pre-Admission Testing Pre Procedure Evaluation [address] [place] [phone] Aurelia Florence MD 12/26/2024 9:45 AM EDT - 12/26/2024 11:59 PM EDT Hospital Encounter [address] [address] Linda Morales NP Discharge Disposition: Home or Self Care 12/19/2024 Telephone [facility] [address] [address] Lpue Valencia Appointment from Last 3 Months Immunizations Immunization Administration Dates Next Due COVID-19 (Pre-04/03) Pfizer Vaccine, mRNA, PF ,10/28/2020 Family History Medical History Relation Comments Hypertension Brother Diabetes Father Early Father Stroke Father Hypertension Mother Bone cancer Paternal Grandfather Emphysema Sister Spinal Stenosis Sister Relation Status Comments Brother Alive Father Mother Paternal Grandfather Sister Alive Social History Tobacco Use Types Packs/Day Years Used Date Smoking Tobacco: Former Cigarettes 1 - 1990 Smokeless Tobacco: Never Tobacco Cessation:Counseling Given: Not Answered Comments:as a teenager, >35 years ago Alcohol Use Standard Drinks/Week Comments No 0 (1 standard drink = 0.6 oz pur e alcohol) Education Answer Date Recorded Are you interested in more education? Not on savita e 10/06/2022 Are you concerned about learning?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 10/06/2022 No 10/06/2022 No 10/06/2022 Digital Access Answer Date Recorded No 11/07/2022 No 11/07/2022 Reliable internet access at home?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 11/07/2022 Device with a working camera?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 Intimate Partner Violence Answer Date R ecorded Are you denied basic needs s uch as food, clothing, or medical care? No 01/16/2025 In the past 12 months have y ou been in a relationship with a person who hurts, threatens, or tries to control you? No 01/16/2025 Are you denied basic needs s uch as food, clothing, or medical care? No 01/16/2025 In the past 12 months have y ou been in a relationship with a person who hurts, threatens, or tries to control you? 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[employer], [employer]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 Not on savita e Last Filed Vital Signs Vital Sign Reading Time Taken Comments Blood Pressure 132/74 01/16/2025 1:06 PM EDT Pulse 76 01/16/2025 1:06 PM EDT Temperature 36.7 C (98.1 F) 01/16/2025 12:03 PM EDT Respiratory Rate 15 01/16/2025 1:06 PM EDT Oxygen Saturation 100% 01/16/2025 1:06 PM EDT Inhaled Oxygen Concentration - - Weight 79.4 kg (175 lb) 01/10/2025 2:06 PM EDT Height 170.2 cm (5' 7 ) 01/10/2025 2:06 PM EDT Body Mass Index 27.41 01/10/2025 2:06 PM EDT Plan of Treatment Upcoming Encounters Date Type Department Care Team (Late st Contact Info) Description 06/18/2025 10:30 AM EST Office Visit [facility] [address] [place] [address] Unknown, Unknown, MD Vega, Ashley Wright, DBA DEVELOPER [address] [place] [address] [email or web address] Health Maintenance Due Date Last Done Comments DEPRESSION SCREENING 1976 HEPATITIS C SCREENING 01/23/1982 HIV ONE-TIME SCREENING (18-65 YEARS) 01/23/1982 PNEUMOCOCCAL VACCINES (50+ years) (2 of 2 - PCV) 01/08/2009 01/09/2008 COLOGUARD 01/23/2009 FIT TEST 01/23/2009 FOBT 01/23/2009 SIGMOIDOSCOPY 01/23/2009 VIRTUAL COLONOSCOPY 01/23/2009 ZOSTER VACCINES (1 of 2) 01/23/2014 DIABETIC EYE EXAM 04/17/2017 URINE MICROALBUMIN/CREATININE RATIO 01/19/2019 01/19/2018, 07/03/2017 HEMOGLOBIN A1C 06/26/2020 03/26/2020, 02/11, 12/18/2018, Additional history exists MAMMOGRAM 06/25/2021 06/25/2019, 08/08/2017 PAP SMEAR 03/15/2024 03/15/2021 BLOOD PRESSURE 06/28/2024 12/27/2023 INFLUENZA VACCINE (#1) 2025 , 03/15/2021, 04/09/2020, Additional history exists COVID-19 VACCINE ( season) 2025 06/21/2021, 11/28/2020, 11/28/2020, Additional history exists SMOKING Hx and SMOKELESS TOBACCO SCREENING 01/16/2026 01/16/2025 COLONOSCOPY 09/07/2027 09/06/2017 COLORECTAL CANCER SCREENING 09/07/2027 Adult Td,Tdap Booster 11/22/2027 11/21/2017, 008 RSV VACCINE (1 - 1-dose 75+ series) 01/23/2039 HEPATITIS A VACCINES Aged Out 09/13/2021, 03/15/20 21 No longer eligible based on patient's age to complete this topic HIB VACCINES Aged Out No longer eligi ble based on patient's age to complete this topic MENINGOCOCCAL VACCINES (ACWY) Aged Out No longer eligible based on patient's age to complete this topic MENINGOCOCCAL VACCINES (B) Aged Out N o longer eligible based on patient's age to complete this topic Medical Devices Implanted Type Area Bucket Operator Device Identifier Shelf Expiration Date Model / Serial / Lot Aneurysm Coil Procedures Procedure Name Priority Date/Time Associated Diagnosis Comments MRI CHOLANGIOPANCREATOGRAPHY (MRCP) WITH AND WITHOUT CONTRAST Routine 02/25/2025 7:01 AM EDT Nausea Bloating RUQ abdominal pain AZ EGD ABLATE TUMOR POLYP/LE MARK W/DILATION& WIRE 01/16/2025 12:26 PM EDT Gastroesophagea l reflux disease without esophagitis Right upper quadrant pain Nausea AZ EDG TRANSORAL BIOPSY SINGLE/MULTIPLE 01/16/2025 12:26 PM EDT Gastroesophagea l reflux disease without esophagitis Right upper quadrant pain Nausea AZ ESOPHAGOGASTRODUODENOSCOP Y TRANSORAL DIAGNOSTIC 01/16/2025 12:26 PM EDT Gastroesophagea l reflux disease without esophagitis Right upper quadrant pain Nausea ENDOSCOPY PROCEDURE 01/16/2025 12:25 PM EDT ANATOMIC PATHOLOGY Routine 01/16/2025 12:00 AM EDT BD DXA AXIAL (SPINE) WITH HIP Routine 10:20 AM EDT Asymptomatic menopausal state PAP TEST Routine 03/15/2021 12:00 AM EDT HEMOGLOBIN A1C Routine 03/26/2020 9:53 AM EDT Plantar fasciitis of right foot BI MAMMOGRAM SCREENING WITH TOMOSYNTHESIS WITH CAD (BILATERAL) Routine 06/25/2019 8:52 AM EST Breast screening MICROALBUMIN/CREATININE RATI O, RANDOM URINE Routine 01/19/2018 8:38 AM EDT Type 2 diabetes mellitus without complication, without long-term current use of insulin ENDOSCOPY, COLON 09/06/2017 7:17 AM EDT from Last 3 Months or Most Recently Relevant to Health Maintenance Results * MRI CHOLANGIOPANCREATOGRAPHY (MRCP) WITH AND WITHOUT CONTRAST (02/25/2025 7:01 AM EDT) Anatomical Region Laterality Modality Pancreas, Biliary Magnetic Reson ance 02/25/2025 9:48 AM EDT Impressions 02/25/2025 9:56 AM EDT Since 02/05/2024: 1. Unchanged mild prominence of the common bile duct, likely related to postcholecystectomy reservoir state. 2. Unchanged punctate cystic lesion in the pancreatic tail, likely a side branch intraductal papillary mucinous neoplasm (IPMN). No suspicious features. Narrative 02/25/2025 9:56 AM EDT MRI CHOLANGIOPANCREATOGRAPHY (MRCP) WITH AND WITHOUT CONTRAST Referring clinician's provided indication for this examination in Epic: Outside Radiology Order; nausea TECHNIQUE: Multiplanar MR imaging of the abdomen was performed using T1, T2, fat saturated, and diffusion weighted techniques. 2D and 3D MRCP sequences were performed. Dynamic multiphase imaging was also performed after administration of an intravenous gadolinium contrast agent. COMPARISON: MRI CHOLANGIOPANCREATOGRAPHY (MRCP) WITH AND WITHOUT CONTRAST FINDINGS: Lower chest: No pleural effusions. Unchanged right pericardial cyst measuring approximately 4.2 cm. Liver: No global parenchymal signal abnormality. No suspicious focal lesions. Biliary: Cholecystectomy. Unchanged mild prominence of the common bile duct measuring up to 10 mm, likely related to postcholecystectomy reservoir state. Spleen: No splenomegaly or focal lesions. Pancreas: No solid masses or ductal dilatation. Unchanged 2 mm cystic lesion in the tail (4:15). Adrenal glands: No nodules. Kidneys/ureters: No solid masses or hydronephrosis. Bowel: Gastric bypass. No dilation or wall thickening. Peritoneum/retroperitoneum: No mass or fluid. Lymph nodes: No lymphadenopathy. Vessels: No abdominal aortic aneurysm. Patent portal vein. Bones/soft tissues: No marrow replacing lesions. Procedure Note Shakir Lemon DO, MPH - 02/25/2025 MRI CHOLANGIOPANCREATOGRAPHY (MRCP) WITH AND WITHOUT CONTRAST Referring clinician's provided indication for this examination in [facility]:Outside Radiology Order; nausea TECHNIQUE: Multiplanar MR imaging of the abdomen was performed using T1,T2, fat saturated, and diffusion weighted techniques. 2D and 3D MRCPsequences were performed. Dynamic multiphase imaging was also performedafter administration of an intravenous gadolinium contrast agent. COMPARISON: MRI CHOLANGIOPANCREATOGRAPHY (MRCP) WITH AND WITHOUT [id number] FINDINGS: Lower chest: No pleural effusions. Unchanged right pericardial cystmeasuring approximately 4.2 cm. Liver: No global parenchymal signal abnormality. No suspicious focallesions. Biliary: Cholecystectomy. Unchanged mild prominence of the common bileduct measuring up to 10 mm, likely related to postcholecystectomyreservoir state. Spleen: No splenomegaly or focal lesions. Pancreas: No solid masses or ductal dilatation. Unchanged 2 mm cysticlesion in the tail (4:15). Adrenal glands: No nodules. Kidneys/ureters: No solid masses or hydronephrosis. Bowel: Gastric bypass. No dilation or wall thickening. Peritoneum/retroperitoneum: No mass or fluid. Lymph nodes: No lymphadenopathy. Vessels: No abdominal aortic aneurysm. Patent portal vein. Bones/soft tissues: No marrow replacing lesions. IMPRESSION: Since 02/05/2024: 1. Unchanged mild prominence of the common bile duct, likely related topostcholecystectomy reservoir state. 2. Unchanged punctate cystic lesion in the pancreatic tail, likely a sidebranch intraductal papillary mucinous neoplasm (IPMN). No suspiciousfeatures. us Ashley Vega CNP IM MR ABDOMEN Final Resu lt * ENDOSCOPY PROCEDURE (01/16/2025 12:25 PM EDT) Narrative Transcriptions Aurelia Florence MD - 01/16/2025 12:25 PM EDT [facility] Patient Name: Caio Weldon Attending MD:: AURELIA FLORENCE MD, Procedure Date: 01/16/2025 12:25 PM Date of : 1965 Age: 59 Admit Type: Outpatient Gender: Female Room: [place] [address] Referring MD: Shashi Farrell MD Exam Type: Upper GI endoscopy Indications: Abdominal pain in the right upper quadrant,Heartburn Medications: Monitored Anesthesia Care Procedure: Informed consent was obtained from the patientafter discussion of the indications, limitations, alternatives, benefits, and risks of the procedure. Risks specifically discussed include but are not limited to medication reactions, missed lesions, bleeding, perforation, or the need for emergent surgery. Throughout the procedure, the patient's blood pressure, pulse, end-tidal CO2, and oxygensaturations were monitored continuously. The Olympus gastroscope [id number] #[id number] was introduced through the mouth, and advanced to the jejunum. The upper GI endoscopy was accomplished without difficulty. The patient tolerated the procedurewell. Complications: No immediate complications. Estimated blood loss:None. Findings: The examined esophagus was normal. The gastroesophageal flap valve was visualized endoscopically and classified as Hill Grade II(fold present, opens with respiration). Esophagogastric landmarks were identified: the gastroesophageal junction was found at 38 cm fromthe incisors. The Z-line was regular and was found at the gastroesophageal junction. This was biopsied with a cold forceps for histology. Wide AreaTransepithelial Sampling (WATS-3D Gilman Biopsy) was performed for histology and samples sent for Computer-Assisted 3-Dimensional analysis. Evidence of a gastric bypass was found. A gastric pouch with a normal size was found. The staple line appeared intact. The gastrojejunal anastomosis was characterized by healthy appearing mucosa and an intact staple line and was moderately dilated toabout 3cm. This was traversed. The [id number] limbwas characterized by healthy appearing mucosa. This was biopsied with a cold forceps for histology. The examined jejunum was normal. This was biopsied with a cold forceps for histology. Impression: - Normal esophagus. - Gastroesophageal flap valve classified as HillGrade II (fold present, opens with respiration). - Esophagogastric landmarks identified. - Z-line regular, at the gastroesophageal junction. Biopsied. WATS-3D brush biopsy specimensobtained. - Gastric bypass with a normal-sized pouch andintact staple line. Gastrojejunal anastomosischaracterized by healthy appearing mucosa and an intact stapleline. Biopsied. - Normal examined jejunum. Biopsied. Recommendation: - Patient has a contact number available for emergencies. The signsand symptoms of potential delayed complications were discussed with the patient. Return to normal activities tomorrow. Written discharge instructions were provided to the patient. - Await pathology results. - Return to GI office as previously scheduled. Aurelia Florence AURELIA FLORENCE MD 01/16/2025 12:47:28 PM This report has been signed electronically. Number of Addenda: 0 Note Initiated On: 01/16/2025 12:25 PM Procedure Code(s): --- Professional --- 81215, Esophagogastroduodenoscopy, flexible, transoral; with biopsy, single or multiple --- Technical --- 09859, Esophagogastroduodenoscopy, flexible, transoral; with biopsy, single or multiple CPT copyright 2021 [employer]. All rights reserved. The codes documented in this report are preliminary and upon photographic colorist reviewmay be revised to meet current compliance requirements. Procedure Date: 01/16/2025 12:25:[address] [place] [address] [id number] us Shashi Farrell MD GI PROCEDURE ORDERABLES Fi nal Result * Anatomic Pathology (01/16/2025 12:00 AM EDT) Result - External See Scanned Results SEE NARRATIVE 01/16/2025 01/16/2025 1:2 6 PM EDT Narrative SEE NARRATIVE - 01/23/2025 12:40 [place] [address] Cyber Security Instructor: Esteban Hernandez MD Surgical Pathology Report FINAL PATHOLOGIC DIAGNOSIS: A. JEJUNUM, BIOPSY: No pathologic abnormalities. B. STOMACH POUCH, BIOPSY: No pathologic abnormalities. C. GASTROESOPHAGEAL JUNCTION AT 38 CM, BIOPSY: No pathologic abnormalities. Electronically Signed Out By Ashley Palma MD By his/her signature above, the pathologist listed as making the Final Diagnosis certifies that he/she has personally reviewed this case and confirmed or corrected the diagnosis. PROCEDURES/ADDENDA ADDENDUM Ordered Date: 01/23/2025 SEE SEPARATE WATS 3D HISTOCYTOLOGY REPORT (CASE #[id number]) PERFORMED AT [employer] [employer]. [address] [place] [address] CLINICAL HISTORY GERD without esophagitis, right upper quadrant pain, nausea SPECIMENS SUBMITTED: A: JEJUNUM, BIOPSY B: STOMACH POUCH, BIOPSY C: GASTROESOPHAGEAL JUNCTION AT 38 CM, BIOPSY GROSS DESCRIPTION A. JEJUNUM, BIOPSY: Received in formalin are 2 pieces of patricio soft tissue, each of which measures 0.2 cm in greatest dimension. Totally submitted in block A2. B. STOMACH POUCH, BIOPSY: Received in formalin is a single piece of patricio soft tissue which measures 0.2 cm in greatest dimension. Totally submitted in block B1. C. GASTROESOPHAGEAL JUNCTION AT 38 CM, BIOPSY: Received in formalin are 2 pieces of patricio soft tissue which measure 0.1 and 0.2 cm in greatest dimension. Totally submitted in block C1. DN 01/16/2025 Grossing Staff: MARGARITA Patient Name: CAIO WELDON : 1965 (Age: 59) Sex: F Institution: [facility] Location: [facility] Date of Operation: 01/16/2025 Date of Reported: 01/17/2025 14:20 Results To: Aurelia Farrell MD, POST-BA, BA us Aurelia Florence MD PATHOLOGY ORDERABLES Edited R esult - Final SEE NARRATIVE * BD DXA AXIAL (SPINE) WITH HIP (12/26/2024 10:20 AM EDT) Anatomical Region Laterality Modality Bone Density Bone Density 12/26/2024 10:1 3 AM EDT Impressions 12/27/2024 6:03 PM EDT Interpretation: Normal bone mineral density. Narrative 12/27/2024 6:03 PM EDT Referred By: LINDA MORALES Indications: Postmenopausal Scanner: bizsol A with serial# of [id number] located at [facility] Bone Density Scan (DXA) 12/26/24 Details of prior DXA scans are available by clicking View Full Report BMD T- Z- Skeletal Site gm/cm2 score score BMD Change Since Prior Scan ------ ----- ----- PA Spine (L1-L4) 1.158 1.00 2.50 N/A Total Hip (Left) 0.996 0.40 1.40 N/A Femoral Neck (Left) 0.812 -0.30 1.00 N/A Total Hip (Right) 0.998 0.50 1.50 N/A Femoral Neck (Right) 0.801 -0.40 0.90 N/A ------ ----- ----- * Denotes significant change when >= 0.022 g/cm2 for the spine, 0.027 g/cm2 for the total hip, 0.029 g/cm2 for the femoral neck. Interpretation: Normal bone mineral density. Technical Quality: Imaging of all sites was of adequate quality. FRAX: A FRAX(r) score is not provided because the patient has normal bone density. Reviewed By: Yarely Glez MD on 12/27/2024 18:03:13 Additional Information: -World Health Organization criteria classify adults based on lowest T-score at PA spine, hip or forearm: Normal (T-score >= -1.0), Osteopenia (T-score between -1 and -2.5), or Osteoporosis (T-score <= -2.5). At [facility], T-scores are compared to peak bone density of a young white gender matched reference population. - For premenopausal women and men under the age of 50, Z-scores (comparison to age, gender, and ethnicity matched reference population) are used: Above expected range for age (Z-score >= 2.0), Within expected range of age (Z-score 1.9 to -1.9), or Below expected range for age (Z-score <= -2.0). - The Bone Health and Osteoporosis Foundation recommends that treatment be considered in men aged more than 50 years and in postmenopausal women with ANY of the following: Prior hip or vertebral fractures; T-score of <= -2.5 at the PA spine or hip; or 10 year fracture probability by FRAX of >= 3% for the hip or >= 20% for major osteoporotic fracture. - The FRAX algorithm (https://www.jim.ac.uk/FRAX/tool.aspx) is designed to predict 10-year fracture risk in treatment-naive adults between the ages of 40 and 90. It is not intended to be used in those receiving pharmacologic osteoporosis treatment. - The TBS is derived from the texture of the DXA spine image and has been shown to be related to bone microarchitecture and fracture risk. This data provides information independent of BMD value. It adds to fracture risk assessment with a FRAX adjusted for TBS score. If your patient had a TBS and qualified for a FRAX score, the reported FRAX score has been adjusted for TBS. TBS Score Interpretation 1.350 and greater Normal bone microarchitecture 1.200 to 1.350 Partially degraded bone microarchitecture 1.200 and less Degraded bone microarchitecture - Including race/ethnicity in the generation of T- or Z-scores or in the FRAX calculation is complicated, and currently undergoing active review to ensure that we can give patients the best information on their risk of fracture. - Some prior studies may not be compatible with our comparison software. - Click on View Full Report to see subsequent pages with images and prior bone density results. Procedure Note Yarely Glez MD - 12/27/2024 Referred By: LINDA MORALES Indications: Postmenopausal Scanner: bizsol A with serial# of [id number] located at [facility] Bone Density Scan (DXA) 12/26/24 Details of prior DXA scans are available by clicking View Full Report BMD T- Z- Skeletal Site gm/cm2 score score BMD Change Since Prior Scan ------ ----- PA Spine (L1-L4) 1.158 1.00 2.50 N/A Total Hip (Left) 0.996 0.40 1.40 N/A Femoral Neck (Left) 0.812 -0.30 1.00 N/A Total Hip (Right) 0.998 0.50 1.50 N/A Femoral Neck (Right) 0.801 -0.40 0.90 N/A ------ ----- * Denotes significant change when >= 0.022 g/cm2 for the spine, 0.027g/cm2 for the total hip, 0.029 g/cm2 for the femoral neck. Interpretation: Normal bone mineral density. Technical Quality: Imaging of all sites was of adequate quality. FRAX: A FRAX(r) score is not provided because the patient has normal bone density. Reviewed By: Yarely Glez MD on 12/27/2024 18:03:13 Additional Information: -World Health Organization criteria classify adults based on lowestT-score at PA spine, hip or forearm: Normal (T-score >= -1.0), Osteopenia (T-score between -1 and -2.5), or Osteoporosis (T-score <= -2.5). At [facility], T-scores are compared to peak bone density of a young white gender matched reference population. - For premenopausal women and men under the age of 50, Z-scores(comparison to age, gender, and ethnicity matched reference population) are used:Above expected range for age (Z-score >= 2.0), Within expected range of age (Z-score 1.9 to -1.9), or Below expected range for age (Z-score <= -2.0). - The Bone Health and Osteoporosis Foundation recommends that treatment be considered in men aged more than 50 years and in postmenopausal women with ANY of the following: Prior hip or vertebral fractures; T-score of <= -2.5 at the PA spine or hip; or 10 year fracture probability by FRAX of >= 3%for the hip or >= 20% for major osteoporotic fracture. - The FRAX algorithm (https://www.jim.ac.uk/FRAX/tool.aspx) is designed to predict 10-year fracture risk in treatment-naive adultsbetween the ages of 40 and 90. It is not intended to be used in those receiving pharmacologic osteoporosis treatment. - The TBS is derived from the texture of the DXA spine image and has been shown to be related to bone microarchitecture and fracture risk. This data provides information independent of BMD value. It adds to fracture risk assessment with a FRAX adjusted for TBS score. If your patient had a TBSand qualified for a FRAX score, the reported FRAX score has been adjusted for TBS. TBS Score Interpretation 1.350 and greater Normal bone microarchitecture 1.200 to 1.350 Partially degraded bone microarchitecture 1.200 and less Degraded bone microarchitecture - Including race/ethnicity in the generation of T- or Z-scores or in the FRAX calculation is complicated, and currently undergoing active review to ensure that we can give patients the best information on their risk of fracture. - Some prior studies may not be compatible with our comparison software. - Click on View Full Report to see subsequent pages with images andprior bone density results. IMPRESSION: Interpretation: Normal bone mineral density. Linda Morales NP IMG BD BONE DENSI TY DEXA Final Result * Pap Smear (03/15/2021 12:00 AM EDT) 03/15/2021 03/16/2021 8:5 8 AM EDT Narrative SEE NARRATIVE - 03/26/2021 10:56 AM EDT [address] [address] Cyber Security Instructor: Carmencita Ruiz MD HAND MOLDER AND CASTER Cytology Report FINAL DIAGNOSIS A. PAP SMEAR (SUREPATH) CE: SPECIMEN ADEQUACY: Satisfactory for evaluation; transformation zone present. INTERPRETATION: NEGATIVE FOR INTRAEPITHELIAL LESION OR MALIGNANCY. Electronically Signed Out By: MARTIN Marie(ASCP) MARTIN Deal(ASCP) The Pap test is a screening test primarily for squamous cancers and precursors and has associated false-negative and false-positive results. New technologies such as liquid-based preparations may decrease but will not eliminate all false-negative results. Regular sampling and follow-up of unexplained clinical signs and symptoms are recommended to minimize false negative results. PROCEDURES/ADDENDA HPV Testing (Requested) Ordered Date: 03/16/2021 A. PAP SMEAR (SUREPATH) CE: Human Papilloma Virus Test Negative for high-risk human papillomavirus types 16, 18, 45 and the Other high risk probe set (Includes 31, 33, 35, 39, 51, 52, 56, 58, 59, 66, 68) by 3FLOZ Onclarity HR-HPV analysis. Clinical correlation is advised. This HPV test was performed at [facility], [address] [place] [address]. This test has been FDA approved for SurePath cervical cytology specimens. The accuracy and precision of this test for all other specimen sources has been verified in the Cytopathology Laboratory of the [facility] and has not been cleared or approved by the U.S. Food and Drug Administration. Clinical correlation is advised. CLINICAL HISTORY Date of Last Menstrual Period: Not Provided Menstrual History: Unknown Other Clinical Conditions: Screening Pap SPECIMEN SOURCE A: PAP SMEAR (SUREPATH) CE Patient Name: CAIO WELDON : 1965 (Age: 56) Sex: F Institution: [facility] Location: [facility] Date of Collection: 03/15/2021 Date of Reported: 03/26/2021 10:56 Results to: Linda Morales NP Linda Morales NP CYTOLOGY ORDERABL ES Final Result SEE NARRATIVE * (ABNORMAL) Hemoglobin A1c (03/26/2020 9:53 AM EDT) HEMOGLOBIN A1C 8.8(H) 4.3 - 5.8 % [facility] Blood 03/26/2020 9:53 AM EDT 03/26/2020 10:00 AM EDT us José Mabry MD LAB BLOOD ORDERABLES Final Re sult [facility] [address] [place] [address] * BI MAMMOGRAM SCREENING WITH TOMOSYNTHESIS WITH CAD (BILATERAL) (06/25/2019 8:52 AM EST) Anatomical Region Laterality Modality Breast Left, Breast Right, Breast Bilateral Bila teral Mammography 06/25/2019 9:36 AM EST Impressions 06/25/2019 9:40 AM EST No mammographic evidence of malignancy. BI-RADS CATEGORY: 2 - Benign finding. DENSITY: There are scattered fibroglandular densities. POS - CDHMAMA Narrative 06/25/2019 9:40 AM EST Standard digital full-field 2-D C view and two-plane tomographic imaging was performed and compared with multiple prior studies, most recently 08/08/2017, with utilization of computer-aided detection. The breasts are composed of scattered fibroglandular densities. The stromal markings are essentially unchanged in overall appearance and distribution. No dominant spiculated mass, suspicious clustered microcalcifications, or focal zone of pathologic skin thickening or retraction are noted to have arisen in the interim. Chronic intramammary lymph nodes again seen in the upper outer quadrant on the right. Procedure Note Arabella Lepe MD - 06/25/2019 Standard digital full-field 2-D C view and two-plane tomographic imagingwas performed and compared with multiple prior studies, most /27/2018, with utilization of computer-aided detection. The breasts are composed of scattered fibroglandular densities. Thestromal markings are essentially unchanged in overall appearance anddistribution. No dominant spiculated mass, suspicious clusteredmicrocalcifications, or focal zone of pathologic skin thickening orretraction are noted to have arisen in the interim. Chronic intramammarylymph nodes again seen in the upper outer quadrant on the right. IMPRESSION: No mammographic evidence of malignancy. BI-RADS CATEGORY: 2 - Benign finding. DENSITY: There are scattered fibroglandular densities. POS - CDHMAMA us Meaghan HERNANDEZ IMG MG EXAMS Final Resul t * Microalbumin/creatinine ratio, random urine (01/19/2018 8:38 AM EDT) URINE MICROALBUMIN 0.6 0 - 2.3 mg/dL [facility] URINE CREATININE 184 mg/dL [facility] MICROALB/CRE RATIO NOT CALCULATED 0 - 20 mg/g Cre [facility] Comment:due to Microalbumin <1.2 Urine (Urine) 01/19/2018 8:3 8 AM EDT 01/19/2018 8:43 AM EDT us Khadra Hawley Kory HERNANDEZ URINE ORDERABLES Carey awilda Result [address] [address] * ENDOSCOPY, COLON (09/06/2017 7:17 AM EDT) Narrative Transcriptions David Voss MD - 09/06/2017 7:17 AM EDT Patient Name: Caio Weldon Attending MD:: DAVID VOSS MD Procedure Date: 09/06/2017 7:17 AM Date of : 1965 Age: 52 Admit Type: Outpatient Gender: Female Room: [place] [address] Referring MD: Lenora Castro MD Exam Type: Colonoscopy Indications: Chronic diarrhea Medications: Sedation Required Anesthesia Staff Assistance Procedure: Informed consent was obtained from the patient after discussion of the indications, limitations,alternatives, benefits, and risks of the procedure. Risksspecifically discussed include but are not limited to medication reactions, missed lesions, bleeding, perforation, orthe need for emergent surgery. Throughout the procedure, the patient's blood pressure, pulse, end-tidal CO2, and oxygen saturations were monitored continuously. The Olympus pediatric variable colonoscope [id number]-[id number]#1 was introduced through the anus and advanced to the terminal ileum. The colonoscopy was performed without difficulty. The patient tolerated the procedure well.The quality of the bowel preparation was good. Complications: No immediate complications. Estimated blood loss:Minimal. Findings: The perianal and digital rectal examinations werenormal. Multiple small-mouthed diverticula were found in the sigmoid colon and descending colon. Internal hemorrhoids were found during retroflexion.The hemorrhoids were mild. The exam was otherwise normal throughout the examined colon. Biopsies were taken with a cold forceps forhistology. The terminal ileum appeared normal. Impression: - Diverticulosis in the sigmoid colon and in the descending colon. - Internal hemorrhoids. - Biopsies were taken with a cold forceps forhistology. Recommendation: - Discharge patient to home (ambulatory). - Await pathology results. - Return to GI office as previously scheduled. DAVID VOSS MD 09/06/2017 8:49:49 AM This report has been signed electronically. Number of Addenda: 0 Note Initiated On: 09/06/2017 7:17 AM Procedure Code(s): --- Professional --- 94265, Colonoscopy, flexible; with biopsy, single or multiple --- Technical --- 27521, Colonoscopy, flexible; with biopsy, single or multiple Diagnosis Code(s): --- Professional --- K64.8, Other hemorrhoids K52.9, Noninfective gastroenteritis and colitis, unspecified K57.30, Diverticulosis of large intestine without perforation orabscess without bleeding --- Technical --- K64.8, Other hemorrhoids K52.9, Noninfective gastroenteritis and colitis, unspecified K57.30, Diverticulosis of large intestine without perforation orabscess without bleeding CPT copyright 2016 [employer]. All rights reserved. The codes documented in this report are preliminary and upon photographic colorist reviewmay be revised to meet current compliance requirements. 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 05/19/2017 4:39 PM * Full Code (Latest Code Status on File) Date Activated Date Inactivated Comments 04/11/2023 6:26 AM Question Answer Comments Code Status Confirmed With: Other (specify below ) Code Discussion Comments: periop * Full Code (Confirmed) Date Activated Date Inactivated Comments 12/08/2018 3:08 PM 12/09/2018 4:11 PM Question Answer Comments Code Status Confirmed With: Patient * Full Code (Confirmed) Date Activated Date Inactivated Comments 05/15/2017 9:56 PM 05/18/2017 8:55 PM Question Answer Comments Code Discussion Comments: Patient Care Teams Promotional Marketing Analyst Relationship Specialty Start Date End Date Shashi Farrell MD [address] [place] [id number] [email or web address] PCP - General Internal Medicine 10/14/21 Additional Source Comments The information contained in this document represents components of the legal health record. It is not the complete legal health record.[facility]
--- OUTSIDE RECORDS SUMMARY | 2025-03-12 16:38 | XMS_ITS | Encounter Summary ---
Author Organization [facility] Address [facility] [address] [place] [phone] Phone Care Team Providers Care Gaming Surveillance Observer Name Role Phone Shashi Farrell MD Primary Care Provider [phone]- [phone] Encounter Details Date Type Department Care Team (Late Contact Info) Description 11/25/2021 Ancillary Orders [facility] Rheumatology [address] [place] [address] Ava Gomez PA [address] [place] [id number] Right knee pain, unspecified chronicity Social History Tobacco Use Types Packs/Day Years Used Date Smoking Tobacco: Former Cigarettes Smokeless Tobacco: Never Comments:as a teenager, >35 years ago Alcohol Use Standard Drinks/Week Comments No 0 (1 standard drink = 0.6 oz pur e alcohol) Comments No Sex and Gender Information Value Date Recorded Sex Assigned at Female 05/24/2024 12:21 PM EST Legal Sex Female 3:26 PM EST Gender Identity Female 05/24/2024 12:21 PM EST Sexual Orientation Don't know 05/24/2024 12 :21 PM EST 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, [employer]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 Not on savita e documented as of this encounter Plan of Treatment Upcoming Encounters Date Type Department Care Team (Late st Contact Info) Description 06/18/2025 10:30 AM EST Office Visit [facility] [address] [place] [address] Unknown, Unknown, Ashley Vernon WELLNESS DIRECTOR [address] [place] [address] [email or web address] documented as of this encounter Results * XR Knee Standing (Bilateral, Single View Only) (11/25/2021 1:54 PM EDT) Anatomical Region Laterality Modality Knee Right, Knee Bilateral Compu pablo Radiography 11/26/2021 12:3 5 PM EDT Impressions 11/26/2021 12:36 PM EDT Minimal medial compartment degenerative changes. Narrative 11/26/2021 12:36 PM EDT XR KNEE STANDING (BILATERAL, SINGLE VIEW ONLY) COMPARISON: None FINDINGS: Left Knee: Minimal medial compartment joint space loss Right Knee: Minimal medial compartment joint space loss. Procedure Note Sarbjit Brand MD - 11/26/2021 XR KNEE STANDING (BILATERAL, SINGLE VIEW ONLY) COMPARISON: None FINDINGS: Left Knee: Minimal medial compartment joint space loss Right Knee: Minimal medial compartment joint space loss. IMPRESSION: Minimal medial compartment degenerative changes. Ava HERNANDEZ IMG XR LOWER EXTREMITY F inal Result documented in this encounter Visit Diagnoses Diagnosis Right knee pain, unspecified chronicity Right knee pain, unspecified chronicity documented in this encounter Care Teams Gaming Surveillance Observer Relationship Specialty Start Date End Date Shashi Farrell MD [address] [place] [id number] [email or web address] PCP - General Internal Medicine 10/14/21 documented as of this encounter Additional Source Comments The information contained in this document represents components of the legal health record. It is not the complete legal health record.[facility]
--- OUTSIDE RECORDS SUMMARY | 2025-03-12 16:38 | XMS_ITS | Encounter Summary ---
Author Organization [facility] Address [address] [place] [address] Phone Care Team Providers Care Progressive Care Manager Name Role Phone Shashi Farrell MD Primary Care Provider [phone]- [phone] Encounter Details Date Type Department Care Team ([facility] Contact Info) Description 04/11/2023 Procedure Pass OR Admitting Dept - Virtual Department [address] [place] [address] Social History Tobacco Use Types Packs/Day Years Used Date Smoking Tobacco: Former Cigarettes - 1990 Smokeless Tobacco: Never Comments:as a teenager, >34 [...] as food, clothing, or medical care? No 04/11/2023 In the past 12 months have y ou been in a relationship with a person who hurts, threatens, or tries to control you? No 04/11/2023 Are you denied basic needs s uch as food, clothing, or medical care? No 04/11/2023 In the past 12 months have y ou been in a relationship with a person who hurts, threatens, or tries to control you? 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 Not on savita e documented as of this encounter Plan of Treatment Upcoming Encounters Date Type Department Care Team (Late st Contact Info) Description 06/18/2025 10:30 AM EST Office Visit [facility] [address] [place] [phone] Unknown, Unknown, Ashley Vernon, DEICER FINISHER [address] [place] [address] [email or web address] documented as of this encounter Visit Diagnoses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documented in this encounter Care Teams Progressive Care Manager Relationship Specialty Start Date End Date Shashi Farrell MD [address] [place] [phone] PCP - General Internal Medicine 10/14/21 documented as of this encounter Additional Source Comments The information contained in this document represents components of the legal health record. It is not the complete legal health record.[facility]
--- OUTSIDE RECORDS SUMMARY | 2025-03-12 16:38 | XMS_ITS | Encounter Summary ---
Author Organization [facility] Address [address] [place] [address] [place] [address] Phone Care Team Providers Care Nc Machinist Name Role Phone Shashi Farrell MD Primary Care Provider [phone] Reason for Referral * MRI/CAT Scan - Closed Specialty Diagnoses / Procedures Referred By Josué zavala Referred To Contact Radiology Diagnoses Aneurysm White matter abnormality on MRI of brain Numbness Procedures MRI Angio Brain CHG MR ANGIO, HEAD Luis Hsu MD Phone: tel: fax: mailto:[email or web address] Referral ID Status Reason Start Date Expiration Date Visits Re quested Visits Authorized [id number] Closed 11/10/2022 12/10/2022 1 1 * MRI/CAT Scan - Closed Specialty Diagnoses / Procedures Referred By Josué zavala Referred To Contact Radiology Diagnoses Aneurysm White matter abnormality on MRI of brain Numbness Procedures MRI Brain CHG MRI BRAIN Luis Hsu MD Phone: tel: fax: mailto: Referral ID Status Reason Start Date Expiration Date Visits Re quested Visits Authorized [id number] Closed 11/10/2022 12/10/2022 1 1 Encounter Details Date Type Department Care Team (Latest Contact Info) Description 11/10/2022 Transcribe Orders Virtual Department [address] [place] [address] Luis Hsu MD [address] [place] [address], [address] [place] [address] [email or web address] Aneurysm (Primary Dx); White matter abnormality on MRI of brain; Numbness Social History Tobacco Use Types Packs/Day Years Used Date Smoking Tobacco: Former Cigarettes 1990 Smokeless Tobacco: Never Comments:as a teenager, [...] with a working camera?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 Not on savita e documented as of this encounter Plan of Treatment Upcoming Encounters Date Type Department Care Team (Late st Contact Info) Description 06/18/2025 10:30 AM EST Office Visit [facility] [address] [place] [address] Unknown, Unknown, Ashley Vernon, AUTOMATION ARCHITECT [address] [place] [address] documented as of this encounter Results * MRA HEAD WITHOUT CONTRAST (11/16/2022 8:58 AM EDT) Anatomical Region Laterality Modality Head Magnetic Resonan ce 11/16/2022 9:15 PM EDT Impressions 11/17/2022 6:02 AM EDT 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 No evidence of new or recurrent intracranial aneurysm. No intracranial mass, hemorrhage, or other cause for the reported symptoms identified. Narrative 11/17/2022 6:02 AM EDT MRI BRAIN WITHOUT CONTRAST, MRI ANGIO BRAIN WITHOUT CONTRAST TECHNIQUE: MRI BRAIN WITHOUT CONTRAST, MRI ANGIO BRAIN WITHOUT CONTRAST Multi-sequence, multi-planar MRI of the brain was performed without intravenous contrast. MRA of the head was performed utilizing [id number]-vs-[id number] technique (no gadolinium). Maximal intensity projection 3D angiographic reformatted images were performed. COMPARISON: Brain MRI 05/12/2021. FINDINGS: Brain Parenchyma: There is mild scattered T2/FLAIR hyperintensity in the periventricular and deep white matter which is nonspecific and can be seen in the setting of chronic small vessel disease. No evidence of acute infarct, mass lesion, or hemorrhage. Ventricular System and Extra-Axial Spaces: Normal. No evidence of midline shift or hydrocephalus. Extracranial Structures: Arterial flow voids in the skull base are present. Bilateral lens replacements. MRA HEAD: Anterior Circulation: Susceptibility effect adjacent to the paraclinoid right internal carotid artery related to prior aneurysm coiling; no evidence of recurrent aneurysm. Normal flow within the intracranial internal carotid arteries, anterior cerebral arteries and the middle cerebral arteries. No severe stenosis, occlusion, aneurysm or arteriovenous malformation. Posterior Circulation: Normal. Normal flow within the intracranial vertebral arteries, basilar artery and posterior cerebral arteries. No severe stenosis, occlusion, aneurysm or arteriovenous malformation. Procedure Note Kushal Salgado MD - 11/17/2022 MRI BRAIN WITHOUT CONTRAST, MRI ANGIO BRAIN WITHOUT CONTRAST TECHNIQUE: MRI BRAIN WITHOUT CONTRAST, MRI ANGIO BRAIN WITHOUT CONTRAST Multi-sequence, multi-planar MRI of the brain was performed withoutintravenous contrast. MRA of the head was performed utilizing tgio-ar-[id number] technique (nogadolinium). Maximal intensity projection 3D angiographic reformattedimages were performed. COMPARISON: Brain MRI 05/12/2021. FINDINGS: Brain Parenchyma: There is mild scattered T2/FLAIR hyperintensity in theperiventricular and deep white matter which is nonspecific and can be seenin the setting of chronic small vessel disease. No evidence of acuteinfarct, mass lesion, or hemorrhage. Ventricular System and Extra-Axial Spaces: Normal. No evidence of midlineshift or hydrocephalus. Extracranial Structures: Arterial flow voids in the skull base arepresent. Bilateral lens replacements. MRA HEAD: Anterior Circulation: Susceptibility effect adjacent to the paraclinoidright internal carotid artery related to prior aneurysm coiling; noevidence of recurrent aneurysm. Normal flow within the intracranialinternal carotid arteries, anterior cerebral arteries and the middlecerebral arteries. No severe stenosis, occlusion, aneurysm orarteriovenous malformation. Posterior Circulation: Normal. Normal flow within the intracranialvertebral arteries, basilar artery and posterior cerebral arteries. Nosevere stenosis, occlusion, aneurysm or arteriovenous malformation. 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 Noevidence of new or recurrent intracranial aneurysm. No intracranial mass, hemorrhage, or other cause for the reported symptomsidentified. 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 No evidence of new or recurrent intracranial aneurysm. No intracranial mass, hemorrhage, or other cause for the reported symptoms identified. Narrative 11/17/2022 6:02 AM EDT MRI BRAIN WITHOUT CONTRAST, MRI ANGIO BRAIN WITHOUT CONTRAST TECHNIQUE: MRI BRAIN WITHOUT CONTRAST, MRI ANGIO BRAIN WITHOUT CONTRAST Multi-sequence, multi-planar MRI of the brain was performed without intravenous contrast. MRA of the head was performed utilizing [id number]-[id number] technique (no gadolinium). Maximal intensity projection 3D angiographic reformatted images were performed. COMPARISON: Brain MRI 05/12/2021. FINDINGS: Brain Parenchyma: There is mild scattered T2/FLAIR hyperintensity in the periventricular and deep white matter which is nonspecific and can be seen in the setting of chronic small vessel disease. No evidence of acute infarct, mass lesion, or hemorrhage. Ventricular System and Extra-Axial Spaces: Normal. No evidence of midline shift or hydrocephalus. Extracranial Structures: Arterial flow voids in the skull base are present. Bilateral lens replacements. MRA HEAD: Anterior Circulation: Susceptibility effect adjacent to the paraclinoid right internal carotid artery related to prior aneurysm coiling; no evidence of recurrent aneurysm. Normal flow within the intracranial internal carotid arteries, anterior cerebral arteries and the middle cerebral arteries. No severe stenosis, occlusion, aneurysm or arteriovenous malformation. Posterior Circulation: Normal. Normal flow within the intracranial vertebral arteries, basilar artery and posterior cerebral arteries. No severe stenosis, occlusion, aneurysm or arteriovenous malformation. Procedure Note Kushal Salgado MD - 11/17/2022 MRI BRAIN WITHOUT CONTRAST, MRI ANGIO BRAIN WITHOUT CONTRAST TECHNIQUE: MRI BRAIN WITHOUT CONTRAST, MRI ANGIO BRAIN WITHOUT CONTRAST Multi-sequence, multi-planar MRI of the brain was performed withoutintravenous contrast. MRA of the head was performed utilizing utjp-mn-mgcroo technique ([employer]view[employer]). Maximal intensity projection 3D angiographic reformattedimages were performed. COMPARISON: Brain MRI 05/12/2021. FINDINGS: Brain Parenchyma: There is mild scattered T2/FLAIR hyperintensity in theperiventricular and deep white matter which is nonspecific and can be seenin the setting of chronic small vessel disease. No evidence of acuteinfarct, mass lesion, or hemorrhage. Ventricular System and Extra-Axial Spaces: Normal. No evidence of midlineshift or hydrocephalus. Extracranial Structures: Arterial flow voids in the skull base arepresent. Bilateral lens replacements. MRA HEAD: Anterior Circulation: Susceptibility effect adjacent to the paraclinoidright internal carotid artery related to prior aneurysm coiling; noevidence of recurrent aneurysm. Normal flow within the intracranialinternal carotid arteries, anterior cerebral arteries and the middlecerebral arteries. No severe stenosis, occlusion, aneurysm orarteriovenous malformation. Posterior Circulation: Normal. Normal flow within the intracranialvertebral arteries, basilar artery and posterior cerebral arteries. Nosevere stenosis, occlusion, aneurysm or arteriovenous malformation. 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 Noevidence of new or recurrent intracranial aneurysm. No intracranial mass, hemorrhage, or other cause for the reported symptomsidentified. Luis Hsu MD IMG MR HEAD/NECK Final Resul t documented in this encounter Visit Diagnoses Diagnosis Aneurysm- Primary Other aneurysm of unspecified site White matter abnormality on MRI of brain Numbness Disturbance of skin sensation Aneurysm Other aneurysm of unspecified site White matter abnormality on MRI of brain Numbness Disturbance of skin sensation documented in this encounter Care Teams Nc Machinist Relationship Specialty Start Date End Date Shashi Farrell MD [address] [place] [address] [email or web address] PCP - General Internal Medicine 10/14/21 documented as of this encounter Additional Source Comments The information contained in this document represents components of the legal health record. It is not the complete legal health record.[facility]
--- OUTSIDE RECORDS SUMMARY | 2025-03-12 16:38 | XMS_ITS | Encounter Summary ---
Author Organization [facility] Address [address] [place] [address] Phone Care Team Providers Care Senior Grants Officer Name Role Phone Tony Carrillo MD Unavailable Jayson Rucker MD Unavailable Patricia Gutierrez NP Unavailable [phone] Jimmie Martinez MD Unavailable [phone] Chante Anders MD Unavailable [phone] Lenora Castro DO Primary Care Provider [phone] Shashi Farrell MD Primary Care Provider [phone] Encounter Details Date Type Department Care Team (Late st Contact Info) Description 04/16/2020 Procedure Pass [facility], [address] [place] [address] Social History Tobacco Use Types Packs/Day Years [...] 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, [employer]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 Not on savita e documented as of this encounter Plan of Treatment Upcoming Encounters Date Type Department Care Team (Late st Contact Info) Description 06/18/2025 10:30 AM EST Office Visit [facility] [address] [place] [address] Unknown, Unknown, Ashley Vernon, INVOICE CHECKER [address] [place] [address] documented as of this encounter Visit Diagnoses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documented in this encounter Care Teams Senior Grants Officer Relationship Specialty Start Date End Date Lenora Castro DO [address] [place] [address] PCP - General Internal Medicine 11/18/19 10/13/21 Shashi Farrell MD [address] [place] [address] [email or web address] PCP - General Internal Medicine 10/14/21 Tony Carrillo MD [address] [place] [phone] [email or web address] Historical LMR Provider 04/01/17 2 Jayson Rucker MD [address] [place] [address] [email or web address] Historical LMR Provider 04/01/17 06/19/21 Patricia Gutierrez NP [address] [place] [address] Historical LMR Provider 04/01/17 2 Jimmie Martinez MD [address] [place], [place] [address], [place] [address] Historical LMR Provider 04/01/17 06/19/21 Chante Anders MD [address] [place] [address] Orthopedics & Sports Medicine, [place] [address] [email or web address] Historical LMR Provider 04/01/17 06/19/21 documented as of this encounter Additional Source Comments The information contained in this document represents components of the legal health record. It is not the complete legal health record.[facility]
--- OUTSIDE RECORDS SUMMARY | 2025-03-12 16:38 | XMS_ITS | Encounter Summary ---
Author Organization [facility] Address [address] [place] [address] [place] [address] Phone Care Team Providers Care Forms Analysis Manager Name Role Phone Lenora Castro DO Primary Care Provider Tony Carrillo MD Unavailable Jayson Rucker MD Unavailable Patricia Gutierrez NP Unavailable Jimmie Martinez MD Unavailable Chante Anders MD Unavailable [phone] Patricia Gutierrez NP Primary Care Provider [phone] Lenora Castro DO Primary Care Provider [phone] Lenora Castro DO Primary Care Provider [phone] Shashi Farrell MD Primary Care Provider + [phone] Encounter Details Date Type Department Care Team (Late st Contact Info) Description 04/17/2017 Transcribe Orders [facility] [address] [place] [address] [place] [address] Khadra Horn PA [address] [place] [address] [place] [address] Diabetes mellitus without complication (Primary Dx) Social History Tobacco Use Types Packs/Day Years Used Date Smoking Tobacco: Never Assessed Comments Unknown Sex and Gender Information Value Date Recorded Sex Assigned at Female 05/24/2024 12:21 PM EST Legal Sex Female 3:26 PM EST Gender Identity Female 05/24/2024 12:21 PM EST Sexual Orientation Don't know 05/24/2024 12 :21 PM EST documented as of this encounter Plan of Treatment Upcoming Encounters Date Type Department Care Team (Late st Contact Info) Description 06/18/2025 10:30 AM EST Office Visit [facility] [address] [place] [address] Unknown, Unknown, MD Vega, Ashley Wright, PROCEDURE WRITER [address] [place] [address] [email or web address] documented as of this encounter Procedures Procedure Name Priority Date/Time Associated Diagnosis Comments HEMOGLOBIN A1C Routine 04/17/2017 1:20 PM EST Diabetes mellitus without complication documented in this encounter Results * (ABNORMAL) Hemoglobin A1c (04/17/2017 1:20 PM EST) HEMOGLOBIN A1C 8.4(H) 4.3 - 5.8 % [facility] Blood 04/17/2017 1:20 PM EST 04/17/2017 1:22 PM EST Khadra HERNANDEZ LAB BLOOD ORDERABLES Edited Result - Final [facility] [address] [place] [address] documented in this encounter Visit Diagnoses Diagnosis Diabetes mellitus without complication- Primary Type II or unspecified type diabetes mellitus without mention of complication, not stated as uncontrolled documented in this encounter Care Teams Forms Analysis Manager Relationship Specialty Start Date End Date Lenora Castro DO [address] [place] [address] PCP - General Internal Medicine 08/10/16 12/21/17 Patricia Gutierrez NP [address] [place] [address] [place] [address] PCP - General Family Medicine 12/22/17 06/10/19 Lenora Castro DO [address] [place] [address] PCP - General Internal Medicine 06/11/19 11/17/19 Lenora Castro DO [address] [place] [address] PCP - General Internal Medicine 11/18/19 10/13/21 Shashi Farrell MD [address] [place] [address] PCP - General Internal Medicine 10/14/21 Tony Carrillo MD [address] [place] [address] [email or web address] Historical LMR Provider 04/01/17 2 Jayson Rucker MD [address] [place] [address] [email or web address] Historical LMR Provider 04/01/17 06/19/21 Patricia Gutierrez NP [address] [place] [address] [place] [address] Historical LMR Provider 04/01/17 2 Jimmie Martinez MD [address] [place] [address] [address] [place] [address] Historical LMR Provider 04/01/17 06/19/21 Chante Anders MD [address] [place] [address] Orthopedics [facility] Sports Medicine, [place] [address] [email or web address] Historical LMR Provider 04/01/17 06/19/21 documented as of this encounter Additional Source Comments The information contained in this document represents components of the legal health record. It is not the complete legal health record.[facility]
--- OUTSIDE RECORDS SUMMARY | 2025-03-12 16:38 | XMS_ITS | Encounter Summary ---
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 Not on savita e documented as of this encounter Plan of Treatment Upcoming Encounters Date Type Department Care Team (Late Contact Info) Description 06/18/2025 10:30 AM EST Office Visit [facility] [address] [place] [address] Unknown, Unknown, Ashley Vernon, ASSEMBLY LEADER [address] [place] [address] documented as of this encounter Visit Diagnoses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documented in this encounter Care Teams Electrical & Instrumentation Supervisor Relationship Specialty Start Date End Date Shashi Farrell MD [address] [place] [address] [email or web address] PCP - General Internal Medicine 10/14/21 documented as of this encounter Additional Source Comments The information contained in this document represents components of the legal health record. It is not the complete legal health record.[facility]
--- OUTSIDE RECORDS SUMMARY | 2025-03-12 16:38 | XMS_ITS | Encounter Summary ---
Author Organization [facility] Address [address] [place] [address] [place] [address] Phone Care Team Providers Care Retail Stocker Name Role Phone Tony Carrillo MD Unavailable [phone] Jayson Rucker MD Unavailable Patricia Gutierrez NP Unavailable Jimmie Martinez MD Unavailable Chante Anders MD Unavailable Lenora Castro DO Primary Care Provider Lenora Castro DO Primary Care Provider [phone] Shashi Farrell MD Primary Care Provider [phone] Reason for Referral * MRI/CAT Scan - Closed Specialty Diagnoses / Procedures Referred By Josué zavala Referred To Contact Radiology Diagnoses White matter disease Numbness Tremor Double vision Memory loss Procedures MRI Cervical Spine Luis Hsu MD Phone: tel: fax: mailto: Referral ID Status Reason Start Date Expiration Date Visits Re quested Visits Authorized [id number] Closed 08/26/2019 02/22/2020 1 1 Encounter Details Date Type Department Care Team (Latest Contact Info) Description 08/26/2019 Transcribe Orders Virtual Department [address] [place] [phone] Luis Hsu MD [address] [place] [address], [address] [place] [address] 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 Not on savita e documented as of this encounter Plan of Treatment Upcoming Encounters Date Type Department Care Team (Late st Contact Info) Description 06/18/2025 10:30 AM EST Office Visit [facility] Gastro[facility]ology Clinic [address] [place] [address] Unknown, Unknown, Ashley Venron, WEBSPHERE ARCHITECT [address] [place] [address] [email or web address] documented as of this encounter Results * MRI CERVICAL SPINE (BONE) WITH AND WITHOUT CONTRAST (10/31/2019 1:43 PM EDT) Anatomical Region Laterality Modality C-spine Magnetic Resonan ce 10/31/2019 8:34 PM EDT Impressions 10/31/2019 8:48 PM EDT 1. No spinal cord lesions or abnormal cord enhancement. 2. Right thyroid lesion. Correlate with previous thyroid ultrasounds. 3. Moderate neuroforaminal stenosis on the right at C4-C5. POS - [id number] Narrative 10/31/2019 8:48 PM EDT EXAM: MRI CERVICAL SPINE (BONE) WITHOUT AND WITH INTRAVENOUS CONTRAST COMPARISON: Brain MRI on October 02, 2018. CT of the neck on December 08, 2018. TECHNIQUE: Exam performed on a 1.5 Geno high-field MRI scanner. Sagittal T1, T2 and STIR, axial T2* gradient echo and 3-D bright fluid sequences were obtained as well as sagittal T1 post-gadolinium sequences. Post contrast images were obtained following intravenous administration of 23.5 cc of gadolinium Dotarem. HISTORY: WHITE MATTER CHANGES, NUMBNESS, TREMOR, DOUBLE VISION, MEMORY LOSS FINDINGS: Artifacts partially limits evaluation. ALIGNMENT: Anatomic alignment is maintained. No anterior or posterior subluxations. VERTEBRAL BODIES: Vertebral body heights are maintained. Bone marrow signal pattern is within normal limits. INTERVERTEBRAL DISCS: Normal height and signal intensity. POSTERIOR FOSSA/SPINAL CORD: Included portions of the posterior fossa structures are grossly unremarkable. Included spinal cord has normal caliber and signal characteristics. No abnormal cord enhancement . Level by level analysis yields the following: C2-C3: No significant canal or neuroforaminal stenosis. C3-C4: No significant canal or neuroforaminal stenosis. C4-C5: Disc osteophyte complex eccentric to the right side contributes to moderate right neuroforaminal stenosis. No significant canal or left neuroforaminal stenosis. C5-C6: Disc osteophyte complex effaces the anterior thecal sac and contributes to mild canal stenosis and mild bilateral neuroforaminal stenosis. C6-C7: No significant canal or neuroforaminal stenosis. OTHERS: Partially included and incompletely characterized right thyroid lesion. Prevertebral and posterior paraspinal soft tissues are unremarkable. Procedure Note Ila Mcwilliams MD - 10/31/2019 EXAM: MRI CERVICAL SPINE (BONE) WITHOUT AND WITH INTRAVENOUS CONTRAST COMPARISON: Brain MRI on October 02, 2018. CT of the neck on November. TECHNIQUE: Exam performed on a 1.5 Geno high-field MRI scanner. SagittalT1, T2 and STIR, axial T2* gradient echo and 3-D bright fluid sequenceswere obtained as well as sagittal T1 post-gadolinium sequences. Postcontrast images were obtained following intravenous administration of 23.5cc of gadolinium Dotarem. HISTORY: WHITE MATTER CHANGES, NUMBNESS, TREMOR, DOUBLE VISION, MEMORYLOSS FINDINGS: Artifacts partially limits evaluation. ALIGNMENT: Anatomic alignment is maintained. No anterior or posteriorsubluxations. VERTEBRAL BODIES: Vertebral body heights are maintained. Bone marrowsignal pattern is within normal limits. INTERVERTEBRAL DISCS: Normal height and signal intensity. POSTERIOR FOSSA/SPINAL CORD: Included portions of the posterior fossastructures are grossly unremarkable. Included spinal cord has normalcaliber and signal characteristics. No abnormal cord enhancement . Level by level analysis yields the following: C2-C3: No significant canal or neuroforaminal stenosis. C3-C4: No significant canal or neuroforaminal stenosis. C4-C5: Disc osteophyte complex eccentric to the right side contributes tomoderate right neuroforaminal stenosis. No significant canal or leftneuroforaminal stenosis. C5-C6: Disc osteophyte complex effaces the anterior thecal sac andcontributes to mild canal stenosis and mild bilateral neuroforaminalstenosis. C6-C7: No significant canal or neuroforaminal stenosis. OTHERS: Partially included and incompletely characterized right thyroidlesion. Prevertebral and posterior paraspinal soft tissues areunremarkable. IMPRESSION: 1. No spinal cord lesions or abnormal cord enhancement. 2. Right thyroid lesion. Correlate with previous thyroid ultrasounds. 3. Moderate neuroforaminal stenosis on the right at C4-C5. POS - [id number] Luis Hsu MD IMG MR XSPECIALTY Final Resu lt documented in this encounter Visit Diagnoses Diagnosis Memory loss- Primary White matter disease Numbness Disturbance of skin sensation Tremor Abnormal involuntary movements Double vision Diplopia White matter disease Numbness Disturbance of skin sensation Tremor Abnormal involuntary movements Double vision Diplopia Memory loss documented in this encounter Care Teams Retail Stocker Relationship Specialty Start Date End Date Lenora Castro DO [address] [place] [address] PCP - General Internal Medicine 06/11/19 11/17/19 Lenora Castro DO [address] [place] [address] PCP - General Internal Medicine 11/18/19 10/13/21 Shashi Farrell MD [address] [place] [address] PCP - General Internal Medicine 10/14/21 Tony Carrillo MD [address] [place] [address] [email or web address] Historical LMR Provider 04/01/17 2 Jayson Rucker MD [address] [place] [address] [email or web address] Historical LMR Provider 04/01/17 06/19/21 Patricia Gutierrez NP [address] [place] [address] Historical LMR Provider 04/01/17 2 Jimmie Martinez MD [address] [place] [address] [address] [place] [address] Historical LMR Provider 04/01/17 06/19/21 Chante Anders MD [address] [place] [address] Orthopedics & Sports Medicine, [facility] [place] [address] Historical LMR Provider 04/01/17 06/19/21 documented as of this encounter Additional Source Comments The information contained in this document represents components of the legal health record. It is not the complete legal health record.[facility]
--- OUTSIDE RECORDS SUMMARY | 2025-03-12 16:38 | XMS_ITS | Encounter Summary ---
Author Organization [facility] Address [facility] [address] [place] [address] Phone Care Team Providers Care Sas Architect Name Role Phone Tony Carrillo MD Unavailable [phone] Jayson Rucker MD Unavailable Patricia Gutierrez NP Unavailable [phone] Jimmie Martinez MD Unavailable [phone] Chante Anders MD Unavailable [phone] Lenora Castro DO Primary Care Provider [phone] Shashi Farrell MD Primary Care Provider [phone] Encounter Details Date Type Department Care Team (Late st Contact Info) Description 04/16/2020 Procedure Pass [facility], [address] [place] [address] Social History Tobacco Use Types Packs/Day Years [...] 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, [employer]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 Not on savita e documented as of this encounter Plan of Treatment Upcoming Encounters Date Type Department Care Team (Late st Contact Info) Description 06/18/2025 10:30 AM EST Office Visit [facility] Gastroenterology Clinic 10 [place] [address] Unknown, Unknown, Ashley Vernon, RICE FARMWORKER [address] [place] [address] documented as of this encounter Visit Diagnoses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documented in this encounter Care Teams Sas Architect Relationship Specialty Start Date End Date Lenora Castro DO [address] [place] [address] PCP - General Internal Medicine 11/18/19 10/13/21 Shashi Farrell MD [address] [place] [address] [email or web address] PCP - General Internal Medicine 10/14/21 Tony Carrillo MD [address] [place] [address] [email or web address] Historical LMR Provider 04/01/17 2 Jayson Rucker MD [address] [place] [address] [email or web address] Historical LMR Provider 04/01/17 06/19/21 Patricia Gutierrez NP [address] [place] [place] [address] Historical LMR Provider 04/01/17 2 Jimmie Martinez MD [address] [place], [place] [address] [address] Historical LMR Provider 04/01/17 06/19/21 Chante Anders MD [address] [place] [address] Orthopedics & Sports Medicine, [place] [address] [email or web address] Historical LMR Provider 04/01/17 06/19/21 documented as of this encounter Additional Source Comments The information contained in this document represents components of the legal health record. It is not the complete legal health record.[facility]
--- OUTSIDE RECORDS SUMMARY | 2025-03-12 16:38 | XMS_ITS | Encounter Summary ---
Author Organization [facility] Address [facility] [address] [place] [address] Phone Care Team Providers Care Foreign Exchange Student Coordinator Name Role Phone Tony Carrillo MD Unavailable Jayson Rucker MD Unavailable Patricia Gutierrez NP Unavailable [phone] Jimmie Martinez MD Unavailable Chante Anders MD Unavailable Lenora Castro DO Primary Care Provider [phone] Lenora Castro DO Primary Care Provider [phone] Shashi Farrell MD Primary Care Provider [phone] Encounter Details Date Type Department Care Team (Late st Contact Info) Description 08/26/2019 Procedure Pass [address] [place] [address] Social History Tobacco Use Types Packs/Day Years [...] 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 Gastroenterology Clinic [address] [place] [address] Unknown, Unknown, Ashley Vernon, ENGRAVER PICTURE [address] [place] [address] documented as of this encounter Visit Diagnoses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documented in this encounter Care Teams Foreign Exchange Student Coordinator Relationship Specialty Start Date End Date Lenora Castro DO [address] [place] [address] PCP - General Internal Medicine 06/11/19 11/17/19 Lenora Castro DO [address] [place] [address] PCP - General Internal Medicine 11/18/19 10/13/21 Shashi Farrell MD [address] [place] [address] PCP - General Internal Medicine 10/14/21 Tony Carrillo MD [address] [place] [address] [email or web address] Historical LMR Provider 04/01/17 2 Jayson Rucker MD [address] [place] [address], [address] [address] Historical LMR Provider 04/01/17 06/19/21 Patricia Gutierrez NP [address] [place] [address] [place] [address] Historical LMR Provider 04/01/17 2 Jimmie Martinez MD [address] [place] [address], [address] [place] [address] [email or web address] Historical LMR Provider 04/01/17 06/19/21 Chante Anders MD [address] [place] [address] Orthopedics & Sports Medicine, [place] [address] [email or web address] Historical LMR Provider 04/01/17 06/19/21 documented as of this encounter Additional Source Comments The information contained in this document represents components of the legal health record. It is not the complete legal health record.[facility]
--- OUTSIDE RECORDS SUMMARY | 2025-03-12 16:38 | XMS_ITS | Encounter Summary ---
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, [employer]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 Not on savita e documented as of this encounter Plan of Treatment Upcoming Encounters Date Type Department Care Team (Late st Contact Info) Description 06/18/2025 10:30 AM EST Office Visit [facility] Gastroenterology Clinic [address] [place] [address] Unknown, Unknown, Ashley Vernon, RETAIL BRAND AMBASSADOR [address] [place] [address] [email or web address] documented as of this encounter Visit Diagnoses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documented in this encounter Care Teams Tipple Mechanic Relationship Specialty Start Date End Date Shashi Farrell MD [address] [place] [address] [email or web address] PCP - General Internal Medicine 10/14/21 documented as of this encounter Additional Source Comments The information contained in this document represents components of the legal health record. It is not the complete legal health record.[facility]
--- OUTSIDE RECORDS SUMMARY | 2025-03-12 16:38 | XMS_ITS | Encounter Summary ---
Author Organization [facility] Address [address] [place] [address] [place] [address] Phone Care Team Providers Care Heavy Equipment Operator Name Role Phone Tony Carrillo MD Unavailable Jayson Rucker MD Unavailable Patricia Gutierrez NP Unavailable Jimmie Martinez MD Unavailable Chante Anders MD Unavailable Patricia Gutierrez NP Primary Care Provider Lenora Castro DO Primary Care Provider [phone] Lenora Castro DO Primary Care Provider Shashi Farrell MD Primary Care Provider Encounter Details Date Type Department Care Team (Latest Contact Info) Description 09/24/2018 Transcribe Orders [address] [place] [address] Luis Hsu MD [address] [place] [address], [address] [place] [address] [email or web address] Nonintractable headache, unspecified chronicity pattern, unspecified headache type (Primary Dx) Social History Tobacco Use Types Packs/Day Years Used Date Smoking Tobacco: Never Smokeless Tobacco: Never Alcohol Use Standard Drinks/Week Comments No 0 [...] Description 06/18/2025 10:30 AM EST Office Visit [facility] Gastroenterology Clinic 10 [place] [address] Unknown, Unknown, MD Vega, Ashley Wright, ROOFER VINYL COATING 10 [place] [address] [email or web address] documented as of this encounter Results * Sedimentation rate (ESR) (09/24/2018 10:59 AM EDT) ESR 13 0 - 30 mm/h [facility] Blood 09/24/2018 10:5 9 AM EDT 09/24/2018 11:02 AM EDT us Luis Hsu MD LAB BLOOD ORDERABLES Final R esult Performing Organization Address City/State/[facility] Co de Phone Number [address] [address] documented in this encounter Visit Diagnoses Diagnosis Nonintractable headache, unspecified chronicity pattern, unspecified headache type- Primary documented in this encounter Care Teams Heavy Equipment Operator Relationship Specialty Start Date End Date Patricia Gutierrez NP [address] [place] [address] [place] [address] PCP - General Family Medicine 12/22/17 06/10/19 Lenora Castro DO [address] [place] [address] PCP - General Internal Medicine 06/11/19 11/17/19 Lenora Castro DO [address] [place] [address] PCP - General Internal Medicine 11/18/19 10/13/21 Shashi Farrell MD [address] [place] [address] [email or web address] PCP - General Internal Medicine 10/14/21 Tony Carrillo MD [address] [place] [address] [email or web address] Historical LMR Provider 04/01/17 2 Jayson Rucker MD [address] [place] [address] [email or web address] Historical LMR Provider 04/01/17 06/19/21 Patricia Gutierrez NP [address] [place] [address] Historical LMR Provider 04/01/17 2 Jimmie Martinez MD [address] [place] [address] [address] [place] [address] Historical LMR Provider 04/01/17 06/19/21 Chante Anders MD [address] [place] [address] Orthopedics & Sports Medicine, [facility] [place] [address] Historical LMR Provider 04/01/17 06/19/21 documented as of this encounter Additional Source Comments The information contained in this document represents components of the legal health record. It is not the complete legal health record.[facility]
--- OUTSIDE RECORDS SUMMARY | 2025-03-12 16:38 | XMS_ITS | Encounter Summary ---
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 Not on savita e documented as of this encounter Plan of Treatment Upcoming Encounters Date Type Department Care Team (Late st Contact Info) Description 06/18/2025 10:30 AM EST Office Visit [facility] Gastroenterology Clinic [address] [place] [address] Unknown, Unknown, Ashley Vernon, STORAGE BRINE WORKER 10 [place] [address] [email or web address] documented as of this encounter Visit Diagnoses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documented in this encounter Care Teams Home Help Aide Relationship Specialty Start Date End Date Shashi Farrell MD [address] [place] [address] [email or web address] PCP - General Internal Medicine 10/14/21 documented as of this encounter Additional Source Comments The information contained in this document represents components of the legal health record. It is not the complete legal health record.[facility]
--- OUTSIDE RECORDS SUMMARY | 2025-03-12 16:38 | XMS_ITS | Encounter Summary ---
Author Organization [facility] Address [address] [facility] [address] [place] [address] Phone Care Team Providers Care Psych Np Name Role Phone Shashi Farrell MD Primary Care Provider [phone] Encounter Details Date Type Department Care Team (Late st Contact Info) Description 08/21/2023 Transcribe Orders Virtual Department [address] [place] [address] Kiana Morales NP [address] [place] [address] [email or web address] Social History Tobacco Use Types Packs/Day Years Used Date Smoking Tobacco: Former Cigarettes 1 971 - 1990 Smokeless Tobacco: Never Comments:as a [...] 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, [employer]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 Not on savita e documented as of this encounter Plan of Treatment Upcoming Encounters Date Type Department Care Team (Late st Contact Info) Description 06/18/2025 10:30 AM EST Office Visit [facility] Gastroenterology Clinic [address] [place] [address] Unknown, Unknown, Ashley Vernon, GAS WELL DRILLING MANAGER [address] [place] [address] documented as of this encounter Visit Diagnoses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documented in this encounter Care Teams Psych Np Relationship Specialty Start Date End Date Shashi Farrell MD [address] [place] [address] PCP - General Internal Medicine 10/14/21 documented as of this encounter Additional Source Comments The information contained in this document represents components of the legal health record. It is not the complete legal health record.[facility]
--- OUTSIDE RECORDS SUMMARY | 2025-03-12 16:38 | XMS_ITS | Encounter Summary ---
Author Organization [facility] Address [address] [facility] [address] [place] [address] Phone Care Team Providers Care Planning Specialist Name Role Phone Tony Carrillo MD Unavailable [phone] Jayson Rucker MD Unavailable Patricia Gutierrez NP Unavailable Jimmie Martinez MD Unavailable [phone] Chante Anders MD Unavailable [phone] Lenora Castro DO Primary Care Provider [phone] Shashi Farrell MD Primary Care Provider [phone] Reason for Referral * MRI/CAT Scan - Closed Specialty Diagnoses / Procedures Referred By Contac t Referred To Contact Radiology Diagnoses Vertigo Numbness White matter disease Procedures MRI Brain CHG MRI BRAIN Luis Hsu MD Phone: tel: fax: [email or web address] Referral ID Status Reason Start Date Expiration Date Visits Re quested Visits Authorized [id number] Closed 04/20/2021 10/17/2021 1 1 Encounter Details Date Type Department Care Team (Latest Contact Info) Description 04/20/2021 Transcribe Orders [facility] Department [address] [place] [address] Luis Hsu MD [address] [place] [address], [address] [place] [address] 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 Not on savita e documented as of this encounter Plan of Treatment Upcoming Encounters Date Type Department Care Team (Late st Contact Info) Description 06/18/2025 10:30 AM EST Office Visit [facility] G[facility] [address] [place] [address] Unknown, Unknown, Ashley Vernon, ORNAMENTAL BRICK INSTALLER [address] [place] [address] [email or web address] documented as of this encounter Results * MRI BRAIN WITHOUT CONTRAST (05/12/2021 2:53 PM EST) Anatomical Region Laterality Modality Head Magnetic Resonan ce 05/12/2021 3:02 PM EST Impressions 05/12/2021 3:17 PM EST Nonspecific bilateral T2 hyperintense changes within the supratentorial white matter remain stable. No other significant intracranial abnormalities. Narrative 05/12/2021 3:17 PM EST HISTORY: Vertigo, numbness, evaluate for changes of multiple sclerosis. COMPARISON: MRI brain 04/23/2020 and 10/02/2018. TECHNIQUE: Exam performed on a 1.5 Geno high-field MRI scanner. Axial T1, T2, T2*, T2 FLAIR and diffusion-weighted imaging with ADC map, sagittal T1 sequences were obtained. FINDINGS: Mild-moderate patchy T2 hyperintense changes within the deep and periventricular white matter bilaterally are stable. No evidence of signal abnormalities in the corpus callosum, brain stem or cerebellar hemispheres. No evidence of discrete of hemorrhage or acute ischemia. The ventricles are stable in size and configuration. Basal cisterns are patent. Stable flow-voids at the base of the skull. The paranasal sinuses are clear. No other significant changes. Procedure Note Ignacio Meneses MD - 05/12/2021 HISTORY: Vertigo, numbness, evaluate for changes of multiple sclerosis. COMPARISON: MRI brain 04/23/2020 and 10/02/2018. TECHNIQUE: Exam performed on a 1.5 Geno high-field MRI scanner. AxialT1, T2, T2*, T2 FLAIR and diffusion-weighted imaging with ADC map,sagittal T1 sequences were obtained. FINDINGS: Mild-moderate patchy T2 hyperintense changes within the deep andperiventricular white matter bilaterally are stable. No evidence of signalabnormalities in the corpus callosum, brain stem or cerebellarhemispheres. No evidence of discrete of hemorrhage or acute ischemia. The ventricles are stable in size and configuration. Basal cisterns arepatent. Stable flow-voids at the base of the skull. The paranasal sinuses are clear. No other significant changes. IMPRESSION: Nonspecific bilateral T2 hyperintense changes within the supratentorialwhite matter remain stable. No other significant intracranialabnormalities. Luis Hsu MD IMG MR HEAD/NECK Final Resul t documented in this encounter Visit Diagnoses Diagnosis Vertigo- Primary Dizziness and giddiness Numbness Disturbance of skin sensation White matter disease Vertigo Dizziness and giddiness Numbness Disturbance of skin sensation White matter disease documented in this encounter Care Teams Planning Specialist Relationship Specialty Start Date End Date Lenora Castro DO [address] [place] [address] PCP - General Internal Medicine 11/18/19 10/13/21 Shashi Farrell MD [address] [place] [address] [email or web address] PCP - General Internal Medicine 10/14/21 Tony Carrillo MD [address] [place] [address] [email or web address] Historical LMR Provider 04/01/17 2 Jayson Rucker MD [address] [place] [address] [email or web address] Historical LMR Provider 04/01/17 06/19/21 Patricia Gutierrez NP [address] [place] [address] Historical LMR Provider 04/01/17 2 Jimmie Martinez MD [address] [place] [address] [email or web address] Historical LMR Provider 04/01/17 06/19/21 Chante Anders MD [address] [place] [address] Orthopedics & Sports Medicine, [place] [address] Historical LMR Provider 04/01/17 06/19/21 documented as of this encounter Additional Source Comments The information contained in this document represents components of the legal health record. It is not the complete legal health record.[facility]
--- OUTSIDE RECORDS SUMMARY | 2025-03-12 16:38 | XMS_ITS | Encounter Summary ---
Author Organization [facility] Address Formerly [facility] Mobile Location, [facility] [address] [place] [address] Phone Care Team Providers Care Waiter/Waitress Captain Name Role Phone Tony Carrillo MD Unavailable [phone] Jayson Rucker MD Unavailable Patricia Gutierrez NP Unavailable [phone] Jimmie Martinez MD Unavailable [phone] Chante Anders MD Unavailable [phone] Lenora Castro DO Primary Care Provider [phone] Shashi Farrell MD Primary Care Provider [phone] Encounter Details Date Type Department Care Team (Late st Contact Info) Description 04/20/2021 Procedure Pass [address] [place] [address] Social History Tobacco Use Types Packs/Day Years [...] 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, [employer]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 Not on savita e documented as of this encounter Plan of Treatment Upcoming Encounters Date Type Department Care Team (Late st Contact Info) Description 06/18/2025 10:30 AM EST Office Visit [facility] [address] [place] [address] Unknown, Unknown, Ashley Vernon, TESTBOARD OPERATOR [address] [place] [address] documented as of this encounter Visit Diagnoses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documented in this encounter Care Teams Waiter/Waitress Captain Relationship Specialty Start Date End Date Lenora Castro DO [address] [place] [address] PCP - General Internal Medicine 11/18/19 10/13/21 Shashi Farrell MD [address] [place] [address] [email or web address] PCP - General Internal Medicine 10/14/21 Tony Carrillo MD [address] [place] [address] [email or web address] Historical LMR Provider 04/01/17 2 Jayson Rucker MD [address] [place] [address] [email or web address] Historical LMR Provider 04/01/17 06/19/21 Patricia Gutierrez NP [address] [place] [address] Historical LMR Provider 04/01/17 2 Jimmie Martinez MD [address] [place], [place] [address], [place] [address] Historical LMR Provider 04/01/17 06/19/21 Chante Anders MD [address] [place] [address] Orthopedics & Sports Medicine, [place] [address] [email or web address] Historical LMR Provider 04/01/17 06/19/21 documented as of this encounter Additional Source Comments The information contained in this document represents components of the legal health record. It is not the complete legal health record.[facility]
--- OUTSIDE RECORDS SUMMARY | 2025-03-12 16:38 | XMS_ITS | Encounter Summary ---
Author Organization [facility] Address [address] [place] [address] [place] [address] Phone Care Team Providers Care Patient Registration Clerk Name Role Phone Shashi Farrell MD Primary Care Provider [phone] Reason for Referral * MRI/CAT Scan - Closed Specialty Diagnoses / Procedures Referred By Contac t Referred To Contact Radiology Diagnoses Numbness Pain of upper extremity, unspecified laterality White matter disease Procedures MRI Cervical Spine CHG MRI, CERV SPINE Luis Hsu MD Phone: tel: fax: [email or web address] Referral ID Status Reason Start Date Expiration Date Visits Re quested Visits Authorized [id number] Closed 11/17/2021 01/16/2022 1 1 Encounter Details Date Type Department Care Team (Latest Contact Info) Description 11/17/2021 Transcribe Orders Virtual Department [address] [place] [address] Luis Hsu MD [address] [place] [place] [address], [address] [place] [address] 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 Not on savita e documented as of this encounter Plan of Treatment Upcoming Encounters Date Type Department Care Team (Late st Contact Info) Description 06/18/2025 10:30 AM EST Office Visit [facility] Gastroenterology Clinic [address] [place] [address] Unknown, Unknown, MD Vega, Ashley Wright, BREAD ICER [address] [place] [address] [email or web address] documented as of this encounter Results * MRI CERVICAL SPINE (NEURO) FOCUS WITHOUT CONTRAST (12/01/2021 3:29 PM EDT) Anatomical Region Laterality Modality C-spine Magnetic Resonan ce 12/02/2021 11:5 5 AM EDT Impressions 12/02/2021 12:02 PM EDT Stable multilevel degenerative degenerative most pronounced at two levels: --C5-6 where a superimposed right subarticular disc extrusion results in mild right neural foraminal stenosis --C4-5 where a right foraminal disc-osteophyte complex results in moderate right neural foraminal stenosis. No high grade spinal canal stenosis. Narrative 12/02/2021 12:02 PM EDT MRI CERVICAL SPINE (NEURO) FOCUS WITHOUT CONTRAST TECHNIQUE: Multi-sequence, multi-planar MRI of the cervical spine was performed without intravenous contrast. COMPARISON: MRI CERVICAL SPINE (BONE) WITH AND WITHOUT CONTRAST FINDINGS: CERVICAL SPINE: Alignment and Vertebrae: Normal alignment. No compression fracture. Marrow: No bone marrow replacing lesion. Discs and Endplates: Mild height loss posteriorly at C5-6. Otherwise no significant height loss. Spinal Cord: No spinal cord compression or signal abnormality. Soft Tissue: No prevertebral edema. Findings by level: C2-C3: No evidence of posterior disc abnormality / osteophyte formation, uncovertebral hypertrophy, or facet arthropathy. No neural foraminal or spinal canal stenosis. C3-C4: No evidence of posterior disc abnormality / osteophyte formation, uncovertebral hypertrophy, or facet arthropathy. No neural foraminal or spinal canal stenosis. C4-C5: Right foraminal posterior disc-osteophyte complex and uncovertebral hypertrophy without significant facet arthropathy resulting in moderate right neural foraminal stenosis and no spinal canal stenosis. C5-C6: Posterior disc bulge with superimposed asymmetric right subarticular extrusion abutting the right ventrolateral aspect of the spinal cord, and no significant uncovertebral hypertrophy or facet arthropathy, resulting in mild right neural foraminal stenosis and no spinal canal stenosis. C6-C7: Symmetric small posterior disc bulge and no significant uncovertebral hypertrophy or facet arthropathy, resulting in no neural foraminal or spinal canal stenosis. C7-T1: No significant posterior disc abnormality or facet arthropathy. No neural foraminal or spinal canal stenosis. These multilevel degenerative changes are stable compared to 10/31/2019. Procedure Note Hilary Ambrocio MD - 12/02/2021 MRI CERVICAL SPINE (NEURO) FOCUS WITHOUT CONTRAST TECHNIQUE: Multi-sequence, multi-planar MRI of the cervical spine was performedwithout intravenous contrast. COMPARISON: MRI CERVICAL SPINE (BONE) WITH AND WITHOUT [id number] FINDINGS: CERVICAL SPINE: Alignment and Vertebrae: Normal alignment. No compression fracture. Marrow: No bone marrow replacing lesion. Discs and Endplates: Mild height loss posteriorly at C5-6. Otherwise nosignificant height loss. Spinal Cord: No spinal cord compression or signal abnormality. Soft Tissue: No prevertebral edema. Findings by level: C2-C3: No evidence of posterior disc abnormality / osteophyte formation,uncovertebral hypertrophy, or facet arthropathy. No neural foraminal orspinal canal stenosis. C3-C4: No evidence of posterior disc abnormality / osteophyte formation,uncovertebral hypertrophy, or facet arthropathy. No neural foraminal orspinal canal stenosis. C4-C5: Right foraminal posterior disc-osteophyte complex and uncovertebralhypertrophy without significant facet arthropathy resulting in moderateright neural foraminal stenosis and no spinal canal stenosis. C5-C6: Posterior disc bulge with superimposed asymmetric rightsubarticular extrusion abutting the right ventrolateral aspect of thespinal cord, and no significant uncovertebral hypertrophy or facetarthropathy, resulting in mild right neural foraminal stenosis and nospinal canal stenosis. C6-C7: Symmetric small posterior disc bulge and no significantuncovertebral hypertrophy or facet arthropathy, resulting in no neuralforaminal or spinal canal stenosis. C7-T1: No significant posterior disc abnormality or facet arthropathy. Noneural foraminal or spinal canal stenosis. These multilevel degenerative changes are stable compared to 10/31/2019. IMPRESSION: Stable multilevel degenerative degenerative most pronounced at twolevels: --C5-6 where a superimposed right subarticular disc extrusion results inmild right neural foraminal stenosis --C4-5 where a right foraminal disc-osteophyte complex results in moderateright neural foraminal stenosis. No high grade spinal canal stenosis. Luis Hsu MD IMG MR XSPECIALTY Final Resu lt documented in this encounter Visit Diagnoses Diagnosis Numbness- Primary Disturbance of skin sensation Pain of upper extremity, unspecified laterality White matter disease Numbness Disturbance of skin sensation Pain of upper extremity, unspecified laterality White matter disease documented in this encounter Care Teams Patient Registration Clerk Relationship Specialty Start Date End Date Shashi Farrell MD [address] [place], [place] [id number] [email or web address] PCP - General Internal Medicine 10/14/21 documented as of this encounter Additional Source Comments The information contained in this document represents components of the legal health record. It is not the complete legal health record.[facility]
--- OUTSIDE RECORDS SUMMARY | 2025-03-12 16:38 | XMS_ITS | Encounter Summary ---
Author Organization [facility] Address [facility] [address] [place] [address] Phone Care Team Providers Care Poultry Hatchery Man Name Role Phone Tony Carrillo MD Unavailable Jayson Rucker MD Unavailable Patricia Gutierrez NP Unavailable Jimmie Martinez MD Unavailable Chante Anders MD Unavailable Patricia Gutierrez NP Primary Care Provider Lenora Castro DO Primary Care Provider [phone] Lenora Castro DO Primary Care Provider [phone] Shashi Farrell MD Primary Care Provider Encounter Details Date Type Department Care Team (Late st Contact Info) Description 09/24/2018 Procedure Pass [facility], [address] [place] [address] Social History Tobacco Use Types Packs/Day Years [...] PM EST documented as of this encounter Last Filed Vital Signs Vital Sign Reading Time Taken Comments Blood Pressure - - Pulse - - Temperature - - Respiratory Rate - - Oxygen Saturation - - Inhaled Oxygen Concentration - - Weight 113.4 kg (250 lb) 09/26/2018 5:00 PM EDT Height 170.2 cm (5' 7 ) 09/26/2018 5:00 PM EDT Body Mass Index 39.16 09/26/2018 5:00 PM EDT documented in this encounter Plan of Treatment Upcoming Encounters Date Type Department Care Team (Late st Contact Info) Description 06/18/2025 10:30 AM EST Office Visit [facility] Gastroenterology Clinic [address] [place] [address] Unknown, Unknown, MD Vega, Ashley Wright, PILOT PLANT RESEARCH TECHNICIAN [address] [place] [address] documented as of this encounter Visit Diagnoses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documented in this encounter Care Teams Poultry Hatchery Man Relationship Specialty Start Date End Date Patricia Gutierrez NP [address] [place] [address] PCP - General Family Medicine 12/22/17 06/10/19 Lenora Castro DO [address] [place] [address] PCP - General Internal Medicine 06/11/19 11/17/19 Lenora Castro DO [address] [place] [address] PCP - General Internal Medicine 11/18/19 10/13/21 Shashi Farrell MD [address] [place] [address] PCP - General Internal Medicine 10/14/21 Tony Carrillo MD [address] [place] [address] [email or web address] Historical LMR Provider 04/01/17 2 Jayson Rucker MD [address] [place] [address] [address] [place] [address] [email or web address] Historical LMR Provider 04/01/17 06/19/21 Patricia Gutierrez NP [address] [place] [address] [place] [address] Historical LMR Provider 04/01/17 2 Jimmie Martinez MD [address] [place] [address] [address] [place] [address] [email or web address] Historical LMR Provider 04/01/17 06/19/21 Chante Anders MD [address] [place] [address] Orthopedics & Sports Medicine, [facility] [place] [address] Historical LMR Provider 04/01/17 06/19/21 documented as of this encounter Additional Source Comments The information contained in this document represents components of the legal health record. It is not the complete legal health record.[facility]
--- OUTSIDE RECORDS SUMMARY | 2025-03-12 16:38 | XMS_ITS | Encounter Summary ---
Author Organization [facility] Address [email or web address] [place] [address] Phone Care Team Providers Care Digital Media Planner Name Role Phone Shashi Farrell MD Primary Care Provider [phone] Encounter Details Date Type Department Care Team (Latest Contact Info) Description 08/24/2023 Transcribe Orders Virtual Department [address] [place] [address] Ashley Vega CNP [address] [place] [address] [email or web address] Constipation, unspecified constipation type (Primary Dx); RUQ abdominal pain; Epigastric pain Social History Tobacco Use Types Packs/Day Years [...] 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, [employer]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 Not on savita e documented as of this encounter Plan of Treatment Upcoming Encounters Date Type Department Care Team (Late st Contact Info) Description 06/18/2025 10:30 AM EST Office Visit [facility] Gastro[facility] Clinic [address] [place] [address] Unknown, Unknown, MD Vega, Ashley Wright, DIGITAL PUBLISHING SPECIALIST [address] [place] [address] [email or web address] documented as of this encounter Results * US ABDOMEN LIMITED RIGHT UPPER QUADRANT (08/31/2023 8:09 AM EDT) Anatomical Region Laterality Modality Abdomen Ultrasound 08/31/2023 8:48 AM EDT Impressions 08/31/2023 3:09 PM EDT Similar mild extrahepatic biliary ductal dilatation with the common bile duct measuring up to 1.2 cm, likely reservoir effect status post cholecystectomy. Narrative 08/31/2023 3:09 PM EDT US ABDOMEN LIMITED RIGHT UPPER QUADRANT Referring clinician's provided indication for this examination in Epic: Outside Radiology Order; constipation TECHNIQUE: US Abdominal limited right upper quadrant. COMPARISON: MRCP 09/08/2022 FINDINGS: Liver: Normal echogenicity. No focal lesions. Main Portal Vein: Patent with normal direction of flow. Gallbladder: Surgically absent. Biliary: There is similar mild extrahepatic biliary ductal dilatation with the common bile duct measuring up to 1.2 cm, likely reservoir effect status post cholecystectomy. Right Kidney: No stones or hydronephrosis. The previously demonstrated mild main pancreatic ductal dilatation is not visualized sonographically. Procedure Note Amanda Guzman MD - 08/31/2023 US ABDOMEN LIMITED RIGHT UPPER QUADRANT Referring clinician's provided indication for this examination in Epic:Outside Radiology Order; constipation TECHNIQUE: US Abdominal limited right upper quadrant. COMPARISON: MRCP 09/08/2022 FINDINGS: Liver: Normal echogenicity. No focal lesions. Main Portal Vein: Patent with normal direction of flow. Gallbladder: Surgically absent. Biliary: There is similar mild extrahepatic biliary ductal dilatation withthe common bile duct measuring up to 1.2 cm, likely reservoir effectstatus post cholecystectomy. Right Kidney: No stones or hydronephrosis. The previously demonstrated mild main pancreatic ductal dilatation is notvisualized sonographically. IMPRESSION: Similar mild extrahepatic biliary ductal dilatation with the common bileduct measuring up to 1.2 cm, likely reservoir effect status postcholecystectomy. Ashley Vega [facility] IM US ABDOMEN Final Resu lt documented in this encounter Visit Diagnoses Diagnosis Constipation, unspecified constipation type- Primary RUQ abdominal pain Abdominal pain, right upper quadrant Epigastric pain Abdominal pain, epigastric Constipation, unspecified constipation type RUQ abdominal pain Abdominal pain, right upper quadrant Epigastric pain Abdominal pain, epigastric documented in this encounter Care Teams Digital Media Planner Relationship Specialty Start Date End Date Shashi Farrell MD [address] [place] [address] PCP - General Internal Medicine 10/14/21 documented as of this encounter Additional Source Comments The information contained in this document represents components of the legal health record. It is not the complete legal health record.[facility]
--- OUTSIDE RECORDS SUMMARY | 2025-03-12 16:38 | XMS_ITS | Encounter Summary ---
Author Organization [facility] Address [address] [place] [address] [place] [address] Phone Care Team Providers Care [employer]otive [employer]oles[employer] Advisor Name Role Phone Tony Carrillo MD Unavailable Jayson Rucker MD Unavailable Patricia Gutierrez NP Unavailable Jimmie Martinez MD Unavailable Chante Anders MD Unavailable Patricia Gutierrez NP Primary Care Provider Lenora Castro DO Primary Care Provider Lenora Castro DO Primary Care Provider Shashi Farrell MD Primary Care Provider [phone] Reason for Referral * MRI/CAT Scan - Closed Specialty Diagnoses / Procedures Referred By Josué t Referred To Contact Radiology Diagnoses White matter disease, unspecified Procedures MRI Brain Luis Hsu MD Phone: tel: fax: [email or web address] Referral ID Status Reason Start Date Expiration Date Visits Re quested Visits Authorized [id number] Closed 09/12/2018 11/11/2018 1 1 Encounter Details Date Type Department Care Team (Latest Contact Info) Description 09/24/2018 Transcribe Orders Virtual Department [address] [place] [address] Luis Hsu MD [address] [place] [address], [address] [place] [address] [email or web address] White matter disease, unspecified (Primary Dx) Social History Tobacco Use Types [...] [facility] [address] [place] [address] Unknown, Unknown, Ashley Vernon, CARPENTER/LABOR [address] [place] [address] [email or web address] documented as of this encounter Results * MRI BRAIN WITHOUT CONTRAST (10/02/2018 8:41 AM EDT) Anatomical Region Laterality Modality Head Magnetic Resonan ce 10/02/2018 9:05 AM EDT Impressions 10/02/2018 9:13 AM EDT Stable white matter disease. No new or active intracranial pathology. POS - [id number] Narrative 10/02/2018 9:13 AM EDT TECHNIQUE: 1.5 Geno high-field MRI scanner. Axial T1, T2, T2*, T2 FLAIR and diffusion-weighted imaging with ADC map, sagittal FLAIR and T1 sequences were obtained. Multiple comparisons, most recently 05/15/2017 FINDINGS: Previously noted numerous, ill-defined, globular T2 hyperintensities scattered throughout the periventricular and subcortical white matter of both hemispheres are unchanged. No new white matter pathology has become apparent. No signal changes indicative of ischemia, infarct, hemorrhage, mass or an inflammatory process. Normal ventricular size and configuration. Basilar cisterns widely patent. No signs of elevated intracranial pressure. No pituitary, pineal region or intraorbital pathology. Normal flow-voids are visible in the major vessels of the [place]. Procedure Note Chau Cornelius MD - 10/02/2018 TECHNIQUE: 1.5 Geno high-field MRI scanner. Axial T1, T2, T2*, T2 FLAIR and diffusion-weighted imaging with ADC map,sagittal FLAIR and T1 sequences were obtained. Multiple comparisons, most recently 05/15/2017 FINDINGS: Previously noted numerous, ill-defined, globular T2 hyperintensitiesscattered throughout the periventricular and subcortical white matter ofboth hemispheres are unchanged. No new white matter pathology has becomeapparent. No signal changes indicative of ischemia, infarct, hemorrhage, mass or aninflammatory process. Normal ventricular size and configuration. Basilar cisterns widely patent.No signs of elevated intracranial pressure. No pituitary, pineal region or intraorbital pathology. Normal flow-voids are visible in the major vessels of the [place]. IMPRESSION: Stable white matter disease. No new or active intracranial pathology. POS - [id number] Luis Hsu MD IM MR HEAD/NECK Final Resul t documented in this encounter Visit Diagnoses Diagnosis White matter disease, unspecified- Primary White matter disease, unspecified documented in this encounter Care Teams [employer]oles[employer] Advisor Relationship Specialty Start Date End Date Patricia Gutierrez NP [address] [place] [address] [place] [address] PCP - General Family Medicine 12/22/17 06/10/19 Lenora Castro DO [address] [place] [address] PCP - General Internal Medicine 06/11/19 11/17/19 Lenora Castro DO [address] [place] [address] PCP - General Internal Medicine 11/18/19 10/13/21 Shashi Farrell MD [address] [place] [address] PCP - General Internal Medicine 10/14/21 Tony Carrillo MD [address] [place] [address] [email or web address] Historical LMR Provider 04/01/17 2 Jayson Rucker MD [address] [place] [address] Historical LMR Provider 04/01/17 06/19/21 Patricia Gutierrez NP [address] [place] [address] Historical LMR Provider 04/01/17 2 Jimmie Martinez MD [address] [place] [address] [address] [place] [address] Historical LMR Provider 04/01/17 06/19/21 Chante Anders MD [address] [place] [address] Orthopedics & Sports Medicine, [facility] [place] [address] Historical LMR Provider 04/01/17 06/19/21 documented as of this encounter Additional Source Comments The information contained in this document represents components of the legal health record. It is not the complete legal health record.[facility]
--- OUTSIDE RECORDS SUMMARY | 2025-03-12 16:38 | XMS_ITS | Encounter Summary ---
Author Organization [facility] Address [address] [place] [address] [place] [address] Phone Care Team Providers Care Activities Director Name Role Phone Tony Carrillo MD Unavailable Jayson Rucker MD Unavailable Patricia Gutierrez NP Unavailable [phone] Jimmie Martinez MD Unavailable Chante Anders MD Unavailable Patricia Gutierrez NP Primary Care Provider [phone] Lenora Castro DO Primary Care Provider [phone] Lenora Castro DO Primary Care Provider Shashi Farrell MD Primary Care Provider [phone] Encounter Details Date Type Department Care Team (Late st Contact Info) Description 03/01/2018 Procedure Pass [facility], [address] [address] Social History Tobacco Use Types Packs/Day Years [...] Description 06/18/2025 10:30 AM EST Office Visit [facility] Gastroenterology Clinic 10 [place] [address] Unknown, Unknown, MD Vega, Ashley Wright, INTEGRITY ANALYST [address] [place] [address] documented as of this encounter Visit Diagnoses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documented in this encounter Care Teams Activities Director Relationship Specialty Start Date End Date Patricia Gutierrez NP [address] [place] [address] PCP - General Family Medicine 12/22/17 06/10/19 Lenora Castro DO [address] [place] [address] PCP - General Internal Medicine 06/11/19 11/17/19 Lenora Castro DO [address] [place] [address] PCP - General Internal Medicine 11/18/19 10/13/21 Shashi Farrell MD [address] [place] [address] [email or web address] PCP - General Internal Medicine 10/14/21 Tony Carrillo MD [address] [place] [address] [email or web address] Historical LMR Provider 04/01/17 2 Jayson Rucker MD [address] [place] [address] [address] [place] [address] [email or web address] Historical LMR Provider 04/01/17 06/19/21 Patricia Gutierrez NP [address] [place] [address] [place] [address] Historical LMR Provider 04/01/17 2 Jimmie Martinez MD [address] [place] [address] [address] [place] [address] [email or web address] Historical LMR Provider 04/01/17 06/19/21 Chante Anders MD [address] [place] [address] Orthopedics & Sports Medicine, [facility] [place] [address] [email or web address] Historical LMR Provider 04/01/17 06/19/21 documented as of this encounter Additional Source Comments The information contained in this document represents components of the legal health record. It is not the complete legal health record.[facility]
--- OUTSIDE RECORDS SUMMARY | 2025-03-12 16:38 | XMS_ITS | Encounter Summary ---
Author Organization [facility] Address [facility] [address] [place] [address] Phone Care Team Providers Care Traffic Lieutenant Name Role Phone Tony Carrillo MD Unavailable Jayson Rucker MD Unavailable Patricia Gutierrez NP Unavailable [phone] Jimmie Martinez MD Unavailable Chante Anders MD Unavailable Lenora Castro DO Primary Care Provider [phone] Lenora Castro DO Primary Care Provider [phone] Shashi Farrell MD Primary Care Provider [phone] Encounter Details Date Type Department Care Team (Latest Contact Info) Description 06/25/2019 Transcribe Orders [facility] [address] [place] [address] [place] [address] Jayjay Florence MD [address] [place] [address] [email or web address] Nausea (Primary Dx) Social History Tobacco Use Types [...] 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, [employer]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 Not on savita e documented as of this encounter Plan of Treatment Upcoming Encounters Date Type Department Care Team (Late st Contact Info) Description 06/18/2025 10:30 AM EST Office Visit [facility] 10 [place] [address] Unknown, Unknown, MD Vega, Ashley Wright, SLICER MACHINE OPERATOR [address] [place] [address] [email or web address] documented as of this encounter Results * Tissue transglutaminase IgA (06/25/2019 9:03 AM EST) TTG IGA ANTIBODY <1.2 <4.0 (Negative) U/mL [facility] Blood 06/25/2019 9:03 AM EST 06/25/2019 9:06 AM EST us Jayjay Florence MD LAB BLOOD ORDERABLES Final Re sult Performing Organization Address [facility] Co de Phone Number [facility] [address] [place] [address] * Gliadin deamidated antibody, IgG/IgA (06/25/2019 9:03 AM EST) Gliadin Ab, IGA <10.0 <20.0 (Negative) U [facility] GLIADIN AB IGG <10.0 <20.0 (Negative) [facility] Blood 06/25/2019 9:03 AM EST 06/25/2019 9:06 AM EST us Jayjay Florence MD LAB BLOOD ORDERABLES Final Re sult Performing Organization Address City/[facility] Co de Phone Number [facility] [address] [address] [place] [address] documented in this encounter Visit Diagnoses Diagnosis Nausea- Primary Nausea alone documented in this encounter Care Teams Traffic Lieutenant Relationship Specialty Start Date End Date Matthew Lenorark King DO [address] [place] [address] PCP - General Internal Medicine 06/11/19 11/17/19 Lenora Castro DO [address] [place] [address] PCP - General Internal Medicine 11/18/19 10/13/21 Shashi Farrell MD [address] [place] [address] [email or web address] PCP - General Internal Medicine 10/14/21 Tony Carrillo MD [address] [place] [address] [email or web address] Historical LMR Provider 04/01/17 2 Jayson Rucker MD [address] [place] [address] [email or web address] Historical LMR Provider 04/01/17 06/19/21 Patricia Gutierrez NP [address] [place] [address] Historical LMR Provider 04/01/17 2 Jimmie Martinez MD [address] [place] [address], [facility] [address] [place] [address] Historical LMR Provider 04/01/17 06/19/21 Chante Anders MD [address] [place] [address] Orthopedics & Sports Medicine, [facility] [place] [address] [email or web address] Historical LMR Provider 04/01/17 06/19/21 documented as of this encounter Additional Source Comments The information contained in this document represents components of the legal health record. It is not the complete legal health record.[facility]
--- OUTSIDE RECORDS SUMMARY | 2025-03-12 16:38 | XMS_ITS | Encounter Summary ---
Author Organization [facility] Address [address] [place] [address] [place] [address] Phone Care Team Providers Care Arts Manager Name Role Phone Tony Carrillo MD Unavailable [phone] Jayson Rucker MD Unavailable Patricia Gutierrez NP Unavailable [phone] Jimmie Martinez MD Unavailable [phone] Chante Anders MD Unavailable [phone] Lenora Castro DO Primary Care Provider [phone] Shashi Farrell MD Primary Care Provider [phone] Reason for Referral * MRI/CAT Scan - Closed Specialty Diagnoses / Procedures Referred By Contac t Referred To Contact Radiology Diagnoses Aneurysm Vertigo White matter disease Nonintractable headache, unspecified chronicity pattern, unspecified headache type Procedures MRI Angio Brain Luis Hsu MD Phone: tel: fax: [email or web address] Referral ID Status Reason Start Date Expiration Date Visits Re quested Visits Authorized [id number] Closed 04/16/2020 10/13/2020 1 1 * MRI/CAT Scan - Closed Specialty Diagnoses / Procedures Referred By Contac t Referred To Contact Radiology Diagnoses Aneurysm Vertigo White matter disease Nonintractable headache, unspecified chronicity pattern, unspecified headache type Procedures MRI Brain Luis Hsu MD Phone: tel: fax: [email or web address]:[email or web address] Referral ID Status Reason Start Date Expiration Date Visits Re quested Visits Authorized [id number] Closed 04/16/2020 10/13/2020 1 1 Encounter Details Date Type Department Care Team (Latest Contact Info) Description 04/16/2020 Transcribe Orders Virtual Department [address] [place] [address] Luis Hsu MD [address] [place] [address], [address] [place] [address] 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 Not on savita e documented as of this encounter Plan of Treatment Upcoming Encounters Date Type Department Care Team (Late st Contact Info) Description 06/18/2025 10:30 AM EST Office Visit [facility] Gastroenterology Clinic [address] [place], [place] [id number] Unknown, Unknown, Ashley Vernon, TREE DRILLER [address] [place], [place] [phone] documented as of this encounter Results * MRA HEAD WITHOUT CONTRAST (04/23/2020 1:34 PM EST) Anatomical Region Laterality Modality Head Magnetic Resonan ce 04/23/2020 1:39 PM EST Impressions 04/23/2020 2:01 PM EST Stable signal changes within the supratentorial white matter bilaterally, most likely chronic small vessel ischemia. No evidence of acute intracranial pathology. No explanation for headaches. MRA BRAIN FINDINGS: No evidence of cerebral artery aneurysms. No evidence of large vessel occlusions or hemodynamically significant stenoses. IMPRESSION: No abnormalities on MRA of brain. Narrative 04/23/2020 2:01 PM EST HISTORY: Increasing migraines, status-post aneurysm coiling in 2014. MRI brain 10/02/2018. COMPARISON: MRI brain 10/02/2018. TECHNIQUE: Exam performed on a 1.5 Geno high-field MRI scanner. Axial T1, T2, T2*, T2 FLAIR and diffusion-weighted imaging with ADC map, sagittal T1 sequences were obtained. FINDINGS: No evidence of intracranial hemorrhage, hematomas or acute infarcts. No suspicious intracranial masses. T2 hyperintense foci within the supratentorial white matter bilaterally appear essentially stable in number, distribution and configuration compared with 10/02/2018 allowing for slight differences in scan planes between the current and prior exams. No signal abnormalities in the corpus callosum, brain stem or cerebellar hemispheres. Ventricles are stable in size and configuration. Basal cisterns are patent. Stable flow-voids at the base of the skull. The paranasal sinuses are clear. Procedure Note Ignacio Meneses MD - 04/23/2020 HISTORY: Increasing migraines, status-post aneurysm coiling in 2014. MRIbrain 10/02/2018. COMPARISON: MRI brain 10/02/2018. TECHNIQUE: Exam performed on a 1.5 Geno high-field MRI scanner. AxialT1, T2, T2*, T2 FLAIR and diffusion-weighted imaging with ADC map,sagittal T1 sequences were obtained. FINDINGS: No evidence of intracranial hemorrhage, hematomas or acute infarcts. Nosuspicious intracranial masses. T2 hyperintense foci within the supratentorial white matter bilaterallyappear essentially stable in number, distribution and configurationcompared with 10/02/2018 allowing for slight differences in scan planesbetween the current and prior exams. No signal abnormalities in the corpuscallosum, brain stem or cerebellar hemispheres. Ventricles are stable in size and configuration. Basal cisterns arepatent. Stable flow-voids at the base of the skull. The paranasal sinuses are clear. IMPRESSION: Stable signal changes within the supratentorial white matter bilaterally,most likely chronic small vessel ischemia. No evidence of acuteintracranial pathology. No explanation for headaches. MRA BRAIN FINDINGS: No evidence of cerebral artery aneurysms. No evidence of large vesselocclusions or hemodynamically significant stenoses. IMPRESSION: No abnormalities on MRA of brain. us Luis Hsu MD IMG MR HEAD/NECK Final Resul t * MRI BRAIN WITHOUT CONTRAST (04/23/2020 1:34 PM EST) Anatomical Region Laterality Modality Head Magnetic Resonan ce 04/23/2020 1:3 9 PM EST Impressions 04/23/2020 2:01 PM EST Stable signal changes within the supratentorial white matter bilaterally, most likely chronic small vessel ischemia. No evidence of acute intracranial pathology. No explanation for headaches. MRA BRAIN FINDINGS: No evidence of cerebral artery aneurysms. No evidence of large vessel occlusions or hemodynamically significant stenoses. IMPRESSION: No abnormalities on MRA of brain. Narrative 04/23/2020 2:01 PM EST HISTORY: Increasing migraines, status-post aneurysm coiling in 2014. MRI brain 10/02/2018. COMPARISON: MRI brain 10/02/2018. TECHNIQUE: Exam performed on a 1.5 Geno high-field MRI scanner. Axial T1, T2, T2*, T2 FLAIR and diffusion-weighted imaging with ADC map, sagittal T1 sequences were obtained. FINDINGS: No evidence of intracranial hemorrhage, hematomas or acute infarcts. No suspicious intracranial masses. T2 hyperintense foci within the supratentorial white matter bilaterally appear essentially stable in number, distribution and configuration compared with 10/02/2018 allowing for slight differences in scan planes between the current and prior exams. No signal abnormalities in the corpus callosum, brain stem or cerebellar hemispheres. Ventricles are stable in size and configuration. Basal cisterns are patent. Stable flow-voids at the base of the skull. The paranasal sinuses are clear. Procedure Note Ignacio Meneses MD - 04/23/2020 HISTORY: Increasing migraines, status-post aneurysm coiling in 2014. MRIbrain 10/02/2018. COMPARISON: MRI brain 10/02/2018. TECHNIQUE: Exam performed on a 1.5 Geno high-field MRI scanner. AxialT1, T2, T2*, T2 FLAIR and diffusion-weighted imaging with ADC map,sagittal T1 sequences were obtained. FINDINGS: No evidence of intracranial hemorrhage, hematomas or acute infarcts. Nosuspicious intracranial masses. T2 hyperintense foci within the supratentorial white matter bilaterallyappear essentially stable in number, distribution and configurationcompared with 10/02/2018 allowing for slight differences in scan planesbetween the current and prior exams. No signal abnormalities in the corpuscallosum, brain stem or cerebellar hemispheres. Ventricles are stable in size and configuration. Basal cisterns arepatent. Stable flow-voids at the base of the skull. The paranasal sinuses are clear. IMPRESSION: Stable signal changes within the supratentorial white matter bilaterally,most likely chronic small vessel ischemia. No evidence of acuteintracranial pathology. No explanation for headaches. MRA BRAIN FINDINGS: No evidence of cerebral artery aneurysms. No evidence of large vesselocclusions or hemodynamically significant stenoses. IMPRESSION: No abnormalities on MRA of brain. Luis Hsu MD IMG MR HEAD/NECK Final Resul t documented in this encounter Visit Diagnoses Diagnosis Aneurysm- Primary Other aneurysm of unspecified site Vertigo Dizziness and giddiness White matter disease Nonintractable headache, unspecified chronicity pattern, unspecified headache type Aneurysm Other aneurysm of unspecified site Vertigo Dizziness and giddiness White matter disease Nonintractable headache, unspecified chronicity pattern, unspecified headache type Aneurysm Other aneurysm of unspecified site Vertigo Dizziness and giddiness White matter disease Nonintractable headache, unspecified chronicity pattern, unspecified headache type documented in this encounter Care Teams Arts Manager Relationship Specialty Start Date End Date Lenora Castro DO [address] [place] [address] PCP - General Internal Medicine 11/18/19 10/13/21 Shashi Farrell MD [address] [place] [address] PCP - General Internal Medicine 10/14/21 Tony Carrillo MD [address] [place] [address] [email or web address] Historical LMR Provider 04/01/17 2 Jayson Rucker MD [address] [place] [address] [email or web address] Historical LMR Provider 04/01/17 06/19/21 Patricia Gutierrez NP [address] [place] [address] Historical LMR Provider 04/01/17 2 Jimmie Martinez MD [address] [place] [address] [address] [place] [address] Historical LMR Provider 04/01/17 06/19/21 Chante Anders MD [address] [place] [address] Orthopedics & Sports Medicine, [facility] [place] [address] Historical LMR Provider 04/01/17 06/19/21 documented as of this encounter Additional Source Comments The information contained in this document represents components of the legal health record. It is not the complete legal health record.[facility]
--- OUTSIDE RECORDS SUMMARY | 2025-03-12 16:38 | XMS_ITS | Encounter Summary ---
Author Organization [facility] Address [address] [place] [address] [place] [address] Phone Care Team Providers Care Small Stock Facer Name Role Phone Tony Carrillo MD Unavailable Jayson Rucker MD Unavailable Patricia Gutierrez NP Unavailable [phone] Jimmie Martinez MD Unavailable Chante Anders MD Unavailable [phone] Patricia Gutierrez NP Primary Care Provider Lenora Castro DO Primary Care Provider [phone] Lenora Castro DO Primary Care Provider Shashi Farrell MD Primary Care Provider [phone] Reason for Referral * Outpatient Procedure - Closed Specialty Diagnoses / Procedures Referred By Josué t Referred To Contact Radiology Diagnoses Nausea Procedures NM Gastric Emptying Jayjay Florence MD Phone: tel: fax: [email or web address] Referral ID Status Reason Start Date Expiration Date Visits Re quested Visits Authorized [id number] Closed 05/24/2019 05/23/2020 1 1 Encounter Details Date Type Department Care Team (Latest Contact Info) Description 05/24/2019 Transcribe Orders Virtual Department 30 [place] [address] Jayjay Florence MD [address] [place] [phone] [email or web address] Nausea (Primary Dx) Social History Tobacco [...] 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, [employer]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 Not on savita e documented as of this encounter Plan of Treatment Upcoming Encounters Date Type Department Care Team ([facility] st Contact Info) Description 06/18/2025 10:30 AM EST Office Visit [facility] [address] [place] [address] Unknown, Unknown, Ashley Vernon, CHRIS [address] [place] [address] [email or web address] documented as of this encounter Results * NM GASTRIC EMPTYING SOLID PHASE (06/11/2019 2:44 PM EST) Anatomical Region Laterality Modality Abdomen, Pelvis Nuclear Medicine 06/11/2019 2:45 PM EST Impressions 06/11/2019 2:49 PM EST Although the emptying curve displays grossly normal morphology there is overall delay in gastric emptying at one, two, and four hours following radiopharmaceutical ingestion. POS - [id number] Narrative 06/11/2019 2:49 PM EST COMPARISON: None FINDINGS: The patient is given an oral dose of 1.0 mCi of Tc99m labeled sulfur colloid in a standard egg meal and evaluation of gastric emptying over four hours is obtained. At one hour there is 99.8% residual activity in the stomach which is above the normal range. At two hours there is 66.3% residual activity in the stomach which is above the normal range. At four hours there is 21.7% residual activity in the stomach which is above the normal range. No obvious gastroesophageal reflux is seen. NORMAL RANGE One hour 37-90% Two hours 30-60% Four hours 0-10% Procedure Note Arabella Lepe MD - 06/11/2019 COMPARISON: None FINDINGS: The patient is given an oral dose of 1.0 mCi of Tc99m labeled sulfurcolloid in a standard egg meal and evaluation of gastric emptying overfour hours is obtained. At one hour there is 99.8% residual activity in the stomach which is abovethe normal range. At two hours there is 66.3% residual activity in the stomach which isabove the normal range. At four hours there is 21.7% residual activity in the stomach which isabove the normal range. No obvious gastroesophageal reflux is seen. NORMAL RANGE One hour 37-90% Two hours 30-60% Four hours 0-10% IMPRESSION: Although the emptying curve displays grossly normal morphology there isoverall delay in gastric emptying at one, two, and four hours followingradiopharmaceutical ingestion. POS - [id number] Jayjay Florence MD IMG NM ABDOMEN Final Result documented in this encounter Visit Diagnoses Diagnosis Nausea- Primary Nausea alone Nausea Nausea alone documented in this encounter Care Teams Small Stock Facer Relationship Specialty Start Date End Date Patricia Gutierrez NP [address] [place] [address] [place] [address] PCP - General Family Medicine 12/22/17 06/10/19 Lenora Castro DO [address] [place] [address] PCP - General Internal Medicine 06/11/19 11/17/19 Lenora Castro DO [address] [place] [address] [email or web address] PCP - General Internal Medicine 11/18/19 10/13/21 Shashi Farrell MD [address] [place] [address] [email or web address] PCP - General Internal Medicine 10/14/21 Tony Carrillo MD [address] [place] [address] [email or web address] Historical LMR Provider 04/01/17 2 Jayson Rucker MD [address] [place] [address] Historical LMR Provider 04/01/17 06/19/21 Patricia Gutierrez NP [address] [place] [address] Historical LMR Provider 04/01/17 2 Jimmie Martinez MD [address] [place] [address] [address] [place] [address] Historical LMR Provider 04/01/17 06/19/21 Chante Anders MD [address] [place] [address] Orthopedics & Sports Medicine, [facility] [place] [address] Historical LMR Provider 04/01/17 06/19/21 documented as of this encounter Additional Source Comments The information contained in this document represents components of the legal health record. It is not the complete legal health record.[facility]
--- OUTSIDE RECORDS SUMMARY | 2025-03-12 16:38 | XMS_ITS | Encounter Summary ---
Author Organization [facility] Address [address] [place] [address] [place] [address] Phone Care Team Providers Care Senior Project Manager Engineering Name Role Phone Tony Carrillo MD Unavailable [phone] Jayson Rucker MD Unavailable Patricia Gutierrez NP Unavailable [phone] Jimmie Martinez MD Unavailable [phone] Chante Anders MD Unavailable [phone] Lenora Castro DO Primary Care Provider [phone] Shashi Farrell MD Primary Care Provider [phone] Reason for Referral * Physical Therapy (Routine) - Closed Specialty Diagnoses / Procedures Referred By Contac t Referred To Contact Physical Therapy Diagnoses Encounter for rehabilitation BPPV Procedures Evaluate & Treat Luis Hsu MD Phone: tel: fax: mailto:[email or web address] [address] [address] Phone: tel: Referral ID Status Reason Start Date Expiration Date Visits Re quested Visits Authorized [id number] Closed 01/20/2021 04/20/2021 25 25 Encounter Details Date Type Department Care Team (Latest Contact Info) Description 01/20/2021 Transcribe Orders [facility] [address] [place] [address] Luis Hsu MD [address] [place] [address], [address] [place] [address] [email or web address] Encounter for rehabilitation (Primary Dx) Social History Tobacco Use Types [...] 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 Physical Therapy Outpatient Referral Routine Encounter for rehabilitation Ordered: 01/20/2021 documented as of this encounter Visit Diagnoses Diagnosis Encounter for rehabilitation- Primary documented in this encounter Care Teams Senior Project Manager Engineering Relationship Specialty Start Date End Date Lenora Castro DO [address] [place] [address] PCP - General Internal Medicine 11/18/19 10/13/21 Shashi Farrell MD [address] [place] [address] [email or web address] PCP - General Internal Medicine 10/14/21 Tony Carrillo MD [address] [place] [address] [email or web address] Historical LMR Provider 04/01/17 2 Jayson Rucker MD [address] [place] [address] [address] [place] [address] [email or web address] Historical LMR Provider 04/01/17 06/19/21 Patricia Gutierrez NP [address] [place] [address] [place] [address] Historical LMR Provider 04/01/17 2 Jimmie Martinez MD [address] [place] [address] [address] [place] [address] Historical LMR Provider 04/01/17 06/19/21 Chante Anders MD [address] [place] [address] Orthopedics & Sports Medicine, [place] [address] Historical LMR Provider 04/01/17 06/19/21 documented as of this encounter Additional Source Comments The information contained in this document represents components of the legal health record. It is not the complete legal health record.[facility]
--- OUTSIDE RECORDS SUMMARY | 2025-03-12 16:38 | XMS_ITS | Encounter Summary ---
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, [employer]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 Not on savita e documented as of this encounter Plan of Treatment Upcoming Encounters Date Type Department Care Team (Late st Contact Info) Description 06/18/2025 10:30 AM EST Office Visit [facility] [address] [place] [address] Unknown, Unknown, Ashley Vernon, RN COMMUNITY [address] [place] [address] [email or web address] documented as of this encounter Visit Diagnoses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documented in this encounter Care Teams Hand Patcher Relationship Specialty Start Date End Date Shashi Farrell MD [address] [place] [address] [email or web address] PCP - General Internal Medicine 10/14/21 documented as of this encounter Additional Source Comments The information contained in this document represents components of the legal health record. It is not the complete legal health record.[facility]
--- OUTSIDE RECORDS SUMMARY | 2025-03-12 16:38 | XMS_ITS | Encounter Summary ---
Author Organization [facility] Address [facility] [address] [place] [address] Phone Care Team Providers Care Matcher Leather Parts Name Role Phone Tony Carrillo MD Unavailable [phone] Jayson Rucker MD Unavailable Patricia Gutierrez NP Unavailable Jimmie Martinez MD Unavailable Chante Anders MD Unavailable [phone] Lenora Castro DO Primary Care Provider [phone] Lenora Castro DO Primary Care Provider Shashi Farrell MD Primary Care Provider [phone] Encounter Details Date Type Department Care Team (Latest Contact Info) Description 07/02/2019 Transcribe Orders Virtual Department [address] [place] [address] Jayjay Florence MD [address] [place] [address] [phone] [email or web address] Medication management (Primary Dx) Social History Tobacco Use Types [...] 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, 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 Not on savita e documented as of this encounter Plan of Treatment Upcoming Encounters Date Type Department Care Team (Late st Contact Info) Description 06/18/2025 10:30 AM EST Office Visit [facility] [address] [place] [address] Unknown, Unknown, Ashley Vernon, AVIONICS SYSTEMS TECHNICIAN [address] [place] [address] [email or web address] Scheduled Orders Name Type Priority Associated Diagnoses Orde r Schedule ECG 12-LEAD ECG Routine Medication management Expected: 08/19/2019, Expires: 07/02/2020 documented as of this encounter Visit Diagnoses Diagnosis Medication management- Primary documented in this encounter Care Teams Matcher Leather Parts Relationship Specialty Start Date End Date Lenora Castro DO [address] [place] [address] PCP - General Internal Medicine 06/11/19 11/17/19 Lenora Castro DO [address] [place] [address] PCP - General Internal Medicine 11/18/19 10/13/21 Shashi Farrell MD [address] [place] [address] [email or web address] PCP - General Internal Medicine 10/14/21 Tony Carrillo MD [address] [place] [address] [email or web address] Historical LMR Provider 04/01/17 2 Jayson Rucker MD [address] [place] [address] 202 [place] [address] [email or web address] Historical LMR Provider 04/01/17 06/19/21 Patricia Gutierrez NP [address] [place] [address] [place] [address] Historical LMR Provider 04/01/17 2 Jimmie Martinez MD [address] [place] [address] [address] [place] [address] [email or web address] Historical LMR Provider 04/01/17 06/19/21 Chante Anders MD [address] [place] [address] Orthopedics & Sports Medicine, [facility] [place] [address] [email or web address] Historical LMR Provider 04/01/17 06/19/21 documented as of this encounter Additional Source Comments The information contained in this document represents components of the legal health record. It is not the complete legal health record.[facility]
--- OUTSIDE RECORDS SUMMARY | 2025-03-12 16:38 | XMS_ITS | Encounter Summary ---
Author Organization [facility] Address [address] [place] [address] [place] [address] Phone Care Team Providers Care Oracle R12 Developer Name Role Phone Tony Carrillo MD Unavailable Jayson Rucker MD Unavailable Patricia Gutierrez NP Unavailable Jimmie Martinez MD Unavailable Chante Anders MD Unavailable [phone] Patricia Gutierrez NP Primary Care Provider [phone] Lenora Castro DO Primary Care Provider Lenora Castro DO Primary Care Provider Shsahi Farrell MD Primary Care Provider [phone] Encounter Details Date Type Department Care Team (Late st Contact Info) Description 05/08/2019 Procedure Pass [facility] Endoscopy Admitting Dept Virtual Department [address] [place] [address] Social History Tobacco Use Types Packs/Day Years [...] 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, 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 Not on savita e documented as of this encounter Plan of Treatment Upcoming Encounters Date Type Department Care Team (Late st Contact Info) Description 06/18/2025 10:30 AM EST Office Visit [facility] 10 [place] [address] Unknown, Unknown, Ashley Vernon, INJECTION MOLD TECHNICIAN [address] [place] [address] documented as of this encounter Visit Diagnoses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documented in this encounter Care Teams Oracle R12 Developer Relationship Specialty Start Date End Date Patricia Gutierrez NP 31 [facility] [place] [address] PCP - General Family Medicine 12/22/17 06/10/19 Lenora Castro DO [address] [place] [address] PCP - General Internal Medicine 06/11/19 11/17/19 Lenora Castro DO [address] [place] [address] PCP - General Internal Medicine 11/18/19 10/13/21 Shashi Farrell MD 31 [place] [address] PCP - General Internal Medicine 10/14/21 Tony Carrillo MD [address] [place] [address] [email or web address] Historical LMR Provider 04/01/17 2 Jayson Rucekr MD [address] [place] [address] [address] [place] [address] [email or web address] Historical LMR Provider 04/01/17 06/19/21 Patricia Gutierrez NP [address] [place] [address] [place] [address] Historical LMR Provider 04/01/17 2 Jimmie Martinez MD [address] [place] [address] 102 [place] [address] [email or web address] Historical LMR Provider 04/01/17 06/19/21 Chante Anders MD [address] [place] [address] Orthopedics & Sports Medicine, [facility] [place] [address] [email or web address] Historical LMR Provider 04/01/17 06/19/21 documented as of this encounter Additional Source Comments The information contained in this document represents components of the legal health record. It is not the complete legal health record.[facility]
--- OUTSIDE RECORDS SUMMARY | 2025-03-12 16:38 | XMS_ITS | Encounter Summary ---
Author Organization [facility] Address [facility] [address] [place] [address] Phone Care Team Providers Care Merchandise Distributor Name Role Phone Tony Carrillo MD Unavailable Jayson Rucker MD Unavailable Patricia Gutierrez NP Unavailable [phone] Jimmie Martinez MD Unavailable Chante Anders MD Unavailable [phone] Lenora Castro DO Primary Care Provider [phone] Lenora Castro DO Primary Care Provider [phone] Shashi Farrell MD Primary Care Provider [phone] Encounter Details Date Type Department Care Team (Late st Contact Info) Description 06/20/2019 Ancillary Orders Virtual Department [address] [place] [address] Meaghan Saez [place] [address] [address] Breast screening Social History Tobacco Use Types Packs/Day Years [...] 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, [employer]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 Not on savita e documented as of this encounter Plan of Treatment Upcoming Encounters Date Type Department Care Team (Late st Contact Info) Description 06/18/2025 10:30 AM EST Office Visit [facility] [address] [place] [address] Unknown, Unknown, Ashley Vernon, OVERHEAD LINE WORKER [address] [place] [address] [email or web address] documented as of this encounter Results * BI MAMMOGRAM SCREENING WITH TOMOSYNTHESIS WITH [...] HERNANDEZ IMG MG EXAMS Final Resul t documented in this encounter Visit Diagnoses Diagnosis Breast screening Breast screening, unspecified Breast screening Breast screening, unspecified documented in this encounter Care Teams Merchandise Distributor Relationship Specialty Start Date End Date Lenora Castro DO [address] [place] [address] PCP - General Internal Medicine 06/11/19 11/17/19 Lenora Castro DO [address] [place] [address] PCP - General Internal Medicine 11/18/19 10/13/21 Shashi Farrell MD [address] [place] [address] [email or web address] PCP - General Internal Medicine 10/14/21 Tony Carrillo MD [address] [place] [address] [email or web address] Historical LMR Provider 04/01/17 2 Jayson Rucker MD [address] [place] [address] [address] [place] [address] [email or web address] Historical LMR Provider 04/01/17 06/19/21 Patricia Gutierrez NP [address] [place] [address] [place] [address] Historical LMR Provider 04/01/17 2 Jimmie Martinez MD [address] [place] [address] [address] [place] [address] Historical LMR Provider 04/01/17 06/19/21 Chante Anders MD [address] [place] [address] Orthopedics & Sports Medicine, [facility] [place] [address] [email or web address] Historical LMR Provider 04/01/17 06/19/21 documented as of this encounter Additional Source Comments The information contained in this document represents components of the legal health record. It is not the complete legal health record.[facility]
--- OUTSIDE RECORDS SUMMARY | 2025-03-12 16:38 | XMS_ITS | Encounter Summary ---
Author Organization [facility] Address [address] [place] [address] Phone Care Team Providers Care Forestry Farm Laborer Name Role Phone Shashi Farrell MD Primary Care Provider [phone] Encounter Details Date Type Department Care Team (Latest Contact Info) Description 08/23/2023 Transcribe Orders [facility] Laboratory [address] [facility] 2nd [place] [address] Ashley Vega, [facility] [address] [place] [address] [email or web address] Gastroesophageal reflux disease, unspecified whether esophagitis present (Primary Dx); Abdominal pain, epigastric; Abdominal pain, right upper quadrant Social History Tobacco Use Types Packs/Day Years [...] 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 Gastro[facility]ology Clinic [address] [place] [address] Unknown, Unknown, MD Vega, Ashley Wright CNP [address] [place] [address] [email or web address] documented as of this encounter Results * CA-19-9 (08/23/2023 11:30 AM EDT) CA 19-9 9 <35 U/mL [facility] Comment: Test Methodology Edwin [id number] Patient results determined by assays using different manufacturers or methods may not be comparable. Blood 08/23/2023 11:3 0 AM EDT 08/23/2023 11:32 AM EDT us Ashley Vega CNP LAB BLOOD ORDERABLES Final Result [facility] [address] [place] [address] * LFTs (hepatic panel) (08/23/2023 11:30 AM EDT) ALKALINE PHOSPHATASE 85 39 - 117 U/L [facility] TOTAL BILIRUBIN 0.3 0.0 - 1.2 mg/dL [facility] DIRECT BILIRUBIN <0.2 0 - 0.3 mg/dL [facility] Bilirubin (Indirect) NOT CALCULATED 0 - 1.5 mg/dL [facility] AST 29 0 - 37 U/L [facility] ALT 17 0 - 40 U/L [facility] TOTAL PROTEIN 7.4 6.5 - 8.0 g/dL [facility] ALBUMIN 4.7 3.9 - 4.8 g/dL [facility] GLOBULIN 2.7 1 - 4.8 g/dL [facility] A/G Ratio 1.74 1.00 - 4.80 RATIO [facility] Blood 08/23/2023 11:3 0 AM EDT 08/23/2023 11:32 AM EDT Ashley Adrianadouglas Vega [facility] LAB BLOOD ORDERABLES Final Result Performing Organization Address City/[facility] Co de Phone Number [address] [address] * Lipase (08/23/2023 11:30 AM EDT) Pathologist [facility] LIPASE 18 16 - 63 U/L [facility] Blood 08/23/2023 11:3 0 AM EDT 08/23/2023 11:32 AM EDT [facility]LOOD ORDERABLES Final Result Performing Organization Address City/[facility]/ZIP Co de Phone Number [address] [address] * C-Reactive Protein (08/23/2023 11:30 AM EDT) Pathologist [facility] C REACTIVE PROTEIN <3.0 0.0 - 4.0 mg/L [facility] Blood 08/23/2023 11:3 0 AM EDT 08/23/2023 11:32 AM EDT us Ashley Vega DIGITAL SALES MANAGER LAB BLOOD ORDERABLES Final Result [facility] [address] [place] [address] * (ABNORMAL) CBC and differential (08/23/2023 11:30 AM EDT) WBC 4.12 4.00 - 11.00 K/uL [facility] RBC 4.47 3.72 - 5.30 M/uL [facility] HGB 11.1(L) 11.4 - 15.9 g/dL [facility] HCT 36.7 34.2 - 46.8 % [facility] PLT 255 140 - 430 K/uL [facility] MCV 82.1 78.0 - 97.0 fL [facility] MCH 24.8(L) 25.0 - 33.0 pg [facility] MCHC 30.2(L) 32.0 - 36.0 g/dL [facility] RDW 15.2 11.0 - 16.0 % [facility] MPV 11.6 8.4 - 12.8 fl [facility] DIFF METHOD Auto [facility] NEUTS 61.0 43.0 - 75.0 % [facility] LYMPHS 23.5 18.2 - 47.4 % [facility] MONOS 12.4(H) 4.00 - 11.00 % [facility] EOS 1.9 0.0 - 8.0 % [facility] BASOS 1.0 0.0 - 2.0 % [facility] Granulocytes, immature (%) 0.2 0.0 - 0.9 % [facility] ABSOLUTE NEUTS 2.51 1.80 - 7.70 K/uL [facility] ABSOLUTE LYMPHS 0.97(L) 1.00 - 3.10 K/uL [facility] ABSOLUTE MONOS 0.51 0.20 - 0.80 K/uL [facility] ABSOLUTE EOS 0.08 0.00 - 0.80 K/uL [facility] ABSOLUTE BASOS 0.04 0.00 - 0.09 K/uL [facility] Granulocytes, immature 0.01 0.00 - 0.05 K/uL [facility] Blood 08/23/2023 11:3 0 AM EDT 08/23/2023 11:32 AM EDT us Ashley Vega DIGITAL SALES MANAGER LAB BLOOD ORDERABLES Final Result [facility] [address] [place] [address] documented in this encounter Visit Diagnoses Diagnosis Gastroesophageal reflux disease, unspecified whether esophagitis present- Primary Abdominal pain, epigastric Abdominal pain, right upper quadrant documented in this encounter Care Teams Forestry Farm Laborer Relationship Specialty Start Date End Date Shashi Farrell MD [address] [place] [address] [email or web address] PCP - General Internal Medicine 10/14/21 documented as of this encounter Additional Source Comments The information contained in this document represents components of the legal health record. It is not the complete legal health record.[facility]
--- OUTSIDE RECORDS SUMMARY | 2025-03-12 16:39 | XMS_ITS | Encounter Summary ---
Author Organization [facility] Address [address] [place] [address] [place] [address] Phone Care Team Providers Care Intelligence Clerk Name Role Phone Lenora Castro DO Primary Care Provider [phone] Tnoy Carrillo MD Unavailable [phone] Jayson Rucker MD Unavailable Patricia Gutierrez NP Unavailable [phone] Jimmie Martinez MD Unavailable [phone] Chante Anders MD Unavailable [phone] Patricia Gutierrez NP Primary Care Provider Lenora Castro DO Primary Care Provider Lenora Castro DO Primary Care Provider [phone] Shashi Farrell MD Primary Care Provider Encounter Details Date Type Department Care Team (Latest Contact Info) Description 05/22/2017 Transcribe Orders [facility] [address] [place] [address] Luis Hsu MD [address] [place] [address], [address] [place] [address] [email or web address] Weakness (Primary Dx) Social History Tobacco Use Types Packs/Day Years Used Date Smoking Tobacco: Never Smokeless Tobacco: Never Alcohol Use Standard Drinks/Week Comments No 0 (1 standard drink = 0.6 oz pur e alcohol) Comments Unknown Sex and Gender Information Value [...] Description 06/18/2025 10:30 AM EST Office Visit [facility] Gastroenterology Clinic 10 [place] [address] Unknown, Unknown, Ashley Vernon, GARMENT FORM ASSEMBLER 10 [place] [address] [email or web address] documented as of this encounter Results * Acetylcholine receptor binding antibody (05/22/2017 4:35 PM EST) ACH RECEPTOR BIND AB 0.00 <=0.02 nmol/L [facility] DPT OF LAB MED AND PAT+ Comment: (NOTE) ADDITIONAL INFORMATION This test was developed and its performance characteristics determined by [facility] in a manner consistent with CLIA requirements. This test has not been cleared or approved by the U.S. Food and Drug Administration. Blood 05/22/2017 4:35 PM EST 05/22/2017 4:38 PM EST us Luis Hsu MD LAB BLOOD ORDERABLES Final R esult [facility] DPT OF LAB MED AND PAT+ [address] [place] [address] * CPK (creatine kinase) (05/22/2017 4:35 PM EST) CREATINE KINASE 106 21 - 215 U/L [facility] Blood 05/22/2017 4:35 PM EST 05/22/2017 4:39 PM EST us Luis Hsu MD LAB BLOOD ORDERABLES Final R esult [address] [address] documented in this encounter Visit Diagnoses Diagnosis Weakness- Primary Other malaise and fatigue documented in this encounter Care Teams Intelligence Clerk Relationship Specialty Start Date End Date Lenora Castro DO [address] [place] [address] PCP - General Internal Medicine 08/10/16 12/21/17 Patricia Gutierrez NP [address] [place] [address] PCP - General Family Medicine 12/22/17 06/10/19 Lenora Castro DO [address] [place] [address] PCP - General Internal Medicine 06/11/19 11/17/19 Lenora Castro DO [address] [place] [address] PCP - General Internal Medicine 11/18/19 10/13/21 Shashi Farrell MD [address] [place] [address] [email or web address] PCP - General Internal Medicine 10/14/21 Tony Carrillo MD [address] [place] [address] [email or web address] Historical LMR Provider 04/01/17 2 Jayson Rucker MD [address] [place] [address] [address] [place] [address] [email or web address] Historical LMR Provider 04/01/17 06/19/21 Patricia Gutierrez NP [address] [place] [address] [place] [address] Historical LMR Provider 04/01/17 2 Jimmie Martinez MD [address] [place] [address] 102 [place] [address] [email or web address] Historical LMR Provider 04/01/17 06/19/21 Chante Anders MD [address] [place] [address] Orthopedics & Sports Medicine, [facility] [place] [address] [email or web address] Historical LMR Provider 04/01/17 06/19/21 documented as of this encounter Additional Source Comments The information contained in this document represents components of the legal health record. It is not the complete legal health record.[facility]
--- OUTSIDE RECORDS SUMMARY | 2025-03-12 16:39 | XMS_ITS | Encounter Summary ---
Author Organization [facility] Address [address] [place] [address] [place] [address] Phone Care Team Providers Care Clin Tech Name Role Phone Lenora Castro DO Primary Care Provider Tony Carrillo MD Unavailable [phone] Jayson Rucker MD Unavailable Patricia Gutierrez NP Unavailable Jimmie Martinez MD Unavailable [phone] Chante Anders MD Unavailable [phone] Patricia Gutierrez NP Primary Care Provider [phone] Lenora Castro DO Primary Care Provider Lenora Castro DO Primary Care Provider Shashi Farrell MD Primary Care Provider Reason for Referral * Physical Therapy (Routine) - Closed Specialty Diagnoses / Procedures Referred By Josué t Referred To Contact Physical Therapy Diagnoses Encounter for rehabilitation Luis Hsu MD Phone: tel: fax: [email or web address] [facility] [address] [place] [address] Phone: tel: fax: Referral ID Status Reason Start Date Expiration Date Visits Re quested Visits Authorized [id number] Closed 10/26/2017 2018 25 25 Encounter Details Date Type Department Care Team (Latest Contact Info) Description 10/24/2017 Transcribe Orders [facility] [address] [place] [address] Luis Hsu MD [address] [place] [address], [address] [place] [address] [email or web address] Encounter for rehabilitation (Primary Dx) Social [...] Description 06/18/2025 10:30 AM EST Office Visit [facility] Gastroenterology Clinic [address] [place] [address] Unknown, Unknown, Ashley Vernon, SALT CUTTER [address] [place] [address] [email or web address] Scheduled Referrals Name Type Priority Associated Diagnoses Orde r Schedule Ambulatory referral to [facility] Physical Therapy Outpatient Referral Routine Encounter for rehabilitation Ordered: 10/24/2017 documented as of this encounter Visit Diagnoses Diagnosis Encounter for rehabilitation- Primary documented in this encounter Care Teams Clin Tech Relationship Specialty Start Date End Date Lenora Castro DO [address] [place] [address] PCP - General Internal Medicine 08/10/16 12/21/17 Patricia Gutierrez NP [address] [place] [address] [place] [address] PCP - General Family Medicine 12/22/17 06/10/19 Lenora Castro DO [address] [place] [address] [email or web address] PCP - General Internal Medicine 06/11/19 11/17/19 Lenora Castro DO [address] [place] [address] PCP - General Internal Medicine 11/18/19 10/13/21 Shashi Farrell MD [address] [place] [address] [email or web address] PCP - General Internal Medicine 10/14/21 Tony Carrillo MD [address] [place] [address] [email or web address] Historical LMR Provider 04/01/17 2 Jayson Rucker MD [address] [place] [address] [email or web address] Historical LMR Provider 04/01/17 06/19/21 Patricia Gutierrez NP [address] [place] [address] [place] [address] Historical LMR Provider 04/01/17 2 Jimmie Martinez MD [address] [place] [address] [address] [place] [address] Historical LMR Provider 04/01/17 06/19/21 Chante Anders MD [address] [place] [address] Orthopedics & Sports Medicine, [facility] [place] [address] [email or web address] Historical LMR Provider 04/01/17 06/19/21 documented as of this encounter Additional Source Comments The information contained in this document represents components of the legal health record. It is not the complete legal health record.[facility]
--- OUTSIDE RECORDS SUMMARY | 2025-03-12 16:39 | XMS_ITS | Encounter Summary ---
Author Organization [facility] Address [address] [place] [address] [place] [address] Phone Care Team Providers Care Picker Feeder Name Role Phone Lenora Castro DO Primary Care Provider [phone] Tony Carrillo MD Unavailable Jayson Rucker MD Unavailable Patricia Gutierrez NP Unavailable Jimmie Martinez MD Unavailable Chante Anders MD Unavailable [phone] Patricia Gutierrez NP Primary Care Provider Lenora Castro DO Primary Care Provider [phone] Lenora Castro DO Primary Care Provider [phone] Shashi Farrell MD Primary Care Provider Encounter Details Date Type Department Care Team (Late st Contact Info) Description 07/03/2017 Transcribe Orders [address] [place] [address] Khadra Horn PA [address] [place] [address] [place] [address] Type 2 diabetes mellitus without complication, without long-term current use of insulin (Primary Dx) Social History Tobacco Use Types [...] Description 06/18/2025 10:30 AM EST Office Visit [facility] Gastroenterology Clinic [address] [place] [address] Unknown, Unknown, Ashley Vernon, AIRCRAFT REFUELER [address] [place] [address] [email or web address] documented as of this encounter Visit Diagnoses Diagnosis Type 2 diabetes mellitus without complication, without long-term current use of insulin- Primary documented in this encounter Care Teams Picker Feeder Relationship Specialty Start Date End Date Lenora Castro DO [address] [place] [address] PCP - General Internal Medicine 08/10/16 12/21/17 Patricia Gutierrez, ADEN [address] [place] [address] [place] [address] PCP - General Family Medicine 12/22/17 06/10/19 Lenora Castro DO [address] [place] [address] PCP - General Internal Medicine 06/11/19 11/17/19 Lenora Castro DO [address] [place] [address] PCP - General Internal Medicine 11/18/19 10/13/21 Shashi Farrell MD [address] [place] [address] [email or web address] PCP - General Internal Medicine 10/14/21 Tony Carrillo MD [address] [place] [address] [email or web address] Historical LMR Provider 04/01/17 2 Jayson Rucker MD [address] [place] [address] [email or web address] Historical LMR Provider 04/01/17 06/19/21 Patricia Gutierrez NP [address] [place] [address] Historical LMR Provider 04/01/17 2 Jimmie Martinez MD [address] [place] [address] Historical LMR Provider 04/01/17 06/19/21 Chante Anders MD [address] [place] [address] Orthopedics & Sports Medicine, [facility] [place] [address] Historical LMR Provider 04/01/17 06/19/21 documented as of this encounter Additional Source Comments The information contained in this document represents components of the legal health record. It is not the complete legal health record.[facility]
--- OUTSIDE RECORDS SUMMARY | 2025-03-12 16:39 | XMS_ITS | Encounter Summary ---
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, [employer]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 Not on savita e documented as of this encounter Plan of Treatment Upcoming Encounters Date Type Department Care Team (Late st Contact Info) Description 06/18/2025 10:30 AM EST Office Visit [facility] Gastroenterology Clinic [address] [place] [address] Unknown, Unknown, Ashley Vernon, HOME DELIVERY DRIVER [address] [place] [address] [email or web address] documented as of this encounter Visit Diagnoses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documented in this encounter Care Teams Chemical Instrumentation Officer Relationship Specialty Start Date End Date Shashi Farrell MD [address] [place] [address] PCP - General Internal Medicine 10/14/21 documented as of this encounter Additional Source Comments The information contained in this document represents components of the legal health record. It is not the complete legal health record.[facility]
--- OUTSIDE RECORDS SUMMARY | 2025-03-12 16:39 | XMS_ITS | Encounter Summary ---
Author Organization [facility] Address [address] [place] [address] [place] [address] Phone Care Team Providers Care Siebel Developer Name Role Phone Lenora Castro DO Primary Care Provider Tony Carrillo MD Unavailable Jayson Rucker MD Unavailable Patricia Gutierrez NP Unavailable Jimmie Martinez MD Unavailable Chante Anders MD Unavailable [phone] Patricia Gutierrez NP Primary Care Provider Lenora Castro DO Primary Care Provider Lenora Castro DO Primary Care Provider [phone] Shashi Farrell MD Primary Care Provider Encounter Details Date Type Department Care Team (Late st Contact Info) Description 05/15/2017 Procedure Pass [facility], Ct Scan - [address] [address] Social History Tobacco Use Types Packs/Day Years [...] Upcoming Encounters Date Type Department Care Team ([facility] st Contact Info) Description 06/18/2025 10:30 AM EST Office Visit [facility] Gastroenterology Clinic [address] [place] [address] Unknown, Unknown, Ashley Vernon, BRACELET FORMER [address] [place] [address] documented as of this encounter Visit Diagnoses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documented in this encounter Care Teams Siebel Developer Relationship Specialty Start Date End Date Lenora Castro DO [address] [place] [address] PCP - General Internal Medicine 08/10/16 12/21/17 Patricia Gutierrez NP [address] [place] [address] PCP - General Family Medicine 12/22/17 06/10/19 Lenora Castro DO [address] [place] [address] PCP - General Internal Medicine 06/11/19 11/17/19 Lenora Castro DO [address] [place] [address] PCP - General Internal Medicine 11/18/19 10/13/21 Shashi Farrell MD [address] [place] [address] PCP - General Internal Medicine 10/14/21 Tony Carrillo MD [address] [place] [address] [email or web address] Historical LMR Provider 04/01/17 2 Jayson Rucker MD [address] [place] [address] 202 [place] [address] [email or web address] Historical LMR Provider 04/01/17 06/19/21 Patricia Gutierrez NP [address] [place] [address] [place] [address] Historical LMR Provider 04/01/17 2 Jimmie Martinez MD [address] [place] [address] [address] [place] [address] [email or web address] Historical LMR Provider 04/01/17 06/19/21 Chante Anders MD [address] [place] [address] Orthopedics & Sports Medicine, [facility] [place] [address] [email or web address] Historical LMR Provider 04/01/17 06/19/21 documented as of this encounter Additional Source Comments The information contained in this document represents components of the legal health record. It is not the complete legal health record.[facility]
--- OUTSIDE RECORDS SUMMARY | 2025-03-12 16:39 | XMS_ITS | Encounter Summary ---
Author Organization [facility] Address [address] [place] [address] [place] [address] Phone Care Team Providers Care Television News Video Editor Name Role Phone Lenora Castro DO Primary Care Provider Tony Carrillo MD Unavailable [phone] Jayson Rucker MD Unavailable Patricia Gutierrez NP Unavailable Jimmie Martinez MD Unavailable Chante Anders MD Unavailable [phone] Patricia Gutierrez NP Primary Care Provider Lenora Castro DO Primary Care Provider Lenora Castro DO Primary Care Provider [phone] Shashi Farrell MD Primary Care Provider Encounter Details Date Type Department Care Team (Late st Contact Info) Description 05/15/2017 Procedure Pass [address] [address] Social History Tobacco Use Types Packs/Day Years [...] - Inhaled Oxygen Concentration - - Weight 117.9 kg (260 lb) 05/15/2017 7:25 PM EST Height 170.2 cm (5' 7 ) 05/15/2017 7:25 PM EST Body Mass Index 40.72 05/15/2017 7:25 PM EST documented in this encounter Plan of Treatment Upcoming Encounters Date Type Department Care Team (Late st Contact Info) Description 06/18/2025 10:30 AM EST Office Visit [facility] Gastroenterology Clinic [address] [place] [address] Unknown, Unknown, Ashley Vernon, OPERATIONS LEADER [address] [place] [address] [email or web address] documented as of this encounter Visit Diagnoses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documented in this encounter Care Teams Television News Video Editor Relationship Specialty Start Date End Date Lenora Castro DO [address] [place] [address] PCP - General Internal Medicine 08/10/16 12/21/17 Patricia Gutierrez NP [address] [place] [address] [place] [address] PCP - General Family Medicine 12/22/17 06/10/19 Lenora Castro DO [address] [place] [address] PCP - General Internal Medicine 06/11/19 11/17/19 Lenora Castro DO [address] [place] [address] PCP - General Internal Medicine 11/18/19 10/13/21 Shashi Farrell MD [address] [place] [address] PCP - General Internal Medicine 10/14/21 Tony Carrillo MD [address] [place] [address] [email or web address] Historical LMR Provider 04/01/17 2 Jayson Rucker MD [address] [place] [address] [email or web address] Historical LMR Provider 04/01/17 06/19/21 Patricia Gutierrez NP [address] [place] [address] Historical LMR Provider 04/01/17 2 Jimmie Martinez MD [address] [place] [address] 102 [place] [address] Historical LMR Provider 04/01/17 06/19/21 Chante Anders MD [address] [place] [address] Orthopedics & Sports Medicine, [facility] [place] [place] [address] Historical LMR Provider 04/01/17 06/19/21 documented as of this encounter Additional Source Comments The information contained in this document represents components of the legal health record. It is not the complete legal health record.[facility]
--- OUTSIDE RECORDS SUMMARY | 2025-03-12 16:39 | XMS_ITS | Encounter Summary ---
Author Organization [facility] Address [address] [place] [address] [place] [address] Phone Care Team Providers Care Radiology Special Procedure Tech Name Role Phone Lenora Castro DO Primary Care Provider Tony Carrillo MD Unavailable Jayson Rucker MD Unavailable Patricia Gutierrez NP Unavailable [phone] Jimmie Martinez MD Unavailable [phone] Chante Anders MD Unavailable Patricia Gutierrez NP Primary Care Provider Lenora Castro DO Primary Care Provider [phone] Lenora Castro DO Primary Care Provider [phone] Shashi Farrell MD Primary Care Provider Reason for Referral * Physical Therapy (Routine) - Closed Specialty Diagnoses / Procedures Referred By Josué t Referred To Contact Physical Therapy Diagnoses Encounter for rehabilitation System, Provider Not In, PhD [address] [address] Phone: tel: Referral ID Status Reason Start Date Expiration Date Visits Re quested Visits Authorized [id number] Closed 07/13/2017 07/13/2018 1 1 * Physical Therapy (Routine) - Closed Specialty Diagnoses / Procedures Referred By Contchiara t Referred To Contact Physical Therapy Diagnoses Encounter for rehabilitation System, Provider Not In, PhD Partners [address] [address] [facility] [address] [place] [address] Phone: tel: Referral ID Status Reason Start Date Expiration Date Visits Re quested Visits Authorized [id number] Closed 07/12/2017 07/12/2018 1 1 Encounter Details Date Type Department Care Team (Latest Contact Info) Description 07/12/2017 Transcribe Orders [facility] [address] [place] [address] Patricia Gutierrez, ADEN [address] [place] [address] [place] [address] Encounter for rehabilitation (Primary Dx) Social History [...] Description 06/18/2025 10:30 AM EST Office Visit [facility] Gastroenterology Clinic [address] [place] [address] Unknown, Unknown, Ashley Vernon, LOGGING SUPERVISOR [address] [place] [address] [email or web address] Scheduled Referrals Name Type Priority Associated Diagnoses Orde r Schedule Ambulatory referral to [facility] Physical Therapy Outpatient Referral Routine Encounter for rehabilitation Ordered: 07/12/2017 Ambulatory referral to [facility] Physical Therapy Outpatient Referral Routine Encounter for rehabilitation Ordered: 07/13/2017 documented as of this encounter Visit Diagnoses Diagnosis Encounter for rehabilitation- Primary documented in this encounter Care Teams Radiology Special Procedure Tech Relationship Specialty Start Date End Date Lenora Castro DO [address] [place] [address] PCP - General Internal Medicine 08/10/16 12/21/17 Patricia Gutierrez NP [address] [place] [address] PCP - General Family Medicine 12/22/17 06/10/19 Lenora Castro DO [address] [place] [address] PCP - General Internal Medicine 06/11/19 11/17/19 Lenora Castro DO [address] [place] [address] PCP - General Internal Medicine 11/18/19 10/13/21 Shashi Farrell MD [address] [place] [address] [email or web address] PCP - General Internal Medicine 10/14/21 Tony Carrillo MD [address] [place] [address] [email or web address] Historical LMR Provider 04/01/17 2 Jayson Rucker MD [address] [place] [address], [address] [place] [address] [email or web address] Historical LMR Provider 04/01/17 06/19/21 Patricia Gutierrez NP [address] [place] [address] [place] [address] Historical LMR Provider 04/01/17 2 Jimmie Martinez MD [address] [place] [address], [facility] [address] [place] [address] [email or web address] Historical LMR Provider 04/01/17 06/19/21 Chante Anders MD [address] [place] [address] Orthopedics & Sports Medicine, [place] [address] [email or web address] Historical LMR Provider 04/01/17 06/19/21 documented as of this encounter Additional Source Comments The information contained in this document represents components of the legal health record. It is not the complete legal health record.[facility]
--- OUTSIDE RECORDS SUMMARY | 2025-03-12 16:39 | XMS_ITS | Encounter Summary ---
Author Organization [facility] Address Formerly [facility] [address] [place] [address] Phone Care Team Providers Care Aluminum Pool Installer Name Role Phone Shashi Farrell MD Primary Care Provider [phone] Encounter Details Date Type Department Care Team (Latest Contact Info) Description 03/25/2022 Transcribe Orders [facility] Laboratory [address] [address] Ashley Vega, MANAGER REQUIREMENTS [address] [place] [address] [email or web address] Pancreatic duct dilated (Primary Dx) Social History Tobacco Use Types [...] 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 Gastroenterology Clinic 10 [place] [address] Unknown, Unknown, MD Vega, Ashley Wright, MANAGER REQUIREMENTS [address] [place] [address] [email or web address] documented as of this encounter Results * C-Reactive Protein (03/25/2022 12:10 PM EDT) Pathologist [facility] C REACTIVE PROTEIN <3.0 0.0 - 4.0 mg/L [facility] Blood 03/25/2022 12:1 0 PM EDT 03/25/2022 12:11 PM EDT us Ashley Vega MANAGER REQUIREMENTS LAB BLOOD ORDERABLES Final Result [facility] [address] [place] [address] * Comprehensive metabolic panel (03/25/2022 12:10 PM EDT) Pathologist [facility] SODIUM 144 133 - 146 mmol/L [facility] POTASSIUM 4.2 3.3 - 5.1 mmol/L [facility] CHLORIDE 104 96 - 108 mmol/L [facility] CO2 29 21 - 35 mmol/L [facility] BUN 19 6 - 19 mg/dL [facility] CREATININE 0.70 0.5 - 1.5 mg/dL [facility] GLUCOSE 86 70 - 99 mg/dL [facility] ALBUMIN 4.6 3.9 - 4.8 g/dL [facility] TOTAL PROTEIN 7.4 6.5 - 8.0 g/dL [facility] CALCIUM 9.8 8.4 - 10.3 mg/dL [facility] ALKALINE PHOSPHATASE 73 39 - 117 U/L [facility] TOTAL BILIRUBIN 0.3 0.0 - 1.2 mg/dL [facility] AST 28 0 - 37 U/L [facility] ALT 21 0 - 40 U/L [facility] GLOBULIN 2.8 1 - 4.8 g/dL [facility] EGFR 100 >59 mL/min/1.7 3m2 [facility] Comment:Estimated glomerular filtration rate calculated using the CKD-EPI refit equation. ANION GAP 15 10 - 20 mmol/L [facility] Blood 03/25/2022 12:1 0 PM EDT 03/25/2022 12:11 PM EDT us Ashley Vega MANAGER REQUIREMENTS LAB BLOOD ORDERABLES Final Result [facility] [address] [place] [address] * (ABNORMAL) CBC and differential (03/25/2022 12:10 PM EDT) WBC 4.54 4.00 - 11.00 K/uL [facility] RBC 4.30 3.72 - 5.30 M/uL [facility] HGB 12.8 11.4 - 15.9 g/dL [facility] HCT 37.6 34.2 - 46.8 % [facility] PLT 189 140 - 430 K/uL [facility] MCV 87.4 78.0 - 97.0 fL [facility] MCH 29.8 25.0 - 33.0 pg [facility] MCHC 34.0 32.0 - 36.0 g/dL [facility] RDW 12.9 11.0 - 16.0 % [facility] MPV 11.6 8.4 - 12.8 [facility] DIFF METHOD Auto [facility] NEUTS 52.6 43.0 - 75.0 % [facility] LYMPHS 29.5 18.2 - 47.4 % [facility] MONOS 15.0(H) 4.00 - 11.00 % [facility] EOS 1.8 0.0 - 8.0 % [facility] BASOS 0.9 0.0 - 2.0 % [facility] Granulocytes, immature (%) 0.2 0.0 - 0.9 % [facility] ABSOLUTE NEUTS 2.39 1.80 - 7.70 K/uL [facility] ABSOLUTE LYMPHS 1.34 1.00 - 3.10 K/uL [facility] ABSOLUTE MONOS 0.68 0.20 - 0.80 K/uL [facility] ABSOLUTE EOS 0.08 0.00 - 0.80 K/uL [facility] ABSOLUTE BASOS 0.04 0.00 - 0.09 K/uL [facility] Granulocytes, immature 0.01 0.00 - 0.05 K/uL [facility] Blood 03/25/2022 12:1 0 PM EDT 03/25/2022 12:11 PM EDT us Ashley Vega [facility] LAB BLOOD ORDERABLES Final Result Performing Organization Address City/State/[facility] Co de Phone Number [address] [address] documented in this encounter Visit Diagnoses Diagnosis Pancreatic duct dilated- Primary Other specified disease of pancreas documented in this encounter Care Teams Aluminum Pool Installer Relationship Specialty Start Date End Date Shashi Farrell MD [address] [place] [address] [email or web address] PCP - General Internal Medicine 10/14/21 documented as of this encounter Additional Source Comments The information contained in this document represents components of the legal health record. It is not the complete legal health record.[facility]
--- OUTSIDE RECORDS SUMMARY | 2025-03-12 16:39 | XMS_ITS | Encounter Summary ---
Author Organization [facility] Address [address] [place] [address] [place] [address] Phone Care Team Providers Care Test Man Name Role Phone Lenora Castro DO Primary Care Provider [phone] Tony Carrillo MD Unavailable [phone] Jayson Rucker MD Unavailable Patricia Gutierrez NP Unavailable Jimmie Martinez MD Unavailable Chante Anders MD Unavailable Patricia Gutierrez NP Primary Care Provider Lenora Castro DO Primary Care Provider Lenora Castro DO Primary Care Provider [phone] Shashi Farrell MD Primary Care Provider Encounter Details Date Type Department Care Team (Late st Contact Info) Description 08/02/2017 Ancillary Orders [facility], X-Ray - [address] [place] [address] Luis Hsu MD [address] [place] [address], [address] [place], [place] [id number] [email or web address] Pain Social History Tobacco Use Types Packs/Day Years [...] Description 06/18/2025 10:30 AM EST Office Visit [facility] Gastroenterology Clinic [address] [place] [address] Unknown, Unknown, Ashley Vernon, BARREL BRIDGE ASSEMBLER [address] [place] [address] [email or web address] documented as of this encounter Results * XR CERVICAL SPINE 4-5 VIEWS (08/02/2017 4:45 PM EST) Anatomical Region Laterality Modality C-spine Radiographic Melissa ging 08/02/2017 4:56 PM EST Impressions 08/02/2017 5:04 PM EST Degenerative changes at C4-5 and C5-6 with probable progressive bilateral neural foraminal encroachment. POS - [id number] Narrative 08/02/2017 5:04 PM EST HISTORY: Neck pain COMPARISON: MRI cervical spine 10/17/2016 FINDINGS: Five views of the cervical spine are performed. Cervical spine is visualized through C7 on the lateral view. No new compression deformities. Moderate disc space narrowing with endplate spurring again noted at C4-5 and C5- 6. On the right, severe neural foraminal encroachment again noted at C4-5 and progressive at least moderate neural foraminal encroachment at C5-6. On the left, mild neural foraminal encroachment at C4-5 and C5-6 which may be slightly progressive when compared with the MRI. Odontoid is intact. Atlantoaxial distance is within normal limits. No abnormal thickening of the prevertebral soft tissues. Procedure Note Albert Howell MD - 08/02/2017 HISTORY: Neck pain COMPARISON: MRI cervical spine 10/17/2016 FINDINGS: Five views of the cervical spine are performed. Cervical spine isvisualized through C7 on the lateral view. No new compressiondeformities. Moderate disc space narrowing with endplate spurring againnoted at C4-5 and C5-6. On the right, severe neural foraminal encroachment again noted at C4-5 andprogressive at least moderate neural foraminal encroachment at C5-6. Onthe left, mild neural foraminal encroachment at C4-5 and C5-6 which may beslightly progressive when compared with the MRI. Odontoid is intact. Atlantoaxial distance is within normal limits. Noabnormal thickening of the prevertebral soft tissues. IMPRESSION: Degenerative changes at C4-5 and C5-6 with probable progressive bilateralneural foraminal encroachment. POS - [id number] Luis Hsu MD IMG XR SPINE Final Result documented in this encounter Visit Diagnoses Diagnosis Pain Generalized pain Pain Generalized pain documented in this encounter Care Teams Test Man Relationship Specialty Start Date End Date Lenora Castro DO [address] [place] [address] PCP - General Internal Medicine 08/10/16 12/21/17 Patricia Gutierrez NP [address] [place] [address] [place] [id number] PCP - General Family Medicine 12/22/17 06/10/19 Lenora Castro DO [address] [place] [address] PCP - General Internal Medicine 06/11/19 11/17/19 Lenora Castro DO [address] [place] [address] PCP - General Internal Medicine 11/18/19 10/13/21 Shashi Farrell MD [address] [place] [address] [email or web address] PCP - General Internal Medicine 10/14/21 Tony Carrillo MD [address] [place] [address] [email or web address] Historical LMR Provider 04/01/17 2 Jayson Rucker MD [address] [place] [address] [email or web address] Historical LMR Provider 04/01/17 06/19/21 Patricia Gutierrez NP [address] [place] [address] Historical LMR Provider 04/01/17 2 Jimmie Martinez MD [address] [place] [address] [address] [place] [address] Historical LMR Provider 04/01/17 06/19/21 Chante Anders MD [address] [place] [address] Orthopedics & Sports Medicine, [facility] [place] [address] Historical LMR Provider 04/01/17 06/19/21 documented as of this encounter Additional Source Comments The information contained in this document represents components of the legal health record. It is not the complete legal health record.[facility]
--- OUTSIDE RECORDS SUMMARY | 2025-03-12 16:39 | XMS_ITS | Encounter Summary ---
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 Not on savita e documented as of this encounter Plan of Treatment Upcoming Encounters Date Type Department Care Team (Late st Contact Info) Description 06/18/2025 10:30 AM EST Office Visit [facility] Gastroenterology Clinic 10 [place] [address] Unknown, Unknown, Ashley Vernon, SUPERVISOR RECEIVING AND PROCESSING 10 [place] [address] [email or web address] documented as of this encounter Visit Diagnoses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documented in this encounter Care Teams Press Leader Relationship Specialty Start Date End Date Shashi Farrell MD [address] [place] [address] [email or web address] PCP - General Internal Medicine 10/14/21 documented as of this encounter Additional Source Comments The information contained in this document represents components of the legal health record. It is not the complete legal health record.[facility]
--- OUTSIDE RECORDS SUMMARY | 2025-03-12 16:39 | XMS_ITS | Encounter Summary ---
Author Organization [facility] Address [address] [place] [address] [place] [address] Phone Care Team Providers Care Derrick Man Name Role Phone Lenora Castro DO Primary Care Provider Tony Carrillo MD Unavailable Jayson Rucker MD Unavailable Patricia Gutierrez NP Unavailable [phone] Jimmie Martinez MD Unavailable Chante Anders MD Unavailable [phone] Patricia Gutierrez NP Primary Care Provider Lenora Castro DO Primary Care Provider Lenora Castro DO Primary Care Provider Shashi Farrell MD Primary Care Provider Encounter Details Date Type Department Care Team (Late st Contact Info) Description 09/06/2017 Procedure Pass [facility] Endoscopy Admitting Dept Virtual Department [address] [place] [address] Social History Tobacco Use Types Packs/Day Years [...] Description 06/18/2025 10:30 AM EST Office Visit [facility] Gastroenterology Clinic [address] [place] [address] Unknown, Unknown, Ashley Vernon, HERBOLOGIST 10 [place] [address] documented as of this encounter Visit Diagnoses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documented in this encounter Care Teams Derrick Man Relationship Specialty Start Date End Date Lenora Castro DO [address] [place] [address] PCP - General Internal Medicine 08/10/16 12/21/17 Patricia Gutierrez NP [address] [place] [address] PCP - General Family Medicine 12/22/17 06/10/19 Lenora Castro DO [address] [place] [address] PCP - General Internal Medicine 06/11/19 11/17/19 Lenora Castro DO [address] [place] [address] PCP - General Internal Medicine 11/18/19 10/13/21 Shashi Farrell MD [address] [place] [address] PCP - General Internal Medicine 10/14/21 Tony Carrillo MD [address] [place] [address] [email or web address] Historical LMR Provider 04/01/17 2 Jayson Rucker MD [address] [place] [address] [address] [place] [address] [email or web address] Historical LMR Provider 04/01/17 06/19/21 Patricia Gutierrez NP [address] [place] [address] [place] [address] Historical LMR Provider 04/01/17 2 Jimmie Martinez MD [address] [place] [address] [address] [place] [address] [email or web address] Historical LMR Provider 04/01/17 06/19/21 Chante Anders MD [address] [place] [address] Orthopedics & Sports Medicine, [facility] [place] [address] [email or web address] Historical LMR Provider 04/01/17 06/19/21 documented as of this encounter Additional Source Comments The information contained in this document represents components of the legal health record. It is not the complete legal health record.[facility]
--- OUTSIDE RECORDS SUMMARY | 2025-03-12 16:39 | XMS_ITS | Encounter Summary ---
Author Organization [facility] Address [address] [place] [address] [place] [address] Phone Care Team Providers Care Ice Cream Vault Worker Name Role Phone Tony Carrillo MD Unavailable Jayson Rucker MD Unavailable Patricia Gutierrez NP Unavailable Jimmie Martinez MD Unavailable [phone] Chante Anders MD Unavailable Patricia Gutierrez NP Primary Care Provider Lenora Castro DO Primary Care Provider Lenora Castro DO Primary Care Provider Shashi Farrell MD Primary Care Provider [phone] Reason for Referral * MRI/CAT Scan - Closed Specialty Diagnoses / Procedures Referred By Contchiara t Referred To Contact Radiology Diagnoses Aneurysm of unspecified site Procedures MRI Angio Brain Adam Garcia MD Phone: tel: fax: Referral ID Status Reason Start Date Expiration Date Visits Re quested Visits Authorized [id number] Closed 03/01/2018 04/30/2018 1 1 Encounter Details Date Type Department Care Team (Late st Contact Info) Description 03/01/2018 Ancillary Orders Virtual Department 30 [place] [address] Adam Garcia MD [address] [place] [id number] Aneurysm of unspecified site Social History Tobacco Use Types Packs/Day Years [...] Description 06/18/2025 10:30 AM EST Office Visit [facility] [address] [place] [address] Unknown, Unknown, MD Vega, Ashley Wright, PRECINCT POLICE CAPTAIN [address] [place] [address] [email or web address] documented as of this encounter Results * MRA HEAD WITHOUT CONTRAST (03/11/2018 11:57 AM EDT) Anatomical Region Laterality Modality Head Magnetic Resonan ce 03/11/2018 12:5 1 PM EDT Impressions 03/11/2018 12:57 PM EDT Minimal artifact associated with previous coil placement and medial right cavernous ICA. Otherwise normal MRA [employer] [employer] [place]. No new pathology is apparent. 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 TECHNIQUE: Exam performed on 1.5 Geno high-field MRI scanner. Axial 3-D foqi-cc-djaoey MR angiogram. Source raw data and angiographic MIP images are available for review. FINDINGS: Very minimal artifact is present from the coils along the medial aspect of the right carotid siphon. There does not appear to be any filling of the previously-coiled aneurysm nor any stenosis in the adjacent vessels. No new aneurysm has become apparent in either anterior or posterior circulation. No stenosis, occlusion or dissection. No gross vascular malformations or significant developmental variant. Procedure Note Chau Cornelius MD - 03/11/2018 COMPARISON:MRI brain and MRA [employer] [place] 05/15/2017 The patient has a history of coiling of a right ICA aneurysm at the levelof the cavernous sinus. TECHNIQUE: Exam performed on 1.5 Geno high-field MRI scanner. Axial 7-Mmxve-oe-flight MR angiogram. Source raw data and angiographic MIP imagesare available for review. FINDINGS: Very minimal artifact is present from the coils along the medial aspect ofthe right carotid siphon. There does not appear to be any filling of the previously-coiled aneurysmnor any stenosis in the adjacent vessels. No new aneurysm has become apparent in either anterior or posteriorcirculation. No stenosis, occlusion or dissection. No gross vascular malformations or significant developmental variant. IMPRESSION: Minimal artifact associated with previous coil placement and medial rightcavernous ICA. Otherwise normal MRA [employer] [employer] [facility] [employer] [place]. No new pathology isapparent. IMPRESSION: POS - [id number] Adam Garcia MD IMG MR HEAD/NECK Fi nal Result documented in this encounter Visit Diagnoses Diagnosis Aneurysm of unspecified site Aneurysm of unspecified site documented in this encounter Care Teams Ice Cream Vault Worker Relationship Specialty Start Date End Date [place] [address] PCP - General Family Medicine 12/22/17 06/10/19 Lenora Castro DO [address] [place] [address] PCP - General Internal Medicine 06/11/19 11/17/19 Lenora Castro DO [address] [place] [address] PCP - General Internal Medicine 11/18/19 10/13/21 Shashi Farrell MD [address] [place] [address] [email or web address] PCP - General Internal Medicine 10/14/21 Tony Carrillo MD [address] [place] [address] [email or web address] Historical LMR Provider 04/01/17 2 Jayson Rucker MD [address] [place] [address] [email or web address] Historical LMR Provider 04/01/17 06/19/21 Patricia Gutierrez NP [address] [place] [address] Historical LMR Provider 04/01/17 2 Jimmie Martinez MD [address] [place] [address] [address] [place] [address] [email or web address] Historical LMR Provider 04/01/17 06/19/21 Chante Anders MD [address] [place] [address] Orthopedics & Sports Medicine, [facility] [place] [address] [email or web address] Historical LMR Provider 04/01/17 06/19/21 documented as of this encounter Additional Source Comments The information contained in this document represents components of the legal health record. It is not the complete legal health record.[facility]
--- OUTSIDE RECORDS SUMMARY | 2025-03-12 16:39 | XMS_ITS | Encounter Summary ---
Author Organization [facility] Address [address] [place] [address] [place] [address] Phone Care Team Providers Care Communications Lead Name Role Phone Lenora Castro DO Primary [...] Care Team (Late st Contact Info) Description 05/09/2017 Ancillary Orders Virtual Department [address] [place] [address] Patricia Gutierrez WARE CARRIER [address] [place] [address] Visit for screening mammogram Social History Tobacco Use Types Packs/Day Years [...] Description 06/18/2025 10:30 AM EST Office Visit [facility] [address] [place] [address] Unknown, Unknown, Ashley Vernon, MEDICAL ENGINEER [address] [place] [address] [email or web address] documented as of this encounter Results * BI MAMMOGRAM SCREENING WITH TOMOSYNTHESIS WITH CAD (BILATERAL) (08/08/2017 3:59 PM EST) Anatomical Region Laterality Modality Breast Left, Breast Right, Breast Bilateral Bila teral Mammography 08/09/2017 9:56 AM EST Impressions 08/09/2017 10:04 AM EST No mammographic signs of malignancy. Annual screening is recommended. BI-RADS CATEGORY: 1 - Negative. DENSITY: There are scattered fibroglandular densities. POS - CDHMAMA Narrative 08/09/2017 10:04 AM EST Bilateral mammography is performed in conjunction with computed aided detection. 3-D tomography along with 2-D C view imaging was also performed. Comparison made to previous dated as far back as 09/07/2011 and as recent as 04/26/2016. No suspicious masses, areas of architectural distortion or suspicious microcalcifications. Procedure Note Ignacio Brown MD - 08/09/2017 Bilateral mammography is performed in conjunction with computed aideddetection. 3-D tomography along with 2-D C view imaging was alsoperformed. Comparison made to previous dated as far back as 09/07/2011 andas recent as 04/26/2016. No suspicious masses, areas of architectural distortion or suspiciousmicrocalcifications. IMPRESSION: No mammographic signs of malignancy. Annual screening is recommended. BI-RADS CATEGORY: 1 - Negative. DENSITY: There are scattered fibroglandular densities. POS - CDHMAMA Patricia Gutierrez WARE CARRIER IMG MG EXAMS Final Result documented in this encounter Visit Diagnoses Diagnosis Visit for screening mammogram Visit for screening mammogram documented in this encounter Care Teams Communications Lead Relationship Specialty Start Date End Date Lenora Castro DO [address] [place] [address] PCP - General Internal Medicine 08/10/16 12/21/17 Patricia Gutierrez NP [address] [place] [address] PCP - General Family Medicine 12/22/17 06/10/19 Lenora Castro DO [address] [place] [address] PCP - General Internal Medicine 06/11/19 11/17/19 Lenora Castro DO [address] [place] [address] PCP - General Internal Medicine 11/18/19 10/13/21 Shashi Farrell MD [address] [place] [address] [email or web address] PCP - General Internal Medicine 10/14/21 Tony Carrillo MD [address] [place] [address] [email or web address] Historical LMR Provider 04/01/17 2 Jayson Rucker MD [address] [place] [address], [address] [place] [address] [email or web address] Historical LMR Provider 04/01/17 06/19/21 Patricia Gutierrez NP [address] [place] [address] [place] [address] Historical LMR Provider 04/01/17 2 Jimmie Martinez MD [address] [place] [address], [address] [place] [address] [email or web address] Historical LMR Provider 04/01/17 06/19/21 Chante Anders MD [address] [place] [address] Orthopedics & Sports Medicine, [place] [address] [email or web address] Historical LMR Provider 04/01/17 06/19/21 documented as of this encounter Additional Source Comments The information contained in this document represents components of the legal health record. It is not the complete legal health record.[facility]
--- OUTSIDE RECORDS SUMMARY | 2025-03-12 16:39 | XMS_ITS | Encounter Summary ---
Author Organization [facility] Address [address] [place] [address] [place] [address] Phone Care Team Providers Care Operating Manager Name Role Phone Lenora Castro DO Primary Care Provider Tony Carrillo MD Unavailable Jayson Rucker MD Unavailable Patricia Gutierrez NP Unavailable [phone] Jimmie Martinez MD Unavailable Chante Anders MD Unavailable [phone] Patricia Gutierrez NP Primary Care Provider Lenora Castro DO Primary Care Provider Lenora Castro DO Primary Care Provider Shashi Farrell MD Primary Care Provider Encounter Details Date Type Department Care Team (Latest Contact Info) Description 08/02/2017 Transcribe Orders [address] [place] [address] Luis Hsu MD [address] [place] [address], [address] [place] [address] [email or web address] Nonintractable headache, unspecified chronicity pattern, unspecified [...] Description 06/18/2025 10:30 AM EST Office Visit [facility] [address] [place] [address] Unknown, Unknown, Ashley Vernon, EMPLOYMENT INSTRUCTIONAL ASSOCIATE [address] [place] [address] [email or web address] documented as of this encounter Results * Sedimentation rate (ESR) (08/02/2017 4:18 PM EST) ESR 28 0 - 30 mm/h [facility] Blood 08/02/2017 4:18 PM EST 08/02/2017 4:21 PM EST us Luis sHu MD LAB BLOOD ORDERABLES Final R esult [facility] [address] [place] [address] documented in this encounter Visit Diagnoses Diagnosis Nonintractable headache, unspecified chronicity pattern, unspecified headache type- Primary documented in this encounter Care Teams Operating Manager Relationship Specialty Start Date End Date Lenora Castro DO [address] [place] [address] PCP - General Internal Medicine 08/10/16 12/21/17 Patricia Gutierrez NP [address] [place] [address] PCP - General Family Medicine 12/22/17 06/10/19 Lenora Castro DO [address] [place] [address] PCP - General Internal Medicine 06/11/19 11/17/19 Lenora Castro DO [address] [place] [address] PCP - General Internal Medicine 11/18/19 10/13/21 Shashi Farrell MD [address] [place] [address] [email or web address] PCP - General Internal Medicine 10/14/21 Tony Carrillo MD [address] [place] [address] [email or web address] Historical LMR Provider 04/01/17 2 Jayson Rucker MD [address] [place] [address] [address] [place] [address] [email or web address] Historical LMR Provider 04/01/17 06/19/21 Patricia Gutierrez NP [address] [place] [address] Historical LMR Provider 04/01/17 2 Jimmie Martinez MD [address] [place] [address] [address] [place] [address] [email or web address] Historical LMR Provider 04/01/17 06/19/21 Chante Anders MD [address] [place] [address] Orthopedics & Sports Medicine, [facility] [address] [email or web address] Historical LMR Provider 04/01/17 06/19/21 documented as of this encounter Additional Source Comments The information contained in this document represents components of the legal health record. It is not the complete legal health record.[facility]
--- OUTSIDE RECORDS SUMMARY | 2025-03-12 16:39 | XMS_ITS | Encounter Summary ---
Author Organization [facility] Address [address] [place] [address] [place] [address] Phone Care Team Providers Care Counter Top Assembler Name Role Phone Shashi Farrell MD Primary Care Provider [phone] Encounter Details Date Type Department Care Team (Latest Contact Info) Description 06/15/2022 Transcribe Orders [facility] Laboratory [address] [address] Ashley Vega, OUTPATIENT COORDINATOR [address] [place] [address] [email or web address] Gastroesophageal reflux disease, unspecified whether esophagitis present (Primary Dx) Social History Tobacco Use Types [...] 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, [employer]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 Not on savita e documented as of this encounter Plan of Treatment Upcoming Encounters Date Type Department Care Team (Late st Contact Info) Description 06/18/2025 10:30 AM EST Office Visit [facility] [address] [place] [address] Unknown, Unknown, MD Vega, Ashley Wright, CHRIS [address] [place] [address] documented as of this encounter Results * Lipase (06/15/2022 11:59 AM EST) LIPASE 17 16 - 63 U/L [facility] Blood 06/15/2022 11:5 9 AM EST 06/15/2022 12:01 PM EST us Ashley Vega OUTPATIENT COORDINATOR LAB BLOOD ORDERABLES Final Result [facility] [address] [place] [address] * (ABNORMAL) Comprehensive metabolic panel (06/15/2022 11:59 AM EST) SODIUM 142 133 - 146 mmol/L [facility] POTASSIUM 4.1 3.3 - 5.1 mmol/L [facility] CHLORIDE 104 96 - 108 mmol/L [facility] CO2 29 21 - 35 mmol/L [facility] BUN 15 6 - 19 mg/dL [facility] CREATININE 0.60 0.5 - 1.5 mg/dL [facility] GLUCOSE 125(H) 70 - 99 mg/dL [facility] ALBUMIN 4.7 3.9 - 4.8 g/dL [facility] TOTAL PROTEIN 7.4 6.5 - 8.0 g/dL [facility] CALCIUM 9.4 8.4 - 10.3 mg/dL [facility] ALKALINE PHOSPHATASE 77 39 - 117 U/L [facility] TOTAL BILIRUBIN 0.3 0.0 - 1.2 mg/dL [facility] AST 23 0 - 37 U/L [facility] ALT 24 0 - 40 U/L [facility] GLOBULIN 2.7 1 - 4.8 g/dL [facility] EGFR 104 >59 mL/min/1.7 3m2 [facility] Comment:Estimated glomerular filtration rate calculated using the CKD-EPI refit equation. ANION GAP 13 10 - 20 mmol/L [facility] Blood 06/15/2022 11:5 9 AM EST 06/15/2022 12:01 PM EST us Ashley Vega [facility] LAB BLOOD ORDERABLES Final Result [facility] [address] [place] [address] * (ABNORMAL) CBC and differential (06/15/2022 11:59 AM EST) WBC 3.86(L) 4.00 - 11.00 K/uL [facility] RBC 4.34 3.72 - 5.30 M/uL [facility] HGB 12.8 11.4 - 15.9 g/dL [facility] HCT 38.6 34.2 - 46.8 % [facility] PLT 201 140 - 430 K/uL [facility] MCV 88.9 78.0 - 97.0 fL [facility] MCH 29.5 25.0 - 33.0 pg [facility] MCHC 33.2 32.0 - 36.0 g/dL [facility] RDW 12.5 11.0 - 16.0 % [facility] MPV 11.7 8.4 - 12.8 [facility] DIFF METHOD Auto [facility] NEUTS 48.2 43.0 - 75.0 % [facility] LYMPHS 35.0 18.2 - 47.4 % [facility] MONOS 12.4(H) 4.00 - 11.00 % [facility] EOS 3.4 0.0 - 8.0 % [facility] BASOS 1.0 0.0 - 2.0 % [facility] Granulocytes, immature (%) 0.0 0.0 - 0.9 % [facility] ABSOLUTE NEUTS 1.86 1.80 - 7.70 K/uL [facility] ABSOLUTE LYMPHS 1.35 1.00 - 3.10 K/uL [facility] ABSOLUTE MONOS 0.48 0.20 - 0.80 K/uL [facility] ABSOLUTE EOS 0.13 0.00 - 0.80 K/uL [facility] ABSOLUTE BASOS 0.04 0.00 - 0.09 K/uL [facility] Granulocytes, immature 0.00 0.00 - 0.05 K/uL [facility] Blood 06/15/2022 11:5 9 AM EST 06/15/2022 12:01 PM EST us Ashley Vega [facility] LAB BLOOD ORDERABLES Final Result Performing Organization Address City/State/[facility] Co de Phone Number [address] [address] documented in this encounter Visit Diagnoses Diagnosis Gastroesophageal reflux disease, unspecified whether esophagitis present- Primary documented in this encounter Care Teams Counter Top Assembler Relationship Specialty Start Date End Date Shashi Farrell MD [address] [place] [address] [email or web address] PCP - General Internal Medicine 10/14/21 documented as of this encounter Additional Source Comments The information contained in this document represents components of the legal health record. It is not the complete legal health record.[facility]
--- OUTSIDE RECORDS SUMMARY | 2025-03-12 16:39 | XMS_ITS | Encounter Summary ---
Author Organization [facility] Address [address] [place] [address] [address] [place] [address] Phone Care Team Providers Care Sanitary Landfill Operator Name Role Phone Shashi Farrell MD Primary Care Provider [phone] Reason for Referral * MRI/CAT Scan - Closed Specialty Diagnoses / Procedures Referred By Contchiara t Referred To Contact Radiology Diagnoses Nausea Bloating RUQ abdominal pain Procedures MRI Cholangiopancreatography (MRCP) CHG MRI, ABDOMEN, COMBO Ashley Vega CNP Phone: tel: fax: [email or web address] Referral ID Status Reason Start Date Expiration Date Visits Re quested Visits Authorized [id number] Closed 12/19/2023 02/17/2024 1 1 Encounter Details Date Type Department Care Team (Latest Contact Info) Description 12/19/2023 Transcribe Orders Virtual Department [address] [place] [address] Ashley Vega CNP 10 [place] [address] [email or web address] Nausea (Primary Dx); Bloating; RUQ abdominal pain Social History Tobacco Use Types Packs/Day [...] 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, [employer]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 Not on savita e documented as of this encounter Plan of Treatment Upcoming Encounters Date Type Department Care Team (Late st Contact Info) Description 06/18/2025 10:30 AM EST Office Visit [facility] [address] [place] [address] Unknown, Unknown, Ashley Vernon, CUT PRESSMAN [address] [place] [address] [email or web address] documented as of this encounter Results * MRI CHOLANGIOPANCREATOGRAPHY (MRCP) WITH AND WITHOUT CONTRAST (02/05/2024 1:51 PM EDT) Anatomical Region Laterality Modality Pancreas, Biliary Magnetic Reson ance 02/09/2024 8:44 AM EDT Impressions 02/09/2024 8:57 AM EDT 1. Steatosis of the liver. No focal lesions are identified. 2. Cholecystectomy. Intrahepatic and extra hepatic bile duct dilatation, likely to represent reservoir effect. No choledocholithiasis. 3. Surgical changes of Xander-en-Y gastric bypass. No mechanical obstruction. 4. Small cystic lesion involving the pancreas tail, likely to represent a intraductal papillary mucinous neoplasm. Consider 12 month follow-up. Narrative 02/09/2024 8:57 AM EDT MRI CHOLANGIOPANCREATOGRAPHY (MRCP) WITH AND WITHOUT CONTRAST Referring clinician's provided indication for this examination in Epic: Outside Radiology Order; nausea. TECHNIQUE: Multiplanar MR imaging of the abdomen was performed using T1, T2, fat saturated, and diffusion weighted techniques. 2D and 3D MRCP sequences were performed. Dynamic multiphase imaging was also performed after administration of an intravenous gadolinium contrast agent. COMPARISON: Ultrasound abdomen dated August 31, 2023. MRCP dated August 13, 20192022. MRI abdomen dated February 21, 2022. CT abdomen/pelvis dated February 16, 2022. FINDINGS: DEVICES/TUBES/LINES: None. LUNG BASES: The heart size is normal. No pericardial effusion. There is a small pericardial cyst identified on the right measuring measuring 8 x 22 mm (image 13, series 4). No esophageal or paraspinal abnormality. The lung bases are clear. LIVER: The liver is of normal size, smooth in surface contour. There is diffuse loss of signal identified on the opposed phase images in keeping with steatosis. There is no restricted diffusion present. Scant intrahepatic bile duct dilatation BILIARY: Surgically absent gallbladder. The extrahepatic common duct measures 12 mm (image 81, series 12). There is tapering to the ampulla. No choledocholithiasis or focal filling defects are present. PANCREAS: The pancreas demonstrates no main duct dilatation. There is classic ductal morphology present. There is a 2 mm cyst identified within the pancreas tail (image 74, series 2). No intrinsic enhancement is identified. SPLEEN: No splenomegaly or focal splenic lesions. RENAL: The kidneys reveal no hydronephrosis, masses or perinephric collections. No ureteral dilation or focal filling defect. ADRENAL: No nodules or thickening. MESENTERY/RETROPERITONEUM: No free fluid or free air. No masses. No retroperitoneal mass. NODES: No adenopathy. VASCULAR: The aorta is nonaneurysmal. BOWEL: No mechanical bowel obstruction is present. Surgical changes of Xander-en-Y gastric bypass. The gastrojejunostomy and jejunojejunostomy appear intact. No wall thickening or acute inflammation. Unremarkable appearance of the colon. No wall thickening, focal lesions or acute inflammation. The terminal ileum is normal. The appendix is nonvisualized. No pericecal inflammatory changes. SOFT TISSUES: No abdominal wall hernia. No masses or collections. BONES: Minor degenerative changes, no suspicious lesions. There is a L3 vertebral body hemangioma. Procedure Note Nine, Robert Scott MD - 02/09/2024 MRI CHOLANGIOPANCREATOGRAPHY (MRCP) WITH AND WITHOUT CONTRAST Referring clinician's provided indication for this examination in Epic:Outside Radiology Order; nausea. TECHNIQUE: Multiplanar MR imaging of the abdomen was performed using T1,T2, fat saturated, and diffusion weighted techniques. 2D and 3D MRCPsequences were performed. Dynamic multiphase imaging was also performedafter administration of an intravenous gadolinium contrast agent. COMPARISON: Ultrasound abdomen dated August 31, 2023. MRCP dated August. MRI abdomen dated February 21, 2022. CT abdomen/pelvis datedS2021. FINDINGS: DEVICES/TUBES/LINES: None. LUNG BASES: The heart size is normal. No pericardial effusion. There is asmall pericardial cyst identified on the right measuring measuring 8 x 22mm (image 13, series 4). No esophageal or paraspinal abnormality. Thelung bases are clear. LIVER: The liver is of normal size, smooth in surface contour. There isdiffuse loss of signal identified on the opposed phase images in keepingwith steatosis. There is no restricted diffusion present. Scantintrahepatic bile duct dilatation BILIARY: Surgically absent gallbladder. The extrahepatic common ductmeasures 12 mm (image 81, series 12). There is tapering to the ampulla. Nocholedocholithiasis or focal filling defects are present. PANCREAS: The pancreas demonstrates no main duct dilatation. There isclassic ductal morphology present. There is a 2 mm cyst identified withinthe pancreas tail (image 74, series 2). No intrinsic enhancement isidentified. SPLEEN: No splenomegaly or focal splenic lesions. RENAL: The kidneys reveal no hydronephrosis, masses or perinephriccollections. No ureteral dilation or focal filling defect. ADRENAL: No nodules or thickening. MESENTERY/RETROPERITONEUM: No free fluid or free air. No masses. Noretroperitoneal mass. NODES: No adenopathy. VASCULAR: The aorta is nonaneurysmal. BOWEL: No mechanical bowel obstruction is present. Surgical changes ofRoux-en-Y gastric bypass. The gastrojejunostomy and jejunojejunostomyappear intact. No wall thickening or acute inflammation. Unremarkableappearance of the colon. No wall thickening, focal lesions or acuteinflammation. The terminal ileum is normal. The appendix isnonvisualized. No pericecal inflammatory changes. SOFT TISSUES: No abdominal wall hernia. No masses or collections. BONES: Minor degenerative changes, no suspicious lesions. There is a L2fccxcusxb body hemangioma. IMPRESSION: 1. Steatosis of the liver. No focal lesions are identified. 2. Cholecystectomy. Intrahepatic and extra hepatic bile duct dilatation,likely to represent reservoir effect. No choledocholithiasis. 3. Surgical changes of Xander-en-Y gastric bypass. No mechanicalobstruction. 4. Small cystic lesion involving the pancreas tail, likely to represent aintraductal papillary mucinous neoplasm. Consider 12 month follow-up. Ashley Vega CNP IM MR ABDOMEN Final Resu lt documented in this encounter Visit Diagnoses Diagnosis Nausea- Primary Nausea alone Bloating Flatulence, eructation, and gas pain RUQ abdominal pain Abdominal pain, right upper quadrant Nausea Nausea alone Bloating Flatulence, eructation, and gas pain RUQ abdominal pain Abdominal pain, right upper quadrant documented in this encounter Care Teams Sanitary Landfill Operator Relationship Specialty Start Date End Date Shashi Farrell MD [address] [place] [address] PCP - General Internal Medicine 10/14/21 documented as of this encounter Additional Source Comments The information contained in this document represents components of the legal health record. It is not the complete legal health record.[facility]
--- OUTSIDE RECORDS SUMMARY | 2025-03-12 16:39 | XMS_ITS | Encounter Summary ---
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, [employer]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 Not on savita e documented as of this encounter Plan of Treatment Upcoming Encounters Date Type Department Care Team (Late st Contact Info) Description 06/18/2025 10:30 AM EST Office Visit [facility] 10 [place] [address] Unknown, Unknown, Ashley Vernon, JUVENILE CORRECTIONS OFFICER 10 [place] [address] [email or web address] documented as of this encounter Results * BD DXA AXIAL (SPINE) WITH HIP (12/26/2024 10:20 AM EDT) Anatomical Region Laterality Modality Bone Density Bone Density 12/26/2024 10:1 3 AM EDT Impressions 12/27/2024 6:03 PM EDT Interpretation: Normal bone mineral density. Narrative 12/27/2024 6:03 PM EDT Referred By: KIANA MORALES Indications: Postmenopausal Scanner: [email or web address] A with serial# of [id number] located at [facility] Bone Density Scan (DXA) 12/26/24 Details [...] -2.5), or Osteoporosis (T-score <= -2.5). At [facility], T-scores are compared to peak bone [...] Yarely Glez MD - 12/27/2024 Referred By: KIANA MORALES Indications: Postmenopausal Scanner: [email or web address] A with serial# of [id number] located at [facility] Bone Density Scan (DXA) 12/26/24 Details of [...] -2.5), or Osteoporosis (T-score <= -2.5). At [facility], T-scores are compared to peak bone [...] results. IMPRESSION: Interpretation: Normal bone mineral density. Kiana Morales PRICING ANALYST IMG BD BONE DENSI TY DEXA Final Result documented in this encounter Visit Diagnoses Diagnosis Asymptomatic menopausal state- Primary Asymptomatic menopausal state documented in this encounter Care Teams Bottle Blowing Machine Tender Relationship Specialty Start Date End Date Shashi Farrell MD [address] [place] [address] PCP - General Internal Medicine 10/14/21 documented as of this encounter Additional Source Comments The information contained in this document represents components of the legal health record. It is not the complete legal health record.[facility]
--- OUTSIDE RECORDS SUMMARY | 2025-03-12 16:39 | XMS_ITS | Encounter Summary ---
Author Organization [facility] Address [address] [place] [address] [place] [address] Phone Care Team Providers Care Sanitation Tank Washer Name Role Phone Liss Castro DO Primary Care Provider Tony Carrillo MD Unavailable Jayson Rucker MD Unavailable Patricia Gutierrez NP Unavailable Jimmie Martinez MD Unavailable Chante Anders MD Unavailable [phone] Patricia Gutierrez NP Primary Care Provider Liss Castro DO Primary Care Provider [phone] Liss Castro DO Primary Care Provider [phone] Shashi Farrell MD Primary Care Provider Reason for Referral * MRI/CAT Scan - Closed Specialty Diagnoses / Procedures Referred By Contchiara t Referred To Contact Radiology Diagnoses Diarrhea, unspecified type Vomiting, intractability of vomiting not specified, presence of nausea not specified, unspecified vomiting type Anemia, unspecified type Procedures MRI Cholangiopancreatography (MRCP) David Ramirez MD Phone: tel: fax: mailto:[email or web address] Referral ID Status Reason Start Date Expiration Date Visits Re quested Visits Authorized [id number] Closed 07/24/2017 09/22/2017 1 1 Encounter Details Date Type Department Care Team (Latest Contact Info) Description 07/24/2017 Ancillary Orders [facility] External Provider Virtual Department [address] [place] [address] David Ramirez MD [address] [place] [phone] [email or web address] Snack Attack Diarrhea, unspecified type; Vomiting, intractability of vomiting not specified, presence of nausea not specified, unspecified vomiting type; Anemia, unspecified type Social History Tobacco Use Types Packs/Day [...] Office Visit [facility] [address] [place] [address] Unknown, Unknown, Ashley Vernon, SANITATION TANK WASHER [address] [place] [address] [email or web address] documented as of this encounter Results * MRI CHOLANGIOPANCREATOGRAPHY (MRCP) WITHOUT CONTRAST (08/01/2017 9:52 AM EST) Anatomical Region Laterality Modality Pancreas, Biliary Magnetic Reson ance 08/01/2017 10:3 7 AM EST Impressions 08/01/2017 12:33 PM EST Borderline extrahepatic biliary dilatation without identifiable filling defect, extrinsic compression or obvious focal stricture. Otherwise essentially normal upper abdomen MRI/MRCP. No gallbladder or pancreatic pathology. POS [id number] Edited by: Ibis Piña on 08/01/2017 12:32 PM Narrative 08/01/2017 12:33 PM EST TECHNIQUE: 1.5 Geno high-field MRI scanner. Axial T1 in and out of phase and T2, coronal T2, radial thick slab MRCP, coronal oblique thin section 3-D MRCP sequences were obtained. Reformatted axial and cholangiographic MIP images are available for review. 3-D rendering of the bile ducts is obtained with image post processing under concurrent supervision not on an independent workstation. Compared to radionuclide hepatobiliary scan 05/18/2017 and ultrasound 05/17/2017. FINDINGS: No gallstones or other filling defects within the gallbladder. No wall thickening or pericholecystic fluid. The extrahepatic biliary tree is borderline dilated measuring up to 8 mm as it enters the head of the pancreas at which point it tapers gently. No filling defects are seen within the bile ducts at any level. No irregularity in the biliary tree to suggest cirrhosis or cholangitis. The pancreas and pancreatic duct are unremarkable; no signs of mass, pancreatitis or duct dilatation/filling defect. Liver, spleen, adrenals and upper kidneys unremarkable. No ascites, adenopathy or pleural effusion in the odwmj-gh-dcnk. Procedure Note Chau Cornelius MD - 08/01/2017 TECHNIQUE: 1.5 Geno high-field MRI scanner. Axial T1 in and out of phaseand T2, coronal T2, radial thick slab MRCP, coronal oblique thin section3-D MRCP sequences were obtained. Reformatted axial and cholangiographicMIP images are available for review. 3-D rendering of the bile ducts isobtained with image post processing under concurrent supervision not on anindependent workstation. Compared to radionuclide hepatobiliary scan 05/18/2017 and mcrynrttck35/06/2017. FINDINGS: No gallstones or other filling defects within the gallbladder. No wallthickening or pericholecystic fluid. The extrahepatic biliary tree is borderline dilated measuring up to 8 mmas it enters the head of the pancreas at which point it tapers gently. Nofilling defects are seen within the bile ducts at any level. No irregularity in the biliary tree to suggest cirrhosis or cholangitis. The pancreas and pancreatic duct are unremarkable; no signs of mass,pancreatitis or duct dilatation/filling defect. Liver, spleen, adrenals and upper kidneys unremarkable. No ascites, adenopathy or pleural effusion in the tuwzy-ol-shov. IMPRESSION: Borderline extrahepatic biliary dilatation without identifiable fillingdefect, extrinsic compression or obvious focal stricture. Otherwiseessentially normal upper abdomen MRI/MRCP. No gallbladder or pancreaticpathology. POS [id number] Edited by: Ibis Piña on 08/01/2017 12:32 PM David Ramirez MD IMG MR ABDOMEN Final Result documented in this encounter Visit Diagnoses Diagnosis Diarrhea, unspecified type Vomiting, intractability of vomiting not specified, presence of nausea not specified, unspecified vomiting type Anemia, unspecified type Diarrhea, unspecified type Vomiting, intractability of vomiting not specified, presence of nausea not specified, unspecified vomiting type Anemia, unspecified type documented in this encounter Care Teams Sanitation Tank Washer Relationship Specialty Start Date End Date Liss Castro DO [address] [place] [address] PCP - General Internal Medicine 08/10/16 12/21/17 Patricia Gutierrez, ADEN [address] [place] [address] PCP - General Family Medicine 12/22/17 06/10/19 Liss Castro DO [address] [place] [address] PCP - General Internal Medicine 06/11/19 11/17/19 Liss Castro DO [address] [place] [address] PCP - General Internal Medicine 11/18/19 10/13/21 Shashi Farrell MD [address] [place] [address] PCP - General Internal Medicine 10/14/21 Tony Carrillo MD [address] [place] [phone] [email or web address] Historical LMR Provider 04/01/17 2 Jayson Rucker MD [address] [place] [address] Historical LMR Provider 04/01/17 06/19/21 Patricia Gutierrez NP [address] [place] [address] Historical LMR Provider 04/01/17 2 Jimmie Martinez MD [address] [place] [address] [address] [place] [address] Historical LMR Provider 04/01/17 06/19/21 Chante Anders MD [address] [place] [address] Orthopedics & Sports Medicine, [facility] [place] [address] Historical LMR Provider 04/01/17 06/19/21 documented as of this encounter Additional Source Comments The information contained in this document represents components of the legal health record. It is not the complete legal health record.[facility]
--- OUTSIDE RECORDS SUMMARY | 2025-03-12 16:39 | XMS_ITS | Encounter Summary ---
Author Organization [facility] Address [address] [place] [address] [place] [address] Phone Care Team Providers Care Application Processor Name Role Phone Tony Carrillo MD Unavailable [phone] Jayson Rucker MD Unavailable Patricia Gutierrez NP Unavailable Jimmie Martinez MD Unavailable Chante Anders MD Unavailable [phone] Patricia Gutierrez NP Primary Care Provider [phone] Lenora Castro DO Primary Care Provider Lenora Castro DO Primary Care Provider [phone] Shashi Farrell MD Primary Care Provider Encounter Details Date Type Department Care Team (Late st Contact Info) Description 03/14/2018 Ancillary Orders Virtual Department [address] [place] [address] Patricia Gutierrez, INSURANCE CLAIMS PROCESSOR [address] [place] [address] Dysphagia, unspecified type Social History Tobacco Use Types [...] Visit [facility] 10 [place] [address] Unknown, Unknown, Ashley Vernon, POLICE SERGEANT PRECINCT [address] [place] [address] documented as of this encounter Visit Diagnoses Diagnosis Dysphagia, unspecified type documented in this encounter Care Teams Application Processor Relationship Specialty Start Date End Date Patricia Gutierrez NP [address] [place] [address] [place] [address] PCP - General Family Medicine 12/22/17 06/10/19 Lenora Castro DO [address] [place] [address] PCP - General Internal Medicine 06/11/19 11/17/19 Lenora Castro DO [address] [place] [address] PCP - General Internal Medicine 11/18/19 10/13/21 Shashi Farrell MD [address] [place] [address] [email or web address] PCP - General Internal Medicine 10/14/21 Tony Carrillo MD [address] [place] [phone] [email or web address] Historical LMR Provider 04/01/17 2 Jayson Rucker MD [address] [place] [address] [address] [place] [address] [email or web address] Historical LMR Provider 04/01/17 06/19/21 Patricia Gutierrez NP [address] [place] [address] [place] [address] Historical LMR Provider 04/01/17 2 Jimmie Martinez MD [address] [place] [address] [address] [place] [address] [email or web address] Historical LMR Provider 04/01/17 06/19/21 Chante Anders MD [address] [place] [address] Orthopedics & Sports Medicine, [facility] [place] [address] [email or web address] Historical LMR Provider 04/01/17 06/19/21 documented as of this encounter Additional Source Comments The information contained in this document represents components of the legal health record. It is not the complete legal health record.[facility]
--- OUTSIDE RECORDS SUMMARY | 2025-03-12 16:39 | XMS_ITS | Encounter Summary ---
Author Organization [facility] Address [address] [place] [address] [place] [address] Phone Care Team Providers Care Professor Of Mechanical Engineering Name Role Phone Lenora Castro DO Primary Care Provider Tony Carrillo MD Unavailable Jayson Rucker MD Unavailable Patricia Gutierrez NP Unavailable [phone] Jimmie Martinez MD Unavailable Chante Anders MD Unavailable [phone] Patricia Gutierrez NP Primary Care Provider [phone] Lenora Castro DO Primary Care Provider Lenora Castro DO Primary Care Provider [phone] Shashi Farrell MD Primary Care Provider Encounter Details Date Type Department Care Team (Late st Contact Info) Description 05/15/2017 Procedure Pass [address] [address] Social History Tobacco Use Types Packs/Day Years [...] Upcoming Encounters Date Type Department Care Team ([facility] st Contact Info) Description 06/18/2025 10:30 AM EST Office Visit [facility] [address] [place] [address] Unknown, Unknown, Ashley Vernon, PRODUCTION LEADER [address] [place] [address] documented as of this encounter Visit Diagnoses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documented in this encounter Care Teams Professor Of Mechanical Engineering Relationship Specialty Start Date End Date Lenora Castro DO [address] [place] [address] PCP - General Internal Medicine 08/10/16 12/21/17 Patricia Gutierrez NP [address] [place] [address] PCP - General Family Medicine 12/22/17 06/10/19 Lenora Castro DO [address] [place] [address] PCP - General Internal Medicine 06/11/19 11/17/19 Lenora Castro DO [address] [place] [address] PCP - General Internal Medicine 11/18/19 10/13/21 Shashi Farrell MD [address] [place] [address] PCP - General Internal Medicine 10/14/21 Tony Carrillo MD [address] [place] [address] [email or web address] Historical LMR Provider 04/01/17 2 Jayson Rucker MD [address] [place] [address] [address] [place] [address] [email or web address] Historical LMR Provider 04/01/17 06/19/21 Patricia Gutierrez NP [address] [place] [address] [place] [address] Historical LMR Provider 04/01/17 2 Jimmie Martinez MD [address] [place] [address] [address] [place] [address] [email or web address] Historical LMR Provider 04/01/17 06/19/21 Chante Anders MD [address] [place] [address] Orthopedics & Sports Medicine, [facility] [place] [address] [email or web address] Historical LMR Provider 04/01/17 06/19/21 documented as of this encounter Additional Source Comments The information contained in this document represents components of the legal health record. It is not the complete legal health record.[facility]
--- OUTSIDE RECORDS SUMMARY | 2025-03-12 16:39 | XMS_ITS | Encounter Summary ---
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 Not on savita e documented as of this encounter Plan of Treatment Upcoming Encounters Date Type Department Care Team (Late st Contact Info) Description 06/18/2025 10:30 AM EST Office Visit [facility] [address] [place] [address] Unknown, Unknown, Ashley Vernon, CLEANING PORTER [address] [place] [address] [email or web address] documented as of this encounter Visit Diagnoses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documented in this encounter Care Teams Forestry Conservation Worker Relationship Specialty Start Date End Date Shashi Farrell MD [address] [place] [address] [email or web address] PCP - General Internal Medicine 10/14/21 documented as of this encounter Additional Source Comments The information contained in this document represents components of the legal health record. It is not the complete legal health record.[facility]
--- OUTSIDE RECORDS SUMMARY | 2025-03-12 16:39 | XMS_ITS | Encounter Summary ---
Author Organization [facility] Address [address] [place] [address] Phone Care Team Providers Care Heat Treat Inspector Name Role Phone Shashi Farrell MD Primary Care Provider [phone] Encounter Details Date Type Department Care Team (Late st Contact Info) Description 06/26/2024 Ancillary Orders [facility], X-Ray - [facility] [address] [place] [address] Levar Mathew MD [address] [place] [address] [email or web address] Pain (Primary Dx) Social History Tobacco Use Types [...] as food, clothing, or medical care? No 05/24/2024 In the past 12 months have y ou been in a relationship with a person who hurts, threatens, or tries to control you? No 05/24/2024 Are you denied basic needs s uch as food, clothing, or medical care? No 05/24/2024 In the past 12 months have y ou been in a relationship with a person who hurts, threatens, or tries to control you? 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 Not on savita e documented as of this encounter Plan of Treatment Upcoming Encounters Date Type Department Care Team (Late st Contact Info) Description 06/18/2025 10:30 AM EST Office Visit [facility] [address] [place] [address] Unknown, Unknown, Ashley Vernon, ENGINEERING PROFESSOR [address] [place] [address] [email or web address] documented as of this encounter Results * XR KNEE 4 OR MORE VIEWS (LEFT) (06/26/2024 12:17 PM EST) Anatomical Region Laterality Modality Knee Left Computed Radiogr aphy 06/26/2024 3:49 PM EST Impressions 06/26/2024 3:50 PM EST No acute osseous abnormality. Minimal degenerative changes. Narrative 06/26/2024 3:50 PM EST XR KNEE 4 OR MORE VIEWS (LEFT) Referring clinician's provided indication for this examination in Epic: Pain COMPARISON: XR KNEE STANDING (BILATERAL, SINGLE VIEW ONLY) FINDINGS: Left Knee: No acute fracture or dislocation. Very minor narrowing of the medial and patellofemoral compartments. Extensor mechanism enthesophytes. No significant joint effusion.. Procedure Note José Quan MD - 06/26/2024 XR KNEE 4 OR MORE VIEWS (LEFT) Referring clinician's provided indication for this examination in [facility]:Pain COMPARISON: XR KNEE STANDING (BILATERAL, SINGLE VIEW ONLY) FINDINGS: Left Knee: No acute fracture or dislocation. Very minor narrowing of themedial and patellofemoral compartments. Extensor mechanism enthesophytes.No significant joint effusion.. IMPRESSION: No acute osseous abnormality. Minimal degenerative changes. Levar Mathew MD IMG XR LOWER EXTREMITY Final Result documented in this encounter Visit Diagnoses Diagnosis Pain- Primary Generalized pain Pain Generalized pain documented in this encounter Care Teams Heat Treat Inspector Relationship Specialty Start Date End Date Shashi Farrell MD [address] [place] [address] [email or web address] PCP - General Internal Medicine 10/14/21 documented as of this encounter Additional Source Comments The information contained in this document represents components of the legal health record. It is not the complete legal health record.[facility]
--- OUTSIDE RECORDS SUMMARY | 2025-03-12 16:39 | XMS_ITS | Encounter Summary ---
Author Organization [facility] Address [address] [place] [address] [place] [address] Phone Care Team Providers Care Quality Control Expert Name Role Phone Tony Carrillo MD Unavailable Jayson Rucker MD Unavailable Patricia Gutierrez NP Unavailable Jimmie Martinez MD Unavailable Chante Anders MD Unavailable Patricia Gutierrez NP Primary Care Provider Lenora Castro DO Primary Care Provider Lenora Castro DO Primary Care Provider Shashi Farrell MD Primary Care Provider [phone] Reason for Referral * Physical Therapy (Routine) - Closed Specialty Diagnoses / Procedures Referred By Contchiara t Referred To Contact Physical Therapy Diagnoses Encounter for rehabilitation Left Achilles Tendonitis Procedures Evaluate & Treat System, Provider Not In, PhD [id number] [place] [address] Phone: tel: Referral ID Status Reason Start Date Expiration Date Visits Re quested Visits Authorized [id number] Closed 05/28/2018 12/09/2018 25 25 Encounter Details Date Type Department Care Team (Latest Contact Info) Description 05/14/2018 Transcribe Orders [facility] [address] [place] [address] Yara Potter PA [address] Tommy [address] [place] [address] Encounter for rehabilitation (Primary Dx) Social History [...] Description 06/18/2025 10:30 AM EST Office Visit [facility] Clinic [address] [place] [address] Unknown, Unknown, Ashley Vernon, DATA INTEGRATION DEVELOPER [address] [place] [address] [email or web address] documented as of this encounter Procedures Procedure Name Priority Date/Time Associated Diagnosis Comments AMB REFERRAL TO [facility] PHYSICAL THERAPY Routine 06/04/2018 12:35 PM EST Encounter for rehabilitation documented in this encounter Results * Ambulatory referral to [facility] Physical Therapy (06/04/2018 12:35 PM EST) us Provider Not In System PhD AMB [facility] REFERRALS Fin al Result documented in this encounter Visit Diagnoses Diagnosis Encounter for rehabilitation- Primary documented in this encounter Care Teams Quality Control Expert Relationship Specialty Start Date End Date Patricia Gutierrez NP [address] [place] [address] [place] [address] PCP - General Family Medicine 12/22/17 06/10/19 Lenora Castro DO [address] [place] [address] PCP - General Internal Medicine 06/11/19 11/17/19 Lenora Castro DO [address] [place] [address] PCP - General Internal Medicine 11/18/19 10/13/21 Shashi Farrell MD [address] [place] [address] [email or web address] PCP - General Internal Medicine 10/14/21 Tony Carrillo MD [address] [place] [address] [email or web address] Historical LMR Provider 04/01/17 2 Jayson Rucker MD [address] [place] [address] [email or web address] Historical LMR Provider 04/01/17 06/19/21 Patricia Gutierrez NP [address] [place] [address] Historical LMR Provider 04/01/17 2 Jimmie Martinez MD [address] [place] [address] [address] [place] [address] [email or web address] Historical LMR Provider 04/01/17 06/19/21 Chante Anders MD [address] [place] [address] Orthopedics & Sports Medicine, [facility] [place] [address] Historical LMR Provider 04/01/17 06/19/21 documented as of this encounter Additional Source Comments The information contained in this document represents components of the legal health record. It is not the complete legal health record.[facility]
--- OUTSIDE RECORDS SUMMARY | 2025-03-12 16:39 | XMS_ITS | Encounter Summary ---
Author Organization [facility] Address [address] [place] [address] [place] [address] Phone Care Team Providers Care M1 Armor Crewman Name Role Phone Lenora Castro DO Primary Care Provider Tony Carrillo MD Unavailable Jayson Rucker MD Unavailable Patricia Gutierrez NP Unavailable [phone] Jimmie Martinez MD Unavailable Chante Anders MD Unavailable [phone] Patricia Gutierrez NP Primary Care Provider Lenora Castro DO Primary Care Provider Lenora Castro DO Primary Care Provider [phone] Shashi Farrell MD Primary Care Provider Encounter Details Date Type Department Care Team (Late st Contact Info) Description 07/24/2017 Procedure Pass [facility], [facility] - [address] [place] [address] Social History Tobacco Use Types Packs/Day Years [...] Description 06/18/2025 10:30 AM EST Office Visit [facility]astro[facility] [address] [place] [address] Unknown, Unknown, Ashley Vernon, FIRE ALARM DISPATCHER 10 [place] [address] documented as of this encounter Visit Diagnoses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documented in this encounter Care Teams M1 Armor Crewman Relationship Specialty Start Date End Date Lenora Castro DO [address] [place] [address] PCP - General Internal Medicine 08/10/16 12/21/17 Patricia Gutierrez NP [address] [place] [address] PCP - General Family Medicine 12/22/17 06/10/19 Lenora Castro DO [address] [place] [address] PCP - General Internal Medicine 06/11/19 11/17/19 Lenora Castro DO [address] [place] [address] PCP - General Internal Medicine 11/18/19 10/13/21 Shashi Farrell MD [address] [place] [address] PCP - General Internal Medicine 10/14/21 Tony Carrillo MD [address] [place] [address] [email or web address] Historical LMR Provider 04/01/17 2 Jayson Rucker MD [address] [place] [address] [address] [place] [address] [email or web address] Historical LMR Provider 04/01/17 06/19/21 Patricia Gutierrez NP [address] [place] [address] [place] [address] Historical LMR Provider 04/01/17 2 Jimmie Martinez MD [address] [place] [address] [address] [place] [address] [email or web address] Historical LMR Provider 04/01/17 06/19/21 Chante Anders MD [address] [place] [address] Orthopedics & Sports Medicine, [facility] [place] [address] [email or web address] Historical LMR Provider 04/01/17 06/19/21 documented as of this encounter Additional Source Comments The information contained in this document represents components of the legal health record. It is not the complete legal health record.[facility]
--- OUTSIDE RECORDS SUMMARY | 2025-03-12 16:39 | XMS_ITS | Encounter Summary ---
Author Organization [facility] Address [facility] [address] [place] [address] Phone Care Team Providers Care Tank Erector Name Role Phone Shashi Farrell MD Primary Care Provider [phone] Reason for Referral * MRI/CAT Scan - Closed Specialty Diagnoses / Procedures Referred By Josué t Referred To Contact Radiology Diagnoses Chronic diarrhea Procedures MRI Cholangiopancreatography (MRCP) CHG MRI, ABDOMEN, COMBO Jayjay Florence MD Phone: tel: fax: [email or web address] Referral ID Status Reason Start Date Expiration Date Visits Re quested Visits Authorized [id number] Closed 08/09/2022 10/08/2022 1 1 Encounter Details Date Type Department Care Team (Latest Contact Info) Description 08/09/2022 Transcribe Orders Virtual Department 30 [place] [address] Jayjay Florence MD [address] [place] [address] [email or web address] Chronic diarrhea (Primary Dx) Social History Tobacco Use Types [...] 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, [employer]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 Not on savita e documented as of this encounter Plan of Treatment Upcoming Encounters Date Type Department Care Team (Late st Contact Info) Description 06/18/2025 10:30 AM EST Office Visit [facility] Gastro[facility]ology Clinic [address] [place] [address] [phone] Unknown, Unknown, MD Vega, Ashley Wright, HOOK UP [address] [place] [address] [email or web address] documented as of this encounter Results * MRI CHOLANGIOPANCREATOGRAPHY (MRCP) WITH AND WITHOUT CONTRAST (09/08/2022 10:26 AM EDT) Anatomical Region Laterality Modality Pancreas, Biliary Magnetic Reson ance 09/08/2022 8:12 PM EDT Impressions 09/08/2022 9:39 PM EDT No evidence of focal pancreatic mass. Mild main pancreatic duct dilation in the pancreatic head is similar to 02/21/2022 no minimally more prominent compared to 08/01/2017. This is most likely benign, though consider follow-up imaging in 2 years to confirm stability. Narrative 09/08/2022 9:39 PM EDT MRI CHOLANGIOPANCREATOGRAPHY (MRCP) WITH AND WITHOUT CONTRAST TECHNIQUE: Multiplanar MR imaging of the abdomen was performed using T1, T2, fat saturated, and diffusion weighted techniques. 2D and 3D MRCP sequences were performed. Dynamic multiphase imaging was also performed after administration of an intravenous gadolinium contrast agent. COMPARISON: MRCP 02/21/2022 am MRCP to 2018. FINDINGS: Lower Chest: 2.1 cm cystic structure along the right paracardiac region without enhancement on 4:13, almost certainly a benign pericardial cyst.No consolidation or pleural effusions. Liver: No suspicious focal liver lesion. Biliary: No abnormal biliary ductal dilatation. Prior cholecystectomy. Spleen: Normal. No splenomegaly or focal lesions. Pancreas: Mild dilation of the main pancreatic duct in the head up to 5 mm, similar compared to 02/21/2022, though minimally more prominent compared to 08/01/2017, without duct cutoff or focal mass. Adrenal Glands: Normal. No nodules. Kidneys/Ureters: No solid renal mass or hydronephrosis. Bowel: No bowel obstruction or wall thickening. Prior Xander-en-Y gastric bypass. Peritoneum/Retroperitoneum: Normal. No masses, pneumoperitoneum, or fluid. Lymph Nodes: Normal. No lymphadenopathy. Vessels: No abdominal aortic aneurysm. Bones/Soft Tissues: No suspicious focal osseous lesion. Procedure Note Kushal Salgado MD - 09/08/2022 MRI CHOLANGIOPANCREATOGRAPHY (MRCP) WITH AND WITHOUT CONTRAST TECHNIQUE: Multiplanar MR imaging of the abdomen was performed using T1,T2, fat saturated, and diffusion weighted techniques. 2D and 3D MRCPsequences were performed. Dynamic multiphase imaging was also performedafter administration of an intravenous gadolinium contrast agent. COMPARISON: MRCP 02/21/2022 am MRCP to 2017. FINDINGS: Lower Chest: 2.1 cm cystic structure along the right paracardiac regionwithout enhancement on 4:13, almost certainly a benign pericardial cyst.Noconsolidation or pleural effusions. Liver: No suspicious focal liver lesion. Biliary: No abnormal biliary ductal dilatation. Prior cholecystectomy. Spleen: Normal. No splenomegaly or focal lesions. Pancreas: Mild dilation of the main pancreatic duct in the head up to 5mm, similar compared to 02/21/2022, though minimally more prominentcompared to 08/01/2017, without duct cutoff or focal mass. Adrenal Glands: Normal. No nodules. Kidneys/Ureters: No solid renal mass or hydronephrosis. Bowel: No bowel obstruction or wall thickening. Prior Xander-en-Y gastricbypass. Peritoneum/Retroperitoneum: Normal. No masses, pneumoperitoneum, orfluid. Lymph Nodes: Normal. No lymphadenopathy. Vessels: No abdominal aortic aneurysm. Bones/Soft Tissues: No suspicious focal osseous lesion. IMPRESSION: No evidence of focal pancreatic mass. Mild main pancreatic duct dilation in the pancreatic head is similar to02/21/2022 no minimally more prominent compared to 08/01/2017. This is mostlikely benign, though consider follow-up imaging in 2 years to confirmstability. Jayjay Florence MD IMG MR ABDOMEN Final Result documented in this encounter Visit Diagnoses Diagnosis Chronic diarrhea- Primary Diarrhea Chronic diarrhea Diarrhea documented in this encounter Care Teams Tank Erector Relationship Specialty Start Date End Date Shashi Farrell MD [address] [place] [address] [email or web address] PCP - General Internal Medicine 10/14/21 documented as of this encounter Additional Source Comments The information contained in this document represents components of the legal health record. It is not the complete legal health record.[facility]
--- OUTSIDE RECORDS SUMMARY | 2025-03-12 16:39 | XMS_ITS | Encounter Summary ---
Author Organization [facility] Address [address] [place] [address] Phone Care Team Providers Care Continuous Process Coffee Roaster Name Role Phone Shashi Farrell MD Primary Care Provider [phone] Reason for Referral * MRI/CAT Scan - Closed Specialty Diagnoses / Procedures Referred By Contac t Referred To Contact Radiology Diagnoses Nausea Bloating RUQ abdominal pain Procedures MRI Cholangiopancreatography (MRCP) CHG MRI, ABDOMEN, COMBO CHG MRI, ABDOMEN (MRI) CHG MRI, ABDOMEN W/CONTRAST TX SHAWN MR BETITO TISS COMPOSITION W/MRI LAMP CLEANER STREET LIGHT ORGANS [place] QMRCP W/DIAGNOSTIC MRI SAME ANATOMY Ashley Vega CNP Phone: tel: fax: [email or web address]:[email or web address] Referral ID Status Reason Start Date Expiration Date Visits Re quested Visits Authorized [id number] Closed 01/13/2025 03/14/2025 1 1 Encounter Details Date Type Department Care Team (Latest Contact Info) Description 01/13/2025 Transcribe Orders Virtual Department [address] [place] [address] Ashley Vega CNP [address] [place], [place] [id number] Nausea (Primary Dx); Bloating; RUQ abdominal pain [...] 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, [employer]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 Not on savita e documented as of this encounter Plan of Treatment Upcoming Encounters Date Type Department Care Team (Late st Contact Info) Description 06/18/2025 10:30 AM EST Office Visit [facility]ology [facility] [address] [place] [address] [phone] Unknown, Unknown, Ashley Vernon, LAND DEVELOPER [address] [place] [address] documented as of this encounter Results * [...] clinician's provided indication for this examination in [facility]: Outside Radiology Order; nausea TECHNIQUE: Multiplanar MR [...] clinician's provided indication for this examination in [facility]:Outside Radiology Order; nausea TECHNIQUE: Multiplanar MR imaging of the abdomen was performed using T1,T2, fat saturated, and diffusion weighted techniques. 2D and 3D MRCPsequences were performed. Dynamic multiphase imaging was also performedafter administration of an intravenous gadolinium contrast agent. COMPARISON: MRI CHOLANGIOPANCREATOGRAPHY (MRCP) WITH AND WITHOUT [id number] FINDINGS: Lower chest: No pleural effusions. Unchanged [...] intraductal papillary mucinous neoplasm (IPMN). No suspiciousfeatures. Ashley Vega CNP IM MR ABDOMEN Final Resu lt documented in this encounter Visit Diagnoses Diagnosis Nausea- Primary Nausea alone Bloating Flatulence, eructation, and gas pain RUQ abdominal pain Abdominal pain, right upper quadrant Nausea Nausea alone Bloating Flatulence, eructation, and gas pain RUQ abdominal pain Abdominal pain, right upper quadrant documented in this encounter Care Teams Continuous Process Coffee Roaster Relationship Specialty Start Date End Date Shashi Farrell MD [address] [place] [address] [email or web address] PCP - General Internal Medicine 5/5/22 documented as of this encounter Additional Source Comments The information contained in this document represents components of the legal health record. It is not the complete legal health record.[facility]
--- OUTSIDE RECORDS SUMMARY | 2025-03-12 16:39 | XMS_ITS | Encounter Summary ---
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 Wish to be (Past 1 Month) No 024 12:06 PM Anna Langley RN 2. Non-Specific Active Suici sanjay Thoughts (Past 1 Month) No 05/24/2024 12:06 PM Regina Langley RN 6. Suicidal Behavior (Lifetime) No 12:06 PM Anna Langley, BAKARI documented as of this encounter Plan of Treatment Upcoming Encounters Date Type Department Care Team (Late st Contact Info) Description 06/18/2025 10:30 AM EST Office Visit [facility] [address] [place] [address] Unknown, Unknown, Ashley Vernon, ADMINISTRATION SPECIALIST [address] [place] [address] documented as of this encounter Visit Diagnoses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documented in this encounter Care Teams Flight Nurse Relationship Specialty Start Date End Date Shashi Farrell MD [address] [place] [phone] PCP - General Internal Medicine 10/14/21 documented as of this encounter Additional Source Comments The information contained in this document represents components of the legal health record. It is not the complete legal health record.[facility]
--- OUTSIDE RECORDS SUMMARY | 2025-03-12 16:39 | XMS_ITS | Encounter Summary ---
Author Organization [facility] Address [address] [place] [address] [place] [address] Phone Care Team Providers Care Rat Breeder Name Role Phone Shashi Farrell MD Primary Care Provider [phone]- [phone] Reason for Referral * MRI/CAT Scan - Closed Specialty Diagnoses / Procedures Referred By Contac t Referred To Contact Radiology Diagnoses Strain of musc/tend the rotator cuff of right shoulder, init Procedures MRI Shoulder (Right) CHG MRI, JOINT UPPER EXTREM Levar Mathew MD Phone: tel: fax: mailto:[email or web address] Referral ID Status Reason Start Date Expiration Date Visits Re quested Visits Authorized [id number] Closed 06/15/2022 08/14/2022 1 1 Encounter Details Date Type Department Care Team (Latest Contact Info) Description 06/15/2022 Transcribe Orders Virtual Department [address] [place] [address] Levar Mathew MD [address] [place] [address] [email or web address] 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 e documented as of this encounter Plan of Treatment Upcoming Encounters Date Type Department Care Team (Late st Contact Info) Description 06/18/2025 10:30 AM EST Office Visit [facility] [address] [place] [address] Unknown, Unknown, MD Vega, Ashley Wright, REPAIR DEPARTMENT SUPERVISOR [address] [place] [address] [email or web address] documented as of this encounter Results * MRI SHOULDER WITHOUT CONTRAST (RIGHT) (06/21/2022 7:47 AM EST) Anatomical Region Laterality Modality Shoulder Right Magnetic Resonan ce 06/21/2022 2:36 PM EST Impressions 06/21/2022 6:03 PM EST 1. AC joint degeneration with downsloping acromion, impinging on the traversing supraspinatus myotendinous junction. 2. Supraspinatus tendinosis with bursal sided fraying and low-grade interstitial tearing. Infraspinatus tendinosis. No retracted tear or rotator cuff muscular atrophy. 3. Findings which can be seen in the setting of capsulitis. Narrative 06/21/2022 6:03 PM EST MRI SHOULDER WITHOUT CONTRAST (RIGHT) TECHNIQUE: Multi-sequence, multi-planar MRI of the shoulder without intravenous contrast. COMPARISON: XR SHOULDER 2 OR MORE VIEWS (RIGHT) FINDINGS: Coracoacromial Arch: Mild acromioclavicular joint degenerative change. Downsloping acromion with impingement on the traversing supraspinatus myotendinous junction. Trace edema in the subacromial subdeltoid bursa. Rotator Cuff: Supraspinatus tendinosis with bursal sided fraying and low-grade interstitial tearing. Additional infraspinatus tendinosis. Teres minor and subscapularis are intact. No rotator cuff muscular atrophy. Glenoid Labrum and Biceps Tendon: Mild labral degeneration without displaced labral tear. Intra-articular and extra-articular biceps appear intact. Bones: No fracture, osteonecrosis, or focal lesion. Glenohumeral Joint: Trace effusion. No synovitis. Mild thickening of the axillary pouch with associated edema. Trace edema in the rotator interval. Findings can be seen in setting of capsulitis. Procedure Note Alfred George MD - 06/21/2022 MRI SHOULDER WITHOUT CONTRAST (RIGHT) TECHNIQUE: Multi-sequence, multi-planar MRI of the shoulder withoutintravenous contrast. COMPARISON: XR SHOULDER 2 OR MORE VIEWS (RIGHT) FINDINGS: Coracoacromial Arch: Mild acromioclavicular joint degenerative change.Downsloping acromion with impingement on the traversing supraspinatusmyotendinous junction. Trace edema in the subacromial subdeltoid bursa. Rotator Cuff: Supraspinatus tendinosis with bursal sided fraying andlow-grade interstitial tearing. Additional infraspinatus tendinosis. Teresminor and subscapularis are intact. No rotator cuff muscular atrophy. Glenoid Labrum and Biceps Tendon: Mild labral degeneration withoutdisplaced labral tear. Intra-articular and extra-articular biceps appearintact. Bones: No fracture, osteonecrosis, or focal lesion. Glenohumeral Joint: Trace effusion. No synovitis. Mild thickening of theaxillary pouch with associated edema. Trace edema in the rotator interval.Findings can be seen in setting of capsulitis. IMPRESSION: 1. AC joint degeneration with downsloping acromion, impinging on thetraversing supraspinatus myotendinous junction. 2. Supraspinatus tendinosis with bursal sided fraying and low-gradeinterstitial tearing. Infraspinatus tendinosis. No retracted tear orrotator cuff muscular atrophy. 3. Findings which can be seen in the setting of capsulitis. Levar Mathew MD IMG MR EXTREMITY Final Result documented in this encounter Visit Diagnoses Diagnosis Strain of musc/tend the rotator cuff of right shoulder, init- Primary Strain of musc/tend the rotator cuff of right shoulder, init documented in this encounter Care Teams Rat Breeder Relationship Specialty Start Date End Date Shashi Farrell MD [address] [place] [address] [email or web address] PCP - General Internal Medicine 10/14/21 documented as of this encounter Additional Source Comments The information contained in this document represents components of the legal health record. It is not the complete legal health record.[facility]
--- OUTSIDE RECORDS SUMMARY | 2025-03-12 16:39 | XMS_ITS | Encounter Summary ---
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 Not on savita e documented as of this encounter Plan of Treatment Upcoming Encounters Date Type Department Care Team (Late st Contact Info) Description 06/18/2025 10:30 AM EST Office Visit [facility] [address] [place] [address] Unknown, Unknown, Ashley Vernon, TOOLS DEVELOPER [address] [place] [address] [email or web address] documented as of this encounter Visit Diagnoses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documented in this encounter Care Teams Senior Revenue Accountant Relationship Specialty Start Date End Date Shashi Farrell MD [address] [place] [address] PCP - General Internal Medicine 10/14/21 documented as of this encounter Additional Source Comments The information contained in this document represents components of the legal health record. It is not the complete legal health record.[facility]
--- OUTSIDE RECORDS SUMMARY | 2025-03-12 16:39 | XMS_ITS | Encounter Summary ---
Author Organization [facility] Address [address] [place] [address] Phone Care Team Providers Care Retail Visual Merchandiser Name Role Phone Shashi Farrell MD Primary Care Provider [phone]- [phone] Encounter Details Date Type Department Care Team (Latest Contact Info) Description 12/18/[address] 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 Not on savita e documented as of this encounter Plan of Treatment Upcoming Encounters Date Type Department Care Team (Late st Contact Info) Description 06/18/2025 10:30 AM EST Office Visit [facility] [address] [place] [address] Unknown, Unknown, MD Vega, Ashley Wright CNP [address] [place] [address] [email or web address] documented as of this encounter Results * (ABNORMAL) 25-OH vitamin D (12/18/2023 10:32 AM EDT) 25 OH VIT D (TOTAL) 25(L) 30 - 60 ng/mL [facility] Blood 12/18/2023 10:3 2 AM EDT 12/18/2023 10:43 AM EDT us Ashley Vega CNP LAB BLOOD ORDERABLES Final Result [facility] [address] [place] [address] * Vitamin B12 (12/18/2023 10:32 AM EDT) VITAMIN B12 373 232 - 1,245 pg/mL [facility] Blood 12/18/2023 10:3 2 AM EDT 12/18/2023 10:43 AM EDT Ashley Vega [facility] LAB BLOOD ORDERABLES Final Result Performing Organization Address [facility]/ZIP Co de Phone Number [address] [address] * Magnesium (12/18/2023 10:32 AM EDT) MAGNESIUM 2.2 1.6 - 2.6 mg/dL [facility] Blood 12/18/2023 10:3 2 AM EDT 12/18/2023 10:43 AM EDT Ashley Vega [facility] LAB BLOOD ORDERABLES Final Result Performing Organization Address [facility] Co de Phone Number [address] [address] * (ABNORMAL) Ferritin (12/18/2023 10:32 AM EDT) FERRITIN 232(H) 13 - 150 ug/L [facility] Blood 12/18/2023 10:3 2 AM EDT 12/18/2023 10:43 AM EDT Ashley Vega [facility] LAB BLOOD ORDERABLES Final Result Performing Organization Address [facility] Co de Phone Number [address] [address] * Folate (12/18/2023 10:32 AM EDT) FOLIC ACID 11.3 4.2 - 19.9 ng/mL [facility] Blood 12/18/2023 10:3 2 AM EDT 12/18/2023 10:43 AM EDT Ashley Vega [facility] LAB BLOOD ORDERABLES Final Result Performing Organization Address [facility]/State/ZIP Co de Phone Number [address] [address] * TSH (12/18/2023 10:32 AM EDT) TSH 0.54 0.27 - 4.20 uIU/mL [facility] Blood 12/18/2023 10:3 2 AM EDT 12/18/2023 10:43 AM EDT Ashley Vega [facility] LAB BLOOD ORDERABLES Final Result Performing Organization Address [facility]/ZIP Co de Phone Number [address] [address] * Iron and iron binding capacity (12/18/2023 10:32 AM EDT) IRON 122 30 - 160 ug/dL [facility] IRON BINDING CAPACITY 310 228 - 428 ug/dL [facility] TRANSFERRIN SATURAT. 39 15 - 50 % [facility] Blood 12/18/2023 10:3 2 AM EDT 12/18/2023 10:43 AM EDT Ashley Vega [facility] LAB BLOOD ORDERABLES Final Result Performing Organization Address [facility]/ZIP Co de Phone Number [address] [address] * C-Reactive Protein (12/18/2023 10:32 AM EDT) C REACTIVE PROTEIN <3.0 0.0 - 4.0 mg/L [facility] Blood 12/18/2023 10:3 2 AM EDT 12/18/2023 10:43 AM EDT Ashley Vega [facility] LAB BLOOD ORDERABLES Final Result Performing Organization Address [facility]/ZIP Co de Phone Number [address] [address] * (ABNORMAL) Comprehensive metabolic panel (12/18/2023 10:32 AM EDT) SODIUM 141 133 - 146 mmol/L [facility] POTASSIUM 4.6 3.3 - 5.1 mmol/L [facility] CHLORIDE 102 96 - 108 mmol/L [facility] CO2 28 21 - 35 mmol/L [facility] BUN 12 6 - 19 mg/dL [facility] CREATININE 0.60 0.5 - 1.5 mg/dL [facility] GLUCOSE 154(H) 70 - 99 mg/dL [facility] ALBUMIN 4.3 3.9 - 4.8 g/dL [facility] TOTAL PROTEIN 7.1 6.5 - 8.0 g/dL [facility] CALCIUM 9.3 8.4 - 10.3 mg/dL [facility] ALKALINE PHOSPHATASE 74 39 - 117 U/L [facility] TOTAL BILIRUBIN 0.5 0.0 - 1.2 mg/dL [facility] AST 22 0 - 37 U/L [facility] ALT 16 0 - 40 U/L [facility] GLOBULIN 2.8 1 - 4.8 g/dL [facility] EGFR 103 >59 mL/min/1.7 3m2 [facility] Comment:Estimated glomerular filtration rate calculated using the CKD-EPI refit equation. ANION GAP 16 10 - 20 mmol/L [facility] Blood 12/18/2023 10:3 2 AM EDT 12/18/2023 10:43 AM EDT Ashley Vega [facility] LAB BLOOD ORDERABLES Final Result [facility] [address] [place] [address] * (ABNORMAL) CBC and differential (12/18/2023 10:32 AM EDT) WBC 2.79(L) 4.00 - 11.00 K/uL [facility] RBC 4.51 3.72 - 5.30 M/uL [facility] HGB 13.1 11.4 - 15.9 g/dL [facility] HCT 39.9 34.2 - 46.8 % [facility] PLT 231 140 - 430 K/uL [facility] MCV 88.5 78.0 - 97.0 fL [facility] MCH 29.0 25.0 - 33.0 pg [facility] MCHC 32.8 32.0 - 36.0 g/dL [facility] RDW 14.5 11.0 - 16.0 % [facility] MPV 10.5 8.4 - 12.8 fl [facility] DIFF METHOD Auto [facility] NEUTS 41.9(L) 43.0 - 75.0 % [facility] LYMPHS 41.2 18.2 - 47.4 % [facility] MONOS 13.3(H) 4.00 - 11.00 % [facility] EOS 2.5 0.0 - 8.0 % [facility] BASOS 1.1 0.0 - 2.0 % [facility] Granulocytes, immature (%) 0.0 0.0 - 0.9 % [facility] ABSOLUTE NEUTS 1.17(L) 1.80 - 7.70 K/uL [facility] ABSOLUTE LYMPHS 1.15 1.00 - 3.10 K/uL [facility] ABSOLUTE MONOS 0.37 0.20 - 0.80 K/uL [facility] ABSOLUTE EOS 0.07 0.00 - 0.80 K/uL [facility] ABSOLUTE BASOS 0.03 0.00 - 0.09 K/uL [facility] Granulocytes, immature 0.00 0.00 - 0.05 K/uL [facility] Blood 12/18/2023 10:3 2 AM EDT 12/18/2023 10:43 AM EDT us Ashley Vega CNP LAB BLOOD ORDERABLES Final Result [facility] [address] [place] [address] documented in this encounter Visit Diagnoses Diagnosis Nausea- Primary Nausea alone Bloating Flatulence, eructation, and gas pain RUQ abdominal pain Abdominal pain, right upper quadrant documented in this encounter Care Teams Retail Visual Merchandiser Relationship Specialty Start Date End Date Shashi Farrell MD [address] [place] [address] [email or web address] PCP - General Internal Medicine 10/14/21 documented as of this encounter Additional Source Comments The information contained in this document represents components of the legal health record. It is not the complete legal health record.[facility]
== END 2025-03-12 16:38 | disposition home or self-care (01) ==
LOC: HO.HBS 16:11
PROVIDERS: PCP Internal Medicine; Visit Provider Physician Assistant Surgical
DX: E66.3 Overweight (principal); Z68.27 Body mass index [BMI] 27.0-27.9, adult; Z90.3 Acquired absence of stomach [part of]; Z98.84 Bariatric surgery status
CPT/HCPCS: 98013

== ENCOUNTER → 2025-06-06 10:11 | Outpatient (BNV) | payer OTHER, SELFPAY | PROVIDERS: PCP Internal Medicine; Visit Provider Radiology Diagnostic Radiology | DX: I67.1 Cerebral aneurysm, nonruptured (principal) | CPT/HCPCS: 70544 ==

== ENCOUNTER 2025-06-06 10:22 | Outpatient (REF) | payer OTHER, SELFPAY ==
--- NOTE | ~2025-06-06 | MR_ITS ---
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 Follow-up. History of migraines. No current symptomatology. COMPARISON: No prior brain imaging available. TECHNIQUE: MRA imaging of the major intracranial arterial vasculature was performed using 3-D [id number]-[id number] imaging with standard technique. Multiplanar and MIP reformatted imaging was also performed. FINDINGS: There is susceptibility artifact abutting the medial aspect of the right ICA at the junction of the cavernous and ophthalmic segments (series 9, image 100). This likely represents the previously coiled aneurysm. Abutting the most anteromedial aspect of the coil mass, there is a residual 2 x 2 mm focus of flow related enhancement (series 9, image 104), consistent with the residua of the aneurysm, most likely a residual portion of the aneurysm neck. Correlation with prior imaging is recommended. No definite flow-related enhancement is noted within the aneurysm sac itself, to suggest posttreatment enlargement. Otherwise, there is normal flow-related enhancement in the anterior and posterior circulation. No additional aneurysm is identified. No evidence of significant stenosis or flow gap. The right posterior communicating artery is present and normal. The left posterior communicating artery as diminutive although appears to be present. The anterior communicating artery is normal. The basilar tip appears normal. Vertebral artery V4 segments are codominant. Normal right-sided PICA branch noted. There is a left-sided AICA/PICA. MR/MR angio head wo con IMPRESSION: 1. Susceptibility artifact abutting the medial aspect of the right ICA at the junction of the cavernous and ophthalmic segments consistent with the previously coiled ICA aneurysm. There is a small amount of residual flow related enhancement measuring 2 x 2 mm abutting the anteromedial aspect of the coil mass, as detailed above, likely representing the residual neck of the coiled aneurysm. There is no abnormal flow related enhancement within the aneurysm sac to suggest treatment failure or enlargement. Correlation with prior imaging highly recommended. 2. Otherwise, normal examination. Electronically signed by: Robert Newman MD 06/09/2025 08:46 AM [facility]
--- OUTSIDE RECORDS SUMMARY | 2025-06-06 10:27 | XMS_ITS | Encounter Summary ---
Author Organization [facility] Address [address] [place] [address] Phone Care Team Providers Care Emg Technician Name Role Phone Tony Carrillo MD Unavailable [phone] Jayson Rucker MD Unavailable Patricia Gutierrez NP Unavailable Unavailable Jimmie Martinez MD Unavailable Chante Anders MD Unavailable Patricia Gutierrez NP Primary Care Provider Unava ilable Liss Castro DO Primary Care Provider [phone] Liss Castro DO Primary Care Provider Shashi Farrell MD Primary Care Provider [phone] Reason for Referral * Outpatient Procedure - Closed Specialty Diagnoses / Procedures Referred By Josué zavala Referred To Contact Radiology Diagnoses Nausea Procedures NM Gastric Emptying Jayjay Florence MD Phone: tel: fax: [email or web address] Referral ID Status Reason Start Date Expiration Date Visits Re quested Visits Authorized [id number] Closed 05/24/2019 05/23/2020 1 1 Encounter Details Date Type Department Care Team (Latest Contact Info) Description 05/24/2019 Transcribe Orders [facility] Department [address] [place] [address] Jayjay Florence MD [address] [place] [address] [email or web address] Nausea (Primary Dx) Social History Tobacco Use [...] 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, [employer]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 Not on savita e documented as of this encounter Plan of Treatment Upcoming Encounters Date Type Department Care Team (Late st Contact Info) Description 06/18/2025 10:30 AM EST Office Visit [facility] [address] [place] [address] Unknown, Unknown, Ashley Vernon, CHRIS [address] [place] [address] [email or web address] documented [...] POS - [id number] Jayjay Florence MD IMG OK ABDOMEN Final Result documented in this encounter Visit Diagnoses Diagnosis Nausea- Primary Nausea alone Nausea Nausea alone documented in this encounter Care Teams Emg Technician Relationship Specialty Start Date End Date Patricia Gutierrez NP PCP - General Family Medicine 12/22/17 06/10/19 Liss Castro DO [address] [place] [address] PCP - General Internal Medicine 06/11/19 11/17/19 Liss Castro DO [address] [place] [address] PCP - General Internal Medicine 11/18/19 10/13/21 Shashi Farrell MD [address] [place] [address] PCP - General Internal Medicine 10/14/21 Tony Carrillo MD [address] [place] [address] [email or web address] Historical LMR Provider 04/01/17 2 Jayson Rucker MD [address] [place] [address] [address] [place] [address] Historical LMR Provider 04/01/17 06/19/21 Patricia Gutierrez NP Historical LMR Provider 04/01/17 06/19/21 Jimmie Martinez MD [address] [place] [address] [address] [place] [address] Historical LMR Provider 04/01/17 06/19/21 Chante Anders MD [address] [place] [address] Orthopedics & Sports Medicine, [place] [address] Historical LMR Provider 04/01/17 06/19/21 documented as of this encounter Additional Source Comments The information contained in this document represents components of the legal health record. It is not the complete legal health record.[facility]
--- OUTSIDE RECORDS SUMMARY | 2025-06-06 10:27 | XMS_ITS | Encounter Summary ---
Author Organization [facility] Address [address] [place] [address] Care Team Providers Care Field Cane Scale Clerk Name Role Phone RaheelLenora dickson Primary Care Provider [phone] Luis Hsu Unavailable Encounter Details Date Type Department Care Team (Late st Contact Info) Description 03/05/2020 Scanned Document [address] [place] [phone] Provider, Generic Social History Tobacco Use Types [...] on filedocumented in this encounter Care Teams Field Cane Scale Clerk Relationship Specialty Start Date End Date Lenora Castro DO [address] [place] [address] [place] [address] PCP - General Internal Medicine 02/21/20 Luis Hsu [address] [place] [phone] Referring Provider 02/21/20 documented as of this encounter
--- OUTSIDE RECORDS SUMMARY | 2025-06-06 10:27 | XMS_ITS | Clinical Summary ---
Author Organization [facility] Address [address] [place] [address] [place] [address] Phone Care Team Providers Care Flatbed Driver Name Role Phone Shashi Farrell MD Primary Care Provider [phone] Allergies Active Allergy Reactions Criticality Noted Date Comments Lisinopril Cough 05/15/2017 Metformin Nausea and/or Vomiting 05/15/2017 Medications citalopram (CELEXA) 40 MG tablet Take 40 mg by mouth nightly at bedtime. Active pravastatin (PRAVACHOL) 20 MG tablet Take 20 mg by mouth daily. Active carbidopa-levodo pa (SINEMET) 25-100 mg per tablet TAKE 1 TABLET BY MOUTH BEFORE BED 09/26/19 24 Active famotidine (PEPCID) 10 MG tablet Take 10 mg by mouth nightly at bedtime. 09/11/19 24 Active fluticasone propionate (FLONASE) 50 mcg/actuation nasal spray SPRAY 1 SPRAY BY INTRANASAL ROUTE EVERY DAY 09/26/19 24 Active pantoprazole (PROTONIX) 40 MG tablet 40 mg. 09/11/19 24 Active cyanocobalamin, vitamin B-12, 1000 MCG tablet Take 1,000 mcg by mouth daily. Active buPROPion (WELLBUTRIN SR) 100 MG SR 12 hr tablet Take 100 mg by mouth daily. 01/03/20 25 Active ergocalciferol (DRISDOL) 50,000 unit capsule Take 50,000 Units by mouth once a week. 02/16/20 24 Active AJOVY AUTOINJECTOR 225 mg/1.5 mL subcutaneous auto-injector Inject 225 mg under the skin every 30 (thirty) days. Active meclizine (ANTIVERT) 25 mg tablet Take by mouth 3 (three) times a day as needed. 05/28/20 24 Active ondansetron HCl (ZOFRAN ORAL) as needed. Activ e UBRELVY 100 mg tablet once as needed. Active verapamiL (VERELAN PM) 100 mg 24 hr capsule Take 100 mg by mouth nightly at bedtime. Active pantoprazole (PROTONIX) 20 MG tablet Take 20 mg by mouth daily. Active pravastatin (PRAVACHOL) 40 MG tablet Take 40 mg by mouth daily. 05/17/20 24 Active famotidine (PEPCID) 40 MG tabletIndication s:Gastroesophage al reflux disease Take 1 tablet (40 mg total) by mouth every morning. 90 tablet 1 05/27/20 25 026 Active famotidine (PEPCID) 40 MG tablet Take 40 mg by mouth nightly at bedtime as needed. 025 Discontinued Active Problems Problem Noted Date Diagnosed Date Primary osteoarthritis involving multiple joints 01/01/2024 Assessment & Plan (01/01/2024 6:31 PM EDT): Osteoarthritis in multiple joints most bothersome in the small joints of her hands. She should try Tylenol arthritis 650 mg as needed. Patellofemoral arthralgia of both knees 01/01/20 Assessment & Plan (01/01/2024 6:32 PM EDT): [...] pain XR normal Failed exercise program with personal counselor MRI ? Small RTC tear versus tendinopathy [...] discharge, especially with patient reported intermittent palpitations. -[facility] tele-[facility]rology consulted, appreciated. Recommendation for neck imaging. 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 Not on [...] Description 06/18/2025 10:30 AM EST Office Visit [facility] [address] [place] [address] Unknown, Unknown, Ashley [place], TRANSFER AND PUMPHOUSE OPERATOR [address] [place] [address] [email or web address] Health Maintenance Due Date Last Done Comments [...] this topic Medical Devices Implanted Type Area C Python Developer Device Identifier Shelf Expiration Date Model / Serial / Lot Aneurysm Coil Procedures Procedure Name Priority Date/Time Associated Diagnosis Comments PAP TEST Routine 03/15/2021 12:00 AM EDT HEMOGLOBIN A1C Routine 03/26/2020 9:53 AM EDT Plantar fasciitis of right foot BI MAMMOGRAM SCREENING WITH TOMOSYNTHESIS WITH CAD (BILATERAL) Routine 06/25/2019 8:52 AM EST Breast screening MICROALBUMIN/CREATININ E RATIO, RANDOM URINE Routine 01/19/2018 8:38 AM EDT Type 2 diabetes mellitus without complication, without long-term current use of insulin ENDOSCOPY, COLON 09/06/2017 7:17 AM EDT from Last 3 Months or Most Recently Relevant to Health Maintenance Results * Pap Smear (03/15/2021 12:00 AM EDT) 03/15/2021 03/16/2021 8:5 8 AM EDT Narrative SEE NARRATIVE - 03/26/2021 10:56 AM EDT [address] [address] Bpm Architect: Carmencita Ruiz MD FOLDER STITCHER OPERATOR Cytology Report FINAL DIAGNOSIS A. PAP SMEAR [...] 52, 56, 58, 59, 66, 68) by [employer] HR-HPV analysis. Clinical correlation is advised. This HPV test was performed at [facility], [address] [place] [address]. This test has been FDA approved for [facility] cervical cytology specimens. The accuracy and precision of this test for all other specimen sources has been verified in the Cytopathology Laboratory of the [facility] and has not been cleared or approved by the U.S. Food and Drug Administration. Clinical correlation is advised. CLINICAL HISTORY Date of Last Menstrual Period: Not Provided Menstrual History: Unknown Other Clinical Conditions: Screening Pap SPECIMEN SOURCE A: PAP SMEAR (SUREPATH) CE Patient Name: CAIO WELDON : 1965 (Age: 56) Sex: F Institution: [facility] Location: [facility] Date of Collection: 03/15/2021 Date of Reported: 03/26/2021 10:56 Results to: Kiana Morales NP Kiana Morales NP CYTOLOGY ORDERABL ES Final Result SEE NARRATIVE * (ABNORMAL) Hemoglobin A1c (03/26/2020 9:53 AM EDT) HEMOGLOBIN A1C 8.8(H) 4.3 - 5.8 % [facility] Blood 03/26/2020 9:53 AM EDT 03/26/2020 10:00 AM EDT us José aMbry MD LAB BLOOD BKR ORDERABLES Carey [facility] Result [facility] [address] [place] [address] * BI MAMMOGRAM SCREENING WITH TOMOSYNTHESIS WITH [...] and compared with multiple prior studies, most hxwevrle75/27/2018, with utilization of computer-aided detection. The breasts [...] URINE MICROALBUMIN 0.6 0 - 2.3 mg/dL [facility] URINE CREATININE 184 mg/dL CONTINUITY CLERK [facility] MICROALB/CRE RATIO NOT CALCULATED 0 - 20 mg/g Cre [facility] Comment:due to Microalbumin <1.2 Urine (Urine) 01/19/2018 8:3 8 AM EDT 01/19/2018 8:43 AM EDT us Khadra HERNANDEZ LAB URINE ORDERABLES Final Result [address] [address] * ENDOSCOPY, COLON (09/06/2017 7:17 AM EDT) Narrative Transcriptions David Voss MD - 09/06/2017 7:17 AM EDT Patient Name: Caio Casillas MD:: DAVID VOSS MD Procedure Date: 09/06/2017 7:17 AM Date of : 1965 Age: 52 Admit Type: Outpatient Gender: Female Room: [facility] 05 Referring MD: Lenora Castro MD Exam Type: [...] 7:17 AM Procedure Code(s): --- Professional --- 02930, Colonoscopy, flexible; with biopsy, single or multiple --- Technical --- 31896, Colonoscopy, flexible; with biopsy, single or multiple Diagnosis Code(s): --- Professional --- K64.8, Other hemorrhoids K52.9, Noninfective gastroenteritis and colitis, unspecified K57.30, Diverticulosis of large intestine without perforation orabscess without bleeding --- Technical --- K64.8, Other hemorrhoids K52.9, Noninfective gastroenteritis and colitis, unspecified K57.30, Diverticulosis of large intestine without perforation orabscess without bleeding CPT copyright 2016 [employer]. All rights reserved. The codes documented in this report are preliminary and upon automatic spooler operator reviewmay be revised to meet current compliance requirements. [address] [place], [place] [id number] Lenora Castro DO GI PROCEDURE ORDERABLES Final Result from Last 3 Months or Most Recently Relevant to Health Maintenance Insurance EXPLORER POS [facility] EXPLORER POS EXPLORER POS [place]ER [place] [address] [place] [address] [place] [address] [place] [address] EXPLORER POS Advance Directives For more information, please contact: [phone] (9AM - 5PM [facility], Monday-Monday) Documents on File Type Date Recorded Patient Rock Loader Expl anation Healthcare Proxy 05/19/2017 4:39 PM [...] Comments Code Discussion Comments: Patient Care Teams Flatbed Driver Relationship Specialty Start Date End Date Shashi Farrell MD [address] [place] [address] [phone] (work) [email or web address] PCP - General Internal Medicine 10/14/21 Additional Source Comments The information contained in this document represents components of the legal health record. It is not the complete legal health record.[facility]
--- OUTSIDE RECORDS SUMMARY | 2025-06-06 10:27 | XMS_ITS | Clinical Summary ---
Author Organization [facility] Address [address] [place] [phone] Phone Care Team Providers Care Facing Machine Operator Name Role Phone Shashi Farrell MD Primary Care Provider [phone] Allergies Active Allergy Reactions Criticality Noted Date Comments Lisinopril Cough Medium 05/15/2017 Metformin Nausea And Vomiting Medium 05/15/2017 Medications ergocalciferol (VITAMIN D-2) 1,250 mcg (50,000 unit) capsule Take 1 capsule (50,000 Units total) by mouth every 7 (seven) days. 02/16/2024 Active famotidine (PEPCID) 40 mg tablet Take 1 tablet (40 mg total) by mouth once daily as needed. 12/24/2024 Active citalopram (CeleXA) 40 mg tablet Take 1 tablet (40 mg total) by mouth daily. 11/11/2014 Active fremanezumab-vf rm (Ajovy Autoinjector) 225 mg/1.5 mL auto-injector Inject 1.5 mL (225 mg total) under the skin every 28 (twenty-eigh t) days. 12/24/2024 Active meclizine (ANTIVERT) 25 mg tablet Take 1 tablet (25 mg total) by mouth 3 times daily as needed. 05/28/2024 Active pantoprazole (PROTONIX) 20 mg EC tablet Take 1 tablet (20 mg total) by mouth daily. 12/24/2024 Active ubrogepant (Ubrelvy) 100 mg tablet Take 1 tablet (100 mg total) by mouth once daily as needed for migraine. 12/24/2024 Active verapamiL (CALAN) 40 mg tablet Take 1 tablet (40 mg total) by mouth 1 (one) time each day. 11/11/2014 Active atorvastatin (LIPITOR) 40 mg tablet Take 1 tablet (40 mg total) by mouth at bedtime. Active buPROPion SR (WELLBUTRIN SR) 100 mg 12 hr tablet Take by mouth 2 (two) times a day. Do not crush, chew, or split. Active Active Problems No known active problems Encounters Date Type Department Care Team Description 04/30/2025 11:14 AM EST Anesthesia Event [facility] OR [address] [place] [phone] Luis Cline MD Saliga, Jesse L, MD 04/30/2025 10:30 AM EST - 04/30/2025 12:45 PM EST Surgery [facility] OR [address] [place] [phone] Mathew Christiansen, DPM PLANTAR FASCIOTOMY RIGHT FOOT [39890 (CPT )] 04/30/2025 8:58 AM EST - 04/30/2025 1:02 PM EST Hospital Encounter [facility] OR [address] [place] [phone] Mathew Christiansen, DPM Discharge Disposition: Home or Self Care from Last 3 Months Surgical History Surgery Date Site/Laterality Comments BARIATRIC SURGERY FOOT SURGERY Bilateral BRAIN SURGERY aneurysm coil OTHER SURGICAL HISTORY breast reduction Medical History Medical History Date Comments GERD (gastroesophageal reflux disease) Hypertension Social History Tobacco Use Types Packs/Day Years Used Date Smoking Tobacco: Former Cigarettes 41 S tarted: 1984 Smokeless Tobacco: Never Tobacco Cessation:Counseling Given: Not Answered Alcohol Use Standard Drinks/Week Comments Not Currently 0 (1 standard drink = 0.6 oz pur e alcohol) Interpersonal Safety Answer Date Record ed Physical Abuse Unrecognized value 04/30/2025 Verbal Abuse Unrecognized value 04/30/2025 Comments No Sex and Gender Information Value Date Recorded Sex Assigned at Female 04/25/2025 3:14 PM EST Legal Sex Female 11:12 AM EST Gender Identity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 Sexual Orientation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 Last Filed Vital Signs Vital Sign Reading Time Taken Comments Blood Pressure 111/53 04/30/2025 12:26 PM EST Pulse 63 04/30/2025 12:26 PM EST Temperature 36.5 C (97.7 F) 04/30/2025 12:06 PM EST Respiratory Rate 14 04/30/2025 12:06 PM EST Oxygen Saturation 100% 04/30/2025 12:26 PM EST Inhaled Oxygen Concentration - - Weight 80.7 kg (178 lb) 04/28/2025 8:00 AM EST Height 170.2 cm (5' 7 ) 04/28/2025 8:00 AM EST Body Mass Index 27.88 04/28/2025 8:00 AM EST Plan of Treatment Health Maintenance Due Date Last Done Comments Colorectal Cancer Screening: Colonoscopy 1965 Diabetes: Annual Foot Exam 01/23/1974 Diabetes: Annual Retina Eye Exam 01/23/1974 DTaP,Tdap,and Td Vaccines (1 - Tdap) 01/23/1983 Cervical Cancer Screening: Pap Smear 01/23/1985 Pneumococcal Vaccine: 50+ Years (1 of 1 - PCV) 01/23/2014 RSV Immunization Adult Patients (1 - Risk 50-74 years 1-dose series) 01/23/2014 Zoster Vaccines (1 of 2) 01/23/2014 Breast Cancer Screening 06/25/2021 06/25/2019 Depression Screening 06/12/2024 Diabetes: Annual GFR (Glomerular Filtration Rate) 12/17/2024 12/18/2023, 06/15/2022, 03/25/2022, Additional history exists COVID-19 Vaccine ( season) 2025 06/21/2021, 11/28/2020, 10/28/2020 Influenza Vaccine (#1) 2025 03/11/2015 Cholesterol Screening (Lipid Panel) 04/25/2025 HIV Screening 04/25/2025 Hepatitis C Screening 04/25/2025 Social Influencers of Health Screening 04/25/2025 Diabetes: Annual Urine Albumin-Creatinine Ratio (uACR) 04/28/2025 01/19/2018, 01/19/2018 Diabetes: Blood Sugar Control Test (HGBA1C) 04/28/2025 03/02/2020 Hypertension/CHF/CAD Annual BMP Blood Test 04/28/2025 12/18/2023, 06/15/2022, 03/25/2022, Additional history exists HIB Vaccines Aged Out No longer eligi ble based on patient's age to complete this topic HPV Vaccines Aged Out No longer eligi ble based on patient's age to complete this topic Hepatitis A Vaccines Aged Out No long er eligible based on patient's age to complete this topic Hepatitis B Vaccines Aged Out No long er eligible based on patient's age to complete this topic IPV Vaccines Aged Out No longer eligi ble based on patient's age to complete this topic MMR Vaccines Aged Out No longer eligi ble based on patient's age to complete this topic Meningococcal ACWY Vaccine Aged Out N o longer eligible based on patient's age to complete this topic Meningococcal B Vaccine Aged Out No l onger eligible based on patient's age to complete this topic RSV Immunization Patients Under 20 months Aged Out No longer eligible based on patient's age to complete this topic Varicella Vaccines Aged Out No longer eligible based on patient's age to complete this topic Procedures Procedure Name Priority Date/Time Associated Diagnosis Comments HI FASCIECTOMY PLANTAR FASCIA PARTIAL 04/30/2025 11:13 AM EST Plantar fascial fibromatosis Case Notes PODIATRY EXTRAS Special Needs LENGTH OF CASE CHANGE PER VERNELL LUU 04/28 from Last 3 Months Insurance [facility] PL[facility] Care Teams Facing Machine Operator Relationship Specialty Start Date End Date Shashi Farrell MD [address] [place] [phone] PCP - General Internal Medicine 04/25/25
--- OUTSIDE RECORDS SUMMARY | 2025-06-06 10:27 | XMS_ITS | Clinical Summary ---
Author Organization [facility] Address [address] [place] [address] Care Team Providers Care Automatic Spooler Operator Name Role Phone Lenora Castro DO Primary Care Provider [phone] Luis Hsu Unavailable Allergies Active Allergy Reactions Criticality Noted Date Comments Lisinopril Cough Low 02/25/2020 Metformin GI Intolerance/Nausea/Vomiting Low 02/24 Medications cyclobenzaprine (FLEXERIL) 10 MG tablet Take 10 mg by mouth daily as needed. Do not take day of surgery. 0 Active ergocalciferol (VITAMIN D2,DRISDOL) 07093 units Cap Take 50,000 Units by mouth [...] (Ages 21-65) 01/23/1985 Mammogram 2004 Colonoscopy 01/23/2009 RSV Vaccine 50 years and old er and Patients (1 - Risk 50-74 years 1-dose series) 01/23/2014 Zoster (Shingles) Vaccine (1 of 2) 01/23/2014 Hemoglobin A1C 08/30/2020 03/02/2020, 12/18/2018 Creatinine with GFR 03/02/2021 03/02/2020 Influenza Vaccine 01/10/2025 COVID-19 Vaccine (1 - 2024-2 6 season) 2025 Hepatitis B Vaccines Aged Out [...] Glucose 220 mg/dL [facility]OS[facility]ITAL [facility] Comment:Performed at [place], [place] license No. [id number] [employer] MidstreamIA No. [id number] Blood specimen (specimen) Heel structure / Unknown 03/02/2020 3:34 PM EDT 03/02/2020 6:18 PM EDT us Kate Bhakta [facility] BLOOD ORDERABLES Final R esult HOSPITAL [...] - 25.0 Ratio HOSPITAL LAB Comment:Performed at [place], [place] license No. [id number] CLIA No. [id number] Blood specimen (specimen) Heel structure / Unknown 03/02/2020 3:34 PM EDT 03/02/2020 6:18 PM EDT us Kate Bhakta [facility] BLOOD ORDERABLES Final R esult HOSPITAL LAB from Last 3 Months or Most Recently Relevant to Health Maintenance Insurance [facility] [place] [id number] Care Teams Automatic Spooler Operator Relationship Specialty Start Date End Date Lenora Castro DO [address] [place] [address] [place] [address] PCP - General Internal Medicine 02/21/20 Luis Hsu [address] [place] [phone] Referring Provider 02/21/20
--- OUTSIDE RECORDS SUMMARY | 2025-06-06 10:27 | XMS_ITS | Patient Health Record ---
Author Organization [facility] Address [address] [place], [place] [id number] Care Team Providers Care Radiation Therapy Technologist Name Role Phone Raheelrandolph NIEVES Lenora Primary Care Provider Unavailab Laura Quintana Unavailable [phone] Reason For Referral No Information Plan Of Treatment No Information Insurance Providers Payer Name Payer Address Payer Phone Subscriber Number Group Number Insured Name Patient Relationship to Insured Coverage Start Date Coverage End Date [facility] [address] [place] [phone] [id number] Amanda Harrington Self - patient is the insured
--- OUTSIDE RECORDS SUMMARY | 2025-06-06 10:27 | XMS_ITS | Encounter Summary ---
Author Organization [facility] Address [facility] [employer] [facility] [address] [place] [address] Phone Care Team Providers Care Ham Rolling Machine Operator Name Role Phone Tony Carrillo MD Unavailable [phone] Jayson Rucker MD Unavailable Patricia Gutierrez NP Unavailable Unavailable Jimmie Martinez MD Unavailable [phone] Chante Anders MD Unavailable Lenora Castro DO Primary Care Provider Lenora Castro DO Primary Care Provider [phone] Shashi Farrell MD Primary Care Provider [phone] Encounter Details Date Type Department Care Team (Late st Contact Info) Description 06/20/2019 Ancillary Orders Virtual Department [address] [place] [address] Meaghan Saez PA [address] [place] [phone] Breast screening Social History Tobacco Use Types [...] 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, 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 The breasts [...] unspecified documented in this encounter Care Teams Ham Rolling Machine Operator Relationship Specialty Start Date End Date Lenora Castro DO [address] [place] [address] PCP - General Internal Medicine 06/11/19 11/17/19 Lenora Castro DO [address] [place] [address] PCP - General Internal Medicine 11/18/19 10/13/21 Shashi Farrell MD [address] [place] [phone] [email or web address] PCP - General Internal Medicine 10/14/21 Tony Carrillo MD [address] [place] [id number] [email or web address] Historical LMR Provider 04/01/17 2 Jayson Rucker MD [address] [place] [address], [address] [place] [address] [email or web address] Historical LMR Provider 04/01/17 06/19/21 Patricia Gutierrez NP Historical LMR Provider 04/01/17 06/19/21 Jimmie Martinez MD [address] [place] [address] [address] [place] [address] [email or web address] Historical LMR Provider 04/01/17 06/19/21 Chante Anders MD [address] [place] [address] Orthopedics & Sports Medicine, [facility] [place] [address] [email or web address] Historical LMR Provider 04/01/17 06/19/21 documented as of this encounter Additional Source Comments The information contained in this document represents components of the legal health record. It is not the complete legal health record.[facility]
--- OUTSIDE RECORDS SUMMARY | 2025-06-06 10:27 | XMS_ITS | Encounter Summary ---
Author Organization [facility] Address [address] [place] [address] Phone Care Team Providers Care Senior Investigator Name Role Phone Tony Carrillo MD Unavailable [phone] Jayson Rucker MD Unavailable Patricia Gutierrez NP Unavailable Unavailable Jimmie Martinez MD Unavailable [phone] Chante Anders MD Unavailable [phone] Patricia Gutierrez NP Primary Care Provider Unava ilable Lenora Castro DO Primary Care Provider [phone] Lenora Castro DO Primary Care Provider [phone] Shashi Farrell MD Primary Care Provider [phone] Encounter Details Date Type Department Care Team (Late st Contact Info) Description 05/08/2019 Procedure Pass [facility] Endoscopy Admitting Dept Virtual Department [address] [place] [address] Social History Tobacco Use Types Packs/Day Years [...] 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, 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 Not on savita e documented as of this encounter Plan of Treatment Upcoming Encounters Date Type Department Care Team (Late st Contact Info) Description 06/18/2025 10:30 AM EST Office Visit [facility] Gastroenterology Clinic [address] [place] [address] Unknown, Unknown, Ashley Vernon, MANAGER CONTROL [address] [place] [phone] [email or web address] documented as of this encounter Visit Diagnoses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documented in this encounter Care Teams Senior Investigator Relationship Specialty Start Date End Date Patricia Gutierrez NP PCP - General Family Medicine 12/22/17 06/10/19 Lenora Castro DO [address] [place] [address] PCP - General Internal Medicine 06/11/19 11/17/19 Lenora Castro DO [address] [place] [address] PCP - General Internal Medicine 11/18/19 10/13/21 Shashi Farrell MD [address] [place] [address] PCP - General Internal Medicine 10/14/21 Tony Carrillo MD [address] [place] [phone] [email or web address] Historical LMR Provider 04/01/17 2 Jayson Rucker MD [address] [place] [address], [address] [address] [email or web address] Historical LMR Provider 04/01/17 06/19/21 Patricia Gutierrez NP Historical LMR Provider 04/01/17 06/19/21 Jimmie Martinez MD [address] [place] [address] [address] [place] [address] [email or web address] Historical LMR Provider 04/01/17 06/19/21 Chante Anders MD [address] [place] [address] Orthopedics & Sports Medicine, [facility] [place] [address] [email or web address] Historical LMR Provider 04/01/17 06/19/21 documented as of this encounter Additional Source Comments The information contained in this document represents components of the legal health record. It is not the complete legal health record.[facility]
--- OUTSIDE RECORDS SUMMARY | 2025-06-06 10:27 | XMS_ITS | Encounter Summary ---
Author Organization [facility] Address [facility] [place] [address] [place] [address] Phone Care Team Providers Care Medical Record Administrator Name Role Phone Tony Carrillo MD Unavailable [phone] Jayson Rucker MD Unavailable Patricia Gutierrez NP Unavailable Unavailable Jimmie Martinez MD Unavailable Chante Anders MD Unavailable Lenora Castro DO Primary Care Provider [phone] Lenora Castro DO Primary Care Provider Shashi Farrell MD Primary Care Provider [phone] Encounter Details Date Type Department Care Team (Latest Contact Info) Description 07/02/2019 Transcribe Orders Virtual Department [address] [place] [address] Jayjay Florence MD [address] [place] [address] [email or web address] Medication management (Primary Dx) Social [...] 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, 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 Not on savita e documented as of this encounter Plan of Treatment Upcoming Encounters Date Type Department Care Team (Late st Contact Info) Description 06/18/2025 10:30 AM EST Office Visit [facility] [address] [place] [address] Unknown, Unknown, MD Vega, Ashley Wright, HOSPITAL MEDICAL BILLER 10 [place] [address] [email or web address] Scheduled Orders Name Type Priority Associated Diagnoses Orde r Schedule ECG 12-LEAD ECG Routine Medication management Expected: 08/19/2019, Expires: 07/02/2020 documented as of this encounter Visit Diagnoses Diagnosis Medication management- Primary documented in this encounter Care Teams Medical Record Administrator Relationship Specialty Start Date End Date Lenora Castro DO [address] [place] [address] PCP - General Internal Medicine 06/11/19 11/17/19 Lenora Castro DO [address] [place] [address] PCP - General Internal Medicine 11/18/19 10/13/21 Shashi Farrell MD [address] [place] [address] [email or web address] PCP - General Internal Medicine 10/14/21 Tony Carrillo MD [address] [place] [address] [email or web address] Historical LMR Provider 04/01/17 2 Jayson Rucker MD [address] [place] [address] 202 [place] [address] [email or web address] Historical LMR Provider 04/01/17 06/19/21 Patricia Gutierrez NP Historical LMR Provider 04/01/17 06/19/21 Jimmie Martinez MD [address] [place] [address] [address] [place] [address] [email or web address] Historical LMR Provider 04/01/17 06/19/21 Chante Anders MD [address] [place] [address] Orthopedics & Sports Medicine, [facility] [place] [address] [email or web address] Historical LMR Provider 04/01/17 06/19/21 documented as of this encounter Additional Source Comments The information contained in this document represents components of the legal health record. It is not the complete legal health record.[facility]
--- OUTSIDE RECORDS SUMMARY | 2025-06-06 10:27 | XMS_ITS | Encounter Summary ---
Author Organization [facility] Address [address] [place] [address] Care Team Providers Care It Data Architect Name Role Phone Lenora Castro Primary Care Provider [phone] Luis Hsu Encounter Details Date Type Department Care Team (Late st Contact Info) Description 03/04/2020 Prep for Surgery [facility] [address] [place] [address] 2nd [address] [place] [id number] Anastasiya Sweeney APRN [address] [place] [address] [address], [place] [address] Social History Tobacco Use Types Packs/Day Years [...] on filedocumented in this encounter Care Teams It Data Architect Relationship Specialty Start Date End Date Lenora Castro DO [address] [place] [address] [place] [address] PCP - General Internal Medicine 02/21/20 Luis Hsu [address] [place] [phone] Referring Provider 02/21/20 documented as of this encounter
--- OUTSIDE RECORDS SUMMARY | 2025-06-06 10:28 | XMS_ITS | Encounter Summary ---
Author Organization [facility] Address [facility] [employer] [facility] [address] [place] [address] Phone Care Team Providers Care Real Estate Assistant Name Role Phone Tony Carrillo MD Unavailable Jayson Rucker MD Unavailable Patricia Gutierrez NP Unavailable Unavailable Jimmie Martinez MD Unavailable [phone] Chante Anders MD Unavailable [phone] Patricia Gutierrez NP Primary Care Provider Unava ilable Liss Castro DO Primary Care Provider [phone] Liss Castro DO Primary Care Provider [phone] Shashi Farrell MD Primary Care Provider [phone] Encounter Details Date Type Department Care Team (Latest Contact Info) Description 09/24/2018 Transcribe Orders [address] [place] [address] Luis Hsu MD [address] [place] [address], [address] [place], [place] [id number] [email or web address] Nonintractable headache, unspecified chronicity pattern, unspecified [...] Office Visit [facility] G[facility]ology Clinic [address] [place] [address] Unknown, Unknown, Ashley Vernon, DIGITAL SALES MANAGER [address] [place] [address] [email or web address] documented as of this encounter Results * Sedimentation rate (ESR) (09/24/2018 10:59 AM EDT) ESR 13 0 - 30 mm/h [facility] Blood 09/24/2018 10:5 9 AM EDT 09/24/2018 11:02 AM EDT us Luis Hsu MD LAB BLOOD BKR ORDERABLES Fin al Result [facility] [address] [place] [address] documented in this encounter Visit Diagnoses Diagnosis Nonintractable headache, unspecified chronicity pattern, unspecified headache type- Primary documented in this encounter Care Teams Real Estate Assistant Relationship Specialty Start Date End Date Patricia Gutierrez, ADEN PCP - General Family Medicine 12/22/17 06/10/19 Liss Castro DO [address] [place] [address] PCP - General Internal Medicine 06/11/19 11/17/19 Liss Castro DO [address] [place] [address] PCP - General Internal Medicine 11/18/19 10/13/21 Shashi Farrell MD [address] [place] [address] PCP - General Internal Medicine 10/14/21 Tony Carrillo MD [address] [place] [address] [email or web address] Historical LMR Provider 04/01/17 2 Jayson Rucker MD [address] [place] [address] Historical LMR Provider 04/01/17 06/19/21 Patricia Gutierrez NP Historical LMR Provider 04/01/17 06/19/21 Jimmie Martinez MD [address] [place] [address] [address] [place] [address] Historical LMR Provider 04/01/17 06/19/21 Chante [place] MD [address] [place] [address] Orthopedics & Sports Medicine, [facility] [place] [address] Historical LMR Provider 04/01/17 06/19/21 documented as of this encounter Additional Source Comments The information contained in this document represents components of the legal health record. It is not the complete legal health record.[facility]
--- OUTSIDE RECORDS SUMMARY | 2025-06-06 10:28 | XMS_ITS | Encounter Summary ---
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 Not on savita e documented as of this encounter Plan of Treatment Upcoming Encounters Date Type Department Care Team (Late st Contact Info) Description 06/18/2025 10:30 AM EST Office Visit [facility] Gastroenterology Clinic [address] [place] [address] Unknown, Unknown, Ashley Vernon, PATIENT SAFETY MANAGER [address] [place] [address] [email or web address] documented as of this encounter Visit Diagnoses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documented in this encounter Care Teams Engineering Mgr Relationship Specialty Start Date End Date Shashi Farrell MD [address] [place] [address] [email or web address] PCP - General Internal Medicine 10/14/21 documented as of this encounter Additional Source Comments The information contained in this document represents components of the legal health record. It is not the complete legal health record.[facility]
--- OUTSIDE RECORDS SUMMARY | 2025-06-06 10:28 | XMS_ITS | Encounter Summary ---
Author Organization [facility] Address [address] [place] [address] [place] [address] Phone Care Team Providers Care Transformer Stock Clerk Name Role Phone Tony Carrillo MD Unavailable [phone] Jayson Rucker MD Unavailable Patricia Gutierrez NP Unavailable Unavailable Jimmie Martinez MD Unavailable [phone] Chante Anders MD Unavailable [phone] Patricia Gutierrez NP Primary Care Provider Unava ilable Liss Castro DO Primary Care Provider [phone] Liss Castro DO Primary Care Provider [phone] Shashi Farrell MD Primary Care Provider [phone] Reason for Referral * MRI/CAT Scan - Closed Specialty Diagnoses / Procedures Referred By Josué zavala Referred To Contact Radiology Diagnoses White matter disease, unspecified Procedures MRI Brain Luis Hsu MD Phone: tel: fax: mailto: Referral ID Status Reason Start Date Expiration Date Visits Re quested Visits Authorized [id number] Closed 09/12/2018 11/11/2018 1 1 Encounter Details Date Type Department Care Team (Latest Contact Info) Description 09/24/2018 Transcribe Orders Virtual Department [address] [place] [address] Luis Hsu MD [address] [place] [address], [address] [place] [address] [email or web address] White matter disease, unspecified (Primary Dx) [...] [facility] Gastro[facility]ology Clinic [address] [place] [address] Unknown, Unknown, MD Vega, Ashley Wrigth, GAS CUTTER [address] [place] [address] [email or web address] documented as of this encounter Results * MRI BRAIN WITHOUT CONTRAST (10/02/2018 8:41 AM EDT) Anatomical Region Laterality Modality Head Magnetic Resonan ce 10/02/2018 9:05 AM EDT Impressions 10/02/2018 9:13 AM EDT Stable white matter disease. No new or active intracranial pathology. POS - [id number] Narrative 10/02/2018 9:13 AM EDT TECHNIQUE: 1.5 [...] visible in the major vessels of the [place] of [place]. Procedure Note Chau Cornelius MD [...] visible in the major vessels of the [place]. IMPRESSION: Stable white matter disease. No new or active intracranial pathology. POS - [id number] Luis Hsu MD IMG MR HEAD/NECK Final Resul t documented in this encounter Visit Diagnoses Diagnosis White matter disease, unspecified- Primary White matter disease, unspecified documented in this encounter Care Teams Transformer Stock Clerk Relationship Specialty Start Date End Date Patricia Gutierrez NP PCP - General Family Medicine 12/22/17 06/10/19 Liss Castro DO [address] [place] [address] PCP - General Internal Medicine 06/11/19 11/17/19 Liss Castro DO [address] [place] [address] PCP - General Internal Medicine 11/18/19 10/13/21 Shashi Farrell MD [address] [place] [address] PCP - General Internal Medicine 10/14/21 Tony Carrillo MD [address] [place] [address] [email or web address] Historical LMR Provider 04/01/17 2 Jayson Rucker MD [address] [place] [address] Historical LMR Provider 04/01/17 06/19/21 Patricia Gutierrez NP Historical LMR Provider 04/01/17 06/19/21 Jimmie Martinez MD [address] [place] [address] [address] [place] [address] Historical LMR Provider 04/01/17 06/19/21 Chante Anders MD [address] [place] [address] Orthopedics & Sports Medicine, [facility] [place] [address] Historical LMR Provider 04/01/17 06/19/21 documented as of this encounter Additional Source Comments The information contained in this document represents components of the legal health record. It is not the complete legal health record.[facility]
--- OUTSIDE RECORDS SUMMARY | 2025-06-06 10:28 | XMS_ITS | Encounter Summary ---
Author Organization [facility] Address [address] [place] [address] [place] [address] Phone Care Team Providers Care Service Tech Name Role Phone Tony Carrillo MD Unavailable [phone] Jayson Rucker MD Unavailable Patricia Gutierrez NP Unavailable Unavailable Jimmie Martinez MD Unavailable [phone] Chante Anders MD Unavailable [phone] Lenora Castro DO Primary Care Provider [phone] Shashi Farrell MD Primary Care Provider [phone] Reason for Referral * MRI/CAT Scan - Closed Specialty Diagnoses / Procedures Referred By Contac t Referred To Contact Radiology Diagnoses Aneurysm Vertigo White matter disease Nonintractable headache, unspecified chronicity pattern, unspecified headache type Procedures MRI Angio Brain Luis Hsu MD Phone: tel: fax: mailto:[email or web address] Referral ID Status Reason Start Date Expiration Date Visits Re quested Visits Authorized [id number] Closed 04/16/2020 10/13/2020 1 1 * MRI/CAT Scan - Closed Specialty Diagnoses / Procedures Referred By Contac t Referred To Contact Radiology Diagnoses Aneurysm Vertigo White matter disease Nonintractable headache, unspecified chronicity pattern, unspecified headache type Procedures MRI Brain O'Kit, Ananth, MD Phone: tel: fax: mailto:[email or web address] Referral ID Status Reason Start Date Expiration Date Visits Re quested Visits Authorized [id number] Closed 04/16/2020 10/13/2020 1 1 Encounter Details Date Type Department Care Team (Latest Contact Info) Description 04/16/2020 Transcribe Orders Virtual Department [address] [place] [address] Luis Hsu MD [address] [place] [address], [address] [place], [place] [id number] 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 Luis Hsu MD IM MR HEAD/NECK Final Resul t * MRI [...] type documented in this encounter Care Teams Service Tech Relationship Specialty Start Date End Date Lenora Castro DO [address] [place] [address] PCP - General Internal Medicine 11/18/19 10/13/21 Shashi Farrell MD [address] [place] [address] PCP - General Internal Medicine 10/14/21 Tony Carrillo MD [address] [place] [address] [email or web address] Historical LMR Provider 04/01/17 2 Jayson Rucker MD [address] [place] [address] Historical LMR Provider 04/01/17 06/19/21 Patricia Gutierrez NP Historical LMR Provider 04/01/17 06/19/21 Jimmie Martinez MD 22 [facility] [address] [place] [address] Historical LMR Provider 04/01/17 06/19/21 Chante Anders MD [address] [place] [address] Orthopedics & Sports Medicine, [place] [address] Historical LMR Provider 04/01/17 06/19/21 documented as of this encounter Additional Source Comments The information contained in this document represents components of the legal health record. It is not the complete legal health record.[facility]
--- OUTSIDE RECORDS SUMMARY | 2025-06-06 10:28 | XMS_ITS | Encounter Summary ---
Author Organization [facility] Address [address] [facility] [address] [place] [address] Phone Care Team Providers Care Contractor Broomcorn Threshing Name Role Phone Tony Carrillo MD Unavailable [phone] Jayson Rucker MD Unavailable Patricia Gutierrez NP Unavailable Unavailable Jimmie Martinez MD Unavailable [phone] Chante Anders MD Unavailable [phone] Liss Castro DO Primary Care Provider [phone] Liss Castro DO Primary Care Provider [phone] Shashi Farrell MD Primary Care Provider [phone] Reason for Referral * MRI/CAT Scan - Closed Specialty Diagnoses / Procedures Referred By Contchiara t Referred To Contact Radiology Diagnoses White matter disease Numbness Tremor Double vision Memory loss Procedures MRI Cervical Spine Luis Hsu MD Phone: tel: fax: mailto: Referral ID Status Reason Start Date Expiration Date Visits Re quested Visits Authorized [id number] Closed 08/26/2019 02/22/2020 1 1 Encounter Details Date Type Department Care Team (Latest Contact Info) Description 08/26/2019 Transcribe Orders [facility] Department [address] [place] [address] Luis Hsu MD [address] [place] [address], [address] [place] [address] 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 POS - [id number] Narrative 10/31/2019 8:48 PM EDT EXAM: MRI [...] on the right at C4-C5. POS - [id number] Luis Hsu MD IMG MR XSPECIALTY Final Resu lt documented in this encounter Visit Diagnoses Diagnosis Memory loss- Primary White matter disease Numbness Disturbance of skin sensation Tremor Abnormal involuntary movements Double vision Diplopia White matter disease Numbness Disturbance of skin sensation Tremor Abnormal involuntary movements Double vision Diplopia Memory loss documented in this encounter Care Teams Contractor Broomcorn Threshing Relationship Specialty Start Date End Date Liss Castro DO [address] [place] [address] PCP - General Internal Medicine 06/11/19 11/17/19 Liss Castro DO [address] [place] [address] PCP - General Internal Medicine 11/18/19 10/13/21 Shashi Farrell MD [address] [place] [address] PCP - General Internal Medicine 10/14/21 Tony Carrillo MD [address] [place] [address] [email or web address] Historical LMR Provider 04/01/17 2 Jayson Rucker MD [address] [place] [address] [address] [place] [address] Historical LMR Provider 04/01/17 06/19/21 Patricia Gutierrez NP Historical LMR Provider 04/01/17 06/19/21 Jimmie Martinez MD 22 [facility] [address] [place] [address] Historical LMR Provider 04/01/17 06/19/21 Chante Anders MD [address] [place] [address] Orthopedics & Sports Medicine, [facility] [place] [address] Historical LMR Provider 04/01/17 06/19/21 documented as of this encounter Additional Source Comments The information contained in this document represents components of the legal health record. It is not the complete legal health record.[facility]
--- OUTSIDE RECORDS SUMMARY | 2025-06-06 10:28 | XMS_ITS | Encounter Summary ---
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 Not on savita e documented as of this encounter Plan of Treatment Upcoming Encounters Date Type Department Care Team (Late st Contact Info) Description 06/18/2025 10:30 AM EST Office Visit [facility] Gastroenterology Clinic [address] [place] [address] Unknown, Unknown, Ashley Vernon, RN OCCUPATIONAL HEALTH 10 [place] [address] [email or web address] documented as of this encounter Visit Diagnoses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documented in this encounter Care Teams Wheel Fitter Relationship Specialty Start Date End Date Shashi Farrell MD [address] [place] [address] PCP - General Internal Medicine 10/14/21 documented as of this encounter Additional Source Comments The information contained in this document represents components of the legal health record. It is not the complete legal health record.[facility]
--- OUTSIDE RECORDS SUMMARY | 2025-06-06 10:28 | XMS_ITS | Encounter Summary ---
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 Not on savita e documented as of this encounter Plan of Treatment Upcoming Encounters Date Type Department Care Team (Late st Contact Info) Description 06/18/2025 10:30 AM EST Office Visit [facility] Gastroenterology Clinic [address] [place] [address] Unknown, Unknown, Ashley Vernon, SUPERVISOR EDGING [address] [place] [address] [email or web address] documented as of this encounter Visit Diagnoses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documented in this encounter Care Teams Hooker Up Relationship Specialty Start Date End Date Shashi Farrell MD [address] [place] [address] [email or web address] PCP - General Internal Medicine 10/14/21 documented as of this encounter Additional Source Comments The information contained in this document represents components of the legal health record. It is not the complete legal health record.[facility]
--- OUTSIDE RECORDS SUMMARY | 2025-06-06 10:28 | XMS_ITS | Encounter Summary ---
Author Organization [facility] Address [address] [place] [address] Phone Care Team Providers Care Legal Internship Name Role Phone Shashi Farrell MD Primary Care Provider [phone] Encounter Details Date Type Department Care Team (Latest Contact Info) Description 08/23/2023 Transcribe Orders [facility] [place] 10 [facility] 2nd [place] [address] Ashley Vega, HUMAN RESOURCES OFFICER 10 [place] [address] [email or web address] Gastroesophageal reflux disease, unspecified whether esophagitis present [...] 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, [employer]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 Not on savita e documented as of this encounter Plan of Treatment Upcoming Encounters Date Type Department Care Team (Late st Contact Info) Description 06/18/2025 10:30 AM EST Office Visit [facility] G[facility]ology Clinic [address] [place] [address] Unknown, Unknown, MD Vega, Ashley Wright CNP 10 [place] [address] [email or web address] documented as of this encounter Results * CA-19-9 (08/23/2023 11:30 AM EDT) CA 19-9 9 <35 U/mL [facility] Comment: Test Methodology Edwin [id number] Patient results determined by assays using different manufacturers or methods may not be comparable. Blood 08/23/2023 11:3 0 AM EDT 08/23/2023 11:32 AM EDT us Ashley Vega CNP LAB BLOOD BKR ORDERABLES F inal Result [facility] [address] [place] [address] * LFTs (hepatic panel) (08/23/2023 11:30 AM EDT) ALKALINE PHOSPHATASE 85 39 - 117 U/L [facility] TOTAL BILIRUBIN 0.3 0.0 - 1.2 mg/dL [facility] DIRECT BILIRUBIN <0.2 0 - 0.3 mg/dL [facility] Bilirubin (Indirect) NOT CALCULATED 0 - 1.5 mg/dL [facility] AST 29 0 - 37 U/L [facility] ALT 17 0 - 40 U/L [facility] TOTAL PROTEIN 7.4 6.5 - 8.0 g/dL [facility] ALBUMIN 4.7 3.9 - 4.8 g/dL [facility] GLOBULIN 2.7 1 - 4.8 g/dL [facility] A/G Ratio 1.74 1.00 - 4.80 RATIO [facility] Blood 08/23/2023 11:3 0 AM EDT 08/23/2023 11:32 AM EDT [facility] LAB BLOOD BKR ORDERABLES F inal Result [address] [address] * Lipase (08/23/2023 11:30 AM EDT) Pathologist [facility] LIPASE 18 16 - 63 U/L [facility] Blood 08/23/2023 11:3 0 AM EDT 08/23/2023 11:32 AM EDT [facility] LAB BLOOD BKR ORDERABLES F inal Result [address] [address] * C-Reactive Protein (08/23/2023 11:30 AM EDT) C REACTIVE PROTEIN <3.0 0.0 - 4.0 mg/L [facility] Blood 08/23/2023 11:3 0 AM EDT 08/23/2023 11:32 AM EDT us Ashley Vega HUMAN RESOURCES OFFICER LAB BLOOD BKR ORDERABLES F inal Result [facility] [address] [place] [address] * (ABNORMAL) CBC and differential (08/23/2023 11:30 AM EDT) WBC 4.12 4.00 - 11.00 K/uL [facility] RBC 4.47 3.72 - 5.30 M/uL [facility] HGB 11.1(L) 11.4 - 15.9 g/dL [facility] HCT 36.7 34.2 - 46.8 % [facility] PLT 255 140 - 430 K/uL [facility] MCV 82.1 78.0 - 97.0 fL [facility] MCH 24.8(L) 25.0 - 33.0 pg [facility] MCHC 30.2(L) 32.0 - 36.0 g/dL [facility] RDW 15.2 11.0 - 16.0 % [facility] MPV 11.6 8.4 - 12.8 fl [facility] DIFF METHOD Auto [facility] NEUTS 61.0 43.0 - 75.0 % [facility] LYMPHS 23.5 18.2 - 47.4 % [facility] MONOS 12.4(H) 4.00 - 11.00 % [facility] EOS 1.9 0.0 - 8.0 % [facility] BASOS 1.0 0.0 - 2.0 % [facility] Granulocytes, immature (%) 0.2 0.0 - 0.9 % [facility] ABSOLUTE NEUTS 2.51 1.80 - 7.70 K/uL [facility] ABSOLUTE LYMPHS 0.97(L) 1.00 - 3.10 K/uL [facility] ABSOLUTE MONOS 0.51 0.20 - 0.80 K/uL [facility] ABSOLUTE EOS 0.08 0.00 - 0.80 K/uL [facility] ABSOLUTE BASOS 0.04 0.00 - 0.09 K/uL [facility] Granulocytes, immature 0.01 0.00 - 0.05 K/uL [facility] Blood 08/23/2023 11:3 0 AM EDT 08/23/2023 11:32 AM EDT us Ashley Vega HUMAN RESOURCES OFFICER LAB BLOOD BKR ORDERABLES F inal Result Performing Organization Address City/State/[facility] Co de Phone Number [address] [address] documented in this encounter Visit Diagnoses Diagnosis Gastroesophageal reflux disease, unspecified whether esophagitis present- Primary Abdominal pain, epigastric Abdominal pain, right upper quadrant documented in this encounter Care Teams Legal Internship Relationship Specialty Start Date End Date Shashi Farrell MD [address] [place] [address] [email or web address] PCP - General Internal Medicine 10/14/21 documented as of this encounter Additional Source Comments The information contained in this document represents components of the legal health record. It is not the complete legal health record.[facility]
--- OUTSIDE RECORDS SUMMARY | 2025-06-06 10:28 | XMS_ITS | Encounter Summary ---
Author Organization [facility] Address Replaced by [facility] [employer]ive guard unlimited [facility] [address] [place] [address] Phone Care Team Providers Care General Expeditor Name Role Phone Tony Carrillo MD Unavailable [phone] Jayson Rucker MD Unavailable Patricia Gutierrez NP Unavailable Unavailable Jimmie Martinez MD Unavailable Chante Anders MD Unavailable Lenora Castro DO Primary Care Provider [phone] Lenora Castro DO Primary Care Provider Shashi Farrell MD Primary Care Provider [phone] Encounter Details Date Type Department Care Team (Latest Contact Info) Description 06/25/2019 Transcribe Orders [facility] Phleb [address] [place] [address] Jayjay Florence MD [address] [place] [address] [email or web address] Nausea (Primary Dx) Social History [...] 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, [employer]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 Not on savita e documented as of this encounter Plan of Treatment Upcoming Encounters Date Type Department Care Team (Late st Contact Info) Description 06/18/2025 10:30 AM EST Office Visit [facility] Gastroenterology Clinic 10 [place] [address] Unknown, Unknown, MD Vega, Ashley Wright, PARTNER INTEGRATION PLANNER 10 [place], [place] [id number] [email or web address] documented as of this encounter Results * Tissue transglutaminase IgA (06/25/2019 9:03 AM EST) TTG IGA ANTIBODY <1.2 <4.0 (Negative) U/mL [facility] Blood 06/25/2019 9:03 AM EST 06/25/2019 9:06 AM EST Jayjay Florence MD LAB BLOOD BKR ORDERABLES Carey l Result Performing Organization Address [facility] Co de Phone Number [facility] MED[facility] [address] [place] [address] * Gliadin deamidated antibody, IgG/IgA (06/25/2019 9:03 AM EST) Gliadin Ab, IGA <10.0 <20.0 (Negative) U [facility]PATH [address] DR GLIADIN AB IGG <10.0 <20.0 (Negative) U [facility] Blood 06/25/2019 9:03 AM EST 06/25/2019 9:06 AM EST Jayjay Florence MD LAB BLOOD ORDERABLES Final Re sult [facility] [address] [place] [address] documented in this encounter Visit Diagnoses Diagnosis Nausea- Primary Nausea alone documented in this encounter Care Teams General Expeditor Relationship Specialty Start Date End Date Lenora Castro DO [address] [place] [address] PCP - General Internal Medicine 06/11/19 11/17/19 Lenora Castro DO [address] [place] [address] PCP - General Internal Medicine 11/18/19 10/13/21 Shashi Farrell MD [address] [place] [address] [email or web address] PCP - General Internal Medicine 10/14/21 Tony Carrillo MD [address] [place] [address] [email or web address] Historical LMR Provider 04/01/17 2 Jayson Rucker MD [address] [place] [address] [address] [place] [address] [email or web address] Historical LMR Provider 04/01/17 06/19/21 aPtricia Gutierrez NP Historical LMR Provider 04/01/17 06/19/21 Jimmie Martinez MD 22 [facility], [facility] 102 [place] [address] Historical LMR Provider 04/01/17 06/19/21 Chante Anders MD [address] [place] [address] Orthopedics & Sports Medicine, [facility] [place] [address] [email or web address] Historical LMR Provider 04/01/17 06/19/21 documented as of this encounter Additional Source Comments The information contained in this document represents components of the legal health record. It is not the complete legal health record.[facility]
--- OUTSIDE RECORDS SUMMARY | 2025-06-06 10:28 | XMS_ITS | Encounter Summary ---
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 Ashley Vega [facility] IM US ABDOMEN Final Resu lt documented in this encounter Visit Diagnoses Diagnosis Constipation, unspecified constipation type- Primary RUQ abdominal pain Abdominal pain, right upper quadrant Epigastric pain Abdominal pain, epigastric Constipation, unspecified constipation type RUQ abdominal pain Abdominal pain, right upper quadrant Epigastric pain Abdominal pain, epigastric documented in this encounter Care Teams Tractor Trailer Driver Relationship Specialty Start Date End Date Shashi Farrell MD [address] [place] [address] PCP - General Internal Medicine 10/14/21 documented as of this encounter Additional Source Comments The information contained in this document represents components of the legal health record. It is not the complete legal health record.[facility]
--- OUTSIDE RECORDS SUMMARY | 2025-06-06 10:28 | XMS_ITS | Encounter Summary ---
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, [employer]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 Not on savita e documented as of this encounter Plan of Treatment Upcoming Encounters Date Type Department Care Team (Late st Contact Info) Description 06/18/2025 10:30 AM EST Office Visit [facility] Gastro[facility] Clinic [address] [place] [address] Unknown, Unknown, Ashley Vernon, OUTREACH WORKER 10 [place] [address] documented as of this encounter Visit Diagnoses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documented in this encounter Care Teams Credit Union Examiner Relationship Specialty Start Date End Date Shashi Farrell MD [address] [place] [address] PCP - General Internal Medicine 10/14/21 documented as of this encounter Additional Source Comments The information contained in this document represents components of the legal health record. It is not the complete legal health record.[facility]
--- OUTSIDE RECORDS SUMMARY | 2025-06-06 10:28 | XMS_ITS | Encounter Summary ---
Author Organization [facility] Address [address] [place] [address] [place] [address] Phone Care Team Providers Care Softball Umpire Name Role Phone Liss Castro DO Primary Care Provider Tony Carrillo MD Unavailable Jayson Rucker MD Unavailable Patricia Gutierrez NP Unavailable Unavailable Jimmie Martinez MD Unavailable Chante Anders MD Unavailable Patricia Gutierrez NP Primary Care Provider Unava ilable Liss Castro DO Primary Care Provider Liss Castro DO Primary Care Provider Shashi Farrell MD Primary Care Provider [phone] Reason for Referral * Physical Therapy (Routine) - Closed Specialty Diagnoses / Procedures Referred By Josué zavala Referred To Contact Physical Therapy Diagnoses Encounter for rehabilitation Luis Hsu MD Phone: tel: fax: [email or web address] [facility] [address] [place] [address] Phone: tel: fax: Referral ID Status Reason Start Date Expiration Date Visits Re quested Visits Authorized [id number] Closed 10/26/2017 2018 25 25 Encounter Details Date Type Department Care Team (Latest Contact Info) Description 10/24/2017 Transcribe Orders [facility] Clinic [address] [place] [address] Luis Hsu MD [address] [place] [address], [address] [place] [address] [email or web address] Encounter for rehabilitation (Primary Dx) Social History [...] Visit [facility] Gastroenterology Clinic [address] [place] [address] Unknown, Unknown, Ashley Vernon, SCREENING UNIT REGISTERED NURSE 10 [place] [address] [email or web address] Scheduled Referrals Name Type Priority Associated Diagnoses Orde r Schedule Ambulatory referral to [facility] Physical Therapy Outpatient Referral Routine Encounter for rehabilitation Ordered: 10/24/2017 documented as of this encounter Visit Diagnoses Diagnosis Encounter for rehabilitation- Primary documented in this encounter Care Teams Softball Umpire Relationship Specialty Start Date End Date Liss Castro DO [address] [place] [address] PCP - General Internal Medicine 08/10/16 12/21/17 Patricia Gutierrez NP PCP - General Family Medicine 12/22/17 06/10/19 Lsis Castro DO [address] [place] [address] [email or web address] PCP - General Internal Medicine 06/11/19 11/17/19 Liss Castro DO [address] [place] [address] [email or web address] PCP - General Internal Medicine 11/18/19 10/13/21 Shashi Farrell MD [address] [place] [address] [email or web address] PCP - General Internal Medicine 10/14/21 Tony Carrillo MD [address] [place] [address] [email or web address] Historical LMR Provider 04/01/17 2 Jayson Rucker MD [address] [place] [address] [email or web address] Historical LMR Provider 04/01/17 06/19/21 Patricia Gutierrez NP Historical LMR Provider 04/01/17 06/19/21 Jimmie Martinez MD [address] [place] [address] [address] [place] [address] [email or web address] Historical LMR Provider 04/01/17 06/19/21 Chante Anders MD [address] [place] [address] Orthopedics & Sports Medicine, [facility] [place] [place] [address] [email or web address] Historical LMR Provider 04/01/17 06/19/21 documented as of this encounter Additional Source Comments The information contained in this document represents components of the legal health record. It is not the complete legal health record.[facility]
--- OUTSIDE RECORDS SUMMARY | 2025-06-06 10:28 | XMS_ITS | Encounter Summary ---
Author Organization [facility] Address [facility] [address] [place] [address] Phone Care Team Providers Care Resource Forester Name Role Phone Tony Carrillo MD Unavailable Jayson Rucker MD Unavailable Patricia Gutierrez NP Unavailable Unavailable Jimmie Martinez MD Unavailable [phone] Chante Anders MD Unavailable [phone] Patricia Gutierrez NP Primary Care Provider Unava ilable Lenora Castro DO Primary Care Provider [phone] Lenora Castro DO Primary Care Provider [phone] Shashi Farrell MD Primary Care Provider [phone] Encounter Details Date Type Department Care Team (Late st Contact Info) Description 03/01/2018 Procedure Pass [facility], [address] [address] Social History Tobacco Use Types Packs/Day Years [...] Office Visit [facility] Gastroenterology Clinic 10 [place] [address] Unknown, Unknown, MD Vega, Ashley Wright, SHELL MOLDING ROLLER BLAST OPERATOR 10 [place] [address] [email or web address] documented as of this encounter Visit Diagnoses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documented in this encounter Care Teams Resource Forester Relationship Specialty Start Date End Date Patricia Gutierrez NP PCP - General Family Medicine 12/22/17 06/10/19 Lenora Castro DO [address] [place] [address] PCP - General Internal Medicine 06/11/19 11/17/19 Lenora Castro DO [address] [place] [address] PCP - General Internal Medicine 11/18/19 10/13/21 Shashi Farrell MD [address] [place] [address] [email or web address] PCP - General Internal Medicine 10/14/21 Tony Carrillo MD [address] [place] [address] [email or web address] Historical LMR Provider 04/01/17 2 Jayson Rucker MD [address] [place] [address], [address] [address] [email or web address] Historical LMR Provider 04/01/17 06/19/21 Patricia Gutierrez NP Historical LMR Provider 04/01/17 06/19/21 Jimmie Martinez MD [address] [place] [address], [address] [place] [address] [email or web address] Historical LMR Provider 04/01/17 06/19/21 Chante Anders MD [address] [place] [address] Orthopedics & Sports Medicine, [place] [address] [email or web address] Historical LMR Provider 04/01/17 06/19/21 documented as of this encounter Additional Source Comments The information contained in this document represents components of the legal health record. It is not the complete legal health record.[facility]
--- OUTSIDE RECORDS SUMMARY | 2025-06-06 10:28 | XMS_ITS | Encounter Summary ---
Author Organization [facility] Address [address] [place] [address] [place] [address] Phone Care Team Providers Care Trestle Builder Name Role Phone Shashi Farrell MD Primary Care Provider [phone] Reason for Referral * MRI/CAT Scan - Closed Specialty Diagnoses / Procedures Referred By Josué zavala Referred To Contact Radiology Diagnoses Aneurysm White matter abnormality on MRI of brain Numbness Procedures MRI Angio Brain CHG MR ANGIO, HEAD Luis Hsu MD Phone: tel: fax: [email or web address] Referral ID Status Reason Start Date Expiration Date Visits Re quested Visits Authorized [id number] Closed 11/10/2022 12/10/2022 1 1 * MRI/CAT Scan - Closed Specialty Diagnoses / Procedures Referred By Josué zavala Referred To Contact Radiology Diagnoses Aneurysm White matter abnormality on MRI of brain Numbness Procedures MRI Brain CHG MRI BRAIN Luis Hsu MD Phone: tel: fax: mailto: Referral ID Status Reason Start Date Expiration Date Visits Re quested Visits Authorized [id number] Closed 11/10/2022 12/10/2022 1 1 Encounter Details Date Type Department Care Team (Latest Contact Info) Description 11/10/2022 Transcribe Orders Virtual Department [address] [place] [address] Luis Hsu MD [address] [place] [address], [address] [place] [address] 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 Maximal intensity projection 3D [...] MRA of the head was performed utilizing bfab-ug-vrouiq technique (nogadolinium). Maximal intensity projection 3D angiographic [...] MRA of the head was performed utilizing rmed-kj-usxwpc technique (no gadolinium). Maximal intensity projection 3D [...] MRA of the head was performed utilizing ooco-to-koripl technique (Cognii). Maximal intensity projection 3D angiographic reformattedimages were [...] sensation documented in this encounter Care Teams Trestle Builder Relationship Specialty Start Date End Date Shashi Farrell MD [address] [place] [address] [email or web address] PCP - General Internal Medicine 10/14/21 documented as of this encounter Additional Source Comments The information contained in this document represents components of the legal health record. It is not the complete legal health record.[facility]
--- OUTSIDE RECORDS SUMMARY | 2025-06-06 10:28 | XMS_ITS | Encounter Summary ---
Author Organization [facility] Address Counts include 234 beds at the [facility] [employer] [facility] [address] [place] [address] Phone Care Team Providers Care Sander Setter Name Role Phone Tony Carrillo MD Unavailable [phone] Jayson Rucker MD Unavailable Patricia Gutierrez NP Unavailable Unavailable Jimmie Martinez MD Unavailable [phone] Chante Anders MD Unavailable [phone] Lenora Castro DO Primary Care Provider [phone] Shashi Farrell MD Primary Care Provider [phone] Encounter Details Date Type Department Care Team (Late st Contact Info) Description 04/16/2020 Procedure Pass [facility], [address] [place] [address] Social History Tobacco Use Types Packs/Day Years [...] 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, [employer]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 Not on savita e documented as of this encounter Plan of Treatment Upcoming Encounters Date Type Department Care Team (Late st Contact Info) Description 06/18/2025 10:30 AM EST Office Visit [facility] 10 [place] [address] Unknown, Unknown, Ashley Vernon, SHELLACKER 10 [place] [address] documented as of this encounter Visit Diagnoses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documented in this encounter Care Teams Sander Setter Relationship Specialty Start Date End Date Lenora Castro DO [address] [place] [address] PCP - General Internal Medicine 11/18/19 10/13/21 Shashi Farrell MD [address] [place] [address] PCP - General Internal Medicine 10/14/21 Tony Carrillo MD [address] [place] [address] [email or web address] Historical LMR Provider 04/01/17 2 Jayson Rucker MD [address] [place] [address] [email or web address] Historical LMR Provider 04/01/17 06/19/21 Patricia Gutierrez NP Historical LMR Provider 04/01/17 06/19/21 Jimmie Martinez MD 22 [facility] 102 [place] [address] Historical LMR Provider 04/01/17 06/19/21 Chante Anders MD 4 [facility], [facility] [place] [address] Historical LMR Provider 04/01/17 06/19/21 documented as of this encounter Additional Source Comments The information contained in this document represents components of the legal health record. It is not the complete legal health record.[facility]
--- OUTSIDE RECORDS SUMMARY | 2025-06-06 10:28 | XMS_ITS | Encounter Summary ---
Author Organization [facility] Address [address] [place] [address] [place] [address] Phone Care Team Providers Care Rn Endocrinology Name Role Phone Tony Carrillo MD Unavailable [phone] Jayson Rucker MD Unavailable Patricia Gutierrez NP Unavailable Unavailable Jimmie Martinez MD Unavailable [phone] Chante Anders MD Unavailable [phone] Patricia Gutierrez NP Primary Care Provider Unava ilable Lenora Castro DO Primary Care Provider [phone] Lenora Castro DO Primary Care Provider [phone] Shashi Farrell MD Primary Care Provider [phone] Reason for Referral * Physical Therapy (Routine) - Closed Specialty Diagnoses / Procedures Referred By Josué zavala Referred To Contact Physical Therapy Diagnoses Encounter for rehabilitation Left Achilles Tendonitis Procedures Evaluate & Treat System, Provider Not In, PhD [id number] [place] [address] Phone: tel: Referral ID Status Reason Start Date Expiration Date Visits Re quested Visits Authorized [id number] Closed 05/28/2018 12/09/2018 25 25 Encounter Details Date Type Department Care Team (Latest Contact Info) Description 05/14/2018 Transcribe Orders [facility] [address] [place] [address] Yara Potter PA [address] [place] [address] Encounter for rehabilitation (Primary Dx) Social History [...] 06/18/2025 10:30 AM EST Office Visit [facility] [address] [place] [address] Unknown, Unknown, Ashley Vernon, RN ONCOLOGY CLINICAL [address] [place] [address] [email or web address] documented as of this encounter Procedures Procedure Name Priority Date/Time Associated Diagnosis Comments AMB REFERRAL TO [facility] PHYSICAL THERAPY Routine 06/04/2018 12:35 PM EST Encounter for rehabilitation documented in this encounter Results * Ambulatory referral to [facility] Physical Therapy (06/04/2018 12:35 PM EST) us Provider Not In System PhD AMB [facility] REFERRALS Fin al Result documented in this encounter Visit Diagnoses Diagnosis Encounter for rehabilitation- Primary documented in this encounter Care Teams Rn Endocrinology Relationship Specialty Start Date End Date Patricia Gutierrez NP PCP - General Family Medicine 12/22/17 06/10/19 Lenora Castro DO [address] [place] [address] PCP - General Internal Medicine 06/11/19 11/17/19 Lenora Castro DO [address] [place] [address] PCP - General Internal Medicine 11/18/19 10/13/21 Shashi Farrell MD [address] [place] [address] [email or web address] PCP - General Internal Medicine 10/14/21 Tony Carrillo MD [address] [place] [address] [email or web address] Historical LMR Provider 04/01/17 2 Jayson Rucker MD [address] [place] [address] [email or web address] Historical LMR Provider 04/01/17 06/19/21 Patricia Gutierrez NP Historical LMR Provider 04/01/17 06/19/21 Jimmie Martinez MD 22 [facility] 102 [place] [address] Historical LMR Provider 04/01/17 06/19/21 Chante Anders MD 4 [facility], [facility] [place] [address] Historical LMR Provider 04/01/17 06/19/21 documented as of this encounter Additional Source Comments The information contained in this document represents components of the legal health record. It is not the complete legal health record.[facility]
--- OUTSIDE RECORDS SUMMARY | 2025-06-06 10:28 | XMS_ITS | Encounter Summary ---
Author Organization [facility] Address [address] [place] [address] [place] [address] Phone Care Team Providers Care Manager Of Information Name Role Phone Shashi Farrell MD Primary Care Provider [phone] Reason for Referral * MRI/CAT Scan - Closed Specialty Diagnoses / Procedures Referred By Contac t Referred To Contact Radiology Diagnoses Numbness Pain of upper extremity, unspecified laterality White matter disease Procedures MRI Cervical Spine CHG MRI, CERV SPINE Luis Hsu MD Phone: tel: fax: [email or web address] Referral ID Status Reason Start Date Expiration Date Visits Re quested Visits Authorized [id number] Closed 11/17/2021 01/16/2022 1 1 Encounter Details Date Type Department Care Team (Latest Contact Info) Description 11/17/2021 Transcribe Orders Virtual Department 30 [place] [address] Luis Hsu MD [address] [place] [address], [address] [place] [address] 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 Not on savita e documented as of this encounter Plan of Treatment Upcoming Encounters Date Type Department Care Team (Late st Contact Info) Description 06/18/2025 10:30 AM EST Office Visit [facility] [address] [place] [address] Unknown, Unknown, MD Vega, Ashley Wright, SHOP WELDER 10 [place] [address] [email or web address] documented as of this encounter Results * [...] MRI CERVICAL SPINE (BONE) WITH AND WITHOUT [id number] FINDINGS: CERVICAL SPINE: Alignment and Vertebrae: Normal [...] disease documented in this encounter Care Teams Manager Of Information Relationship Specialty Start Date End Date Shashi Farrell MD [address] [place], [place] [id number] [email or web address] PCP - General Internal Medicine 10/14/21 documented as of this encounter Additional Source Comments The information contained in this document represents components of the legal health record. It is not the complete legal health record.[facility]
--- OUTSIDE RECORDS SUMMARY | 2025-06-06 10:28 | XMS_ITS | Encounter Summary ---
Author Organization [facility] Address [address] [place] [address] Phone Care Team Providers Care Punch Hand Name Role Phone Shashi Farrell MD Primary Care Provider [phone] Reason for Referral * MRI/CAT Scan - Closed Specialty Diagnoses / Procedures Referred By Contac t Referred To Contact Radiology Diagnoses Nausea Bloating RUQ abdominal pain Procedures MRI Cholangiopancreatography (MRCP) CHG MRI, ABDOMEN, COMBO CHG MRI, ABDOMEN (MRI) CHG MRI, ABDOMEN W/CONTRAST SC SHAWN MR BETITO TISS COMPOSITION W/MRI ELEMENTARY SPANISH TEACHER ORGANS SC QMRCP W/DIAGNOSTIC MRI SAME ANATOMY Ashley Vega CNP Phone: tel: fax: [email or web address] Referral ID Status Reason Start Date Expiration Date Visits Re quested Visits Authorized [id number] Closed 01/13/2025 03/14/2025 1 1 Encounter Details Date Type Department Care Team (Latest Contact Info) Description 01/13/2025 Transcribe Orders Virtual Department 30 [place] [address] Ashley Vega CNP [address] [place], [place] [phone] Nausea (Primary Dx); Bloating; RUQ abdominal pain [...] 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, [employer]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 Not on savita e documented as of this encounter Plan of Treatment Upcoming Encounters Date Type Department Care Team (Late st Contact Info) Description 06/18/2025 10:30 AM EST Office Visit [facility] [address] [place] [id number] Unknown, Unknown, Ashley Vernon, CHILD ABUSE WORKER [address] [place] [address] documented as of this encounter Results * [...] clinician's provided indication for this examination in [facility]: Outside Radiology Order; nausea TECHNIQUE: Multiplanar MR [...] clinician's provided indication for this examination in [facility]:Outside Radiology Order; nausea TECHNIQUE: Multiplanar MR imaging of the abdomen was performed using T1,T2, fat saturated, and diffusion weighted techniques. 2D and 3D MRCPsequences were performed. Dynamic multiphase imaging was also performedafter administration of an intravenous gadolinium contrast agent. COMPARISON: MRI CHOLANGIOPANCREATOGRAPHY (MRCP) WITH AND WITHOUT [id number] FINDINGS: Lower chest: No pleural effusions. Unchanged [...] papillary mucinous neoplasm (IPMN). No suspiciousfeatures. Ashley Vgea CNP IM MR ABDOMEN Final Resu lt documented in this encounter Visit Diagnoses Diagnosis Nausea- Primary Nausea alone Bloating Flatulence, eructation, and gas pain RUQ abdominal pain Abdominal pain, right upper quadrant Nausea Nausea alone Bloating Flatulence, eructation, and gas pain RUQ abdominal pain Abdominal pain, right upper quadrant documented in this encounter Care Teams Punch Hand Relationship Specialty Start Date End Date Shashi Farrell MD [address] [place] [address] [email or web address] PCP - General Internal Medicine 5/5/22 documented as of this encounter Additional Source Comments The information contained in this document represents components of the legal health record. It is not the complete legal health record.[facility]
--- OUTSIDE RECORDS SUMMARY | 2025-06-06 10:28 | XMS_ITS | Encounter Summary ---
Author Organization [facility] Address [address] [place] [address] [place] [address] Phone Care Team Providers Care Marine Animal Trainer Name Role Phone Tony Carrillo MD Unavailable [phone] Jayson Rucker MD Unavailable Patricia Gutierrez NP Unavailable Unavailable Jimmie Martinez MD Unavailable [phone] Chante Anders MD Unavailable [phone] Lenora Castro DO Primary Care Provider Shashi Farrell MD Primary Care Provider [phone] Reason for Referral * MRI/CAT Scan - Closed Specialty Diagnoses / Procedures Referred By Contac t Referred To Contact Radiology Diagnoses Vertigo Numbness White matter disease Procedures MRI Brain CHG MRI BRAIN Luis Hsu MD Phone: tel: fax: [email or web address] Referral ID Status Reason Start Date Expiration Date Visits Re quested Visits Authorized [id number] Closed 04/20/2021 10/17/2021 1 1 Encounter Details Date Type Department Care Team (Latest Contact Info) Description 04/20/2021 Transcribe Orders [address] [address] Luis Hsu MD [address] [place] [address], [address] [place] [address] 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 Not on savita e documented as of this encounter Plan of Treatment Upcoming Encounters Date Type Department Care Team (Late st Contact Info) Description 06/18/2025 10:30 AM EST Office Visit [facility] [address] [place] [address] Unknown, Unknown, MD Vega, Ashley Wright, CD MANUFACTURING SUPERVISOR [address] [place] [address] [email or web address] documented as of this encounter Results [...] disease documented in this encounter Care Teams Marine Animal Trainer Relationship Specialty Start Date End Date Lenora Castro DO [address] [place] [address] PCP - General Internal Medicine 11/18/19 10/13/21 Shashi Farrell MD [address] [place] [address] [email or web address] PCP - General Internal Medicine 10/14/21 Tony Carrillo MD [address] [place] [address] [email or web address] Historical LMR Provider 04/01/17 2 Jayson Rucker MD [address] [place] [address] 202 [place] [address] [email or web address] Historical LMR Provider 04/01/17 06/19/21 Patricia Gutierrez NP Historical LMR Provider 04/01/17 06/19/21 Jimmie Martinez MD 22 [facility] 102 [place] [address] [email or web address] Historical LMR Provider 04/01/17 06/19/21 Chante Anders MD [address] [place] [address] Orthopedics & Sports Medicine, [facility] [address] [email or web address] Historical LMR Provider 04/01/17 06/19/21 documented as of this encounter Additional Source Comments The information contained in this document represents components of the legal health record. It is not the complete legal health record.[facility]
--- OUTSIDE RECORDS SUMMARY | 2025-06-06 10:28 | XMS_ITS | Encounter Summary ---
Author Organization [facility] Address [address] [place] [address] [place] [address] Phone Care Team Providers Care Construction Driver Name Role Phone Lenora Castro DO Primary Care Provider Tony Carrillo MD Unavailable Jayson Rucker MD Unavailable Patricia Gutierrez NP Unavailable Unavailable Jimmie Martinez MD Unavailable Chante Anders MD Unavailable [phone] Patricia Gutierrez NP Primary Care Provider Unava ilable Lenora Castro DO Primary Care Provider [phone] Lenora Castro DO Primary Care Provider [phone] Shashi Farrell MD Primary Care Provider [phone] Encounter Details Date Type Department Care Team (Late st Contact Info) Description 04/17/2017 Transcribe Orders [facility] [address] [place] [address] Khadra Horn PA [address] [place] [address] [place] [address] Diabetes mellitus without complication (Primary Dx) Social [...] 06/18/2025 10:30 AM EST Office Visit [facility] 10 [place] [address] Unknown, Unknown, Ashley Vernon, DONOR SPECIALIST [address] [place] [address] [email or web address] documented as of this encounter Procedures Procedure Name Priority Date/Time Associated Diagnosis Comments HEMOGLOBIN A1C Routine 04/17/2017 1:20 PM EST Diabetes mellitus without complication documented in this encounter Results * (ABNORMAL) Hemoglobin A1c (04/17/2017 1:20 PM EST) HEMOGLOBIN A1C 8.4(H) 4.3 - 5.8 % [facility] Blood 04/17/2017 1:20 PM EST 04/17/2017 1:22 PM EST Khadra HERNANDEZ LAB BLOOD BKR ORDERAB LES Edited Result - Final [facility] [address] [place] [address] documented in this encounter Visit Diagnoses Diagnosis Diabetes mellitus without complication- Primary Type II or unspecified type diabetes mellitus without mention of complication, not stated as uncontrolled documented in this encounter Care Teams Construction Driver Relationship Specialty Start Date End Date Lenora Castro DO [address] [place] [address] PCP - General Internal Medicine 08/10/16 12/21/17 Patricia Gutierrez NP PCP - General Family Medicine 12/22/17 06/10/19 Lenora Castro DO [address] [place] [address] [email or web address] PCP - General Internal Medicine 06/11/19 11/17/19 Lenora Castro DO [address] [place] [address] PCP - General Internal Medicine 11/18/19 10/13/21 Shashi Farrell MD [address] [place] [address] PCP - General Internal Medicine 10/14/21 Tony Carrillo MD [address] [place] [address] [email or web address] Historical LMR Provider 04/01/17 2 Jayson Rucker MD [address] [place] [address] Historical LMR Provider 04/01/17 06/19/21 Patricia Gutierrez NP Historical LMR Provider 04/01/17 06/19/21 Jimmie Maritnez MD [address] [place] [address] [address] [place] [address] Historical LMR Provider 04/01/17 06/19/21 Chante Anders MD [address] [place] [address] Orthopedics & Sports Medicine, [facility] [place] [address] Historical LMR Provider 04/01/17 06/19/21 documented as of this encounter Additional Source Comments The information contained in this document represents components of the legal health record. It is not the complete legal health record.[facility]
--- OUTSIDE RECORDS SUMMARY | 2025-06-06 10:28 | XMS_ITS | Encounter Summary ---
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 Not on savita e documented as of this encounter Plan of Treatment Upcoming Encounters Date Type Department Care Team (Late Contact Info) Description 06/18/2025 10:30 AM EST Office Visit [facility] 10 [place] [address] Unknown, Unknown, Ashley Vernon, MARKETING CO OP 10 [place] [address] documented as of this encounter Visit Diagnoses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documented in this encounter Care Teams Director Financial Planning Relationship Specialty Start Date End Date Shashi Farrell MD [address] [place] [address] [email or web address] PCP - General Internal Medicine 10/14/21 documented as of this encounter Additional Source Comments The information contained in this document represents components of the legal health record. It is not the complete legal health record.[facility]
--- OUTSIDE RECORDS SUMMARY | 2025-06-06 10:28 | XMS_ITS | Encounter Summary ---
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 Not on savita e documented as of this encounter Plan of Treatment Upcoming Encounters Date Type Department Care Team (Late st Contact Info) Description 06/18/2025 10:30 AM EST Office Visit [facility] 10 [place] [address] Unknown, Unknown, Ashley Vernon, CARRIER LOADER 10 [place] [address] [email or web address] documented as of this encounter Visit Diagnoses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documented in this encounter Care Teams Script Editor Relationship Specialty Start Date End Date Shashi Farrell MD [address] [place] [address] [email or web address] PCP - General Internal Medicine 10/14/21 documented as of this encounter Additional Source Comments The information contained in this document represents components of the legal health record. It is not the complete legal health record.[facility]
--- OUTSIDE RECORDS SUMMARY | 2025-06-06 10:28 | XMS_ITS | Encounter Summary ---
Author Organization Located Within [facility] Address [facility] [employer] [facility] [address] [place] [address] Phone Care Team Providers Care Device Processing Engineer Name Role Phone Tony Carrillo MD Unavailable [phone] Jayson Rucker MD Unavailable Patricia Gutierrez NP Unavailable Unavailable Jimmie Martinez MD Unavailable [phone] Chante Anders MD Unavailable [phone] Lenora Castro DO Primary Care Provider [phone] Shashi Farrell MD Primary Care Provider [phone] Encounter Details Date Type Department Care Team (Late st Contact Info) Description 04/16/2020 Procedure Pass [facility], [address] [place] [address] Social History Tobacco Use Types Packs/Day Years [...] 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, [employer]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 Not on savita e documented as of this encounter Plan of Treatment Upcoming Encounters Date Type Department Care Team (Late st Contact Info) Description 06/18/2025 10:30 AM EST Office Visit [facility] G[facility]ology Clinic [address] [place] [address] Unknown, Unknown, Ashley Vernon, ACCOUNTANT CONTROLLER 10 [place] [address] documented as of this encounter Visit Diagnoses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documented in this encounter Care Teams Device Processing Engineer Relationship Specialty Start Date End Date Lenora Castro DO [address] [place] [address] PCP - General Internal Medicine 11/18/19 10/13/21 Shashi Farrell MD [address] [place] [address] PCP - General Internal Medicine 10/14/21 Tony Carrillo MD [address] [place] [address] [email or web address] Historical LMR Provider 04/01/17 2 Jayson Rucker MD [address] [place] [address] [email or web address] Historical LMR Provider 04/01/17 06/19/21 Patricia Gutierrez NP Historical LMR Provider 04/01/17 06/19/21 Jimmie Martinez MD 22 [facility] [address] [place] [address] Historical LMR Provider 04/01/17 06/19/21 Chante Anders MD [address] [facility] Orthopedics & Sports Medicine, [place] [address] Historical LMR Provider 04/01/17 06/19/21 documented as of this encounter Additional Source Comments The information contained in this document represents components of the legal health record. It is not the complete legal health record.[facility]
--- OUTSIDE RECORDS SUMMARY | 2025-06-06 10:28 | XMS_ITS | Encounter Summary ---
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, [employer]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 Not on savita e documented as of this encounter Plan of Treatment Upcoming Encounters Date Type Department Care Team (Late st Contact Info) Description 06/18/2025 10:30 AM EST Office Visit [facility] Gastroenterology Clinic [address] [place] [address] Unknown, Unknown, Ashley Vernon, BRUSH SANDER [address] [place] [address] [email or web address] documented as [...] clinician's provided indication for this examination in [facility]:Pain COMPARISON: XR KNEE STANDING (BILATERAL, SINGLE VIEW [...] pain documented in this encounter Care Teams Motor Carrier Inspector Relationship Specialty Start Date End Date Shashi Farrell MD [address] [place] [address] [email or web address] PCP - General Internal Medicine 10/14/21 documented as of this encounter Additional Source Comments The information contained in this document represents components of the legal health record. It is not the complete legal health record.[facility]
--- OUTSIDE RECORDS SUMMARY | 2025-06-06 10:28 | XMS_ITS | Encounter Summary ---
Author Organization [facility] Address [facility] [address] [place] [address] Phone Care Team Providers Care Worship Pastor Name Role Phone Tony Carrillo MD Unavailable [phone] Jayson Rucker MD Unavailable Patricia Gutierrez NP Unavailable Unavailable Jimmie Martinez MD Unavailable [phone] Chante Anders MD Unavailable [phone] Patricia Gutierrez NP Primary Care Provider Unava ilable Lenora Castro DO Primary Care Provider [phone] Lenora Castro DO Primary Care Provider [phone] Shashi Farrell MD Primary Care Provider [phone] Encounter Details Date Type Department Care Team (Late st Contact Info) Description 09/24/2018 Procedure Pass [address] [place] [address] Social History Tobacco Use Types Packs/Day Years [...] Office Visit [facility] Gastroenterology Clinic [address] [place] [address] Unknown, Unknown, Ashley Vernon, FIRE ALARM DISPATCHER [address] [place] [address] [email or web address] documented as of this encounter Visit Diagnoses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documented in this encounter Care Teams Worship Pastor Relationship Specialty Start Date End Date Patricia Gutierrez NP PCP - General Family Medicine 12/22/17 06/10/19 Lenora Castro DO [address] [place] [address] PCP - General Internal Medicine 06/11/19 11/17/19 Lenora Castro DO [address] [place] [address] PCP - General Internal Medicine 11/18/19 10/13/21 Shashi Farrell MD [address] [place] [address] PCP - General Internal Medicine 10/14/21 Tony Carrillo MD [address] [place] [address] [email or web address] Historical LMR Provider 04/01/17 2 Jayson Rucker MD [address] [place] [address], [address] [place] [address] [email or web address] Historical LMR Provider 04/01/17 06/19/21 Patricia Gutierrez NP Historical LMR Provider 04/01/17 06/19/21 Jimmie Martinez MD [address] [place] [address] [address] [place] [address] [email or web address] Historical LMR Provider 04/01/17 06/19/21 Chante Anders MD [address] [place] [address] Orthopedics & Sports Medicine, [facility] [place] [address] [email or web address] Historical LMR Provider 04/01/17 06/19/21 documented as of this encounter Additional Source Comments The information contained in this document represents components of the legal health record. It is not the complete legal health record.[facility]
--- OUTSIDE RECORDS SUMMARY | 2025-06-06 10:28 | XMS_ITS | Encounter Summary ---
Author Organization [facility] Address [facility] [address] [place] [address] Phone Care Team Providers Care Tire Setter Name Role Phone Lenora Castro DO Primary Care Provider Tony Carrillo MD Unavailable [phone] Jayson Rucker MD Unavailable Patricia Gutierrez NP Unavailable Unavailable Jimmie Martinez MD Unavailable Chante Anders MD Unavailable [phone] Patricia Gutierrez NP Primary Care Provider Unava ilable Lenora Castro DO Primary Care Provider [phone] Lenora Castro DO Primary Care Provider [phone] Shashi Farrell MD Primary Care Provider [phone] Encounter Details Date Type Department Care Team (Late st Contact Info) Description 09/06/2017 Procedure Pass [facility] Endoscopy Admitting Dept Virtual Department 30 [place] [address] Social History Tobacco Use Types Packs/Day Years [...] 06/18/2025 10:30 AM EST Office Visit [facility] Gastroenterology Clinic 10 [place] [address] Unknown, Unknown, Ashley Vernon, FLEXBOARD OPERATOR 10 [place] [address] documented as of this encounter Visit Diagnoses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documented in this encounter Care Teams Tire Setter Relationship Specialty Start Date End Date Lenora Castro DO [address] [place] [address] PCP - General Internal Medicine 08/10/16 12/21/17 Patricia Gutierrez NP PCP - General Family Medicine 12/22/17 06/10/19 Lenora Castro DO [address] [place] [address] PCP - General Internal Medicine 06/11/19 11/17/19 Lenora Castro DO [address] [place] [address] PCP - General Internal Medicine 11/18/19 10/13/21 Shashi Farrell MD [address] [place] [address] PCP - General Internal Medicine 10/14/21 Tony Carrillo MD [address] [place] [address] [email or web address] Historical LMR Provider 04/01/17 2 Jayson Rucker MD [address] [place] [address] 202 [place] [address] [email or web address] Historical LMR Provider 04/01/17 06/19/21 Patircia Gutierrez NP Historical LMR Provider 04/01/17 06/19/21 Jimmie Martinez MD [address] [place] [address] 102 [place] [address] [email or web address] Historical LMR Provider 04/01/17 06/19/21 Chante Anders MD [address] [place] [address] Orthopedics & Sports Medicine, [facility] [place] [address] [email or web address] Historical LMR Provider 04/01/17 06/19/21 documented as of this encounter Additional Source Comments The information contained in this document represents components of the legal health record. It is not the complete legal health record.[facility]
--- OUTSIDE RECORDS SUMMARY | 2025-06-06 10:28 | XMS_ITS | Encounter Summary ---
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, [employer]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 Not on savita e documented as of this encounter Plan of Treatment Upcoming Encounters Date Type Department Care Team (Late st Contact Info) Description 06/18/2025 10:30 AM EST Office Visit [facility] Gastroenterology Clinic 10 [place] [address] Unknown, Unknown, Ashley Vernon, BLUE PRINTS TRIMMER 10 [place] [address] [email or web address] documented as of this encounter Results * [...] chronicity documented in this encounter Care Teams Personal Coach Relationship Specialty Start Date End Date Shashi Farrell MD [address] [place] [address] PCP - General Internal Medicine 10/14/21 documented as of this encounter Additional Source Comments The information contained in this document represents components of the legal health record. It is not the complete legal health record.[facility]
--- OUTSIDE RECORDS SUMMARY | 2025-06-06 10:28 | XMS_ITS | Encounter Summary ---
Author Organization [facility] Address [address] [place] [address] Phone Care Team Providers Care Sap Security Consultant Name Role Phone Tony Carrillo MD Unavailable [phone] Jayson Rucker MD Unavailable Patricia Gutierrez NP Unavailable Unavailable Jimmie Martinez MD Unavailable [phone] Chante Anders MD Unavailable [phone] Patricia Gutierrez NP Primary Care Provider Unava ilable Lenora Castro DO Primary Care Provider [phone] Lenora Castro DO Primary Care Provider [phone] Shashi Farrell MD Primary Care Provider [phone] Reason for Referral * MRI/CAT Scan - Closed Specialty Diagnoses / Procedures Referred By Contac t Referred To Contact Radiology Diagnoses Aneurysm of unspecified site Procedures MRI Angio Brain Adam Garcia MD Phone: tel: Referral ID Status Reason Start Date Expiration Date Visits Re quested Visits Authorized [id number] Closed 03/01/2018 04/30/2018 1 1 Encounter Details Date Type Department Care Team (Late st Contact Info) Description 03/01/2018 Ancillary Orders Virtual Department [address] [place] [address] Adam Garcia MD [address] [place] [address] Aneurysm of unspecified site Social History Tobacco [...] Description 06/18/2025 10:30 AM EST Office Visit [facility] Gastroenterology Clinic [address] [place] [address] Unknown, Unknown, Ashley Vernon, VOCATIONAL DIRECTOR [address] [place] [address] [email or web address] documented as of this encounter Results * MRA HEAD WITHOUT CONTRAST (03/11/2018 11:57 AM EDT) Anatomical Region Laterality Modality Head Magnetic Resonan ce 03/11/2018 12:5 1 PM EDT Impressions 03/11/2018 12:57 PM EDT Minimal artifact associated with previous coil placement and medial right cavernous ICA. Otherwise normal MRA [place]. No new pathology is apparent. 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 TECHNIQUE: Exam performed on 1.5 Geno high-field MRI scanner. Axial 3-D [id number] MR angiogram. Source raw data and angiographic [...] MD - 03/11/2018 COMPARISON:MRI brain and MRA [place] 05/15/2017 The patient has a history of coiling of a right ICA aneurysm at the levelof the cavernous sinus. TECHNIQUE: Exam performed on 1.5 Geno high-field MRI scanner. Axial 2-[id number] MR angiogram. Source raw data and angiographic [...] and medial rightcavernous ICA. Otherwise normal MRA [place]. No new pathology isapparent. IMPRESSION: POS - [id number] Adam Garcia MD IMG MR HEAD/NECK Fi nal Result documented in this encounter Visit Diagnoses Diagnosis Aneurysm of unspecified site Aneurysm of unspecified site documented in this encounter Care Teams Sap Security Consultant Relationship Specialty Start Date End Date Patricia Gutierrez NP PCP - General Family Medicine 12/22/17 06/10/19 Lenora Castro DO [address] [place] [address] PCP - General Internal Medicine 06/11/19 11/17/19 Lenora Castro DO [address] [place] [address] PCP - General Internal Medicine 11/18/19 10/13/21 Shashi Farrell MD [address] [place] [address] PCP - General Internal Medicine 10/14/21 Tony Carrillo MD [address] [place] [address] [email or web address] Historical LMR Provider 04/01/17 2 Jayson Rucker MD [address] [place] [address] Historical LMR Provider 04/01/17 06/19/21 Patricia Gutierrez NP Historical LMR Provider 04/01/17 06/19/21 Jimmie Martinez MD 22 [facility] [address] [place] [address] Historical LMR Provider 04/01/17 06/19/21 Chante Anders MD [address] [place] [address] Orthopedics & Sports Medicine, [place] [address] Historical LMR Provider 04/01/17 06/19/21 documented as of this encounter Additional Source Comments The information contained in this document represents components of the legal health record. It is not the complete legal health record.[facility]
--- OUTSIDE RECORDS SUMMARY | 2025-06-06 10:28 | XMS_ITS | Encounter Summary ---
Author Organization [facility] Address [facility] [address] [place] [address] Phone Care Team Providers Care Kier Boiler Name Role Phone Tony Carrillo MD Unavailable [phone] Jayson Ruckre MD Unavailable Patricia Gutierrez NP Unavailable Unavailable Jimmie Martinez MD Unavailable Chante Anders MD Unavailable [phone] Lenora Castro DO Primary Care Provider [phone] Lenora Castro DO Primary Care Provider [phone] Shashi Farrell MD Primary Care Provider [phone] Encounter Details Date Type Department Care Team (Late st Contact Info) Description 08/26/2019 Procedure Pass [facility], [address] [place] [address] Social History Tobacco Use Types Packs/Day Years [...] 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, [employer]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 Not on savita e documented as of this encounter Plan of Treatment Upcoming Encounters Date Type Department Care Team (Late st Contact Info) Description 06/18/2025 10:30 AM EST Office Visit [facility] G[facility]ology Clinic [address] [place] [address] Unknown, Unknown, Ashley Vernon, SKATING RINK ICE MAKER [address] [place] [address] [email or web address] documented as of this encounter Visit Diagnoses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documented in this encounter Care Teams Kier Boiler Relationship Specialty Start Date End Date Lenora Castro DO [address] [place] [address] PCP - General Internal Medicine 06/11/19 11/17/19 Lenora Castro DO [address] [place] [address] PCP - General Internal Medicine 11/18/19 10/13/21 Shashi Farrell MD [address] [place] [address] [email or web address] PCP - General Internal Medicine 10/14/21 Tony Carrillo MD [address] [place] [address] [email or web address] Historical LMR Provider 04/01/17 2 Jayson Rucker MD [address] [place] [address], [address] [address] [email or web address] Historical LMR Provider 04/01/17 06/19/21 Patricia Gutierrez NP Historical LMR Provider 04/01/17 06/19/21 Jimmie Martinez MD [address] [place] [address], [facility] [address] [place] [address] [email or web address] Historical LMR Provider 04/01/17 06/19/21 Chante Anders MD [address] [place] [address] Orthopedics & Sports Medicine, [place] [address] [email or web address] Historical LMR Provider 04/01/17 06/19/21 documented as of this encounter Additional Source Comments The information contained in this document represents components of the legal health record. It is not the complete legal health record.[facility]
--- OUTSIDE RECORDS SUMMARY | 2025-06-06 10:28 | XMS_ITS | Encounter Summary ---
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 Not on savtia e documented as of this encounter Plan of Treatment Upcoming Encounters Date Type Department Care Team (Late st Contact Info) Description 06/18/2025 10:30 AM EST Office Visit [facility] Gastroenterology Clinic [address] [place] [address] Unknown, Unknown, Ashley Vernon, MANAGER MEDICAL AFFAIRS [address] [place] [address] [email or web address] documented as of this encounter Visit Diagnoses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documented in this encounter Care Teams Watch Hairspring Assembler Relationship Specialty Start Date End Date Shashi Farrell MD [address] [place] [address] PCP - General Internal Medicine 10/14/21 documented as of this encounter Additional Source Comments The information contained in this document represents components of the legal health record. It is not the complete legal health record.[facility]
--- OUTSIDE RECORDS SUMMARY | 2025-06-06 10:28 | XMS_ITS | Encounter Summary ---
Author Organization [facility] Address [address] [place] [address] [place] [address] Phone Care Team Providers Care Instrument Room Technician Name Role Phone Tony Carrillo MD Unavailable [phone] Jayson Rucker MD Unavailable Patricia Gutierrez NP Unavailable Unavailable Jimmie Martinez MD Unavailable [phone] Chante Anders MD Unavailable [phone] Lenora Castro DO Primary Care Provider [phone] Shashi Farrell MD Primary Care Provider [phone] Reason for Referral * Physical Therapy (Routine) - Closed Specialty Diagnoses / Procedures Referred By Josué zavala Referred To Contact Physical Therapy Diagnoses Encounter for rehabilitation BPPV Procedures Evaluate & Treat Luis Hsu MD Phone: tel: fax: [email or web address] 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, [employer]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 Not on savita e documented as of this encounter Plan of Treatment Upcoming Encounters Date Type Department Care Team (Late st Contact Info) Description 06/18/2025 10:30 AM EST Office Visit [facility] [address] [place] [address] Unknown, Unknown, Ashley Vernon, DUAL HOSE CEMENTER [address] [place] [address] [email or web address] Scheduled Referrals Name Type Priority Associated Diagnoses Orde r Schedule Ambulatory referral to [facility] Physical Therapy Outpatient Referral Routine Encounter for rehabilitation Ordered: 01/20/2021 documented as of this encounter Visit Diagnoses Diagnosis Encounter for rehabilitation- Primary documented in this encounter Care Teams Instrument Room Technician Relationship Specialty Start Date End Date Lenora Castro DO [address] [place] [address] PCP - General Internal Medicine 11/18/19 10/13/21 Shashi Farrell MD [address] [place] [address] [email or web address] PCP - General Internal Medicine 10/14/21 Tony Carrillo MD [address] [place] [address] [email or web address] Historical LMR Provider 04/01/17 2 Jayson Rucker MD [address] [place] [address] [address] [place] [address] [email or web address] Historical LMR Provider 04/01/17 06/19/21 Patricia Gutierrez NP Historical LMR Provider 04/01/17 06/19/21 Jimmie Martinez MD [address] [place] [address] [address] [place] [address] [email or web address] Historical LMR Provider 04/01/17 06/19/21 Chante Anders MD [address] [place] [address] Orthopedics & Sports Medicine, [place] [place] [address] [email or web address] Historical LMR Provider 04/01/17 06/19/21 documented as of this encounter Additional Source Comments The information contained in this document represents components of the legal health record. It is not the complete legal health record.[facility]
--- OUTSIDE RECORDS SUMMARY | 2025-06-06 10:28 | XMS_ITS | Encounter Summary ---
Author Organization [facility] Address [facility] [address] [place] [address] Phone Care Team Providers Care Straddle Bug Operator Name Role Phone Tony Carrillo MD Unavailable [phone] Jayson Rucker MD Unavailable Patricia Gutierrez NP Unavailable Unavailable Jimmie Martinez MD Unavailable [phone] Chante Anders MD Unavailable [phone] Lenora Castro DO Primary Care Provider [phone] Shashi Farrell MD Primary Care Provider [phone] Encounter Details Date Type Department Care Team (Late st Contact Info) Description 04/20/2021 Procedure Pass [facility], [address] [place] [address] Social History Tobacco Use Types Packs/Day Years [...] 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, [employer]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 Not on savita e documented as of this encounter Plan of Treatment Upcoming Encounters Date Type Department Care Team (Late st Contact Info) Description 06/18/2025 10:30 AM EST Office Visit [facility] Gastro[facility]ology Clinic [address] [place] [address] Unknown, Unknown, MD Vega, Ashley Wright, CARE PROGRAM RESIDENT [address] [place] [address] documented as of this encounter Visit Diagnoses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documented in this encounter Care Teams Straddle Bug Operator Relationship Specialty Start Date End Date Lenora Castro DO [address] [place] [address] PCP - General Internal Medicine 11/18/19 10/13/21 Shashi Farrell MD [address] [place] [address] PCP - General Internal Medicine 10/14/21 Tony Carrillo MD [address] [place] [address] [email or web address] Historical LMR Provider 04/01/17 2 Jayson Rucker MD [address] [place] [address] [email or web address] Historical LMR Provider 04/01/17 06/19/21 Patricia Gutierrez NP Historical LMR Provider 04/01/17 06/19/21 Jimmie Martinez MD [address] [place] [address] [address] [place] [address] Historical LMR Provider 04/01/17 06/19/21 Chante Anders MD [address] [place] [address] Orthopedics & Sports Medicine, [place] [address] [email or web address] Historical LMR Provider 04/01/17 06/19/21 documented as of this encounter Additional Source Comments The information contained in this document represents components of the legal health record. It is not the complete legal health record.[facility]
--- OUTSIDE RECORDS SUMMARY | 2025-06-06 10:29 | XMS_ITS | Encounter Summary ---
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 Not on savita e documented as of this encounter Plan of Treatment Upcoming Encounters Date Type Department Care Team (Late st Contact Info) Description 06/18/2025 10:30 AM EST Office Visit [facility] Gastroenterology Clinic 10 [place] [address] Unknown, Unknown, Ashley Vernon, SQL ENGINEER 10 [place] [address] [email or web address] documented as of this encounter Visit Diagnoses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documented in this encounter Care Teams Aircraft Maintenance Supervisor Relationship Specialty Start Date End Date Shashi Farrell MD [address] [place] [address] [email or web address] PCP - General Internal Medicine 10/14/21 documented as of this encounter Additional Source Comments The information contained in this document represents components of the legal health record. It is not the complete legal health record.[facility]
--- OUTSIDE RECORDS SUMMARY | 2025-06-06 10:29 | XMS_ITS | Encounter Summary ---
Author Organization [facility] Address [address] [place] [address] [place] [address] Phone Care Team Providers Care Life Advisor Name Role Phone Lenora Castro DO Primary Care Provider Tony Carrillo MD Unavailable [phone] Jayson Rucker MD Unavailable Patricia Gutierrez NP Unavailable Unavailable Jimmie Martinez MD Unavailable [phone] Chante Anders MD Unavailable [phone] Patricia Gutierrez NP Primary Care Provider Unava ilable Lenora Castro DO Primary Care Provider [phone] Lenora Castro DO Primary Care Provider [phone] Shashi Farrell MD Primary Care Provider [phone] Encounter Details Date Type Department Care Team (Latest Contact Info) Description 05/22/2017 Transcribe Orders [facility] [address] [place] [address] Luis Hsu MD [address] [place] [address], [address] [place], [place] [id number] [email or web address] Weakness (Primary Dx) Social History Tobacco [...] Visit [facility] 10 [place] [address] Unknown, Unknown, MD Vega, Ashley Wright, CARDIAC TECHNICIAN 10 [place] [address] [email or web address] documented as of this encounter Results * Acetylcholine receptor binding antibody (05/22/2017 4:35 PM EST) ACH RECEPTOR BIND AB 0.00 <=0.02 nmol/L [facility] DPT OF LAB MED AND PAT+ Comment: (NOTE) ADDITIONAL INFORMATION This test was developed and its performance characteristics determined by [facility] in a manner consistent with CLIA requirements. This test has not been cleared or approved by the U.S. Food and Drug Administration. Blood 05/22/2017 4:35 PM EST 05/22/2017 4:38 PM EST us Luis Hsu MD LAB BLOOD ORDERABLES Final R esult [facility] DPT OF LAB MED AND PAT+ [address] [place] [address] * CPK (creatine kinase) (05/22/2017 4:35 PM EST) CREATINE KINASE 106 21 - 215 U/L [facility] Blood 05/22/2017 4:35 PM EST 05/22/2017 4:39 PM EST us Luis Hsu MD LAB BLOOD BKR ORDERABLES Fin al Result [facility] [address] [place] [address] documented in this encounter Visit Diagnoses Diagnosis Weakness- Primary Other malaise and fatigue documented in this encounter Care Teams Life Advisor Relationship Specialty Start Date End Date Lenora Castro DO [address] [place] [address] PCP - General Internal Medicine 08/10/16 12/21/17 Patricia Gutierrez NP PCP - General Family Medicine 12/22/17 06/10/19 Lenora Castro DO [address] [place] [address] PCP - General Internal Medicine 06/11/19 11/17/19 Lenora Castro DO [address] [place] [address] PCP - General Internal Medicine 11/18/19 10/13/21 Shashi Farrell MD [address] [place] [address] [email or web address] PCP - General Internal Medicine 10/14/21 Tony Carrillo MD [address] [place] [address] [email or web address] Historical LMR Provider 04/01/17 1 2 Jayson Rucker MD [address] [place] [address], [address] [place] [address] [email or web address] Historical LMR Provider 04/01/17 06/19/21 Patricia Gutierrez NP Historical LMR Provider 04/01/17 06/19/21 Jimmie Martinez MD [address] [place] [address], [facility] [address] [place] [address] [email or web address] Historical LMR Provider 04/01/17 06/19/21 Chante Anders MD [address] [place] [address] Orthopedics & Sports Medicine, [place] [address] [email or web address] Historical LMR Provider 04/01/17 06/19/21 documented as of this encounter Additional Source Comments The information contained in this document represents components of the legal health record. It is not the complete legal health record.[facility]
--- OUTSIDE RECORDS SUMMARY | 2025-06-06 10:29 | XMS_ITS | Encounter Summary ---
Author Organization [facility] Address [address] [place] [address] [place] [address] Phone Care Team Providers Care Podiatric Medicine Doctor Name Role Phone Lenora Castro DO Primary Care Provider Tony Carrillo MD Unavailable Jayson Rucker MD Unavailable Patricia Gutierrez NP Unavailable Unavailable Jimmie Martinez MD Unavailable Chante Anders MD Unavailable [phone] Patricia Gutierrez NP Primary Care Provider Unava ilable Lenora Castro DO Primary Care Provider [phone] Lenora Castro DO Primary Care Provider [phone] Shashi Farrell MD Primary Care Provider [phone] Reason for Referral * Physical Therapy (Routine) - Closed Specialty Diagnoses / Procedures Referred By Contchiara t Referred To Contact Physical Therapy Diagnoses Encounter for rehabilitation System, Provider Not In, PhD [address] [address] Phone: tel: Referral ID Status Reason Start Date Expiration Date Visits Re quested Visits Authorized [id number] Closed 07/13/2017 07/13/2018 1 1 * Physical Therapy (Routine) - Closed Specialty Diagnoses / Procedures Referred By Contchiara t Referred To Contact Physical Therapy Diagnoses Encounter for rehabilitation System, Provider Not In, PhD [facility] [address] [address] [facility] [address] [place] [address] Phone: tel: Referral ID Status Reason Start Date Expiration Date Visits Re quested Visits Authorized [id number] Closed 07/12/2017 07/12/2018 1 1 Encounter Details Date Type Department Care Team (Latest Contact Info) Description 07/12/2017 Transcribe Orders [facility] Physical Therapy [facility] [address] [place] [address] Patricia Gutierrez NP Encounter for rehabilitation (Primary Dx) Social History [...] Office Visit [facility]enterology Clinic [address] [place] [address] Unknown, Unknown, Ashley Vernon, CUSTOMS BROKERAGE AGENT [address] [place] [address] [email or web address] Scheduled Referrals Name Type Priority Associated Diagnoses Orde r Schedule Ambulatory referral to [facility] Physical Therapy Outpatient Referral Routine Encounter for rehabilitation Ordered: 07/12/2017 Ambulatory referral to [facility] Physical Therapy Outpatient Referral Routine Encounter for rehabilitation Ordered: 07/13/2017 documented as of this encounter Visit Diagnoses Diagnosis Encounter for rehabilitation- Primary documented in this encounter Care Teams Podiatric Medicine Doctor Relationship Specialty Start Date End Date Lenora Castro DO [address] [place] [address] PCP - General Internal Medicine 08/10/16 12/21/17 Patricia Gutierrez NP PCP - General Family Medicine 12/22/17 06/10/19 Lenora Castro DO [address] [place] [address] [email or web address] PCP - General Internal Medicine 06/11/19 11/17/19 Lenora Castro DO [address] [place] [address] [email or web address] PCP - General Internal Medicine 11/18/19 10/13/21 Shashi Farrell MD [address] [place] [address] [email or web address] PCP - General Internal Medicine 10/14/21 Tony Carrillo MD [address] [place] [address] [email or web address] Historical LMR Provider 04/01/17 2 Jayson Rucker MD [address] [place] [address] [address] [place] [address] [email or web address] Historical LMR Provider 04/01/17 06/19/21 Patricia Gutierrez NP Historical LMR Provider 04/01/17 06/19/21 Jimmie Martinez MD [address] [place] [address] [address] [place] [address] [email or web address] Historical LMR Provider 04/01/17 06/19/21 Chante Anders MD [address] [place] [address] Orthopedics & Sports Medicine, [facility] [place] [address] [email or web address] Historical LMR Provider 04/01/17 06/19/21 documented as of this encounter Additional Source Comments The information contained in this document represents components of the legal health record. It is not the complete legal health record.[facility]
--- OUTSIDE RECORDS SUMMARY | 2025-06-06 10:29 | XMS_ITS | Encounter Summary ---
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 Not on savita e documented as of this encounter Plan of Treatment Upcoming Encounters Date Type Department Care Team (Late st Contact Info) Description 06/18/2025 10:30 AM EST Office Visit [facility] Gastroenterology Clinic [address] [place] [address] Unknown, Unknown, Ashley Vernon, ELECTRIC DEICER ASSEMBLER [address] [place] [address] [email or web address] documented as of this encounter Visit Diagnoses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documented in this encounter Care Teams Keyboard Instrument Tuner Relationship Specialty Start Date End Date Shashi Farrell MD [address] [place] [address] [email or web address] PCP - General Internal Medicine 10/14/21 documented as of this encounter Additional Source Comments The information contained in this document represents components of the legal health record. It is not the complete legal health record.[facility]
--- OUTSIDE RECORDS SUMMARY | 2025-06-06 10:29 | XMS_ITS | Encounter Summary ---
Author Organization [facility] Address [facility] [address] [place] [address] Phone Care Team Providers Care Pigskin Trimmer Name Role Phone Lenora Castor DO Primary Care Provider Tony Carrillo MD Unavailable [phone] Jayson Rucker MD Unavailable Patricia Gutierrez NP Unavailable Unavailable Jimmie Martinez MD Unavailable [phone] Chante Anders MD Unavailable [phone] Patricia Gutierrez NP Primary Care Provider Unava ilable Lenora Castro DO Primary Care Provider [phone] Lenora Castro DO Primary Care Provider [phone] Shashi Farrell MD Primary Care Provider [phone] Encounter Details Date Type Department Care Team (Late st Contact Info) Description 05/15/2017 Procedure Pass [facility], [address] [address] Social History Tobacco Use Types Packs/Day Years [...] Description 06/18/2025 10:30 AM EST Office Visit [facility] Gastroenterology Clinic [address] [place] [address] Unknown, Unknown, Ashley Vernon, WIRELESS TECHNICIAN [address] [place] [address] [email or web address] documented as of this encounter Visit Diagnoses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documented in this encounter Care Teams Pigskin Trimmer Relationship Specialty Start Date End Date Lenora Castro DO [address] [place] [address] PCP - General Internal Medicine 08/10/16 12/21/17 Patricia Gutierrez NP PCP - General Family Medicine 12/22/17 06/10/19 Lenora Castro DO [address] [place] [address] PCP - General Internal Medicine 06/11/19 11/17/19 Lenora Castro DO [address] [place] [address] PCP - General Internal Medicine 11/18/19 10/13/21 Shashi Farrell MD [address] [place] [address] PCP - General Internal Medicine 10/14/21 Tony Carrillo MD [address] [place] [address] [email or web address] Historical LMR Provider 04/01/17 2 Jayson Rucker MD [address] [place] [address] [address] [place] [address] [email or web address] Historical LMR Provider 04/01/17 06/19/21 Patricia Gutierrez NP Historical LMR Provider 04/01/17 06/19/21 Jimmie Martinez MD [address] [place] [address] [address] [place] [address] [email or web address] Historical LMR Provider 04/01/17 06/19/21 Chante Anders MD [address] [place] [address] Orthopedics & Sports Medicine, [facility] [place] [address] [email or web address] Historical LMR Provider 04/01/17 06/19/21 documented as of this encounter Additional Source Comments The information contained in this document represents components of the legal health record. It is not the complete legal health record.[facility]
--- OUTSIDE RECORDS SUMMARY | 2025-06-06 10:29 | XMS_ITS | Encounter Summary ---
Author Organization [facility] Address [facility] [address] [place] [address] Phone Care Team Providers Care Title Examiner Name Role Phone Lenora Castro DO Primary Care Provider Tony Carrillo MD Unavailable Jayson Rucker MD Unavailable Patricia Gutierrez NP Unavailable Unavailable Jimmie Martinez MD Unavailable Chante Anders MD Unavailable [phone] Patricia Gutierrez NP Primary Care Provider Unava ilable Lenora Castro DO Primary Care Provider [phone] Lenora Castro DO Primary Care Provider [phone] Shashi Farrell MD Primary Care Provider [phone] Encounter Details Date Type Department Care Team (Late st Contact Info) Description 05/15/2017 Procedure Pass [facility] [address] [place] [address] Social History Tobacco Use Types Packs/Day Years [...] EST Office Visit [facility] G[facility]ology Clinic [address] [place] [address] Unknown, Unknown, Ashley Vernon, SHAREPOINT APPLICATION DEVELOPER [address] [place] [address] [email or web address] documented as of this encounter Visit Diagnoses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documented in this encounter Care Teams Title Examiner Relationship Specialty Start Date End Date Lenora Castro DO [address] [place] [address] PCP - General Internal Medicine 08/10/16 12/21/17 Patricia Gutierrez NP PCP - General Family Medicine 12/22/17 06/10/19 Lenora Castro DO [address] [place] [address] PCP - General Internal Medicine 06/11/19 11/17/19 Lenora Castro DO [address] [place] [address] PCP - General Internal Medicine 11/18/19 10/13/21 Shashi Farrell MD [address] [place] [address] PCP - General Internal Medicine 10/14/21 Tony Carrillo MD [address] [place] [address] [email or web address] Historical LMR Provider 04/01/17 2 Jayson Rucker MD [address] [place] [address], [address] [place] [address] [email or web address] Historical LMR Provider 04/01/17 06/19/21 Patricia Gutierrez NP Historical LMR Provider 04/01/17 06/19/21 Jimmie Martinez MD [address] [place] [address] [address] [place] [address] [email or web address] Historical LMR Provider 04/01/17 06/19/21 Chante Anders MD [address] [place] [address] Orthopedics & Sports Medicine, [facility] [place] [address] [email or web address] Historical LMR Provider 04/01/17 06/19/21 documented as of this encounter Additional Source Comments The information contained in this document represents components of the legal health record. It is not the complete legal health record.[facility]
--- OUTSIDE RECORDS SUMMARY | 2025-06-06 10:29 | XMS_ITS | Encounter Summary ---
Author Organization [facility] Address [address] [place] [address] [place] [address] Phone Care Team Providers Care Grommet Worker Name Role Phone Lenora Castro DO Primary Care Provider Tony Carrillo MD Unavailable Jayson Rucker MD Unavailable Patricia Gutierrez NP Unavailable Unavailable Jimmie Martinez MD Unavailable Chante Anders MD Unavailable [phone] Patircia Gutierrez NP Primary Care Provider Unava ilable Lenora Castro DO Primary Care Provider [phone] Lenora Castro DO Primary Care Provider [phone] Shashi Farrell MD Primary Care Provider [phone] Encounter Details Date Type Department Care Team (Late st Contact Info) Description 05/09/2017 Ancillary Orders Virtual Department [address] [place] [address] Patricia Gutierrez NP Visit for screening mammogram Social History Tobacco [...] Office Visit [facility] 10 [place] [address] Unknown, Unknown, Ashley Vernon, SCHEDULE CLERK [address] [place] [address] [email or web address] documented as of this encounter [...] scattered fibroglandular densities. POS - CDHMAMA us Patricia Gutierrez ROBOTICS TECHNICIAN IMG MG EXAMS Final Result documented in this encounter Visit Diagnoses Diagnosis Visit for screening mammogram Visit for screening mammogram documented in this encounter Care Teams Grommet Worker Relationship Specialty Start Date End Date Lenora Castro DO [address] [place] [address] [email or web address] PCP - General Internal Medicine 08/10/16 12/21/17 Patricia Gutierrez NP PCP - General Family Medicine 12/22/17 06/10/19 Lenora Castro DO [address] [place] [address] [email or web address] PCP - General Internal Medicine 06/11/19 11/17/19 Lenora Castro DO [address] [place] [address] [email or web address] PCP - General Internal Medicine 11/18/19 10/13/21 Shashi Farrell MD [address] [place] [address] [email or web address] PCP - General Internal Medicine 10/14/21 Tony Carrillo MD [address] [place] [address] [email or web address] Historical LMR Provider 04/01/17 2 Jayson Rucker MD [address] [place] [address], [address] [address] [email or web address] Historical LMR Provider 04/01/17 06/19/21 Patricia Gutierrez NP Historical LMR Provider 04/01/17 06/19/21 Jimmie Martinez MD [address] [place] [address], [address] [place] [address] [email or web address] Historical LMR Provider 04/01/17 06/19/21 Chante Anders MD [address] [place] [address] Orthopedics [facility] Sports Medicine, [place] [address] [email or web address] Historical LMR Provider 04/01/17 06/19/21 documented as of this encounter Additional Source Comments The information contained in this document represents components of the legal health record. It is not the complete legal health record.[facility]
--- OUTSIDE RECORDS SUMMARY | 2025-06-06 10:29 | XMS_ITS | Encounter Summary ---
Author Organization [facility] Address [facility] [address] [place] [address] Phone Care Team Providers Care Rn Transitional Care Name Role Phone Lenora Castro DO Primary Care Provider Tony Carrillo MD Unavailable [phone] Jayson Rucker MD Unavailable Patricia Gutierrez NP Unavailable Unavailable Jimmie Martinez MD Unavailable Chante Anders MD Unavailable [phone] Patricia Gutierrez NP Primary Care Provider Unava ilable Lenora Castro DO Primary Care Provider [phone] Lenora Castro DO Primary Care Provider [phone] Shashi Farrell MD Primary Care Provider [phone] Encounter Details Date Type Department Care Team (Late st Contact Info) Description 05/15/2017 Procedure Pass [facility], [address] [address] Social History Tobacco Use Types Packs/Day Years [...] Office Visit [facility] [address] [address] Unknown, Unknown, Ashley Vernon, VENDOR REPRESENTATIVES [address] [place] [address] documented as of this encounter Visit Diagnoses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documented in this encounter Care Teams Rn Transitional Care Relationship Specialty Start Date End Date Lenora Castro DO [address] [place] [address] PCP - General Internal Medicine 08/10/16 12/21/17 Patricia Gutierrez NP PCP - General Family Medicine 12/22/17 06/10/19 Lenora Castro DO [address] [place] [address] PCP - General Internal Medicine 06/11/19 11/17/19 Lenora Castro DO [address] [place] [address] PCP - General Internal Medicine 11/18/19 10/13/21 Shashi Farrell MD [address] [place] [address] [email or web address] PCP - General Internal Medicine 10/14/21 Tony Carrillo MD [address] [place] [address] [email or web address] Historical LMR Provider 04/01/17 2 Jayson Rucker MD [address] [place] [address] [address] [place] [address] [email or web address] Historical LMR Provider 04/01/17 06/19/21 Patricia Gutierrez NP Historical LMR Provider 04/01/17 06/19/21 Jimmie Martinez MD [address] [place] [address] 102 [place] [address] [email or web address] Historical LMR Provider 04/01/17 06/19/21 Chante Anders MD [address] [place] [address] Orthopedics & Sports Medicine, [facility] [place] [address] Historical LMR Provider 04/01/17 06/19/21 documented as of this encounter Additional Source Comments The information contained in this document represents components of the legal health record. It is not the complete legal health record.[facility]
--- OUTSIDE RECORDS SUMMARY | 2025-06-06 10:29 | XMS_ITS | Encounter Summary ---
Author Organization [facility] Address [address] [place] [address] [place] [address] Phone Care Team Providers Care Heavy Antiarmor Weapons Infantryman Name Role Phone Lenora Castro DO Primary Care Provider Tony Carrillo MD Unavailable [phone] Jayson Rucker MD Unavailable Patricia Gutierrez NP Unavailable Unavailable Jimmie Martinez MD Unavailable [phone] Chante Anders MD Unavailable [phone] Patricia Gutierrez NP Primary Care Provider Unava ilable Lenora Castro DO Primary Care Provider [phone] Lenora Castro DO Primary Care Provider [phone] Shashi Farrell MD Primary Care Provider [phone] Reason for Referral * MRI/CAT Scan - Closed Specialty Diagnoses / Procedures Referred By Josué t Referred To Contact Radiology Diagnoses Diarrhea, unspecified type Vomiting, intractability of vomiting not specified, presence of nausea not specified, unspecified vomiting type Anemia, unspecified type Procedures MRI Cholangiopancreatography (MRCP) David Ramirez MD Phone: tel: fax: [email or web address] Referral ID Status Reason Start Date Expiration Date Visits Re quested Visits Authorized [id number] Closed 07/24/2017 09/22/2017 1 1 Encounter Details Date Type Department Care Team (Latest Contact Info) Description 07/24/2017 Ancillary Orders [facility] External Provider Virtual Department [address] [place] [address] David Ramirez MD [address] [place] [address] [email or web address] Diarrhea, unspecified type; Vomiting, intractability of vomiting [...] Office Visit [facility] [address] [place] [address] Unknown, Unknown, Ashley Vernon, ALARM MECHANIC [address] [place] [address] [email or web address] documented as of this encounter Results * MRI CHOLANGIOPANCREATOGRAPHY (MRCP) WITHOUT CONTRAST (08/01/2017 9:52 AM EST) Anatomical Region Laterality Modality Pancreas, Biliary Magnetic Reson ance 08/01/2017 10:3 7 AM EST Impressions 08/01/2017 12:33 PM EST Borderline extrahepatic biliary dilatation without identifiable filling defect, extrinsic compression or obvious focal stricture. Otherwise essentially normal upper abdomen MRI/MRCP. No gallbladder or pancreatic pathology. POS [id number] Edited by: Ibis Piña on 08/01/2017 12:32 [...] ascites, adenopathy or pleural effusion in the [id number]. Procedure Note Chau Cornelius MD - 08/01/2017 [...] Compared to radionuclide hepatobiliary scan 05/18/2017 and trkzmkptzy25/06/2017. FINDINGS: No gallstones or other filling defects [...] ascites, adenopathy or pleural effusion in the [id number]. IMPRESSION: Borderline extrahepatic biliary dilatation without identifiable fillingdefect, extrinsic compression or obvious focal stricture. Otherwiseessentially normal upper abdomen MRI/MRCP. No gallbladder or pancreaticpathology. POS [id number] Edited by: Ibis Piña on 08/01/2017 12:32 [...] type documented in this encounter Care Teams Heavy Antiarmor Weapons Infantryman Relationship Specialty Start Date End Date Lenora Castro DO [address] [place] [address] PCP - General Internal Medicine 08/10/16 12/21/17 Patricia Gutierrez NP PCP - General Family Medicine 12/22/17 06/10/19 Lenora Castro DO [address] [place] [address] PCP - General Internal Medicine 06/11/19 11/17/19 Lenora Castro DO [address] [place] [address] PCP - General Internal Medicine 11/18/19 10/13/21 Shashi Frarell MD [address] [place] [address] [email or web address] PCP - General Internal Medicine 10/14/21 Tony Carrillo MD [address] [place] [address] [email or web address] Historical LMR Provider 04/01/17 2 Jayson Rucker MD [address] [place] [address] 202 [place] [address] Historical LMR Provider 04/01/17 06/19/21 Patricia Gutierrez NP Historical LMR Provider 04/01/17 06/19/21 Jimmie Martinez MD [address] [place] [address] 102 [place] [address] Historical LMR Provider 04/01/17 06/19/21 Chante Anders MD [address] [place] [address] Orthopedics & Sports Medicine, [facility] [place] [address] Historical LMR Provider 04/01/17 06/19/21 documented as of this encounter Additional Source Comments The information contained in this document represents components of the legal health record. It is not the complete legal health record.[facility]
--- OUTSIDE RECORDS SUMMARY | 2025-06-06 10:29 | XMS_ITS | Encounter Summary ---
Author Organization [facility] Address [address] [place] [address] [place] [address] Phone Care Team Providers Care Golf Course Equipment Operator Name Role Phone Lenora Castro DO Primary Care Provider Tony Carrillo MD Unavailable Jayson Rucker MD Unavailable Patricia Gutierrez NP Unavailable Unavailable Jimmie Martinez MD Unavailable Chante Anders MD Unavailable [phone] Patricia Gutierrez NP Primary Care Provider Unava ilable Lenora Castro DO Primary Care Provider [phone] Lenora Castro DO Primary Care Provider [phone] Shashi Farrell MD Primary Care Provider [phone] Encounter Details Date Type Department Care Team (Late st Contact Info) Description 08/02/2017 Ancillary Orders [facility], X-Ray - [address] [place] [address] Luis Hsu MD [address] [place] [address], [address] [place], [place] [phone] [email or web address] Pain Social History Tobacco Use Types Packs/Day [...] 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 POS - [id number] Narrative 08/02/2017 5:04 PM EST HISTORY: Neck [...] probable progressive bilateralneural foraminal encroachment. POS - [id number] Luis Hsu MD IMG XR SPINE Final Result documented in this encounter Visit Diagnoses Diagnosis Pain Generalized pain Pain Generalized pain documented in this encounter Care Teams Golf Course Equipment Operator Relationship Specialty Start Date End Date Lenora Castro DO [address] [place] [address] PCP - General Internal Medicine 08/10/16 12/21/17 Patricia Gutierrez, ADEN PCP - General Family Medicine 12/22/17 06/10/19 Lenora Castro DO [address] [place] [address] PCP - General Internal Medicine 06/11/19 11/17/19 Lenora Castro DO [address] [place] [address] PCP - General Internal Medicine 11/18/19 10/13/21 Shashi Farrell MD [address] [place] [address] [email or web address] PCP - General Internal Medicine 10/14/21 Tony Carrillo MD [address] [place] [address] [email or web address] Historical LMR Provider 04/01/17 2 Jayson Rucker MD [address] [place] [address] [email or web address] Historical LMR Provider 04/01/17 06/19/21 Patricia Gutierrez NP Historical LMR Provider 04/01/17 06/19/21 Jimmie Martinez MD [facility] [address] [place] [address] Historical LMR Provider 04/01/17 06/19/21 Chante Anders MD [address] [place] [address] Orthopedics & Sports Medicine, [place] [address] Historical LMR Provider 04/01/17 06/19/21 documented as of this encounter Additional Source Comments The information contained in this document represents components of the legal health record. It is not the complete legal health record.[facility]
--- OUTSIDE RECORDS SUMMARY | 2025-06-06 10:29 | XMS_ITS | Encounter Summary ---
Author Organization [facility] Address [address] [place] [address] [place] [address] Phone Care Team Providers Care Litigation Attorney Name Role Phone Lenora Castro DO Primary Care Provider Tony Carrillo MD Unavailable Jayson Rucker MD Unavailable Patricia Gutierrez NP Unavailable Unavailable Jimmie Martinez MD Unavailable Chante Anders MD Unavailable [phone] Patricia Gutierrez NP Primary Care Provider Unava ilable Lenora Castro DO Primary Care Provider [phone] Lenora Castro DO Primary Care Provider [phone] Shashi Farrell MD Primary Care Provider [phone] Encounter Details Date Type Department Care Team (Late st Contact Info) Description 07/03/2017 Transcribe Orders [facility] [place] [address] [place] [address] [place] [address] Khadra Horn PA [address] [place] [address] [place] [address] Type 2 diabetes mellitus without complication, without [...] Office Visit [facility] [address] [place] [address] Unknown, Unknown, MD Vega, Ashley Wright, TOE PULLER [address] [place] [address] [email or web address] documented as of this encounter Visit Diagnoses Diagnosis Type 2 diabetes mellitus without complication, without long-term current use of insulin- Primary documented in this encounter Care Teams Litigation Attorney Relationship Specialty Start Date End Date Lenora Castro DO [address] [place] [address] PCP - General Internal Medicine 08/10/16 12/21/17 Patricia Gutierrez NP PCP - General Family Medicine 12/22/17 06/10/19 Lenora Castro DO [address] [place] [address] PCP - General Internal Medicine 06/11/19 11/17/19 Lenora Castro DO [address] [place] [address] PCP - General Internal Medicine 11/18/19 10/13/21 Shashi Farrell MD [address] [place] [address] [email or web address] PCP - General Internal Medicine 10/14/21 Tony Carrillo MD [address] [place] [address] [email or web address] Historical LMR Provider 04/01/17 2 Jayson Rucker MD [address] [place] [address] 202 [place] [address] [email or web address] Historical LMR Provider 04/01/17 06/19/21 Patricia Gutierrez NP Historical LMR Provider 04/01/17 06/19/21 Jimmie Martinez MD [address] [place] [address] [address] [place] [address] [email or web address] Historical LMR Provider 04/01/17 06/19/21 Chante Anders MD [address] [place] [address] Orthopedics & Sports Medicine, [place] [address] Historical LMR Provider 04/01/17 06/19/21 documented as of this encounter Additional Source Comments The information contained in this document represents components of the legal health record. It is not the complete legal health record.[facility]
--- OUTSIDE RECORDS SUMMARY | 2025-06-06 10:29 | XMS_ITS | Encounter Summary ---
Author Organization [facility] Address [facility] [address] [place] [address] Phone Care Team Providers Care Health Psychologist Name Role Phone Shashi Farrell MD Primary Care Provider [phone] Encounter Details Date Type Department Care Team (Latest Contact Info) Description 03/25/2022 Transcribe Orders [facility] Phleb [place]i [address] [address] Ashley Vega, MOLD BLOWER [address] [place] [address] [email or web address] Pancreatic duct dilated (Primary Dx) Social History [...] 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, [employer]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 Not on savita e documented as of this encounter Plan of Treatment Upcoming Encounters Date Type Department Care Team (Late st Contact Info) Description 06/18/2025 10:30 AM EST Office Visit [facility] 10 [place] [address] Unknown, Unknown, MD Vega, Ashley Wright, MOLD BLOWER [address] [place] [address] documented as of this encounter Results * C-Reactive Protein (03/25/2022 12:10 PM EDT) C REACTIVE PROTEIN <3.0 0.0 - 4.0 mg/L [facility] Blood 03/25/2022 12:1 0 PM EDT 03/25/2022 12:11 PM EDT us Ashley Vega MOLD BLOWER LAB BLOOD BKR ORDERABLES F inal Result [facility] [address] [place] [address] * Comprehensive metabolic panel (03/25/2022 12:10 PM EDT) Pathologist [facility] SODIUM 144 133 - 146 mmol/L [facility] POTASSIUM 4.2 3.3 - 5.1 mmol/L [facility] CHLORIDE 104 96 - 108 mmol/L [facility] CO2 29 21 - 35 mmol/L [facility] BUN 19 6 - 19 mg/dL [facility] CREATININE 0.70 0.5 - 1.5 mg/dL [facility] GLUCOSE 86 70 - 99 mg/dL [facility] ALBUMIN 4.6 3.9 - 4.8 g/dL [facility] TOTAL PROTEIN 7.4 6.5 - 8.0 g/dL [facility] CALCIUM 9.8 8.4 - 10.3 mg/dL [facility] ALKALINE PHOSPHATASE 73 39 - 117 U/L [facility] TOTAL BILIRUBIN 0.3 0.0 - 1.2 mg/dL [facility] AST 28 0 - 37 U/L [facility] ALT 21 0 - 40 U/L [facility] GLOBULIN 2.8 1 - 4.8 g/dL [facility] EGFR 100 >59 mL/min/1.7 3m2 [facility] Comment:Estimated glomerular filtration rate calculated using the CKD-EPI refit equation. ANION GAP 15 10 - 20 mmol/L [facility] Blood 03/25/2022 12:1 0 PM EDT 03/25/2022 12:11 PM EDT us Ashley Vega MOLD BLOWER LAB BLOOD BKR ORDERABLES F inal Result [facility] [address] [place] [address] * (ABNORMAL) CBC and differential (03/25/2022 12:10 PM EDT) WBC 4.54 4.00 - 11.00 K/uL [facility] RBC 4.30 3.72 - 5.30 M/uL [facility] HGB 12.8 11.4 - 15.9 g/dL [facility] HCT 37.6 34.2 - 46.8 % [facility] PLT 189 140 - 430 K/uL [facility] MCV 87.4 78.0 - 97.0 fL [facility] MCH 29.8 25.0 - 33.0 pg [facility] MCHC 34.0 32.0 - 36.0 g/dL [facility] RDW 12.9 11.0 - 16.0 % [facility] MPV 11.6 8.4 - 12.8 [facility] DIFF METHOD Auto [facility] NEUTS 52.6 43.0 - 75.0 % [facility] LYMPHS 29.5 18.2 - 47.4 % [facility] MONOS 15.0(H) 4.00 - 11.00 % [facility] EOS 1.8 0.0 - 8.0 % [facility] BASOS 0.9 0.0 - 2.0 % [facility] Granulocytes, immature (%) 0.2 0.0 - 0.9 % [facility] ABSOLUTE NEUTS 2.39 1.80 - 7.70 K/uL [facility] ABSOLUTE LYMPHS 1.34 1.00 - 3.10 K/uL [facility] ABSOLUTE MONOS 0.68 0.20 - 0.80 K/uL [facility] ABSOLUTE EOS 0.08 0.00 - 0.80 K/uL [facility] ABSOLUTE BASOS 0.04 0.00 - 0.09 K/uL [facility] Granulocytes, immature 0.01 0.00 - 0.05 K/uL [facility] Blood 03/25/2022 12:1 0 PM EDT 03/25/2022 12:11 PM EDT us Ashley Vega MOLD BLOWER LAB BLOOD BKR ORDERABLES F inal Result [address] [address] documented in this encounter Visit Diagnoses Diagnosis Pancreatic duct dilated- Primary Other specified disease of pancreas documented in this encounter Care Teams Health Psychologist Relationship Specialty Start Date End Date Shashi Farrell MD [address] [place] [address] [email or web address] PCP - General Internal Medicine 10/14/21 documented as of this encounter Additional Source Comments The information contained in this document represents components of the legal health record. It is not the complete legal health record.[facility]
--- OUTSIDE RECORDS SUMMARY | 2025-06-06 10:29 | XMS_ITS | Encounter Summary ---
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 Not on savita e documented as of this encounter Plan of Treatment Upcoming Encounters Date Type Department Care Team (Late st Contact Info) Description 06/18/2025 10:30 AM EST Office Visit [facility] [address] [place] [address] Unknown, Unknown, Ashley Vernon, MASONRY SUPERVISOR [address] [place] [address] [email or web address] documented as of this encounter Visit Diagnoses Not on filedocumented in this encounter Care Teams Customer Experience Leader Relationship Specialty Start Date End Date Shashi Farrell MD [address] [place] [address] PCP - General Internal Medicine 10/14/21 documented as of this encounter Additional Source Comments The information contained in this document represents components of the legal health record. It is not the complete legal health record.[facility]
--- OUTSIDE RECORDS SUMMARY | 2025-06-06 10:29 | XMS_ITS | Encounter Summary ---
Author Organization [facility] Address [facility] Conjur [facility] [address] [place] [address] Phone Care Team Providers Care Manufacturing Maintenance Mechanic Name Role Phone Tony Carrillo MD Unavailable [phone] Jayson Rucker MD Unavailable Patricia Gutierrez NP Unavailable Unavailable Jimmie Martinez MD Unavailable [phone] Chante Anders MD Unavailable [phone] Patricia Gutierrez NP Primary Care Provider Unava ilable Lenora Castro DO Primary Care Provider [phone] Lenora Castro DO Primary Care Provider [phone] Shashi Farrell MD Primary Care Provider [phone] Encounter Details Date Type Department Care Team (Late st Contact Info) Description 03/14/2018 Ancillary Orders Virtual Department [address] [place] [address] Patricia Gutierrez NP Dysphagia, unspecified type Social History Tobacco Use [...] [facility] 10 [place] [address] Unknown, Unknown, MD Vega, Ashley Wright, SAND TECHNOLOGIST 10 [place] [address] [email or web address] documented as of this encounter Visit Diagnoses Diagnosis Dysphagia, unspecified type documented in this encounter Care Teams Manufacturing Maintenance Mechanic Relationship Specialty Start Date End Date Patricia Gutierrez NP PCP - General Family Medicine 12/22/17 06/10/19 Lenora Castro DO [address] [place] [address] PCP - General Internal Medicine 06/11/19 11/17/19 Lenora Castro DO [address] [place] [address] PCP - General Internal Medicine 11/18/19 10/13/21 Shashi Farrell MD [address] [place] [address] [email or web address] PCP - General Internal Medicine 10/14/21 Tony Carrillo MD [address] [place] [address] [email or web address] Historical LMR Provider 04/01/17 2 Jayson Rucker MD [address] [place] [address], [address] [address] [email or web address] Historical LMR Provider 04/01/17 06/19/21 Patricia Gutierrez NP Historical LMR Provider 04/01/17 06/19/21 Jimmie Martinez MD [address] [place] [address], [facility] [address] [place] [address] [email or web address] Historical LMR Provider 04/01/17 06/19/21 Chante Anders MD [address] [place] [address] Orthopedics [facility] Sports Medicine, [place] [address] [email or web address] Historical LMR Provider 04/01/17 06/19/21 documented as of this encounter Additional Source Comments The information contained in this document represents components of the legal health record. It is not the complete legal health record.[facility]
--- OUTSIDE RECORDS SUMMARY | 2025-06-06 10:29 | XMS_ITS | Encounter Summary ---
Author Organization [facility] Address Counts include 234 beds at the [facility] [address] [place] [address] Phone Care Team Providers Care Cupola Tapper Name Role Phone Shashi Farrell MD Primary Care Provider [phone] Reason for Referral * MRI/CAT Scan - Closed Specialty Diagnoses / Procedures Referred By Josué t Referred To Contact Radiology Diagnoses Chronic diarrhea Procedures MRI Cholangiopancreatography (MRCP) CHG MRI, ABDOMEN, COMBO Jayjay Florence MD Phone: tel: fax: [email or web address] Referral ID Status Reason Start Date Expiration Date Visits Re quested Visits Authorized [id number] Closed 08/09/2022 10/08/2022 1 1 Encounter Details Date Type Department Care Team (Latest Contact Info) Description 08/09/2022 Transcribe Orders Virtual Department 30 [place] [address] Jayjay Florence MD [address] [place] [address] [email or web address] Chronic diarrhea (Primary Dx) Social History [...] 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 [address] [place] [phone] Unknown, Unknown, MD Vega, Ashley Wright, PARKS AND RECREATION MANAGER 10 [place] [address] [email or web address] documented as of this encounter Results * [...] Diarrhea documented in this encounter Care Teams Cupola Tapper Relationship Specialty Start Date End Date Shashi Farrell MD [address] [place] [address] [email or web address] PCP - General Internal Medicine 10/14/21 documented as of this encounter Additional Source Comments The information contained in this document represents components of the legal health record. It is not the complete legal health record.[facility]
--- OUTSIDE RECORDS SUMMARY | 2025-06-06 10:30 | XMS_ITS | Encounter Summary ---
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, [employer]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 Not on savita e documented as of this encounter Plan of Treatment Upcoming Encounters Date Type Department Care Team (Late st Contact Info) Description 06/18/2025 10:30 AM EST Office Visit [facility] [address] [place] [address] Unknown, Unknown, Ashley Vernon CNP [address] [place] [address] [email or web address] documented as of this encounter Results * (ABNORMAL) 25-OH vitamin D (12/18/2023 10:32 AM EDT) 25 OH VIT D (TOTAL) 25(L) 30 - 60 ng/mL [facility] Blood 12/18/2023 10:3 2 AM EDT 12/18/2023 10:43 AM EDT us Ashley Vega ARTIFICIAL CHERRY MAKER LAB BLOOD BKR ORDERABLES F inal Result [facility] [address] [place] [address] * Vitamin B12 (12/18/2023 10:32 AM EDT) VITAMIN B12 373 232 - 1,245 pg/mL [facility] Blood 12/18/2023 10:3 2 AM EDT 12/18/2023 10:43 AM EDT Ashley Vega [facility] LAB BLOOD BKR ORDERABLES F inal Result Performing Organization Address [facility] Co de Phone Number [address] [address] * Magnesium (12/18/2023 10:32 AM EDT) MAGNESIUM 2.2 1.6 - 2.6 mg/dL [facility] Blood 12/18/2023 10:3 2 AM EDT 12/18/2023 10:43 AM EDT Ashley Vega [facility] LAB BLOOD BKR ORDERABLES F inal Result Performing Organization Address [facility] de Phone Number [address] [address] * (ABNORMAL) Ferritin (12/18/2023 10:32 AM EDT) FERRITIN 232(H) 13 - 150 ug/L [facility] Blood 12/18/2023 10:3 2 AM EDT 12/18/2023 10:43 AM EDT Ashley Vega [facility] LAB BLOOD BKR ORDERABLES F inal Result Performing Organization Address [facility] de Phone Number [address] [address] * Folate (12/18/2023 10:32 AM EDT) FOLIC ACID 11.3 4.2 - 19.9 ng/mL [facility] Blood 12/18/2023 10:3 2 AM EDT 12/18/2023 10:43 AM EDT us Ashley Vega [facility] LAB BLOOD BKR ORDERABLES F inal Result [address] [address] * TSH (12/18/2023 10:32 AM EDT) TSH 0.54 0.27 - 4.20 uIU/mL [facility] Blood 12/18/2023 10:3 2 AM EDT 12/18/2023 10:43 AM EDT us Ashley Vega [facility] LAB BLOOD BKR ORDERABLES F inal Result Performing Organization Address [facility]/ZIP Co de Phone Number [address] [address] * Iron and iron binding capacity (12/18/2023 10:32 AM EDT) IRON 122 30 - 160 ug/dL [facility] IRON BINDING CAPACITY 310 228 - 428 ug/dL [facility] TRANSFERRIN SATURAT. 39 15 - 50 % [facility] Blood 12/18/2023 10:3 2 AM EDT 12/18/2023 10:43 AM EDT us Ashley Vega [facility] LAB BLOOD BKR ORDERABLES F inal Result Performing Organization Address City/[facility]/ZIP Co de Phone Number [address] [address] * C-Reactive Protein (12/18/2023 10:32 AM EDT) C REACTIVE PROTEIN <3.0 0.0 - 4.0 mg/L [facility] Blood 12/18/2023 10:3 2 AM EDT 12/18/2023 10:43 AM EDT us Ashley Vega [facility] LAB BLOOD BKR ORDERABLES F inal Result [address] [place] [address] * (ABNORMAL) Comprehensive metabolic panel (12/18/2023 10:32 AM EDT) Pathologist [facility] SODIUM 141 133 - 146 mmol/L [facility] POTASSIUM 4.6 3.3 - 5.1 mmol/L [facility] CHLORIDE 102 96 - 108 mmol/L [facility] CO2 28 21 - 35 mmol/L [facility] BUN 12 6 - 19 mg/dL [facility] CREATININE 0.60 0.5 - 1.5 mg/dL [facility] GLUCOSE 154(H) 70 - 99 mg/dL [facility] ALBUMIN 4.3 3.9 - 4.8 g/dL [facility] TOTAL PROTEIN 7.1 6.5 - 8.0 g/dL [facility] CALCIUM 9.3 8.4 - 10.3 mg/dL [facility] ALKALINE PHOSPHATASE 74 39 - 117 U/L [facility] TOTAL BILIRUBIN 0.5 0.0 - 1.2 mg/dL [facility] AST 22 0 - 37 U/L [facility] ALT 16 0 - 40 U/L [facility] GLOBULIN 2.8 1 - 4.8 g/dL [facility] EGFR 103 >59 mL/min/1.7 3m2 [facility] Comment:Estimated glomerular filtration rate calculated using the CKD-EPI refit equation. ANION GAP 16 10 - 20 mmol/L [facility] Blood 12/18/2023 10:3 2 AM EDT 12/18/2023 10:43 AM EDT us Ashley Vega ARTIFICIAL CHERRY MAKER LAB BLOOD BKR ORDERABLES F inal Result [address] [address] * (ABNORMAL) CBC and differential (12/18/2023 10:32 AM EDT) Pathologist [facility] WBC 2.79(L) 4.00 - 11.00 K/uL [facility] RBC 4.51 3.72 - 5.30 M/uL [facility] HGB 13.1 11.4 - 15.9 g/dL [facility] HCT 39.9 34.2 - 46.8 % [facility] PLT 231 140 - 430 K/uL [facility] MCV 88.5 78.0 - 97.0 fL [facility] MCH 29.0 25.0 - 33.0 pg [facility] MCHC 32.8 32.0 - 36.0 g/dL [facility] RDW 14.5 11.0 - 16.0 % [facility] MPV 10.5 8.4 - 12.8 fl [facility] DIFF METHOD Auto [facility] NEUTS 41.9(L) 43.0 - 75.0 % [facility] LYMPHS 41.2 18.2 - 47.4 % [facility] MONOS 13.3(H) 4.00 - 11.00 % [facility] EOS 2.5 0.0 - 8.0 % [facility] BASOS 1.1 0.0 - 2.0 % [facility] Granulocytes, immature (%) 0.0 0.0 - 0.9 % [facility] ABSOLUTE NEUTS 1.17(L) 1.80 - 7.70 K/uL [facility] ABSOLUTE LYMPHS 1.15 1.00 - 3.10 K/uL [facility] ABSOLUTE MONOS 0.37 0.20 - 0.80 K/uL [facility] ABSOLUTE EOS 0.07 0.00 - 0.80 K/uL [facility] ABSOLUTE BASOS 0.03 0.00 - 0.09 K/uL [facility] Granulocytes, immature 0.00 0.00 - 0.05 K/uL [facility] Blood 12/18/2023 10:3 2 AM EDT 12/18/2023 10:43 AM EDT us Ashley Vega CNP LAB BLOOD BKR ORDERABLES F inal Result [facility] [address] [place] [address] documented in this encounter Visit Diagnoses Diagnosis Nausea- Primary Nausea alone Bloating Flatulence, eructation, and gas pain RUQ abdominal pain Abdominal pain, right upper quadrant documented in this encounter Care Teams Sheltered Workshop Executive Director Relationship Specialty Start Date End Date Shashi Farrell MD [address] [place], [place] [id number] [email or web address] PCP - General Internal Medicine 10/14/21 documented as of this encounter Additional Source Comments The information contained in this document represents components of the legal health record. It is not the complete legal health record.[facility]
--- OUTSIDE RECORDS SUMMARY | 2025-06-06 10:30 | XMS_ITS | Encounter Summary ---
Author Organization [facility] Address [address] [place] [address] [place] [address] Phone Care Team Providers Care Flexographic Printing Machinist Name Role Phone Shashi Farrell MD Primary Care Provider [phone] Reason for Referral * MRI/CAT Scan - Closed Specialty Diagnoses / Procedures Referred By Contac t Referred To Contact Radiology Diagnoses Strain of musc/tend the rotator cuff of right shoulder, init Procedures MRI Shoulder (Right) CHG MRI, JOINT UPPER EXTREM Levar Mathew MD Phone: tel: fax: mailto:[email or web address] Referral ID Status Reason Start Date Expiration Date Visits Re quested Visits Authorized [id number] Closed 06/15/2022 08/14/2022 1 1 Encounter Details Date Type Department Care Team (Latest Contact Info) Description 06/15/2022 Transcribe Orders Virtual Department 30 [place] [address] Levar Mathew MD [address] [place] [address] [email or web address] 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 Not on savita e documented as of this encounter Plan of Treatment Upcoming Encounters Date Type Department Care Team (Late st Contact Info) Description 06/18/2025 10:30 AM EST Office Visit [facility] [address] [place] [address] Unknown, Unknown, MD Vega, Ashley Wright, CHIEF NUCLEAR MEDICINE TECHNOLOGIST [address] [place] [address] [email or web address] documented as of this encounter Results * [...] init documented in this encounter Care Teams Flexographic Printing Machinist Relationship Specialty Start Date End Date Shashi Farrell MD [address] [place] [address] [email or web address] PCP - General Internal Medicine 10/14/21 documented as of this encounter Additional Source Comments The information contained in this document represents components of the legal health record. It is not the complete legal health record.[facility]
--- OUTSIDE RECORDS SUMMARY | 2025-06-06 10:30 | XMS_ITS | Encounter Summary ---
Author Organization [facility] Address [address] [place] [address] [address] [place] [address] Phone Care Team Providers Care Surgical Sales Representative Name Role Phone Shashi Farrell MD Primary Care Provider [phone] Reason for Referral * MRI/CAT Scan - Closed Specialty Diagnoses / Procedures Referred By Contchiara t Referred To Contact Radiology Diagnoses Nausea Bloating RUQ abdominal pain Procedures MRI Cholangiopancreatography (MRCP) CHG MRI, ABDOMEN, COMBO Ashley Vega CNP Phone: tel: fax: mailto:[email or web address] Referral ID Status Reason Start Date Expiration Date Visits Re quested Visits Authorized [id number] Closed 12/19/2023 02/17/2024 1 1 Encounter Details Date Type Department Care Team (Latest Contact Info) Description 12/19/2023 Transcribe Orders Virtual Department 30 [place] [address] Ashley Vega CNP 10 [place] [address] [email or web address] Nausea (Primary Dx); Bloating; RUQ abdominal pain [...] 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 There is a [id number] body hemangioma. IMPRESSION: 1. Steatosis of the [...] quadrant documented in this encounter Care Teams Surgical Sales Representative Relationship Specialty Start Date End Date Shashi Farrell MD [address] [place] [address] PCP - General Internal Medicine 10/14/21 documented as of this encounter Additional Source Comments The information contained in this document represents components of the legal health record. It is not the complete legal health record.[facility]
--- OUTSIDE RECORDS SUMMARY | 2025-06-06 10:30 | XMS_ITS | Encounter Summary ---
Author Organization [facility] Address [address] [place] [address] Drive [address] [place] [address] Phone Care Team Providers Care Cardiothoracic Icu Rn Name Role Phone Shashi Farrell MD Primary Care Provider [phone]- [phone] Encounter Details Date Type Department Care Team (Latest Contact Info) Description 06/15/2022 Transcribe Orders [facility] [address] [address] Ashley Vega, SHANK FAKER 10 [place] [address] [email or web address] Gastroesophageal reflux disease, unspecified whether esophagitis present [...] 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, [employer]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 Not on savita e documented as of this encounter Plan of Treatment Upcoming Encounters Date Type Department Care Team (Late st Contact Info) Description 06/18/2025 10:30 AM EST Office Visit [facility] 10 [place] [address] Unknown, Unknown, MD Vega, Ashley Wright, SHANK FAKER 10 [place] [address] documented as of this encounter Results * Lipase (06/15/2022 11:59 AM EST) LIPASE 17 16 - 63 U/L [facility] Blood 06/15/2022 11:5 9 AM EST 06/15/2022 12:01 PM EST us Ashley Vega SHANK FAKER LAB BLOOD BKR ORDERABLES F inal Result [facility] [address] [place] [address] * (ABNORMAL) Comprehensive metabolic panel (06/15/2022 11:59 AM EST) Pathologist [facility] SODIUM 142 133 - 146 mmol/L [facility] POTASSIUM 4.1 3.3 - 5.1 mmol/L [facility] CHLORIDE 104 96 - 108 mmol/L [facility] CO2 29 21 - 35 mmol/L [facility] BUN 15 6 - 19 mg/dL [facility] CREATININE 0.60 0.5 - 1.5 mg/dL [facility] GLUCOSE 125(H) 70 - 99 mg/dL [facility] ALBUMIN 4.7 3.9 - 4.8 g/dL [facility] TOTAL PROTEIN 7.4 6.5 - 8.0 g/dL [facility] CALCIUM 9.4 8.4 - 10.3 mg/dL [facility] ALKALINE PHOSPHATASE 77 39 - 117 U/L [facility] TOTAL BILIRUBIN 0.3 0.0 - 1.2 mg/dL [facility] AST 23 0 - 37 U/L [facility] ALT 24 0 - 40 U/L [facility] GLOBULIN 2.7 1 - 4.8 g/dL [facility] EGFR 104 >59 mL/min/1.7 3m2 [facility] Comment:Estimated glomerular filtration rate calculated using the CKD-EPI refit equation. ANION GAP 13 10 - 20 mmol/L [facility] Blood 06/15/2022 11:5 9 AM EST 06/15/2022 12:01 PM EST us Ashley Vega SHANK FAKER LAB BLOOD BKR ORDERABLES F inal Result [address] [address] * (ABNORMAL) CBC and differential (06/15/2022 11:59 AM EST) WBC 3.86(L) 4.00 - 11.00 K/uL [facility] RBC 4.34 3.72 - 5.30 M/uL [facility] HGB 12.8 11.4 - 15.9 g/dL [facility] HCT 38.6 34.2 - 46.8 % [facility] PLT 201 140 - 430 K/uL [facility] MCV 88.9 78.0 - 97.0 [facility] MCH 29.5 25.0 - 33.0 pg [facility] MCHC 33.2 32.0 - 36.0 g/dL [facility] RDW 12.5 11.0 - 16.0 % [facility] MPV 11.7 8.4 - 12.8 [facility] DIFF METHOD Auto [facility] NEUTS 48.2 43.0 - 75.0 % [facility] LYMPHS 35.0 18.2 - 47.4 % [facility] MONOS 12.4(H) 4.00 - 11.00 % [facility] EOS 3.4 0.0 - 8.0 % [facility] BASOS 1.0 0.0 - 2.0 % [facility] Granulocytes, immature (%) 0.0 0.0 - 0.9 % [facility] ABSOLUTE NEUTS 1.86 1.80 - 7.70 K/uL [facility] ABSOLUTE LYMPHS 1.35 1.00 - 3.10 K/uL [facility] ABSOLUTE MONOS 0.48 0.20 - 0.80 K/uL [facility] ABSOLUTE EOS 0.13 0.00 - 0.80 K/uL [facility] ABSOLUTE BASOS 0.04 0.00 - 0.09 K/uL [facility] Granulocytes, immature 0.00 0.00 - 0.05 K/uL [facility] Blood 06/15/2022 11:5 9 AM EST 06/15/2022 12:01 PM EST us Ashley Vega SHANK FAKER LAB BLOOD BKR ORDERABLES F inal Result Performing Organization Address City/State/[facility] Co de Phone Number [address] [address] documented in this encounter Visit Diagnoses Diagnosis Gastroesophageal reflux disease, unspecified whether esophagitis present- Primary documented in this encounter Care Teams Cardiothoracic Icu Rn Relationship Specialty Start Date End Date Shashi Farrell MD [address] [place] [phone] [email or web address] PCP - General Internal Medicine 10/14/21 documented as of this encounter Additional Source Comments The information contained in this document represents components of the legal health record. It is not the complete legal health record.[facility]
--- OUTSIDE RECORDS SUMMARY | 2025-06-06 10:30 | XMS_ITS | Encounter Summary ---
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, [employer]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 Not on savita e documented as of this encounter Plan of Treatment Upcoming Encounters Date Type Department Care Team (Late st Contact Info) Description 06/18/2025 10:30 AM EST Office Visit [facility] [address] [place] [address] Unknown, Unknown, Ashley Vernon, PLANT TOUR GUIDE [address] [place] [address] [email or web address] documented as of this encounter Results * BD DXA AXIAL (SPINE) WITH HIP (12/26/2024 10:20 AM EDT) Anatomical Region Laterality Modality Bone Density Bone Density 12/26/2024 10:1 3 AM EDT Impressions 12/27/2024 6:03 PM EDT Interpretation: Normal bone mineral density. Narrative 12/27/2024 6:03 PM EDT Referred By: KIANA MORALES Indications: Postmenopausal Scanner: [employer] A with serial# of [id number] located at [facility] Bone Density Scan (DXA) 12/26/24 Details of [...] -2.5), or Osteoporosis (T-score <= -2.5). At [facility], T-scores are compared to peak bone density [...] Referred By: KIANA MORALES Indications: Postmenopausal Scanner: [employer] A with serial# of [id number] located at [facility] Bone Density Scan (DXA) 12/26/24 Details of [...] -2.5), or Osteoporosis (T-score <= -2.5). At [facility], T-scores are compared to peak bone density [...] Interpretation: Normal bone mineral density. Kiana Morales AGRICULTURAL AND FORESTRY SUPERVISOR IMG BD BONE DENSI TY DEXA Final Result documented in this encounter Visit Diagnoses Diagnosis Asymptomatic menopausal state- Primary Asymptomatic menopausal state documented in this encounter Care Teams Small Business Sales Representative Relationship Specialty Start Date End Date Shashi Farrell MD [address] [place] [address] PCP - General Internal Medicine 10/14/21 documented as of this encounter Additional Source Comments The information contained in this document represents components of the legal health record. It is not the complete legal health record.[facility]
--- OUTSIDE RECORDS SUMMARY | 2025-06-06 10:30 | XMS_ITS | Encounter Summary ---
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 Not on savita e documented as of this encounter Plan of Treatment Upcoming Encounters Date Type Department Care Team (Late st Contact Info) Description 06/18/2025 10:30 AM EST Office Visit [facility] [address] [place] [address] Unknown, Unknown, Ashley Vernon, ANTIQUE AUTO MUSEUM MAINTENANCE WORKER [address] [place] [address] [email or web address] documented as of this encounter Visit Diagnoses Not on filedocumented in this encounter Care Teams Photographic Double Relationship Specialty Start Date End Date Shashi Farrell MD [address] [place] [address] PCP - General Internal Medicine 10/14/21 documented as of this encounter Additional Source Comments The information contained in this document represents components of the legal health record. It is not the complete legal health record.[facility]
--- OUTSIDE RECORDS SUMMARY | 2025-06-06 10:30 | XMS_ITS | Encounter Summary ---
Author Organization [facility] Address [address] [place] [address] [place] [address] Phone Care Team Providers Care Recharger Name Role Phone Lenora Castro DO Primary Care Provider [phone] Tony Carrillo MD Unavailable Jayson Rucker MD Unavailable Patricia Gutierrez NP Unavailable Unavailable Jimmie Martinez MD Unavailable [phone] Chante Anders MD Unavailable [phone] Patricia Gutierrez NP Primary Care Provider Unava ilable Lenora Castro DO Primary Care Provider [phone] Lenora Castro DO Primary Care Provider [phone] Shashi Farrell MD Primary Care Provider [phone] Encounter Details Date Type Department Care Team (Latest Contact Info) Description 08/02/[address] [facility] [place] [address] [place] [address] [place] [address] Luis Hsu MD [address] [place] [address], [address] [place], [place] [id number] [email or web address] Nonintractable headache, unspecified chronicity pattern, unspecified [...] Description 06/18/2025 10:30 AM EST Office Visit [facility] [address] [place] [address] Unknown, Unknown, Ashley Vernon, GRANITE BLOCK PAVER [address] [place] [address] [email or web address] documented as of this encounter Results * Sedimentation rate (ESR) (08/02/2017 4:18 PM EST) ESR 28 0 - 30 mm/h [facility] Blood 08/02/2017 4:18 PM EST 08/02/2017 4:21 PM EST us Luis Hsu MD LAB BLOOD BKR ORDERABLES Fin al Result [address] [address] documented in this encounter Visit Diagnoses Diagnosis Nonintractable headache, unspecified chronicity pattern, unspecified headache type- Primary documented in this encounter Care Teams Recharger Relationship Specialty Start Date End Date Lenora Castro DO [address] [place] [address] PCP - General Internal Medicine 08/10/16 12/21/17 Patricia Gutierrez NP PCP - General Family Medicine 12/22/17 06/10/19 Lenora Castro DO [address] [place] [address] PCP - General Internal Medicine 06/11/19 11/17/19 Lenora Castro DO [address] [place] [address] PCP - General Internal Medicine 11/18/19 10/13/21 Shashi Farrell MD [address] [place] [address] PCP - General Internal Medicine 10/14/21 Tony Carrillo MD [address] [place] [address] [email or web address] Historical LMR Provider 04/01/17 2 Jayson Rucker MD [address] [place] [address] [address] [place] [address] [email or web address] Historical LMR Provider 04/01/17 06/19/21 Patricia Gutierrez NP Historical LMR Provider 04/01/17 06/19/21 Jimmie Martinez MD [address] [place] [address] [address] [place] [address] Historical LMR Provider 04/01/17 06/19/21 Chante Anders MD [address] [place] [address] Orthopedics & Sports Medicine, [facility] [place] [address] Historical LMR Provider 04/01/17 06/19/21 documented as of this encounter Additional Source Comments The information contained in this document represents components of the legal health record. It is not the complete legal health record.[facility]
--- OUTSIDE RECORDS SUMMARY | 2025-06-06 10:30 | XMS_ITS | Encounter Summary ---
Author Organization [facility] Address [facility] [employer] [facility] [address] [place] [address] Phone Care Team Providers Care Defensive Driving Instructor Name Role Phone Lenora Castro DO Primary Care Provider [phone] Tony Carrillo MD Unavailable Jayson Rucker MD Unavailable Patricia Gutierrez NP Unavailable Unavailable Jimmie Martinez MD Unavailable [phone] Chante Anders MD Unavailable [phone] Patricia Gutierrez NP Primary Care Provider Unava ilable Lenora Castro DO Primary Care Provider [phone] Lenora Castro DO Primary Care Provider [phone] Shashi Farrell MD Primary Care Provider [phone] Encounter Details Date Type Department Care Team (Late st Contact Info) Description 07/24/2017 Procedure Pass [facility], [address] [place] [address] Social History Tobacco Use Types Packs/Day Years [...] [facility] [address] [place] [address] Unknown, Unknown, Ashley Vernon, FUEL TRUCK DRIVER [address] [place] [address] documented as of this encounter Visit Diagnoses Not on filedocumented in this encounter Care Teams Defensive Driving Instructor Relationship Specialty Start Date End Date Lenora Castro DO [address] [place] [address] PCP - General Internal Medicine 08/10/16 12/21/17 Patricia Gutierrez NP PCP - General Family Medicine 12/22/17 06/10/19 Lenora Castro DO [address] [place] [address] PCP - General Internal Medicine 06/11/19 11/17/19 Lenora Castro DO [address] [place] [address] PCP - General Internal Medicine 11/18/19 10/13/21 Shashi Farrell MD [address] [place] [address] PCP - General Internal Medicine 10/14/21 Tony Carrillo MD [address] [place] [address] [email or web address] Historical LMR Provider 04/01/17 2 Jayson Rucker MD [address] [place] [address] [address] [place] [address] [email or web address] Historical LMR Provider 04/01/17 06/19/21 Patricia Gutierrez NP Historical LMR Provider 04/01/17 06/19/21 Jimmie Martinez MD [address] [place] [address] [address] [place] [address] [email or web address] Historical LMR Provider 04/01/17 06/19/21 Chante Anders MD [address] [place] [address] Orthopedics & Sports Medicine, [facility] [place] [address] [email or web address] Historical LMR Provider 04/01/17 06/19/21 documented as of this encounter Additional Source Comments The information contained in this document represents components of the legal health record. It is not the complete legal health record.[facility]
== END 2025-06-06 10:23 | disposition home or self-care (01) ==
LOC: HO.MRI 10:22
PROVIDERS: PCP Internal Medicine; Visit Provider Psychiatry & Neurology Neurology
DX: I72.9 Aneurysm of unspecified site (principal)
CPT/HCPCS: 70544